=== PATIENT | female | born 1970 | race Caucasian/White ===

== ENCOUNTER 2023-05-22 17:48 | Emergency (ER) | payer MEDICAID, SELFPAY ==
[2023-05-22] VITALS (9 sets, daily range): BP systolic 108–173; BP diastolic 71–99; PULSE 90–110; RESP 12–34; TEMP 37.1; O2SAT 94–98; BMI 44.6
--- NOTE | 2023-05-22 18:09 | CT_ITS ---
The [address] [address] Patient Name: EZEQUIEL ZIMMERMAN MRN: [facility]:[id number] date: 1970 Sex: F Assigned Patient Location: ER Current Patient Location: Accession/Order Number: [id number] Exam Date: 05/22/2023 18:49 Report Date: 05/22/2023 19:42 At the request of: MOHAN FERRELL Procedure: CT lumbar spine wo con EXAM: CT thoracic spine wo con, CT lumbar spine wo con HISTORY: Paresthesia. Back pain. Weakness. COMPARISON: None. TECHNIQUE: Unenhanced helical acquisition obtained through the thoracic and the lumbar spine with axial, coronal and sagittal MPR reconstructions. FINDINGS: No evidence of fracture or spondylolisthesis. Moderate multilevel degenerative disc disease present throughout the mid and inferior thoracic spine. Minimal deformity upon the ventral aspect of the thecal sac secondary to posterior disc-osteophyte complexes at T6-T7, T7-T8 and T8-T9 without evidence of significant spinal canal stenosis. Mild degenerative disc disease at L5-S1. Moderate-severe bilateral facet arthropathy at L4-L5 and L5-S1. No evidence of significant spinal canal stenosis involving the lumbar spine. Moderate-severe left L5-S1 foraminal stenosis secondary to facet arthropathy and endplate spurring. CT/CT lumbar spine wo con IMPRESSION: 1. Moderate-severe left L5-S1 foraminal stenosis. 2. No evidence of significant spinal canal stenosis. 3. Mild-moderate multilevel degenerative disc disease involving the thoracic and the lumbar spine. Moderate-severe bilateral facet arthropathy at L4-L5 and L5-S1. Electronically authenticated by: CHIP PERES Date: 05/22/2023 19:42
--- NOTE | 2023-05-22 18:09 | CT_ITS ---
The [address] [address] Patient Name: EZEQUIEL ZIMMERMAN MRN: [facility]:[id number] date: 1970 Sex: F Assigned Patient Location: ER Current Patient Location: Accession/Order Number: [id number] Exam Date: 05/22/2023 18:49 Report Date: 05/22/2023 19:42 At the request of: MOHAN FERRELL Procedure: CT thoracic spine wo con EXAM: CT thoracic spine wo con, CT lumbar spine wo con HISTORY: Paresthesia. Back pain. Weakness. COMPARISON: None. TECHNIQUE: Unenhanced helical acquisition obtained through the thoracic and the lumbar spine with axial, coronal and sagittal MPR reconstructions. FINDINGS: No evidence of fracture or spondylolisthesis. Moderate multilevel degenerative disc disease present throughout the mid and inferior thoracic spine. Minimal deformity upon the ventral aspect of the thecal sac secondary to posterior disc-osteophyte complexes at T6-T7, T7-T8 and T8-T9 without evidence of significant spinal canal stenosis. Mild degenerative disc disease at L5-S1. Moderate-severe bilateral facet arthropathy at L4-L5 and L5-S1. No evidence of significant spinal canal stenosis involving the lumbar spine. Moderate-severe left L5-S1 foraminal stenosis secondary to facet arthropathy and endplate spurring. CT/CT thoracic spine wo con IMPRESSION: 1. Moderate-severe left L5-S1 foraminal stenosis. 2. No evidence of significant spinal canal stenosis. 3. Mild-moderate multilevel degenerative disc disease involving the thoracic and the lumbar spine. Moderate-severe bilateral facet arthropathy at L4-L5 and L5-S1. Electronically authenticated by: CHIP PERES Date: 05/22/2023 19:42
--- NOTE | 2023-05-22 18:09 | CT_ITS ---
The [address] [address] Patient Name: EZEQUIEL ZIMMERMAN MRN: [id number] date: 1970 Sex: F Assigned Patient Location: ER Current Patient Location: ER Accession/Order Number: [id number] Exam Date: 05/22/2023 18:49 Report Date: 05/22/2023 19:12 At the request of: MOHAN FERRELL Procedure: CT head/brain wo con EXAMINATION: CT head/brain wo con, 05/22/2023 6:49 PM EDT HISTORY: Facial numbness COMPARISON: None. TECHNIQUE: CT scan of the head was performed without IV contrast. CT dose reduction technique was used, including Automated Exposure Control. FINDINGS: BRAIN PARENCHYMA/CSF SPACES: Ventricles are normal in size for age. There is no hemorrhage, mass effect or midline shift. Mild low attenuation in the white matter consistent with chronic microvascular ischemia. PARANASAL SINUSES: Clear. SKULL BASE AND CALVARIUM: Normal. EXTRACRANIAL SOFT TISSUES: Normal. CT/CT head/brain wo con IMPRESSION: 1. No acute intracranial abnormality. 2. MRI would be more sensitive for acute infarct if clinically indicated. Electronically authenticated by: ANGÉLICA MINOR Date: 05/22/2023 19:12
--- NOTE | 2023-05-22 18:09 | ECG_ITS ---
The [facility] Test Date: 2023-05-22 Pat Name: EZEQUIEL ZIMMERMAN Department: Room: - Gender: Female [employer]: : 1970 Requested By: [id number] Order Number: [id number] Reading MD: AUBREY ALLEN Measurements Intervals [place] Rate: 95 P: 54 FL: 186 QRS: 26 QRSD: 74 T: 51 QT: 330 QTc: 383 Interpretive Statements 1100 Sinus rhythm 4068 Nonspecific [place] abnormality 8102 Low QRS voltage in chest leads 9130 borderline ECG No previous ECG available for comparison Electronically Signed On 05-23-2023 7:09:38 EDT by AUBREY ALLEN
--- NOTE | 2023-05-22 18:11 | ED_ITS ---
Documented by User: MITCHEL Camarena 05/22/23 19:48 HPI - General Adult General Chief complaint: Neuro Symptoms/Deficit Stated complaint: GENERAL WEAKNESS Time Seen by Provider: 05/22/23 17:53 Source: patient Mode of arrival: Wheelchair Limitations: no limitations History of Present Illness HPI narrative: Patient is a 53-year-old female who presents to the emergency department for a variety of complaints. Patient states for the last day she has felt weak and has noted a sensation of like Novocain all over her face although she is noted to be speaking clearly. She denies any fevers, cough, congestion, chest pain, shortness breath, nausea, vomiting, urinary symptoms. She states she recently started seeking regular health care approximately ten months ago and has been seen by both her primary care provider in a neurologist. She has a history of neuropathy to the feet and is currently on Lyrica for this. She states in the last 7-10 days she has noticed an increase in pins and needle sensation to her legs, low back. She saw her PCP who attributed the symptoms to her Lyrica but told her to stay on the medication. She denies any recent falls or injuries. She states she is further concerned because she can feel crunching in her upper back and states that she did have an MRI earlier this year of the thoracic spine which showed bulging disks. No medications taken prior to arrival. Related Data Home Medications Medication Instructions Recorded Confirmed allopurinol 300 mg tablet 300 mg PO DAILY 05/22/23 05/22/23 atorvastatin 10 mg tablet 10 mg PO DAILY 05/22/23 05/22/23 cholecalciferol (vitamin D3) 50 50 mcg PO DAILY 05/22/23 05/22/23 mcg (2,000 unit) capsule dulaglutide 3 mg/0.5 mL 3 mg subcut QWEEK 05/22/23 05/22/23 [facility] levothyroxine 50 mcg tablet 50 mcg PO DAILY 05/22/23 05/22/23 lisinopril 2.5 mg tablet 2.5 mg PO DAILY 05/22/23 05/22/23 metformin 500 mg tablet 500 mg PO .Q12hrs 05/22/23 05/22/23 nabumetone 500 mg tablet 500 mg PO BID 05/22/23 05/22/23 pregabalin 200 mg capsule 200 mg PO Q8H 05/22/23 05/22/23 tizanidine 4 mg capsule 4 mg PO Q8H PRN back pain 05/22/23 05/22/23 trazodone 50 mg tablet 50 mg PO DAILY PRN sleep 05/22/23 05/22/23 Previous Rx's Medication Instructions Recorded prednisone 20 mg tablet 40 mg PO DAILY 3 days #6 tabs 05/22/23 Allergies Allergy/AdvReac Type Severity Reaction Status Date / Time propylthiouracil Allergy Severe Hives Verified 05/22/23 17:59 Review of Systems ROS Constitutional Denies: fever or chills Ears, nose, mouth, and throat Denies: neck pain Cardiovascular Denies: chest pain Respiratory Denies: shortness of breath or cough Gastrointestinal Denies: nausea or vomiting Musculoskeletal Reports: back pain and extremity pain; Denies: neck pain Integumentary/Breast Denies: rash Neurological Denies: headache Hematologic/Lymphatic Denies: easy bruising Allergic/Immunologic Denies: hives PFSH [facility] Social History Smoking status: Former smoker Exam Narrative Exam Narrative: Gen.: Awake, alert, in no distress Head: Normocephalic, atraumatic ENT: Moist mucous membranes Respiratory: No respiratory distress, lungs clear bilaterally Cardio: Regular rate and rhythm Back: No bony midline tenderness of the T-spine or L-spine. No obvious deformity or step-off Extremities: Moves extremities equally, no injuries noted; normal dorsiflexion and plantarflexion of the lower extremities with no decrease in sensation to the medial thighs, normal hip flexion bilaterally. Psych: Normal mood and affect Neuro: No focal neuro deficit Skin: Warm, dry, intact Constitutional Vital Signs, click to edit/add: Last Vital Signs Temp 98.8 F 05/22/23 17:52 Pulse 91 H 05/22/23 19:59 Resp 16 05/22/23 19:05 BP 108/71 05/22/23 19:59 Pulse Ox 96 05/22/23 19:59 O2 Del Method Room Air 05/22/23 17:52 Course Vital Signs Vital signs: Vital Signs Temperature 98.8 F 05/22/23 17:52 Pulse Rate 110 H 05/22/23 17:52 Respiratory Rate 18 05/22/23 17:52 Blood Pressure 173/99 H 05/22/23 17:52 Pulse Oximetry 97 05/22/23 17:52 Oxygen Delivery Method Room Air 05/22/23 17:52 Temperature 98.8 F 05/22/23 17:52 Pulse Rate 91 H 05/22/23 19:59 Respiratory Rate 16 05/22/23 19:05 Blood Pressure 108/71 05/22/23 19:59 Pulse Oximetry 96 05/22/23 19:59 Oxygen Delivery Method Room Air 05/22/23 17:52 Medical Decision Making MDM Narrative Medical decision making narrative: Patient with no focal neuro deficits in the emergency department. She is treated with IV fluids, Solu-Medrol. CTs of the brain, T-spine and L-spine show significant degenerative changes in the spine but no evidence of acute focal process. Patient will be started on Medrol Dosepak for home. She has a history of diabetes and was strongly encouraged to watch her blood sugar and diet over the next several days. Follow-up with PCP and return to the emergency department if symptoms change or worsen. Medical Records Medical records reviewed: Yes I reviewed the patient's medical records Lab Data Lab results reviewed: Yes I reviewed the patient's lab results Labs: Lab Results 05/22/23 05/22/23 Range/Units 18:17 19:13 WBC 11.5 H (4.0-11.0) 10^3/uL RBC 4.88 (4.20-5.40) 10^6/uL Hgb 15.1 (12.0-16.0) g/dL Hct 44.4 (36.0-48.0) % MCV 91.0 (81.0-99.0) fL MCH 30.9 (26.7-34.0) pg MCHC 34.0 (29.9-35.2) g/dL RDW 12.2 (11.0-15.0) % Plt Count 256 (150-450) 10^3/uL MPV 9.4 L (9.5-13.5) fL Neut % (Auto) 68.5 (43.0-75.0) % Lymph % (Auto) 21.7 (20.5-60.0) % [place] % (Auto) 6.4 (1.7-12.0) % Eos % (Auto) 2.4 (0.9-7.0) % Baso % (Auto) 0.8 (0.2-2.0) % Neut # (Auto) 7.9 H (1.4-6.5) 10^3/uL Lymph # (Auto) 2.5 (1.2-3.8) 10^3/uL [place] # (Auto) 0.7 (0.3-0.8) 10^3/uL Eos # (Auto) 0.3 (0.0-0.7) 10^3/uL Baso # (Auto) 0.1 (0.0-0.1) 10^3/uL Abs Immat Gran (auto) 0.02 (0.00-0.03) 10^3/uL Imm/Tot Granulo (auto) 0.2 (0.0-0.5) % ESR 37 H (<=30) mm/hr Sodium 140 (136-145) mmol/L Potassium 3.6 (3.5-5.1) mmol/L Chloride 103 (98-107) mmol/L Carbon Dioxide 26.1 (21.0-32.0) mmol/L Anion Gap 14.5 BUN 10.0 (7.0-18.0) mg/dL Creatinine 0.77 (0.55-1.02) mg/dL Est GFR ( Amer) >60 (>=60) Est GFR (Non-Af Amer) >60 (>=60) BUN/Creatinine Ratio 13.0 Glucose 157 H (74-106) mg/dL Calcium 8.8 (8.5-10.1) mg/dL Magnesium 2.0 (1.8-2.4) mg/dL Total Bilirubin 0.8 (0.2-1.0) mg/dL AST 12 L (15-37) U/L ALT 31 (14-59) U/L Alkaline Phosphatase 80 (46-116) U/L C-Reactive Protein <0.2 (<=1.0) mg/dL Total Protein 7.8 (6.4-8.2) g/dL Albumin 3.6 (3.4-5.0) g/dL Globulin 4.2 g/dL Albumin/Globulin Ratio 0.9 Urine Color Yellow (YELLOW) Urine Clarity Clear (CLEAR) Urine pH 6.0 (5.0-9.0) Ur Specific [place] 1.025 (1.005-1.025) Urine Protein Negative (NEG/TRACE) mg/dL Urine Glucose (UA) Negative (NEGATIVE) mg/dL Urine Ketones Negative (NEGATIVE) mg/dL Urine Occult Blood Negative (NEGATIVE) Urine Nitrite Negative (NEGATIVE) Urine Bilirubin Negative (NEGATIVE) Urine Urobilinogen 0.2 (0.2-1.0) EU/dL Ur Leukocyte Esterase Negative (NEGATIVE) Imaging Data CT scan - head: Attestation: I have reviewed the pertinent imaging results. Radiologist's impression: Procedure: CT head/brain wo con EXAMINATION: CT head/brain wo con, 05/22/2023 6:49 PM EDT HISTORY: Facial numbness COMPARISON: None. TECHNIQUE: CT scan of the head was performed without IV contrast. CT dose reduction technique was used, including Automated Exposure Control. FINDINGS: BRAIN PARENCHYMA/CSF SPACES: Ventricles are normal in size for age. There is no hemorrhage, mass effect or midline shift. Mild low attenuation in the white matter consistent with chronic microvascular ischemia. PARANASAL SINUSES: Clear. SKULL BASE AND CALVARIUM: Normal. EXTRACRANIAL SOFT TISSUES: Normal. IMPRESSION: 1. No acute intracranial abnormality. 2. MRI would be more sensitive for acute infarct if clinically indicated. Electronically authenticated by: ANGÉLICA MINOR Date: 05/22/2023 19:12 CT thoracic spine: Attestation: I have reviewed the pertinent imaging results. CT lumbar spine: Attestation: I have reviewed the pertinent imaging results. ECG Data Attestation: I personally reviewed and interpreted this ECG as follows: (Normal sinus rhythm at a rate of ninety-five, no acute ST elevation or ectopy. EKG reviewed by attending physician) Discharge Plan Discharge Chief Complaint: Neuro Symptoms/Deficit Clinical Impression: Paresthesia Patient Disposition: Home, Self-Care Time of Disposition Decision: 19:47 Condition: Good Prescriptions / Home Meds: New prednisone 20 mg tablet 40 mg PO DAILY 3 Days Qty: 6 0RF No Action allopurinol 300 mg tablet 300 mg PO DAILY atorvastatin 10 mg tablet 10 mg PO DAILY cholecalciferol (vitamin D3) 50 mcg (2,000 unit) capsule 50 mcg PO DAILY levothyroxine 50 mcg tablet 50 mcg PO DAILY lisinopril 2.5 mg tablet 2.5 mg PO DAILY metformin 500 mg tablet 500 mg PO .Q12hrs nabumetone 500 mg tablet 500 mg PO BID pregabalin 200 mg capsule 200 mg PO Q8H tizanidine 4 mg capsule 4 mg PO Q8H PRN (Reason: back pain) trazodone 50 mg tablet 50 mg PO DAILY PRN (Reason: sleep) Trulicity 3 mg/0.5 mL pen injector 3 mg subcut QWEEK Instructions: Paresthesia (ED) Additional Instructions: Follow up with your regular doctor and your neurologist Stand Alone Forms: Portal Instructions Referrals: LARS DAVIS [Primary Care Provider] - 1 week Discharge Date/Time: 05/22/23 20:00 Documented by User: Carly Chiu MD 05/24/23 23:01 HPI - General Adult General Chief complaint: Neuro Symptoms/Deficit Stated complaint: GENERAL WEAKNESS Time Seen by Provider: 05/22/23 17:53 Related Data Home Medications Medication Instructions Recorded Confirmed allopurinol 300 mg tablet 300 mg PO DAILY 05/22/23 05/22/23 atorvastatin 10 mg tablet 10 mg PO DAILY 05/22/23 05/22/23 cholecalciferol (vitamin D3) 50 50 mcg PO DAILY 05/22/23 05/22/23 mcg (2,000 unit) capsule dulaglutide 3 mg/0.5 mL 3 mg subcut QWEEK 05/22/23 05/22/23 subcutaneous pen injector (Trulicity) levothyroxine 50 mcg tablet 50 mcg PO DAILY 05/22/23 05/22/23 lisinopril 2.5 mg tablet 2.5 mg PO DAILY 05/22/23 05/22/23 metformin 500 mg tablet 500 mg PO .Q12hrs 05/22/23 05/22/23 nabumetone 500 mg tablet 500 mg PO BID 05/22/23 05/22/23 pregabalin 200 mg capsule 200 mg PO Q8H 05/22/23 05/22/23 tizanidine 4 mg capsule 4 mg PO Q8H PRN back pain 05/22/23 05/22/23 trazodone 50 mg tablet 50 mg PO DAILY PRN sleep 05/22/23 05/22/23 Previous Rx's Medication Instructions Recorded prednisone 20 mg tablet 40 mg PO DAILY 3 days #6 tabs 05/22/23 Allergies Allergy/AdvReac Type Severity Reaction Status Date / Time propylthiouracil Allergy Severe Hives Verified 05/22/23 17:59 PFSH PFSH Social History Smoking status: Former smoker Exam Constitutional Vital Signs, click to edit/add: Last Vital Signs Temp 98.8 F 05/22/23 17:52 Pulse 91 H 05/22/23 19:59 Resp 16 05/22/23 19:05 BP 108/71 05/22/23 19:59 Pulse Ox 96 05/22/23 19:59 O2 Del Method Room Air 05/22/23 17:52 Course Vital Signs Vital signs: Vital Signs Temperature 98.8 F 05/22/23 17:52 Pulse Rate 110 H 05/22/23 17:52 Respiratory Rate 18 05/22/23 17:52 Blood Pressure 173/99 H 05/22/23 17:52 Pulse Oximetry 97 05/22/23 17:52 Oxygen Delivery Method Room Air 05/22/23 17:52 Temperature 98.8 F 05/22/23 17:52 Pulse Rate 91 H 05/22/23 19:59 Respiratory Rate 16 05/22/23 19:05 Blood Pressure 108/71 05/22/23 19:59 Pulse Oximetry 96 05/22/23 19:59 Oxygen Delivery Method Room Air 05/22/23 17:52 Medical Decision Making MDM Narrative Medical decision making narrative: Patient with no focal neuro deficits in the emergency department. She is treated with IV fluids, Solu-Medrol. CTs of the brain, T-spine and L-spine show significant degenerative changes in the spine but no evidence of acute focal process. Patient will be started on Medrol Dosepak for home. She has a history of diabetes and was strongly encouraged to watch her blood sugar and diet over the next several days. Follow-up with PCP and return to the emergency department if symptoms change or worsen. Attending physician attestation I have reviewed the mid-level documentation, agree with the documentation, medical decision making and treatment plan as outlined by the mid-level provider. Lab Data Labs: Lab Results 05/22/23 05/22/23 Range/Units 18:17 19:13 WBC 11.5 H (4.0-11.0) 10^3/uL RBC 4.88 (4.20-5.40) 10^6/uL Hgb 15.1 (12.0-16.0) g/dL Hct 44.4 (36.0-48.0) % MCV 91.0 (81.0-99.0) fL MCH 30.9 (26.7-34.0) pg MCHC 34.0 (29.9-35.2) g/dL RDW 12.2 (11.0-15.0) % Plt Count 256 (150-450) 10^3/uL MPV 9.4 L (9.5-13.5) fL Neut % (Auto) 68.5 (43.0-75.0) % Lymph % (Auto) 21.7 (20.5-60.0) % [place] % (Auto) 6.4 (1.7-12.0) % Eos % (Auto) 2.4 (0.9-7.0) % Baso % (Auto) 0.8 (0.2-2.0) % Neut # (Auto) 7.9 H (1.4-6.5) 10^3/uL Lymph # (Auto) 2.5 (1.2-3.8) 10^3/uL [place] # (Auto) 0.7 (0.3-0.8) 10^3/uL Eos # (Auto) 0.3 (0.0-0.7) 10^3/uL Baso # (Auto) 0.1 (0.0-0.1) 10^3/uL Abs Immat Gran (auto) 0.02 (0.00-0.03) 10^3/uL Imm/Tot Granulo (auto) 0.2 (0.0-0.5) % ESR 37 H (<=30) mm/hr Sodium 140 (136-145) mmol/L Potassium 3.6 (3.5-5.1) mmol/L Chloride 103 (98-107) mmol/L Carbon Dioxide 26.1 (21.0-32.0) mmol/L Anion Gap 14.5 BUN 10.0 (7.0-18.0) mg/dL Creatinine 0.77 (0.55-1.02) mg/dL Est GFR ( Amer) >60 (>=60) Est GFR (Non-Af Amer) >60 (>=60) BUN/Creatinine Ratio 13.0 Glucose 157 H (74-106) mg/dL Calcium 8.8 (8.5-10.1) mg/dL Magnesium 2.0 (1.8-2.4) mg/dL Total Bilirubin 0.8 (0.2-1.0) mg/dL AST 12 L (15-37) U/L ALT 31 (14-59) U/L Alkaline Phosphatase 80 (46-116) U/L C-Reactive Protein <0.2 (<=1.0) mg/dL Total Protein 7.8 (6.4-8.2) g/dL Albumin 3.6 (3.4-5.0) g/dL Globulin 4.2 g/dL Albumin/Globulin Ratio 0.9 Urine Color Yellow (YELLOW) Urine Clarity Clear (CLEAR) Urine pH 6.0 (5.0-9.0) Ur Specific [place] 1.025 (1.005-1.025) Urine Protein Negative (NEG/TRACE) mg/dL Urine Glucose (UA) Negative (NEGATIVE) mg/dL Urine Ketones Negative (NEGATIVE) mg/dL Urine Occult Blood Negative (NEGATIVE) Urine Nitrite Negative (NEGATIVE) Urine Bilirubin Negative (NEGATIVE) Urine Urobilinogen 0.2 (0.2-1.0) EU/dL Ur Leukocyte Esterase Negative (NEGATIVE) Discharge Plan Discharge Chief Complaint: Neuro Symptoms/Deficit Clinical Impression: Paresthesia Patient Disposition: Home, Self-Care Time of Disposition Decision: 19:47 Condition: Good Prescriptions / Home Meds: New prednisone 20 mg tablet 40 mg PO DAILY 3 Days Qty: 6 0RF No Action allopurinol 300 mg tablet 300 mg PO DAILY atorvastatin 10 mg tablet 10 mg PO DAILY cholecalciferol (vitamin D3) 50 mcg (2,000 unit) capsule 50 mcg PO DAILY levothyroxine 50 mcg tablet 50 mcg PO DAILY lisinopril 2.5 mg tablet 2.5 mg PO DAILY metformin 500 mg tablet 500 mg PO .Q12hrs nabumetone 500 mg tablet 500 mg PO BID pregabalin 200 mg capsule 200 mg PO Q8H tizanidine 4 mg capsule 4 mg PO Q8H PRN (Reason: back pain) trazodone 50 mg tablet 50 mg PO DAILY PRN (Reason: sleep) Trulicity 3 mg/0.5 mL pen injector 3 mg subcut QWEEK Instructions: Paresthesia (ED) Additional Instructions: Follow up with your regular doctor and your neurologist Stand Alone Forms: Portal Instructions Referrals: LARS DAVIS [Primary Care Provider] - 1 week Discharge Date/Time: 05/22/23 20:00
--- NOTE | 2023-05-22 18:14 | PC.NURSE ---
pt presents to ED c/o back pain for the last week and for the last day she has felt weak and has numbness and tingling in her face and everywhere else in her body. pt states that her feet occasionally turn purple depending on what she is doing. pt also c/o back pain and states she can hear crunching and squishy noises in her ears. pt states that she feels like she is being squeezed by a python . pt is neurologically intact on arrival. no neuro deficits. pt came back to room in wheelchair but ambulated to bed.
[2023-05-22] MEDS: 0.9 % SODIUM CHLORIDE 1,000 ML 1000 ML IV (18:24)
[2023-05-22] MEDS: METHYLPREDNISOLONE SOD SUCC PF 125 MG/2 ML VIAL IVP (18:25)
[2023-05-22] MEDS: KETOROLAC TROMETHAMINE 30 MG/ML VIAL IVP (18:25)
[2023-05-22 18:39] LABS: Alanine Aminotransferase 31 U/L (14-59); Albumin Globulin Ratio 0.9; Albumin Level 3.6 g/dL (3.4-5.0); Alkaline Phosphatase 80 U/L (46-116); Anion Gap 14.5; Aspartate Amino Transferase 12 U/L (15-37); Bilirubin Total 0.8 mg/dL (0.2-1.0); Calcium 8.8 mg/dL (8.5-10.1); Carbon Dioxide 26.1 mmol/L (21.0-32.0); Chloride 103 mmol/L (98-107); Estimated GFR (African America >60 (>=60); Estimated GFR (Non-African Ame >60 (>=60); Globulin 4.2 g/dL; Glucose 157 mg/dL (74-106); Potassium 3.6 mmol/L (3.5-5.1); Sodium 140 mmol/L (136-145); Total Protein 7.8 g/dL (6.4-8.2)
[2023-05-22 18:41] LABS: Basophils Absolute Auto 0.1 10^3/uL (0.0-0.1); Basophils Percent Auto 0.8 % (0.2-2.0); Eosinophils Absolute Auto 0.3 10^3/uL (0.0-0.7); Eosinophils Percent Auto 2.4 % (0.9-7.0); Hematocrit 44.4 % (36.0-48.0); Hemoglobin 15.1 g/dL (12.0-16.0); Immature Granulocytes Abs Auto 0.02 10^3/uL (0.00-0.03); Immature Granulocytes Pct Auto 0.2 % (0.0-0.5); Lymphocytes Absolute Auto 2.5 10^3/uL (1.2-3.8); Lymphocytes Percent Auto 21.7 % (20.5-60.0); Mean Corpuscular Hemoglobin 30.9 pg (26.7-34.0); Mean Platelet Volume 9.4 fL (9.5-13.5); Monocytes Absolute Auto 0.7 10^3/uL (0.3-0.8); Monocytes Percent Auto 6.4 % (1.7-12.0); Neutrophils Absolute Auto 7.9 10^3/uL (1.4-6.5); Neutrophils Percent Auto 68.5 % (43.0-75.0); Platelet Count 256 10^3/uL (150-450); Red Blood Count 4.88 10^6/uL (4.20-5.40); Red Cell Distribution Width 12.2 % (11.0-15.0); White Blood Count 11.5 10^3/uL (4.0-11.0)
[2023-05-22 18:54] LABS: C Reactive Protein <0.2 mg/dL (<=1.0)
[2023-05-22 19:01] LABS: Erythrocyte Sedimentation Rate 37 mm/hr (<=30)
[2023-05-22 19:24] LABS: Bilirubin Urine NEGATIVE (NEGATIVE); Blood Urine NEGATIVE (NEGATIVE); Clarity Urine CLEAR (CLEAR); Color Urine YELLOW (YELLOW); Glucose Urine UA NEGATIVE (NEGATIVE); Ketones Urine NEGATIVE (NEGATIVE); Leukocyte Esterase Urine NEGATIVE (NEGATIVE); Nitrite Urine NEGATIVE (NEGATIVE); Protein Urine NEGATIVE (NEG/TRACE); Specific Gravity Urine 1.025 (1.005-1.025); Urobilinogen Urine 0.2 EU/dL (0.2-1.0)
[2023-05-22 19:28] LABS: Urine Microscopic Indicated NO
== END 2023-05-22 20:00 | disposition home or self-care (01) ==
PROVIDERS: Physician Assistant; Emergency Provider Emergency Medicine; PCP Family Medicine
DX: R20.2 Paresthesia of skin (principal); Z79.899 Other long term (current) drug therapy; Z79.84 Long term (current) use of oral hypoglycemic drugs; Z79.890 Hormone replacement therapy; Z87.891 Personal history of nicotine dependence
CPT/HCPCS: 36415; 70450; 72128; 72131; 80053; 81003; 83735; 85025; 85652; 86140; 93005; 96374; 96375; 99285; J2930

== ENCOUNTER 2023-09-26 10:44 | Outpatient (OUT) | payer MEDICAID, SELFPAY ==
--- NOTE | 2023-09-26 | CONS_ITS ---
CONSULTATION DATE: 09/26/2023 TO: Zehra Marques M.D. CHIEF COMPLAINT: Includes severe bilateral lower back pain, wore on the left than the right side, with left hip pain and right buttock pain. HISTORY OF PRESENT ILLNESS: Review of systems, past medical/surgical history were obtained and documented on the health questionnaire and is available upon request. She is a 53-year-old female who reports having a six month history of spontaneous onset pain in the above mentioned areas, primarily in her lower back, worse on the left than the right side, left hip area and right gluteal area, right lateral thigh pain. Overall, she rates her pain being 9/10, sharp in character, increased with activities such as standing, walking and performing transitioning maneuvers. She feels most comfortable in the semi-recumbent position. Denies any change in bowel and bladder habits or new sensorimotor changes in the lower extremities. CURRENT MEDICATION: Includes gabapentin 600 mg t.i.d., nabumetone 500 mg b.i.d., duloxetine 30 mg daily. She reports the medications do improve her quality of life, level of functioning and sleep pattern. She complains of some dry mouth and possibly relates it to the duloxetine. EXAMINATION: Notable for patient having no clinical radiculopathy or myelopathy involving the lower extremities. Patient had severe pain with lumbar facet joint loading maneuvers occurring bilaterally, worse on the left than the right side, at L4-5, L5-S1. Patient had a positive PILAR sign, more significant on the left than the right side, and she also had point tenderness overlying the right trochanteric bursa at a point just proximal to the insertion of the right gluteus medius, and she also had myofascial spasm of the lumbar paravertebral muscles, occurring bilaterally. IMPRESSION: Our impression is patient with chronic pain secondary to lumbosacral spondylosis L4-5, L5-S1, worse on the left than the right side, leading to myofascial spasm; bilateral hip joint pain, left worse than right and right trochanteric bursitis. RECOMMENDATIONS: I recommend that patient have aquatic therapy, transition from a home based land exercise program, which has been supervised. I have asked her to obtain bilateral hip films, and to proceed with a diagnostic bilateral L4-5, L5-S1 facet joint injection under fluoroscopic guidance. She is unable to tolerate nonsteroidal agents secondary to GI distress, and she has been undergoing conservative therapy which includes a home supervised exercise program for her current symptomatology, and also has undergone activity modification. I have gone over the details of the procedure with the patient. All her questions answered. She agrees to proceed with the outlined plan. As part of providing excellent, safe, comprehensive care, the following was completed at our patient's visit: 1. A medication reconciliation and review to ensure accurate knowledge of current/active medications, including asking our patients to inform us about any [id number] medications or herbal remedies/nutritional supplements/alternative remedies. 2. A review to specifically ensure our patients have had annual screening for: elevated body mass index (BMI, see intake chart for exact total), tobacco use, screening for depression, and screening for unhealthy alcohol use. When screening is concerning, patients are provided with education and the specific recommendation to discuss the concerning health issue and treatment options with their primary care provider. ALFONSO
== END 2023-09-26 10:45 | disposition home or self-care (01) ==
LOC: PM 10:45
PROVIDERS: PCP Family Medicine; Visit Provider Anesthesiology Pain Medicine
DX: M47.816 Spondylosis without myelopathy or radiculopathy, lumbar region (principal); M62.838 Other muscle spasm; M25.551 Pain in right hip; M25.552 Pain in left hip; M70.61 Trochanteric bursitis, right hip
CPT/HCPCS: G0463

== ENCOUNTER 2023-10-15 07:00 | Outpatient (RCR) | payer MEDICAID, SELFPAY | END 2023-10-16 16:08 | disposition home or self-care (01) | LOC: PT 07:00 | PROVIDERS: PCP Family Medicine; Visit Provider Anesthesiology Pain Medicine | DX: M47.816 Spondylosis without myelopathy or radiculopathy, lumbar region (principal); M54.59 Other low back pain; R29.3 Abnormal posture; R26.89 Other abnormalities of gait and mobility; R26.9 Unspecified abnormalities of gait and mobility | CPT/HCPCS: 97110; 97161 ==

== ENCOUNTER 2023-10-21 15:49 | Outpatient (OUT) | payer MEDICAID, SELFPAY ==
--- OUTSIDE RECORDS SUMMARY | 2023-10-21 15:53 | XMS_ITS | CCD ---
Author Name Unknown Address [address] [place] [address] [facility] Care Team Providers Care Business Analyst Name Role Phone MICKEY OWEN Unavailable Unavailable MICHELLE CHOW Unavailable Unavailable Joshua Fraser Unavailable Unavailable Joshua Fraser Unavailable Unavailable None, No PCP Unavailable Unavailable Ezekiel Devi Unavailable Unavailable Joshua Fraser Unavailable UnavailDIMAS Corona Attending Provider [phone] MD Zehra Marques Primary Care Provider Brendan Coyle Admitting Unavailable Brendan Coyle Attending Unavailable Zehra Marques Primary Care Unavailable SUSAN, DR SOUSA Admitting Unavailable SUSAN, DR SOUSA Attending Unavailable SUSAN, DR SOUSA Primary Care Unavailable SUSAN, DR SOUSA Consulting Unavailable DAPHNEY RODRIGUEZ Admitting Unavailable DAPHNEY RODRIGUEZ Attending Unavailable SUSAN, DR SOUSA Primary Care Unavailable DAPHNEY RODRIGUEZ Admitting Unavailable DAPHNEY RODRIGUEZ Attending Unavailable SUSAN, DR SOUSA Primary Care Unavailable BRENDAN COYLE Admitting Unavailable BRENDAN COYLE Attending Unavailable SUSAN, DR SOUSA Primary Care Unavailable SUSAN, DR ZEHRA Prado Unavailable YEIMI ., MR HINTON Admitting Unavailable YEIMI ., MR HINTON Attending Unavailable SUSAN, DR SOUSA Primary Care Unavailable YEIMI ., MR HINTON Consulting Unavailable Medications Completed/Discontinued Medications Medication Drug Class(es) Dates Sig (Normalized) Sig (Original) diclofenac sodium 75 mg delayed release oral tablet (1 source) Nonsteroidal Anti-inflammatory Drug Start: 03-26-2020 take 1 tablet by mouth twice daily Diclofenac Sodium 75 MG Oral Tablet Delayed Release Take 1 tablet twice daily Quantity: 60 Refills: 1 Ezekiel Devi MD Start : 26-Mar-2020 Active meloxicam 15 mg oral tablet (3 sources) Nonsteroidal Anti-inflammatory Drug Start: 11-29-2018 take 1 tablet by mouth once daily Meloxicam 15 MG Oral Tablet TAKE 1 TABLET BY MOUTH EVERY DAY Quantity: 60 Refills: 2 Joshua Fraser DO Start : 29-Nov-2018 Active methIMAzole 10 mg oral tablet (1 source) Thyroid Hormone Synthesis Inhibitor Start: 03-10-2019 take 3 tablets by mouth twice daily methIMAzole 10 MG Oral Tablet take 3 tablet by mouth twice a day Quantity: 180 Refills: 0 Joshua Fraser DO Start : 10-Mar-2019 Active 24 hr propranolol hydrochloride 60 mg extended release oral capsule (1 source) beta-Adrenergic Pipo Start: 09-02-2018 take 1 capsule by mouth once daily Propranolol HCl ER 60 MG Oral Capsule Extended Release 24 Hour TAKE 1 CAPSULE BY MOUTH EVERY DAY Quantity: 30 Refills: 5 Joshua Fraser DO Start : 02-Sep-2018 Active triamcinolone acetonide 1 mg/ml topical cream (3 sources) Corticosteroid Start: 02-13-2020 Triamcinolone Acetonide 0.1 % External Cream APPLY TO AFFECTED AREA BID Quantity: 60 Refills: 2 Joshua Fraser DO Start : 13-Feb-2020 Active Start: 02-13-2020 Triamcinolone Acetonide 0.1 % External Cream APPLY TO AFFECTED AREA BID Quantity: 60 Refills: 2 Joshua Fraser DO Start : 13-Feb-2020 Active Problems Active Problems Problem Classification Problem Date Documented Da te Episodic/Chronic Allergic reactions (3 sources) Eczema; Translations: [Eczema] Episodic Cardiac dysrhythmias (1 source) Tachycardia; Translations: [Increased heart rate] Episodic Disorders of lipid metabolism (1 source) Dyslipidemia; Translations: [Dyslipidemia] Chronic Genitourinary symptoms and ill-defined conditions (1 source) Increased frequency of urination; Translations: [Urinary frequency] Episodic Noninfectious gastroenteritis (1 source) Acute gastroenteritis; Translations: [AGE (acute gastroenteritis)] Episodic Other connective tissue disease (3 sources) Lateral epicondylitis; Translations: [Tennis elbow] Episodic Other connective tissue disease (1 source) Pain in right arm; Translations: [Pain in right arm] Onset: 11-26-2022 Episodic Other gastrointestinal disorders (1 source) Diarrhea; Translations: [Diarrhea] Episodic Other nervous system disorders (5 sources) Paresthesia of skin; Translations: [PARESTHESIA OF SKIN] Onset: 01-12-2023 Episodic Other non-traumatic joint disorders (1 source) Shoulder pain; Translations: [Acute pain of right shoulder] Episodic Other non-traumatic joint disorders (4 sources) Pain in unspecified joint; Translations: [PAIN IN UNSPECIFIED JOINT] Onset: 01-21-2023 Episodic Other nutritional; endocrine; and metabolic disorders (1 source) Simple obesity ; 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] Chronic Peripheral and visceral atherosclerosis (4 sources) Peripheral vascular disease, unspecified; Translations: [PERIPHERAL VASCULAR DISEASE UNS] Onset: 01-31-2023 Chronic Thyroid disorders (2 sources) Thyrotoxicosis, unspecified without thyrotoxic crisis or storm; Translations: [Hyperthyroidism] Onset: 02-14-2018 Chronic Past or Other Problems Problem Classification Problem Date Documented Da te Episodic/Chronic Other connective tissue disease (4 sources) Pain in right arm; Translations: [PAIN IN RIGHT ARM] Onset: 11-19-2022 Episodic Other connective tissue disease (1 source) Pain in left arm; Translations: [PAIN IN LEFT ARM] Onset: 11-19-2022 Episodic Spondylosis; intervertebral disc disorders; other back problems (1 source) Radiculopathy, lumbosacral region; Translations: [RADICULOPATHY LUMBOSACRAL REGION] Onset: 11-19-2022 Episodic NEGATED: Highlighted row has not occurred!Residual codes; unclassified (3 sources) Disease Episodic Results Test Name Value Interpretation Reference Range Facility HLA B [facility] 01-28-2023 HLA-B27 Negative Normal [facility] Comment on above: Result Comment: HLA- B*27 Negative B27 allele interpretation for all loci based on IMGT/HLA database version 3.44 This test was developed and its performance characteristics determined by [facility]. It has not been cleared or approved by the Food and Drug Administration. [facility] Lab CLIA ID Number [id number] . This test was performed using PCR (Polymerase Chain Reaction)/SSOP (Sequence Specific Oligonucleotide Probes) technique. SBT (Sequence Based Typing) and/or SSP (Sequence Specific Primers) may be used as supplemental methods when necessary. Please contact HLA Customer Service at if you have any questions. . Director of HLA Laboratory Dr Jett Carpio, PhD Performed By: #### H LA27 #### [facility] [address] [place] [address] Dr. Daniela Ledesma CALEB by IFAon 01-24-2023 Antinuclear Antibodies, IFA Negative Normal [place] Comment on above: Result Comment: Nega tive <1:80 Borderline 1:80 Positive >1:80 ICAP nomenclature: AC-0 For more information about Hep-2 cell patterns use ANApatterns.org, the official website for the International Consensus on Antinuclear Antibody (CALEB) Patterns (ICAP). Performed By: #### A NAIFA #### [facility] [address] [place] [address] Dr. Daniela Ledesma RHEUMATOID FACTORon 01-24-20 RA Latex Turbid. <10.0 Normal <14.0 [facility] Comment on above: Performed By: #### R F #### [facility] [address] [place] [address] Dr. Daniela Ledesma CBC AUTO DIFFon 01-21-2023 BASO # 0.1 103/ul Normal 0.0-0.1 [place] Comment on above: Performed By: #### C BC #### [facility] [address] [place] [address] Dr. Daniela Ledesma Basophils/100 WBC (Bld) 0.9 % Normal 0.2-2.0 [place] Comment on above: Performed By: #### C BC #### [facility] [address] [place] [address] Dr. Daniela Ledesma EO # 0.7 103/ul Normal 0.0-0.7 [facility] Comment on above: Performed By: #### C BC #### [facility] [address] [place] [address] Dr. Daniela Ledesma Eosinophils/100 WBC (Bld) 4.3 % Normal 0.9-7.0 [place] Comment on above: Performed By: #### C BC #### [facility] [address] [place] [address] Dr. Daniela Ledesma Erythrocyte distribution width (RBC) [Ratio] 13.2 % Normal 11.0-15.0 [place] Comment on above: Performed By: #### C BC #### [facility] [address] [place] [address] Dr. Daniela Ledesma Hematocrit (Bld) [Volume fraction] 45.4 % Normal 36.0-48.0 [place] Comment on above: Performed By: #### C BC #### [facility] [address] [place] [address] Dr. Daniela Ledesma Hemoglobin (Bld) [Mass/Vol] 15.7 g/dL Normal 12.0-16.0 [place] Comment on above: Performed By: #### C BC #### [facility] [address] [place] [address] Dr. Daniela Ledesma IG # 0.07 10e3/ul Critically high 0.00-0.03 [facility] Comment on above: Performed By: #### C BC #### [facility] [address] [place] [address] Dr. Daniela Ledesma IG % 0.5 % Normal 0.0-0.5 [place] Comment on above: Performed By: #### C BC #### [facility] [address] [place] [address] Dr. Daniela Ledesma LYMPH # 3.7 103/ul Normal 1.2-3.8 [place] Comment on above: Performed By: #### C BC #### [facility] [address] [place] [address] Dr. Daniela Ledesma Lymphocytes/100 WBC (Bld) 24.7 % Normal 20.5-60.0 [place] Comment on above: Performed By: #### C BC #### [facility] [address] [place] [address] Dr. Daniela Ledesma MANUAL DIFF REQ NO Normal [facility] Comment on above: Performed By: #### C BC #### [facility] [address] [place] [address] Dr. Daniela Ledesma MCH (RBC) [Entitic mass] 30.9 pg Normal 26.7-34.0 [facility] Comment on above: Performed By: #### C BC #### [facility] [address] [address] [address] Daniela Ledesma MCHC (RBC) [Mass/Vol] 34.6 g/dL Normal 29.9-35.2 [place] Comment on above: Performed By: #### C BC #### [facility] [address] [address] [address] Daniela Ledesma MCV (RBC) [Entitic vol] 89.4 fL Normal 81.0-99.0 [place] Comment on above: Performed By: #### C BC #### [facility] [address] [address] [address] Daniela Ledesma MONO # 0.7 103/ul Normal 0.3-0.8 [place] Comment on above: Performed By: #### C BC #### [facility] [address] [address] [address] Daniela Ledesma Monocytes/100 WBC (Bld) 4.4 % Normal 1.7-12.0 [place] Comment on above: Performed By: #### C BC #### [facility] [address] [address] [address] Daniela Ledesma NEUT # 9.8 103/ul Critically high 1.4-6.5 [facility] Comment on above: Performed By: #### C BC #### [facility] [address] [address] [address] Daniela Ledesma Neutrophils/100 WBC (Bld) 65.2 % Normal 43.0-75.0 [place] Comment on above: Performed By: #### C BC #### [facility] [address] [address] [address] Daniela Ledesma Platelet mean volume (Bld) [Entitic vol] 9.3 fL Critically low 9.5-13.5 [place] Comment on above: Performed By: #### C BC #### [facility] [address] [address] [address] Daniela Ledesma PLT 286 103/ul Normal 150-450 [facility] Comment on above: Performed By: #### C BC #### [facility] [address] [address] [address] Daniela Ledesma RBC 5.08 106/ul Normal 4.20-5.40 [place] Comment on above: Performed By: #### C BC #### [facility] [address] [place] [address] Dr. Daniela Ledesma WBC 15.1 103/ul Critically high 4.0-11.0 [facility] Comment on above: Performed By: #### C BC #### [facility] [address] [place] [address] Dr. Daniela Ledesma SED [facility] ISLANDRENon 2022 SED RATE 34 mm/hr Critically high <=30 [facility] Comment on above: Performed By: #### S EDR #### [facility] [address] [place] [address] Dr. Daniela Ledesma URIC ACID SERUMon 01-21-2023 Urate [Mass/Vol] 7.5 mg/dL Critically high 2.6-6.0 [place] Comment on above: Performed By: #### U TUTU #### [facility] [address] [place] [address] Dr. Daniela Ledesma CPKon 01-12-2023 CK [Catalytic activity/Vol] 98 U/L Normal 26-192 [place] Comment on above: Performed By: #### Jose David MIGUEL CK #### [facility] [address] [place] [address] Dr. Daniela Ledesma MYOGLOBINon 01-12-2023 SAW 34 ng/mL Normal 9-82 [facility] Comment on above: Performed By: #### Jose David MIGUEL CK #### [facility] [address] [place] [address] Dr. Daniela Ledesma MR cervical spine wo conon 0 11-27-2022 MR cervical spine wo con [facility] [place] [address] XRay Report Signed Patient: Ezequiel Coates MR#: [id number] : 1970 Acct:[id number] Age/Sex: 52 / F ADM Date: 11/26/22 Loc: MR [facility]: Brendan COCHRAN Copies to: DIMAS Rand Ordering Provider: DIMAS Rand Date of Service: 11/26/22 MR/MR cervical spine wo con: R20.2, M79.601 ([id number]) XR/XR pre/post mri xray: PRE MRI OF THE CERVICAL CLINICAL DATA: Entire body numbness and tingling. PRE-MRI CERVICAL SPINE - 3 views COMPARISON: None Lateral and both oblique views were obtained. No fractures or displacement are seen. The disc spaces are uniform. There is minor endplate spurring, greatest posteriorly at C5-6. The neural foramen on the left are patent. On the right, there is slight bony foraminal encroachment at C5-6. No prevertebral soft tissue swelling is seen. XR/XR pre/post mri xray IMPRESSION: NO ACUTE BONY FINDINGS. MRI CERVICAL SPINE WITHOUT CONTRAST Multiecho imaging in the axial and sagittal plane was performed without contrast. There are no acute compression fractures or marrow edema. No malalignment is noted. There is a normal cervicomedullary junction. The cord is within normal limits for caliber and signal intensity throughout its imaged course. There are small shotty cervical lymph nodes. At C5-6, there is mild disco-osteophytic bulging which is asymmetric toward the right neural foramen where there is at least mild foraminal impingement. There is no significant disc bulge or herniation involving the remaining levels. No additional central or foraminal stenosis is present. IMPRESSION: MILD DISCOVERTEBRAL DEGENERATIVE CHANGE AT C5-6, ASYMMETRIC TOWARD THE RIGHT. OTHERWISE UNREMARKABLE CERVICAL MRI. Impression dictated by: Jillian Angelo M.D.11/27/2022 10:13 AM Dictation Location: [place] [address] Transcribed By: [facility] 11/27/22 1013 Dictated By: Jillian Angelo MD 11/27/22 0948 Signed By: 11/27/22 1013 [facility] Thyroidon 10-17-2022 Thyroid HISTORY: Hyperthyroidism. FINDINGS: The right thyroid lobe is 4.1 x 1.3 x 2.0 cm for a volume of 5.5 mL. The left thyroid lobe is 5.1 and 1.6 x 1.6 cm for a volume of 7.1 mL. The thyroid isthmus is 0.6 x 0.4 x 0.2 cm. The thyroid parenchyma has relatively heterogeneous echotexture. A very small hypoechoic area in the right lobe was measured but is more likely just heterogeneous parenchyma rather than an actual nodule or cyst. No other definite cyst or nodule is visualized. There are no abnormal calcifications. Color Doppler blood flow is subjectively normal. IMPRESSION: Heterogeneous thyroid gland without nodule. 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 JORDANA - Automatic [employer] JORDANA - Automatic [facility], [place] ANDREYNETTIEARIADNE EZEQUIEL 1970 Date of Female Sex [id number] [place] [address] AddressEnglish (preferred) Language White Race Not or Ethnicity Summary of Care Clinical Content Allergies and Adverse Reactions <#[id number]> Encounters <#GV6RIGFJ> Functional Status <#[id number]> Immunization <#[id number]> Instructions <#SJ2HKXIU> Interventions Provided <#WX8F9GNL> Medications <#QN3KIYLN> Plan of Care <#XX0OR1IC> Problems <#ZH3NFMDQ> Procedures <#SR3LUTGE> Results <#[id number]> Social History <#DS6EYALA> Vital Signs <#CN8VIKYD> Other Document Details Health Care Providers Functional Statustop <#top> Functional Status Health Issues NameDatesDetails Functional status health issues are not documented Cognitive Status Health Issues NameDatesDetails Cognitive status health issues are not documented Problemstop <#top> NameDatesDetails Eczema (692.9, L30.9) Tennis elbow (726.32, M77.10) Medicationstop <#top> NameDatesDetails Meloxicam 15 MG Oral Tablet TAKE 1 TABLET BY MOUTH EVERY DAY Quantity: 60 Refills: 2 Joshua Fraser DO Start : 29-Nov-2018 Triamcinolone Acetonide 0.1 % External Cream APPLY TO AFFECTED AREA BID Quantity: 60 Refills: 2 Bria CamJoshua Start : 13-Feb-2020 Allergies and Adverse Reactionstop <#top> NameDatesDetails Allergy history not documented Procedurestop <#top> ProcedureDatesDetails Procedures not documented Immunizationtop <#top> NameDatesDetails Immunizations not documented Social Historytop <#top> Smoking Status NameDatesDetails Tobacco smoking consumption unknown (finding) Vital Signstop <#top> DateTestResultDetails No Known Vitals to report Resultstop <#top> DateDescriptionValueDet ails Results not documented Plan of Caretop <#top> NameDatesDetails Planned Observations Planned Goals not documented Planned Encounters Appointment; Joshua Fraser DOOn: 13-May-2020 8:45 Interventions Providedtop <#top> Medication Changes Meloxicam 15 MG Oral Tablet - Renew Triamcinolone Acetonide 0.1 % External Cream - Start Instructionstop <#top> NameDAnton Instructions not documented Encounterstop <#top> Appointment; Joshua Fraser DO Encounter Diagnosis: Problem not documentedOn: 13-Feb-2020 10:00 Health Care Providerstop <#top> Ambulatory Health Care Facilities Zo Rivera [email or web address] Work Email [facility] [id number] [id number] Address Ambulatory Health Care Facilities None, No [facility] Address Document Detailstop <#top> [facility] Fraser DO February 13, 2020 11:46 -0400 [id number] [id number] [phone] Work Phone Powered by Andel?Style Sheet V3.2 Normal 1Ring JORDANA - Automatic [facility], [place] EZEQUIEL COATES 1970 Date of Female Sex [id number] [place] [address] [id number] AddressEnglish (preferred) Language White Race Not or Ethnicity Summary of Care Clinical Content Allergies and Adverse Reactions <#[id number]> Encounters <#JA9JVEDY> Functional Status <#HY8CPLPJ> Immunization <#HG8IBAVK> Instructions <#VB8YWIVN> Interventions Provided <#VL7TR8UP> Medications <#CA9OKCRW> Plan of Care <#TM3VQ1CZ> Problems <#WT2MUWVA> Procedures <#EF7ZGUES> Results <#PR6Q77UR> Social History <#SK4JYHMH> Vital Signs <#GW6CUFZI> Other Document Details Health Care Providers Functional Statustop <#top> Functional Status Health Issues NameDatesDetails Functional status health issues are not documented Cognitive Status Health Issues NameDatesDetails Cognitive status health issues are not documented Problemstop <#top> NameDatesDetails Eczema (692.9, L30.9) Tennis elbow (726.32, M77.10) Medicationstop <#top> NameDatesDetails Meloxicam 15 MG Oral Tablet TAKE 1 TABLET BY MOUTH EVERY DAY Quantity: 60 Refills: 2 Joshua Fraser DO Start : 29-Nov-2018 Triamcinolone Acetonide 0.1 % External Cream APPLY TO AFFECTED AREA BID Quantity: 60 Refills: 2 Joshua Fraser DO Start : 13-Feb-2020 Allergies and Adverse Reactionstop <#top> NameDatesDetails Allergy history not documented Procedurestop <#top> ProcedureDatesDetails Procedures not documented Immunizationtop <#top> NameDatesDetails Immunizations not documented Social Historytop <#top> Smoking Status NameDatesDetails Tobacco smoking consumption unknown (finding) Vital Signstop <#top> DateTestResultDetails No Known Vitals to report Resultstop <#top> DateDescriptionValueDet ails Results not documented Plan of Caretop <#top> NameDatesDetails Planned Observations Planned Goals not documented Interventions Providedtop <#top> Medication Changes Meloxicam 15 MG Oral Tablet - Renew Triamcinolone Acetonide 0.1 % External Cream - Start Discussion/Summary By signing my name below, I, Abi Gonsalez CMA, attest that this documentation has been prepared under the direction and in the presence of Joshua Fraser D.O. All medical record entries made by the Abi were at my direction and personally dictated by me. I have reviewed the chart and agree that the record accurately reflects my personal performance of the history, physical exam, discussion and plan. Patient was advised importance of proper diet/nutrition in addition adequate hydration. Patient was encouraged moderate exercise program to include 30 minutes daily for 5 days of the week or 150 minutes weekly. Patient will follow-up with us as scheduled. Continue all current medications and therapy for chronic conditions Renew Meloxicam 15 mg 1 qd Triamcinolone 0.1% cream Follow up in 3 months Instructionstop <#top> NameDatesDetails Instructions not documented Encounterstop <#top> Appointment; Joshua Fraser DO Encounter Diagnosis: Problem not documentedOn: 13-Feb-2020 10:00 Health Care Providerstop <#top> Ambulatory Health Care Facilities Zo Rivera [email or web address] Work Email [facility] [address] [place] [address] Address [facility], No [facility] Address Document Detailstop <#top> [facility] Joshua Fraser DO February 13, 2020 11:15 -0400 [id number] [place] [address] [phone] Work Phone Powered by Andel?Style Sheet V3.2 Normal 1Ring JORDANA - [employer] [place], [place] EZEQUIEL COATES 1970 Date of Female Sex [id number] [place] [id number] AddressEnglish (preferred) Language White Race Not or Ethnicity Summary of Care Clinical Content Allergies and Adverse Reactions <#AH4UBDGG> Encounters <#US3KVGLS> Functional Status <#QR6CBKQD> Immunization <#YC3HHXSZ> Instructions <#LR9ZDDSU> Interventions Provided <#LN8M7HYV> Medications <#BF1ITWNL> Plan of Care <#HL5DMKHX> Problems <#TN1AKDQK> Procedures <#MO3M6MCB> Results <#QH6CCCCF> Social History <#UI4MAQLW> Vital Signs <#KC5V9PGH> Other Document Details Health Care Providers Functional Statustop <#top> Functional Status Health Issues NameDatesDetails Functional status health issues are not documented Cognitive Status Health Issues NameDatesDetails Cognitive status health issues are not documented Problemstop <#top> NameDatesDetails Active medical history not documented Medicationstop <#top> NameDAnton Meloxicam 15 MG Oral Tablet TAKE 1 TABLET BY MOUTH EVERY DAY Quantity: 30 Refills: 0 Start : 29-Nov-2018 Allergies and Adverse Reactionstop <#top> NameDatesDetails Allergy history not documented Procedurestop <#top> ProcedureDatesDetails Procedures not documented Immunizationtop <#top> NameDatesDetails Immunizations not documented Social Historytop <#top> Smoking Status NameDatesDetails Tobacco smoking consumption unknown (finding) Vital Signstop <#top> DateTestResultDetails No Known Vitals to report Resultstop <#top> DateDescriptionValueDet ails Results not documented Plan of Caretop <#top> NameDatesDetails Planned Observations Planned Goals not documented Interventions Providedtop <#top> Discussion/Summary By signing my name below, I, Aleida Lino CMA,Scribe, attest that this documentation has been prepared under the direction and in the presence of Joshua Fraser D.O. All medical record entries made by the Scribe were at my direction and personally dictated by me. I have reviewed the chart and agree that the record accurately reflects my personal performance of the history, physical exam, discussion and plan. Patient was advised importance of proper diet/nutrition in addition adequate hydration. Patient was encouraged moderate exercise program to include 30 minutes daily for 5 days of the week or 150 minutes weekly. Patient will follow-up with us as scheduled. Continue all current medications and therapy for chronic conditions Instructionstop <#top> NameDatesDeelzbietas Instructions not documented Encounterstop <#top> Appointment; Joshua Fraser DO Encounter Diagnosis: Problem not documentedOn: 13-Feb-2020 10:00 Health Care Providerstop <#top> Ambulatory Health Care Facilities Zo Rivera [email or web address] Work Email Allopathic AND Osteopathic Physicians Joshua [address] [place] [address] Address Ambulatory Health Care Facilities None, No PCPCassandranowgabino Address Document Detailstop <#top> [facility] Fraser DO February 13, 2020 11:01 [id number] [place] [address] [place] [address] [phone] Work Phone Powered by Andel?Style Sheet V3.2 Normal [employer] School/Work Letteron 020 School/Work Letter February 13, 2020 To Whom It May Concern, Ezequiel Coates is a patient known to me. Ezequiel was diagnosed with claustrophobia and is unable to wear a mask. Please feel free to contact my office with any questions or concerns at . Sincerely, Joshua Fraser DO Electronically signed by : Lakeshia Pike, ; Feb 13 2020 11:34AM EST (Author) Normal [facility] Provider Note - ED v2on 09-07 Provider Note - ED v2 Provider Note - ED v2: Chart Review: HISTORY OF PRESENTING ILLNESS EZEQUIEL is a 49 year old Female and was seen by me at 27-Sep-2019 19:41 for a chief complaint of mouth sores/ulcers . The historian is the patient. Additional Details: Patient presented with a complaint of right-sided mouth pain for the past 2 days. She's also had upper respiratory symptoms for the past week. This includes cough and congestion but no fever or shortness of breath. She has been eating and drinking well. She is less concerned about the respiratory symptoms but more concerned about the sore on her mouth. She says she has most of her teeth removed but a small portion is left and she believes rubs the area on the side of her mouth. The area started getting swollen and then there was some white discharge. She thinks that she expressed the majority of it but small amounts still intermittently drain. Triage Information: Most recent Vital Sign Value Date Temp (F): 98.2 09-27-2019 19:18 Temp (C): 36.8 09-27-2019 19:18 Heart Rate (beats/min): 80 09-27-2019 19:18 Respirations (breaths/min): 18 09-27-2019 19:18 SpO2 (%): 99 09-27-2019 19:18 BP Systolic (mm Hg): 139 09-27-2019 19:18 BP Diastolic (mm Hg): 73 09-27-2019 19:18 Associated Symptoms: pain, swelling, discharge. Significant negatives: no fever. Location: right inner cheek. Radiation: none. Quality is aching. Context is (a fractured tooth rubbing on her inner cheek). Duration: 2 day(s). Timing is sudden onset and constant. Modifying factors: Worse with eating. Pertinent history is none related to reason for visit. PAST MEDICAL HISTORY ATTESTATION: I have reviewed and confirmed nurse's/medic's notes for patient's medications, allergies, medical history, and surgical history ALLERGIES/INTOLERANCES: Allergy Allergen: propylthiouracil Type: Drug Reaction: Hives/Urticaria HEALTH HISTORY: No documented data. 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 Physical Exam: Constitutional: Well-developed, well-nourished, no acute distress, interactive, well-hydrated, nontoxic HENMT: Normocephalic, atraumatic. Bilateral external ear canals and TMs are normal, nasal mucosa, turbinates, and septum are normal. Small ulcerative lesion to the inner buccal surface on the right side near the upper jawline. Mild surrounding swelling without discharge. Tongue and pharynx are normal, there is no tonsillar edema or erythema or exudate. Mucous membranes are moist. Eyes: Pupils are equal round and reactive to light, extraocular movements intact, conjunctivae and lids are normal Cardiac: Regular rate and rhythm, no murmurs rubs or gallops, no peripheral edema, normal capillary refill, symmetric distal pulses Respiratory: Normal respiratory effort, no Rales, rhonchi, or wheezes. Equal bilateral air entry Gastrointestinal: No abdominal tenderness, rebound, or guarding. No masses or organomegaly. Normal bowel sounds. Rectal exam deferred Musculoskeletal: Normal digits. No gross tendon or ligament injury. Normal strength and tone. No gross deformity. Extremities are nontender to palpation. No limits to range of motion. Neurological: At baseline, normal speech, normal motor and sensory function, no facial droop Skin: Skin color is normal for race, no rash, no bruising, no laceration RESULTS/VITAL SIGNS VITAL SIGNS: T PRBP SpO2O2(LPM) %FiO2 Method 27-Sep-2019 19:18:[id number] 99 room air, no respiratory support MEDICAL DECISION MAKING/ED COURSE MDM/ED COURSE: Patient appears to have a small abscess formation to the buccal surface just lateral to one of the few teeth that she has left. Does not seem to be a significant enough amount to require drainage at this time. She will be started on Augmentin. She will follow-up with her dentist. I do feel she is safe for discharge. She does not appear to have any respiratory difficulty. She does appear well-hydrated. She will follow-up with her primary care physician for her upper respiratory infection.She will return here immediately for new or worsening or concerning symptoms. I have answered all of her questions and she has verbally expressed a clear understanding of the instructions and states that she is comfortable with the plan. Discussed Findings with: patient CLINICAL IMPRESSION Diagnosis/Annotation: ED Dx Name:Dental abscess Code:K04.7 Dispostion: discharged Type: home ATTESTATION CRITICAL CARE TIME Is this a critically ill patient: no Electronic Signatures: Liv Soto) (Signed 27-Sep-2019 20:03) Authored: Provider Note - ED v2 Last Updated: 27-Sep-2019 20:03 by Liv Soto) References: 1. Data Referenced From Triage - ED 27-Sep-2019 19:18 Normal [facility] Risk Screen - Adult Emergenc yon 09-27-2019 Risk Screen - Adult Emergency Preferred Language: Preferred Language: Preferred Language for Discussing Health Care (patient/designee)Mingo mckeon Advanced Directives: Advance Directive/DNRno Family Violence Adult: Abuse Screen: Are you or have you been threatened or abused physically, emotionally, or sexually by anyoneno Learning Assessment (Patient): Learning Assessment (Patient): Patient is Able to be Assessed for Learningyes Factors Influencing Readiness to Learnacuteness of illness Factors that Impact Ability to Learnnone Devices/Methods Used to Communicatenone Learning Preferencesaudio Cultural Considerationsnone Developmental Considerationsnone Holiness Considerationsnone Learning Assessment (Other Learner): Learning Assessment (Other Learner): Other learner availableno Pressure Injury/TB/Substance: Pressure Injury: Pressure Injury Present on Admissionno Do you have a coughno Admission Risk Screen: Significant IndicatorsComplete CAGE: CAGE: Is this an injured patient at a Trauma Center ([facility]/[place]/[facility] a/[place]): no Electronic Signatures: Gali Myeer (RN) (Signed 27-Sep-2019 19:36) Authored: Preferred Language, Advanced Directives, Family Violence Adult, Learning Assessment (Patient), Learning Assessment (Other Learner), Pressure Injury/TB/Substance, CAGE Last Updated: 27-Sep-2019 19:36 by Gali Meyer (HENRY) [facility] Triage - EDon 09-27-2019 Triage - ED Quick Triage: Are You no Are You Currently Breastfeedingno Chart Review: CHIEF COMPLAINT EZEQUIEL COATES is a Female patient with a chief complaint of mouth sores/ulcers (SORE ON RIGHT INSIDE CHEEK - ALSO COLD SYMPTOMS FOR ABOUT A WEEK). Onset of the Complaint: 20-Sep-2019 Triage Date/Time: 27-Sep-2019 19:18 Pain Rating (0-10): 9 = Severe Pain location: RIGHT MOUTH Vital Signs: Temperature: 98.2F ( 36.8C) Blood Pressure: 139/73 Mean: Heart Rate: 80 Respiratory Rate: 18 Pulse Oximetry: 99% on room air, no respiratory support. Height: 5 feet 3.00 inches. 160.0 CM Weight: 225.0 pounds. Calculated 102.0 kg. 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 Symptoms Are Negative For: bleeding, earache, fever, headache, jaw pain, pain (describe), toothache and tooth loss. Risk Screens Suicide Risk Screen In the Past Month: Have you wished you were or wished you could go to sleep and not wake up no In the Past Month: Have you had any actual thoughts of killing yourself no In Your Lifetime: Have you ever done anything, started to do anything, or prepared to do anything to end your life no Tai Fall Scale Screening Has the patient fallen before (or is the patient in the ED as a result of a fall) has not had a fall Does the patient have an impaired gait does not have impaired gait Is the patient cognitively impaired not cognitively impaired Interventions: Tai Fall Interventions: *patient oriented to surroundings and call system, * patient/family falls education completed and documented, *patients fall status communicated during bedside handoff, *whiteboard updated, *mode of toileting discussed with patient, *bed in low position with brakes locked, *call light in reach, * non-skid footwear PAIN Pain Scale Used: DORYS Pain Rating (0-10): 9 = Severe PRIMARY ASSESSMENT EZEQUIEL COATES's primary assessment is Within Normal Limits. The airway is open and patent. Breathing spontaneous and unlabored with clear breath sounds bilaterally. Circulation is normal with good peripheral pulses. Skin is warm and dry and color is normal for race. Past Medical History: Past Medical History Reviewedyes Cholecystectomy: Past Surgical History, Active Hysterectomy: Past Surgical History, Active Hypothyroid: Past Medical History, Active Hypertension (HTN): Past Medical History, Active Electronic Signatures: Sherry Bronson (STAFF N) (Signed 27-Sep-2019 19:22) Authored: Triage, Past Medical History Last Updated: 27-Sep-2019 19:22 by Sherry Bronson (STAFF N) Normal [facility] CBC With Platelet No Differe bri 03-07-2018 Erythrocyte distribution width Auto Ratio (RBC) 13.0 % Normal 11.5-14.5 [facility] Erythrocytes (RBC) 5.17 10*6/uL Normal 4.20-5.40 [facility] Hematocrit (HCT) 44.4 % Normal 37.0-47.0 [facility] Hemoglobin mass conc (Bld) 15.3 g/dL Normal 12.0-16.0 [facility] MCH 29.6 pg Normal 27.0-31.3 [facility] MCHC mass conc (RBC) 34.4 % Normal 33.0-37.0 [facility] MCV 85.9 fL Normal 82.0-100.0 [facility] Platelets 287 10*3/uL Normal 130-400 [facility] WBC (Leukocytes) 6.8 10*3/uL Normal 4.8-10.8 [facility] TSH w/out Reflexon 8 Thyroid stimulating hormone (TSH) m[IU]/L Low 0.270-4.20 [facility] Thyroxine Freeon 03-07-2018 Thyroxine Free 2.23 ng/dL Critically high 0.93-1.70 [facility] US HEAD NECK SOFT TISSUE THY ROIDon 02-14-2018 US HEAD NECK SOFT TISSUE THYROID EXAMINATION: US HEAD NECK SOFT TISSUE THYROIDDATE AND TIME:02/14/2018 2:48 PMCLINICAL HISTORY: Thyromegaly E05.90 Hyperthyroidism ICD10 COMPARISONS: None TECHNIQUE: Biplanar images were obtained. Please note that description of thyroid nodules in this report is based on the 2017 Thyroid Imaging, Reporting and Data System (TI- RADS) established by the [employer] to help provide guidance regarding management of thyroid nodules based on their appearance. These are offered in an attempt to assist the referring physician in their decision process and help address the current over diagnosis of thyroid cancer. These guidelines are considered recommendations and guidance and do not represent rules or absolute standards of careFINDINGS: Right lobe: 5.1 cm. Left lobe: 5.1 cm. Isthmus: 0.3 cm. Overall size: Thyroid gland remains diffusely enlarged. Thyroid parenchyma shows heterogeneous pattern with microcystic changes. No significant change from the previous ultrasound of the neck. No focal thyroid noduleIMPRESSION: IMPRESSION: NO CHANGE. Interpreted by:INDER Morrisigned by:Julio Marie MD02/14/inal result Normal [facility] CBC With Platelet No Differe ntialon 02-07-2018 Erythrocyte distribution width Auto Ratio (RBC) 12.7 % Normal 11.5-14.5 [facility] Erythrocytes (RBC) 4.65 10*6/uL Normal 4.20-5.40 [facility] Hematocrit (HCT) 40.2 % Normal 37.0-47.0 [facility] Hemoglobin mass conc (Bld) 14.0 g/dL Normal 12.0-16.0 [facility] MCH 30.1 pg Normal 27.0-31.3 [facility] MCHC mass conc (RBC) 34.8 % Normal 33.0-37.0 [facility] MCV 86.4 fL Normal 82.0-100.0 [facility] Platelets 241 10*3/uL Normal 130-400 [facility] WBC (Leukocytes) 6.8 10*3/uL Normal 4.8-10.8 [facility] TSH w/out Reflexon 8 Thyroid stimulating hormone (TSH) m[IU]/L Low 0.270-4.20 [facility] Thyroxine Freeon 02-07-2018 Thyroxine Free 3.43 ng/dL Critically high 0.93-1.70 [facility] Encounters Encounter Date Encounter Type Care Provider Facility Start: 01-31-2023 End: 02-01-[address] ZEHRA MARQUES Facility:[facility] Start: 01-21-2023 End: 01-22-2023 ambulatory MR JAMAAL JALLOH . Facility:[facility] Start: 01-12-2023 End: 01-13-2023 ambulatory BRENDAN COYLE Facility:[facility] Start: 11-26-2022 End: 11-26-2022 ambulatory Brendan Coyle Facility:[facility] Start: 11-26-2022 End: 11-26-2022 ambulatory MD Zehra Marques Work Phone: [facility] Work Phone: Start: 11-26-2022 End: 11-26-2022 Patient encounter procedure MD Zehra Marques Work Phone: [facility] Work Phone: Start: 11-19-2022 End: 11-20-2022 ambulatory DAPHNEY RODRIGUEZ Facility:[facility] Start: 09-17-2022 ambulatory DAPHNEY RODRIGUEZ Fac ility:[facility] Start: 05-13-2020 Patient encounter procedure Ezekiel Devi [facility] Work Phone: Start: 03-26-2020 [facility] Start: 02-13-2020 Patient encounter procedure Ezekiel Devi [facility] Work Phone: Start: 02-14-2018 End: 02-17-2018 Ambulatory MICKEY OWEN [facility] Procedures Date Procedure Procedure Detail Performing Clinician Start: 05-13-2020 Assay of thyroid sti mulating hormone tsh Ezekiel Devi Start: 05-13-2020 Blood count complete auto&auto difrntl wbc Ezekiel Devi Start: 05-13-2020 Comprehensive metabo lic 2000 panel Ezekiel Dvei Start: 05-13-2020 Free T4 Index Ezekiel chiu Start: 05-13-2020 Lipid panel Ezekiel rodriguez Start: 05-13-2020 Follow-up visit Start: 03-26-2020 Follow-up visit Start: 02-13-2020 Follow-up visit Start: 02-14-2018 Us soft tissue head & neck real time imge ghulam OWEN Plan of Treatment Date Care Activity Detail Author Start: 11-26-2022 MR Cervical spine WO contrast [facility] Start: 11-26-2022 MRI of cervical spin e without contrast MR cervical spine wo con [facility] Start: 11-26-2022 XR pre/post mri xray XR pre/post mri xray [facility] Start: 11-26-2022 [facility] Payers Date Payer Category Payer Self-pay 2017 Unknown [id number] 1970 Unknown [id number] 2.16.84 [id number] 1970 Unknown [id number] 2.16.84 [id number] 1970 Unknown [id number] 2.16.84 [id number] 1970 Unknown [id number] 2.16.84 [id number] 1970 Unknown [id number] 2.16.84 [id number] 1959 Medicaid [id number] Unknown [id number] 2.16.8 [id number] Social History Date Type Detail Facility Assertion Tobacco smoking consumption unknown (finding) [facility] Work Phone: Start: 1970 Sex Assigned At Female F [facility] Functional Status Date Assessment Result Facility NEGATED: Highlighted row Functional performance Functional status health issues are not documented Disease [facility] Work Phone: Mental Status Date Assessment Result Facility NEGATED: Highlighted row Cognitive function [Interpretation] Cognitive status health issues are not documented Disease [facility] Work Phone: Clinical Note 08-20-2022 Note Date & Type Note Facility 08-20-2022 Note FINDINGS: ARTERIAL EVALUATION RIGHT LEFT VELOCITIES PHASICITY VELOCITIES PHASICITY 85 BiCommon tzzzaxr46Fx 83BiProximal OQV63Ab 108BiMid IMG30Qy 40 BiDistal ELG24Oi 51 OpGzdemnzpb23Ul 46 AsMAR75Ua 75 BiPTA 93Bi 44 BiPeroneal 58Bi RIGHT LOWER EXTREMITY: Minimal plaque formation is present throughout the right lower extremity with tri-phasic and bi-phasic waveforms identified throughout. Significant stenosis is unlikely based on these velocities and waveform analysis. IMPRESSION: Minimal stenosis. LEFT LOWER EXTREMITY: Minimal plaque formation is present throughout the left lower extremity with tri-phasic and bi-phasic waveforms identified throughout. Significant stenosis is unlikely based on these velocities and waveform analysis. IMPRESSION: Minimal stenosis. Report reported and signed by Mikey Harry on 08/21/2022 115[address] [facility] Adjunct Faculty Instructor Evaluation note Note Date & Type Note Facility Evaluation note No assessment information availa [facility] Work Phone: Summary Purpose Family History No Family History Records FoundNo Family History Records FoundNo Family History Records FoundNo Family History Records FoundNo Family History Records FoundNo Family History Records FoundNo Family History Records Found Advance Directives No Advanced Directives Records Found Advance Directive Response Recorded Date/ Time Advance Directives No November 1:11pm Chief Complaint and Reason for Visit Chief Complaint r20.2 m79.601 m79.60 2 Additional Source Comments INFORMATION SOURCE (unrecogn ized section and content) DATE CREATED AUTHOR 03/26/2018 [facility] DATE CREATED AUTHOR AUTHOR'S ORGANIZ ATION 10/02/2019 [facility] DATE CREATED AUTHOR AUTHOR'S ORGANIZ ATION 05/19/2020 [employer] DATE CREATED AUTHOR AUTHOR'S ORGANIZ ATION 10/17/2022 [facility] dical Specialist DATE CREATED AUTHOR AUTHOR'S ORGANIZ ATION 12/02/2022 [facility] DATE CREATED AUTHOR AUTHOR'S ORGANIZ ATION 02/19/2023 [facility] Care Teams (unrecognized sec tion and content) Team Status: Inactive Member Role Status Dates DIMAS Rand Attending Provider Active Zehra Marques MD Primary Care Provider Active Team Status: Active Member Role Status Dates Zehra Marques MD Primary Care Provider Active Goals (unrecognized section and content) Goals may be documented in a n alternate section FOR RECORDS PERTAINING TO PATIENTS WHO ARE OR HAVE BEEN ENROLLED IN A CHEMICAL DEPENDENCY/SUBSTANCEABUSE PROGRAM, SOME INFORMATION MAY BE OMITTED. This clinical summary was aggregated from multiple sources. Caution should be exercised in using it in the provision of clinical care. This summary normalizes information from multiple sources, and as a consequence, information in this document may materially change the coding, format and clinical context of patient data. In addition, data may be omitted in some cases. CLINICAL DECISIONS SHOULD BE BASED ON THE PRIMARY CLINICAL RECORDS. [facility]. provides no warranty or guarantee of the accuracy or completeness of information in this document.
--- NOTE | 2023-10-21 15:58 | XR_ITS ---
The [address] [address] Patient Name: EZEQUIEL ZIMMERMAN MRN: [id number] date: 1970 Sex: F Assigned Patient Location: [facility] Current Patient Location: [facility] Accession/Order Number: [id number] Exam Date: 10/21/2023 16:00 Report Date: 10/21/2023 16:52 At the request of: OPAL HOFFMANN Procedure: XR hip ROGELIO 2 views of each hip INDICATION: Pain COMPARISON: None XR/XR hip ROGELIO IMPRESSION: Mild degenerative changes of both hips without evidence for acute fracture or dislocation. Soft tissues are grossly unremarkable. Electronically authenticated by: DARIANA PATRICIO Date: 10/21/2023 16:52
== END 2023-10-21 15:50 | disposition home or self-care (01) ==
PROVIDERS: PCP Family Medicine; Visit Provider Anesthesiology Pain Medicine
DX: M54.50 Low back pain, unspecified (principal); M25.551 Pain in right hip; M25.552 Pain in left hip
CPT/HCPCS: 73522

== ENCOUNTER 2023-10-29 07:51 | Day surgery (SDC) | payer MEDICAID, SELFPAY ==
--- OUTSIDE RECORDS SUMMARY | 2023-10-29 07:53 | XMS_ITS | CCD ---
Author Name Unknown Address [address] [place] [address] Organization [facility] Care Team Providers Care Food Sales Clerk Name Role Phone MICKEY OWEN Unavailable Unavailable MICHELLE CHOW Unavailable Unavailable Joshua Fraser Unavailable Unavailable Joshua Fraser Unavailable Unavailable None, No PCP Unavailable Unavailable Ezekiel Devi Unavailable Unavailable Joshua Fraser Unavailable UnavailDIMAS Corona Attending Provider MD Zehra Marques Primary Care Provider Brendan [...] Value Interpretation Reference Range Facility HLA B [facility] 01-28-2023 HLA-B27 Negative Normal [facility] Comment on above: Result Comment: HLA- B*27 Negative B27 allele interpretation for all loci based on IMGT/HLA database version 3.44 This test was developed and its performance characteristics determined by [facility]. It has not been cleared or approved by the Food and Drug Administration. [facility] Lab CLIA ID Number [id number] . This test was performed using PCR (Polymerase Chain Reaction)/SSOP (Sequence Specific Oligonucleotide Probes) technique. SBT (Sequence Based Typing) and/or SSP (Sequence Specific Primers) may be used as supplemental methods when necessary. Please contact HLA Customer Service at if you have any questions. . Director of HLA Laboratory Dr Jett Carpio, PhD Performed By: #### H LA27 #### [facility] [address] [place] [address] Dr. Daniela Ledesma CALEB by IFAon 01-24-2023 Antinuclear Antibodies, IFA Negative Normal [facility] Comment on above: Result Comment: Nega tive <1:80 Borderline 1:80 Positive >1:80 ICAP nomenclature: AC-0 For more information about Hep-2 cell patterns use ANApatterns.org, the official website for the International Consensus on Antinuclear Antibody (CALEB) Patterns (ICAP). Performed By: #### A NAIFA #### [facility] [address] [place] [address] Dr. Daniela Ledesma RHEUMATOID FACTORon 01-24-20 RA Latex Turbid. <10.0 Normal <14.0 [facility] Comment on above: Performed By: #### R F #### [facility] [address] [place] [address] Dr. Daniela Ledesma CBC AUTO DIFFon 01-21-2023 BASO # 0.1 103/ul Normal 0.0-0.1 [facility] Comment on above: Performed By: #### C BC #### [facility] [address] [place] [address] Dr. Daniela Ledesma Basophils/100 WBC (Bld) 0.9 % Normal 0.2-2.0 [facility] Comment on above: Performed By: #### C BC #### [facility] [address] [place] [address] Dr. Daniela Ledesma EO # 0.7 103/ul Normal 0.0-0.7 [facility] Comment on above: Performed By: #### C BC #### [facility] [address] [place] [address] Dr. Daniela Ledesma Eosinophils/100 WBC (Bld) 4.3 % Normal 0.9-7.0 [facility] Comment on above: Performed By: #### C BC #### [facility] [address] [place] [address] Dr. Daniela Ledesma Erythrocyte distribution width (RBC) [Ratio] 13.2 % Normal 11.0-15.0 [facility] Comment on above: Performed By: #### C BC #### [facility] [address] [place] [address] Dr. Daniela Ledesma Hematocrit (Bld) [Volume fraction] 45.4 % Normal 36.0-48.0 [facility] Comment on above: Performed By: #### C BC #### [facility] [address] [place] [address] Dr. Daniela Ledesma Hemoglobin (Bld) [Mass/Vol] 15.7 g/dL Normal 12.0-16.0 [facility] Comment on above: Performed By: #### C BC #### [facility] [address] [place] [address] Dr. Daniela Ledesma IG # 0.07 10e3/ul Critically high 0.00-0.03 [facility] Comment on above: Performed By: #### C BC #### [facility] [address] [place] [address] Dr. Daniela Ledesma IG % 0.5 % Normal 0.0-0.5 [facility] Comment on above: Performed By: #### C BC #### [facility] [address] [place] [address] Dr. Daniela Ledesma LYMPH # 3.7 103/ul Normal 1.2-3.8 [facility] Comment on above: Performed By: #### C BC #### [facility] [address] [place] [address] Dr. Daniela Ledesma Lymphocytes/100 WBC (Bld) 24.7 % Normal 20.5-60.0 [facility] Comment on above: Performed By: #### C BC #### [facility] [address] [place] [address] Dr. Daniela Ledesma MANUAL DIFF REQ NO Normal [facility] Comment on above: Performed By: #### C BC #### [facility] [address] [place] [address] Dr. Daniela Ledesma MCH (RBC) [Entitic mass] 30.9 pg Normal 26.7-34.0 [facility] Comment on above: Performed By: #### C BC #### [facility] [address] [address] [address] Daniela Ledesma MCHC (RBC) [Mass/Vol] 34.6 g/dL Normal 29.9-35.2 [facility] Comment on above: Performed By: #### C BC #### [facility] [address] [address] [address] Daniela Ledesma MCV (RBC) [Entitic vol] 89.4 fL Normal 81.0-99.0 [facility] Comment on above: Performed By: #### C BC #### [facility] [address] [address] [address] Daniela Ledesma MONO # 0.7 103/ul Normal 0.3-0.8 [facility] Comment on above: Performed By: #### C BC #### [facility] [address] [address] [address] Daniela Ledesma Monocytes/100 WBC (Bld) 4.4 % Normal 1.7-12.0 [facility] Comment on above: Performed By: #### C BC #### [facility] [address] [address] [address] Daniela Ledesma NEUT # 9.8 103/ul Critically high 1.4-6.5 [facility] Comment on above: Performed By: #### C BC #### [facility] [address] [address] [address] Daniela Ledesma Neutrophils/100 WBC (Bld) 65.2 % Normal 43.0-75.0 [facility] Comment on above: Performed By: #### C BC #### [facility] [address] [address] [address] Daniela Ledesma Platelet mean volume (Bld) [Entitic vol] 9.3 fL Critically low 9.5-13.5 [facility] Comment on above: Performed By: #### C BC #### [facility] [address] [address] [address] Daniela Ledesma PLT 286 103/ul Normal 150-450 [facility] Comment on above: Performed By: #### C BC #### [facility] [address] [address] [address] Daniela Ledesma RBC 5.08 106/ul Normal 4.20-5.40 [facility] Comment on above: Performed By: #### C BC #### [facility] [address] [place] [address] Dr. Daniela Ledesma WBC 15.1 103/ul Critically high 4.0-11.0 [facility] Comment on above: Performed By: #### C BC #### [facility] [address] [place] [address] Dr. Daniela Ledesma SED [facility] ISLANDRENon 2022 SED RATE 34 mm/hr Critically high <=30 [facility] Comment on above: Performed By: #### S EDR #### [facility] [address] [place] [address] Dr. Daniela Ledesma URIC ACID SERUMon 01-21-2023 Urate [Mass/Vol] 7.5 mg/dL Critically high 2.6-6.0 [facility] Comment on above: Performed By: #### U TUTU #### [facility] [address] [place] [address] Dr. Daniela Ledesma CPKon 01-12-2023 CK [Catalytic activity/Vol] 98 U/L Normal 26-192 [facility] Comment on above: Performed By: #### Jose David MIGUEL CK #### [facility] [address] [place] [address] Dr. Daniela Ledesma MYOGLOBINon 01-12-2023 SAW 34 ng/mL Normal 9-82 [facility] Comment on above: Performed By: #### Jose David MIGUEL CK #### [facility] [address] [place] [address] Dr. Daniela Ledesma MR cervical spine wo conon 0 11-27-2022 MR cervical spine wo con [facility] [place] [address] XRay Report Signed Patient: Ezequiel Coates MR#: [id number] : 1970 Acct:[id number] Age/Sex: 52 / F ADM Date: 11/26/22 Loc: MR [facility]: Brendan COCHRAN Copies to: DIMAS Rand Ordering Provider: DIMAS Rand Date of Service: 11/26/22 MR/MR cervical spine wo con: R20.2, M79.601 ([id number]) XR/XR pre/post mri xray: PRE MRI OF [...] Jillian Angelo M.D.11/27/2022 10:13 AM Dictation Location: [place] [address] Transcribed By: [facility] 11/27/22 1013 Dictated By: Jillian Angelo MD 11/27/22 0948 Signed By: 11/27/22 1013 [facility] Thyroidon 10-17-2022 Thyroid HISTORY: Hyperthyroidism. 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 JORDANA - Automatic Exporton JORDANA - Automatic [place] [facility], [place] ANDREYNETTIEARIADNE EZEQUIEL 1970 Date of Female Sex [id number] [place] [address] AddressEnglish (preferred) Language White Race Not or Ethnicity Summary of Care Clinical Content Allergies and Adverse Reactions <#SK7VCENV> Encounters <#WY3EPCQN> Functional Status <#YK0MSZYW> Immunization <#LA4YEIQL> Instructions <#MM2SRAJD> Interventions Provided <#TN6Z6SAV> Medications <#HZ5DJFKV> Plan of Care <#SG0HM9ID> Problems <#IT5RPIZQ> Procedures <#XW1YRWDY> Results <#VF3T91CO> Social History <#WQ8CTDVX> Vital Signs <#YK4GVQJV> Other Document Details Health Care Providers Functional [...] Ambulatory Health Care Facilities Zo Rivera [email or web address] Work Email Allopathic AND Osteopathic Physicians [address] [id number] Address Ambulatory Health Care Facilities None, No [facility] Address Document Detailstop <#top> [facility] Fraser DO February 13, 2020 11:46 -0400 [id number] [place] [id number] [phone] Work Phone Powered by [employer]?Style Sheet V3.2 Normal [employer] JORDANA - Automatic [place] [facility], [place] EZEQUIEL COATES 1970 Date of Female Sex [id number] [place] [id number] AddressEnglish (preferred) Language White Race Not or Ethnicity Summary of Care Clinical Content Allergies and Adverse Reactions <#VK6OHQVG> Encounters <#PS7DVWGS> Functional Status <#CA9HOGZS> Immunization <#QE9QRIHP> Instructions <#XJ2WIBML> Interventions Provided <#VW7TO0ZS> Medications <#LD4PYDQT> Plan of Care <#PT1KJ4YN> Problems <#RE7TDLTK> Procedures <#MC5BZNZD> Results <#QW2W77AH> Social History <#CF5DKXWR> Vital Signs <#WF5CXBJV> Other Document Details Health Care Providers Functional [...] Ambulatory Health Care Facilities Zo Rivera [email or web address] Work Email Allopathic AND Osteopathic Physicians [address] [place] [address] Address [facility] Health Care Facilities None, No [facility] Address Document Detailstop <#top> [facility] Joshua Fraser DO February 13, 2020 11:15 -0400 [id number] [place] [address] [phone] Work Phone Powered by [employer]?Style Sheet V3.2 Normal [employer] JORDANA - Automatic [place], [place] EZEQUIEL COATES 1970 Date of Female Sex [id number] [place] [id number] AddressEnglish (preferred) Language White Race Not or Ethnicity Summary of Care Clinical Content Allergies and Adverse Reactions <#BW2ZHJAM> Encounters <#CP3ZACCS> Functional Status <#KS7HACJW> Immunization <#BD0OZLHB> Instructions <#WL2AVILH> Interventions Provided <#HU9F5UHJ> Medications <#AI4GCUXN> Plan of Care <#SY6TKQMX> Problems <#XC4ZTUVT> Procedures <#OF1M2FIX> Results <#VP0FGECP> Social History <#TX1EUQPI> Vital Signs <#WW6W2VNN> Other Document Details Health Care Providers Functional [...] Ambulatory Health Care Facilities Zo Rivera [email or web address] Work Email Allopathic AND Osteopathic Physicians Joshua [address] [place] [address] Address Ambulatory Health Care Facilities None, No PCPCassandranowgabino Address Document Detailstop <#top> [facility] Fraser DO February 13, 2020 11:01 [id number] [place] [address] [place] [address] [phone] Work Phone Powered by [employer]?Style Sheet V3.2 Normal [employer] School/Work Letteron 020 School/Work Letter February 13, [...] Feb 13 2020 11:34AM EST (Author) Normal [employer] Provider Note - ED v2on 09-07 Provider [...] Past Surgical History Description:Hysterectom y Description:Cholecystec kenny 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(1) Is : no(1) [...] SIGNS: T PRBP SpO2O2(LPM) %FiO2 Method 27-Sep-2019 19:18:00-36.76001358/73 99 room air, no respiratory support MEDICAL [...] From Triage - ED 27-Sep-2019 19:18 Normal [facility] Risk Screen - Adult Emergenc yon 09-27-2019 [...] Communicatenone Learning Preferencesaudio Cultural Considerationsnone Developmental Considerationsnone Congregational Considerationsnone Learning Assessment (Other Learner): Learning Assessment (Other Learner): Other learner availableno Pressure Injury/TB/Substance: Pressure Injury: Pressure Injury Present on Admissionno Do you have a coughno Admission Risk Screen: Significant IndicatorsComplete CAGE: CAGE: Is this an injured patient at a Trauma Center ([facility]/[facility] a/[place]): no Electronic Signatures: Gali Meyer (RN) (Signed 27-Sep-2019 19:36) Authored: Preferred Language, Advanced Directives, Family Violence Adult, Learning Assessment (Patient), Learning Assessment (Other Learner), Pressure Injury/TB/Substance, CAGE Last Updated: 27-Sep-2019 19:36 by Gali Meyer (HENRY) [facility] Triage - EDon 09-27-2019 Triage - [...] Travel outside of [place]: no Allergies: yes 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 Hemoglobin mass conc (Bld) 15.3 g/dL Normal 12.0-16.0 [facility] MCH 29.6 pg Normal 27.0-31.3 [facility] MCHC mass conc (RBC) 34.4 % Normal 33.0-37.0 [facility] MCV 85.9 fL Normal 82.0-100.0 [facility] Platelets 287 10*3/uL Normal 130-400 [facility] WBC (Leukocytes) 6.8 10*3/uL Normal 4.8-10.8 [facility] TSH w/out Reflexon 8 Thyroid stimulating hormone (TSH) m[IU]/L Low 0.270-4.20 [facility] Thyroxine Freeon 03-07-2018 Thyroxine Free 2.23 ng/dL Critically high 0.93-1.70 [facility] US HEAD NECK SOFT TISSUE THY ROIDon 02-14-2018 US HEAD NECK SOFT TISSUE THYROID EXAMINATION: US HEAD NECK SOFT TISSUE THYROIDDATE AND TIME:02/14/2018 2:48 PMCLINICAL HISTORY: Thyromegaly E05.90 Hyperthyroidism ICD10 COMPARISONS: None TECHNIQUE: Biplanar images were obtained. Please note that description of thyroid nodules in this report is based on the 2017 Thyroid Imaging, Reporting and Data System (TI- RADS) established by the [place] [employer] to help provide guidance [...] by:INDER Morrisigned by:Julio Marie MD02/14/inal result Normal [facility] CBC With Platelet No Differe ntialon 02-07-2018 Erythrocyte distribution width Auto Ratio (RBC) 12.7 % Normal 11.5-14.5 [facility] Erythrocytes (RBC) 4.65 10*6/uL Normal 4.20-5.40 [facility] Hematocrit (HCT) 40.2 % Normal 37.0-47.0 [facility] Hemoglobin mass conc (Bld) 14.0 g/dL Normal 12.0-16.0 [facility] MCH 30.1 pg Normal 27.0-31.3 [facility] MCHC mass conc (RBC) 34.8 % Normal 33.0-37.0 [facility] MCV 86.4 fL Normal 82.0-100.0 [facility] Platelets 241 10*3/uL Normal 130-400 [facility] WBC (Leukocytes) 6.8 10*3/uL Normal 4.8-10.8 [facility] TSH w/out Reflexon 8 Thyroid stimulating hormone (TSH) m[IU]/L Low 0.270-4.20 [facility] Thyroxine Freeon 02-07-2018 Thyroxine Free 3.43 ng/dL Critically high 0.93-1.70 [facility] Encounters Encounter Date Encounter Type Care Provider Facility Start: 01-31-2023 End: 02-01-[address] ZEHRA MARQUES Facility:[facility] Start: 01-21-2023 End: 01-22-2023 ambulatory MR JAMAAL JALLOH . Facility:[facility] Start: 01-12-2023 End: 01-13-2023 ambulatory BRENDAN COYLE Facility:[facility] Start: 11-26-2022 End: 11-26-2022 ambulatory Brendan Coyle Facility:[facility] Start: 11-26-2022 End: 11-26-2022 ambulatory MD Zehra Marques Work Phone: [facility] Work Phone: Start: 11-26-2022 End: 11-26-2022 Patient encounter procedure MD Zehra Marques Work Phone: [facility] Work Phone: Start: 11-19-2022 End: 11-20-2022 ambulatory DAPHNEY RODRIGUEZ Facility:[facility] Start: 09-17-2022 ambulatory DAPHNEY RODRIGUEZ Fac ility:[facility] Start: 05-13-2020 Patient encounter procedure Ezekiel Devi [facility] Work Phone: Start: 03-26-2020 Patient encounter [facility] Work Phone: Start: 02-13-2020 Patient encounter procedure Ezekiel Devi [facility] Work Phone: Start: 02-14-2018 End: 02-17-2018 Ambulatory MICKEY OWEN [facility] Procedures Date Procedure Procedure Detail Performing Clinician Start: 05-13-2020 Assay of thyroid sti mulating hormone tsh Ezekiel Devi Start: 05-13-2020 Blood count complete auto&auto difrntl wbc Ezekiel Devi Start: 05-13-2020 Comprehensive metabo lic 2000 panel Ezekiel Devi Start: 05-13-2020 Free T4 Index Ezekiel chiu Start: 05-13-2020 Lipid panel Ezekiel rodriguez Start: 05-13-2020 Follow-up visit Start: 03-26-2020 Follow-up visit Start: 02-13-2020 Follow-up visit Start: 02-14-2018 Us soft tissue head & neck real time imge ghulam OWEN Plan of Treatment Date Care Activity Detail Author Start: 11-26-2022 MR Cervical spine WO contrast [facility] Start: 11-26-2022 MRI of cervical spin e without contrast MR cervical spine wo con [facility] Start: 11-26-2022 XR pre/post mri xray XR pre/post mri xray [facility] Start: 11-26-2022 [facility] Payers Date Payer Category Payer Self-pay 2017 Unknown [id number] 1970 Unknown [id number] 2.16.84 [id number] 1970 Unknown [id number] 2.16.84 [id number] 1970 Unknown [id number] 2.16.84 [id number] 1970 Unknown [id number] 2.16.84 [id number] 1970 Unknown [id number] 2.16.84 [id number] 1959 Medicaid [id number] Unknown [id number] 2.16.8 [id number] Social History Date Type Detail Facility Assertion Tobacco smoking consumption unknown (finding) [facility] Work Phone: Start: 1970 Sex Assigned At Female F [facility] Functional Status Date Assessment Result Facility NEGATED: Highlighted row Functional performance Functional status health issues are not documented Disease [facility] Work Phone: Mental Status Date Assessment Result Facility NEGATED: Highlighted row Cognitive function [Interpretation] Cognitive status health issues are not documented Disease [facility] Work Phone: Clinical Note 08-20-2022 Note Date & Type Note Facility 08-20-2022 Note FINDINGS: ARTERIAL EVALUATION RIGHT LEFT VELOCITIES PHASICITY VELOCITIES PHASICITY 85 BiCommon [id number] 83BiProximal VGB65Gu 108BiMid CWQ59Rv 40 BiDistal YQB16Yu 51 ZmVaxnicers46Xx 46 XvOFA26Zo 75 BiPTA 93Bi 44 BiPeroneal 58Bi RIGHT [...] signed by Mikey Harry on 08/21/2022 1153 [facility] Shipping Clerk Evaluation note Note Date & Type Note Facility Evaluation note No assessment information availa [facility] Work Phone: Summary Purpose Family [...] section and content) DATE CREATED AUTHOR 03/26/2018 [facility] DATE CREATED AUTHOR AUTHOR'S ORGANIZ ATION 10/02/2019 [facility] DATE CREATED AUTHOR AUTHOR'S ORGANIZ ATION 05/19/2020 [employer] DATE CREATED AUTHOR AUTHOR'S ORGANIZ ATION 10/17/2022 [facility] dical Specialist DATE CREATED AUTHOR AUTHOR'S ORGANIZ ATION 12/02/2022 [facility] DATE CREATED AUTHOR AUTHOR'S ORGANIZ ATION 02/19/2023 [facility] (unrecognized sec tion and content) [...] BE BASED ON THE PRIMARY CLINICAL RECORDS. [facility] Girls [facility] To [facility]. provides no warranty or guarantee of the accuracy or completeness of information in this document.
[2023-10-29 07:57] VITALS: BP 138/79; PULSE 104; RESP 16; TEMP 35.7; O2SAT 97
[2023-10-29 08:04] LABS: Glucometer 218 mg/dL (74-106)
[2023-10-29 08:55] VITALS: BP 139/78; PULSE 86; RESP 18; O2SAT 93
[2023-10-29] MEDS: BUPIVACAINE HCL 0.25% PF 25 MG/10 ML VIAL 6 ML INJ (08:56)
[2023-10-29 08:57] VITALS: BP 138/63; PULSE 97; RESP 18; O2SAT 94
--- NOTE | 2023-10-29 09:11 | W.PM.PROCNOT ---
Date of procedure: 10/29/23 Pre-op diagnosis: Lumbar Spondylosis Post-op diagnosis: same as pre-op Procedure: Bilateral Lumbar 4/5, 5/sacral 1 medial branch block Under fluoroscopic guidance Solution injected: 2millilitersMarcaine 0.25% Anesthesia :none Immediate complications none Time out process compliant After informed consent obtained from the patient placed in the Prone proposition . area was prepped and draped in a sterile fashion using Cloraprep .25 gauge spinal needle inserted over each of the above mentioned target areas . Olmitz were directed towards the target under fluoroscopic guidance . after encountering each of the targets , no indication of intravascular intraneuronal or intrathecal needle tip placement. Then 0 .5 to 1 Milliliter was injected at each level. Olmitz removed postoperatively. patient transferred to recovery in stable condition to be discharged home after meeting criteria Anesthesia: Local Surgeon: Teagan Damico Condition: stable
== END 2023-10-29 09:07 | disposition home or self-care (01) ==
LOC: SURGOUT 07:51
PROVIDERS: PCP Family Medicine; Visit Provider Anesthesiology Pain Medicine
DX: M47.816 Spondylosis without myelopathy or radiculopathy, lumbar region (principal)
CPT/HCPCS: 36415; 64493; 64494; 82948; J0665

== ENCOUNTER 2023-11-07 12:37 | Outpatient (OUT) | payer MEDICAID, SELFPAY ==
--- NOTE | 2023-11-07 13:00 | P.CN_ITS ---
Consult Note: HPI Data of Consult Patient: known to practice within the last 3 years Requesting Physician: Estefany Tapia NP Primary Care Provider: LARS DAVIS Consult Narrative Reason for consult: f/u Narrative: Mayra Coates a pleasant 53 year old female presents for evaluation and management of chronic low back pain. Today pain 7/10 aching. Pain worse with all activity, improved with rest. Patient recently underwent bilateral L4/5 L5/S1 MBB #1 with 95% immediate improvement in pain and functional ability lasting a few hours. Patient continues to find mild benefit from medication regimen, would like to discuss proceeding with bilateral L4/5 L5/S1 MBB #2 working towards thermal RFA cc:: CC: Estefany Tapia NP Review of Systems ROS Status of ROS 10 or more systems reviewed and unremark able except as noted in history and below Musculoskeletal Reports: back pain, neck pain, extremity pain and joint pain PFSH PFSH Social History Smoking status: Former smoker Meds Home Medications and Allergies Home Medications Medication Instructions Recorded Confirmed Type allopurinol 300 mg tablet 300 mg PO DAILY 05/22/23 10/29/23 History atorvastatin 10 mg tablet 10 mg PO DAILY 05/22/23 10/29/23 History cholecalciferol (vitamin D3) 50 50 mcg PO DAILY 05/22/23 10/29/23 History mcg (2,000 unit) capsule dulaglutide 3 mg/0.5 mL 3 mg subcut QWEEK 05/22/23 10/29/23 History subcutaneous pen injector (Trulicity) levothyroxine 50 mcg tablet 50 mcg PO DAILY 05/22/23 10/29/23 History lisinopril 2.5 mg tablet 2.5 mg PO DAILY 05/22/23 10/29/23 History nabumetone 500 mg tablet 500 mg PO BID 05/22/23 10/29/23 History tizanidine 4 mg capsule 4 mg PO Q8H PRN back pain 05/22/23 10/29/23 History trazodone 50 mg tablet 50 mg PO DAILY PRN sleep 05/22/23 10/29/23 History gabapentin 600 mg tablet 600 mg PO TID 10/29/23 10/29/23 History Allergies Allergy/AdvReac Type Severity Reaction Status Date / Time propylthiouracil Allergy Severe Hives Verified 10/29/23 08:07 Exam Constitutional Documenting provider has reviewed patient's vital signs: yes Common normals: no apparent distress, oriented x3, healthy appearing, alert and well nourished General appearance: cooperative Nutritional appearance: obese HENMT Common normals: normocephalic, hearing grossly normal bilaterally and moist oral mucous membranes Head and scalp: normocephalic Eye Common normals: PERRL Pupil: PERRL Neck & C-Spine Common normals: full ROM General: normal visual inspection Chest Common normals: inspection of chest normal Respiratory Common normals: normal respiratory effort, no retractions and no use of accessory muscles Back & Pelvis Thoracic spine/upper back: ROM limited and pain with ROM Lumbar spine/lower back: ROM limited, pain with ROM and straight leg raise negative bilaterally Extremity Common normals: normal to inspection and full ROM Neuro Common normals: oriented x3, CN's II-XII intact bilaterally, moves all extremities, no focal motor deficits, no sensory deficits noted and deep tendon reflexes 2+ bilaterally Sensorium/orientation: alert Gait (neuro): antalgic Motor exam: no movement abnormalities noted and strength abnormal (4/5 BUE BLE) Psych Common normals: mental status grossly normal, thought process normal, cooperative, affect normal, speech normal and activity/motor behavior normal Speech: normal speech Thought process: normal thought process Results Additional Findings Additional findings: I have checked an [facility] report on this patient today and there are no aberrancies noted in the prescribing history.?? A drug screen was completed and reviewed within the last year, and if there has not been a drug screen completed we ordered one today to monitor higher risk, state monitored pain medication use. As part of providing excellent, safe, comprehensive care, the following was completed at our patient's visit: 1. A medication reconciliation and review to ensure accurate knowledge of current/active medications, including asking our patients to inform us about any [id number] medications or herbal remedies/nutritional supplements/alternative remedies. 2. A review to specifically ensure our patients have had annual screening for: elevated body mass index (BMI), tobacco use, screening for depression, and screening for unhealthy alcohol use. When screening is concerning, patients are provided with education and the specific recommendation to discuss the concerning health issue and treatment options with their primary care provider. Assessment and Plan Assessment and Plan (1) Lumbar spondylosis: (2) Osteoarthritis of hips, bilateral: Plan bilateral L4-5 L5-S1 MBB #2 under fluoroscopy xray of bilateral hips reviewed with pt, mild OA. consider bilateral hip injections reschedule f/u with rheumatology, based on diffuse myofascial pain and fatigue likely fibromyalgia however we should rule out underlying causes, she was previously referred and missed the appointment f/u 1 week after injection
== END 2023-11-07 12:38 | disposition home or self-care (01) ==
LOC: PM 12:37
PROVIDERS: PCP Family Medicine; Visit Provider Nurse Practitioner
DX: M47.816 Spondylosis without myelopathy or radiculopathy, lumbar region (principal); M16.0 Bilateral primary osteoarthritis of hip
CPT/HCPCS: G0463

== ENCOUNTER 2023-11-26 06:54 | Day surgery (SDC) | payer MEDICAID, SELFPAY ==
--- OUTSIDE RECORDS SUMMARY | 2023-11-26 06:56 | XMS_ITS | CCD ---
Author Name Unknown Address [address] [place] [address] Organization [facility] Care Team Providers Care [facility] Account Executive Name Role Phone MICKEY OWEN Unavailable Unavailable [...] Value Interpretation Reference Range Facility HLA B [facility] 01-28-2023 HLA-B27 Negative Normal [facility] Comment on above: Result Comment: HLA- B*27 Negative B27 allele interpretation for all loci based on IMGT/HLA database version 3.44 This test was developed and its performance characteristics determined by [facility]. It has not been cleared or approved by the Food and Drug Administration. [facility] CLIA ID Number [id number] . This test was performed using PCR (Polymerase Chain Reaction)/SSOP (Sequence Specific Oligonucleotide Probes) technique. SBT (Sequence Based Typing) and/or SSP (Sequence Specific Primers) may be used as supplemental methods when necessary. Please contact HLA Customer Service at if you have any questions. . Director of HLA Laboratory Dr Jett Carpio, PhD Performed By: #### H LA27 #### [facility] [address] [place] [address] Dr. Daniela Ledesma CALEB by IFAon 01-24-2023 Antinuclear Antibodies, IFA Negative Normal [facility] Comment on above: Result Comment: Nega tive <1:80 Borderline 1:80 Positive >1:80 ICAP nomenclature: AC-0 For more information about Hep-2 cell patterns use ANApatterns.org, the official website for the International Consensus on Antinuclear Antibody (CALEB) Patterns (ICAP). Performed By: #### A NAIFA #### [facility] [address] [place] [address] Dr. Daniela Ledesma RHEUMATOID FACTORon 01-24-20 RA Latex Turbid. <10.0 Normal <14.0 [facility] Comment on above: Performed By: #### R F #### [facility] [address] [place] [address] Dr. Daniela Ledesma CBC AUTO DIFFon 01-21-2023 BASO # 0.1 103/ul Normal 0.0-0.1 [facility] Comment on above: Performed By: #### C BC #### [facility] [address] [place] [address] Dr. Daniela Ledemsa Basophils/100 WBC (Bld) 0.9 % Normal 0.2-2.0 [facility] Comment on above: Performed By: #### C BC #### [facility] [address] [place] [address] Dr. Daniela Ledesma EO # 0.7 103/ul Normal 0.0-0.7 [facility] Comment on above: Performed By: #### C BC #### [facility] [address] [place] [address] Dr. Daniela Ledesma Eosinophils/100 WBC (Bld) 4.3 % Normal 0.9-7.0 [facility] Comment on above: Performed By: #### C BC #### [facility] [address] [place] [address] Dr. Daniela Ledesma Erythrocyte distribution width (RBC) [Ratio] 13.2 % Normal 11.0-15.0 [facility] Comment on above: Performed By: #### C BC #### [facility] [address] [place] [address] Dr. Daniela Ledesma Hematocrit (Bld) [Volume fraction] 45.4 % Normal 36.0-48.0 [facility] Comment on above: Performed By: #### C BC #### [facility] [address] [place] [address] Dr. Daniela Ledesma Hemoglobin (Bld) [Mass/Vol] 15.7 g/dL Normal 12.0-16.0 [facility] Comment on above: Performed By: #### C BC #### [facility] [address] [place] [address] Dr. Daniela Ledesma IG # 0.07 10e3/ul Critically high 0.00-0.03 [facility] Comment on above: Performed By: #### C BC #### [facility] [address] [place] [address] Dr. Daniela Ledesma IG % 0.5 % Normal 0.0-0.5 [facility] Comment on above: Performed By: #### C BC #### [facility] [address] [place] [address] Dr. Daniela Ledesma LYMPH # 3.7 103/ul Normal 1.2-3.8 [facility] Comment on above: Performed By: #### C BC #### [facility] [address] [place] [address] Dr. Daniela Ledesma Lymphocytes/100 WBC (Bld) 24.7 % Normal 20.5-60.0 [facility] Comment on above: Performed By: #### C BC #### [facility] [address] [place] [address] Dr. Daniela Ledesma MANUAL DIFF REQ NO Normal [facility] Comment on above: Performed By: #### C BC #### [facility] [address] [place] [address] Dr. Daniela Ledesma MCH (RBC) [Entitic mass] 30.9 pg Normal 26.7-34.0 [facility] Comment on above: Performed By: #### C BC #### [facility] [address] [address] [address] Daniela Ledesma MCHC (RBC) [Mass/Vol] 34.6 g/dL Normal 29.9-35.2 [facility] Comment on above: Performed By: #### C BC #### [facility] [address] [address] [address] Daniela Ledesma MCV (RBC) [Entitic vol] 89.4 fL Normal 81.0-99.0 [facility] Comment on above: Performed By: #### C BC #### [facility] [address] [address] [address] Daniela Ledesma MONO # 0.7 103/ul Normal 0.3-0.8 [facility] Comment on above: Performed By: #### C BC #### [facility] [address] [address] [address] Daniela Ledesma Monocytes/100 WBC (Bld) 4.4 % Normal 1.7-12.0 [facility] Comment on above: Performed By: #### C BC #### [facility] [address] [address] [address] Daniela Ledesma NEUT # 9.8 103/ul Critically high 1.4-6.5 [facility] Comment on above: Performed By: #### C BC #### [facility] [address] [address] [address] Daniela Ledesma Neutrophils/100 WBC (Bld) 65.2 % Normal 43.0-75.0 [facility] Comment on above: Performed By: #### C BC #### [facility] [address] [address] [address] Daniela Ledesma Platelet mean volume (Bld) [Entitic vol] 9.3 fL Critically low 9.5-13.5 [facility] Comment on above: Performed By: #### C BC #### [facility] [address] [address] [address] Daniela Ledesma PLT 286 103/ul Normal 150-450 [facility] Comment on above: Performed By: #### C BC #### [facility] [address] [address] [address] Daniela Ledesma RBC 5.08 106/ul Normal 4.20-5.40 [facility] Comment on above: Performed By: #### C BC #### [facility] [address] [place] [address] Dr. Daniela Ledesma WBC 15.1 103/ul Critically high 4.0-11.0 [facility] Comment on above: Performed By: #### C BC #### [facility] [address] [place] [address] Dr. Daniela Ledesma [facility] SED RATE 34 mm/hr Critically high <=30 [facility] Comment on above: Performed By: #### S EDR #### [facility] [address] [place] [address] Dr. Daniela Ledesma URIC ACID SERUMon 01-21-2023 Urate [Mass/Vol] 7.5 mg/dL Critically high 2.6-6.0 [facility] Comment on above: Performed By: #### U TUTU #### [facility] [address] [place] [address] Dr. Daniela Ledesma CPKon 01-12-2023 CK [Catalytic activity/Vol] 98 U/L Normal 26-192 [facility] Comment on above: Performed By: #### Jose David MIGUEL CK #### [facility] [address] [place] [address] Dr. Daniela Ledesma MYOGLOBINon 01-12-2023 SAW 34 ng/mL Normal 9-82 [facility] Comment on above: Performed By: #### Jose David MIGUEL CK #### [facility] [address] [place] [address] Dr. Daniela Ledesma MR cervical spine wo conon 0 11-27-2022 MR cervical spine wo con [place] [address] XRay Report Signed Patient: Ezequiel Coates MR#: [id number] : 1970 Acct:[id number] Age/Sex: 52 / F ADM Date: 11/26/22 Loc: MR [facility] Dr: Brendan COCHRAN Copies to: DIMAS Rand Ordering Provider: DIMAS Rand Date of Service: 11/26/22 MR/MR cervical spine wo con: R20.2, M79.601 ([id number]) XR/XR pre/post mri xray: PRE MRI OF [...] Jillian Angelo M.D.11/27/2022 10:13 AM Dictation Location: [place] [address] Transcribed By: [facility] 11/27/22 1013 Dictated By: Jillian Angelo MD 11/27/22 0948 Signed By: 11/27/22 1013 [facility] Thyroidon 10-17-2022 Thyroid HISTORY: Hyperthyroidism. FINDINGS: The [...] by Ezekiel Hernandez on 10/17/2022 1005 Normal [facility] Pe Manager JORDANA - Automatic Exporton JORDANA - Automatic [place] [facility]-[place], [place] ANDREYNETTIEARIADNE EZEQUIEL 1970 Date of Female Sex [id number] [place] [address] AddressEnglish (preferred) Language White Race Not or Ethnicity Summary of Care Clinical Content Allergies and Adverse Reactions <#KV3YFGAX> Encounters <#GM3QOSYG> Functional Status <#WP1JKZMC> Immunization <#QV2BSDAM> Instructions <#LB6MMYAL> Interventions Provided <#TA3S4NXV> Medications <#NF3HZPFI> Plan of Care <#SL5KY5BS> Problems <#BE5MMMAB> Procedures <#YX5YWTFW> Results <#AY1B20AX> Social History <#VN9AVVGD> Vital Signs <#WV1GNRTJ> Other Document Details Health Care Providers Functional [...] Ambulatory Health Care Facilities Zo Rivera [email or web address] Work Email [facility] [address] [id number] Address Ambulatory Health Care Facilities None, No [facility] Address Document Detailstop <#top> [facility] Fraser DO February 13, 2020 11:46 -0400 [id number] [id number] [phone] Work Phone Powered by [employer]?Style Sheet V3.2 Normal [employer] JORDANA - Automatic [place] [facility], [place] EZEQUIEL COATES 1970 Date of Female Sex [id number] [address] [id number] AddressEnglish (preferred) Language White Race Not or Ethnicity Summary of Care Clinical Content Allergies and Adverse Reactions <#OE9DPAQK> Encounters <#QM9XRJSX> Functional Status <#SO4WWAFR> Immunization <#TP3UHWFX> Instructions <#BW5HRLLR> Interventions Provided <#GD8FH0BR> Medications <#GN9VOJBB> Plan of Care <#ZO5GN3DH> Problems <#EF4BYCCR> Procedures <#NX4MSQQN> Results <#VA6M36NU> Social History <#GV4NCFOC> Vital Signs <#SX8OIJHO> Other Document Details Health Care Providers Functional [...] Ambulatory Health Care Facilities Zo Rivera [email or web address] Work Email [facility] [address] [place] [address] Address Ambulatory Health Care Facilities None, No [facility] Address Document Detailstop <#top> [facility] Joshua Fraser DO February 13, 2020 11:15 -0400 [id number] [place] [address] [phone] Work Phone Powered by [employer]?Style Sheet V3.2 Normal [employer] JORDANA - Automatic [place], [place] EZEQUIEL CAOTES 1970 Date of Female Sex [id number] [id number] AddressEnglish (preferred) Language White Race Not or Ethnicity Summary of Care Clinical Content Allergies and Adverse Reactions <#DW0BLIAB> Encounters <#RE4UVZWO> Functional Status <#MC9DHDDF> Immunization <#DU7UCGWZ> Instructions <#ZQ8OFPLQ> Interventions Provided <#IO7T6RYP> Medications <#DR7YKNJM> Plan of Care <#JE9UKISW> Problems <#NW4JCUFP> Procedures <#VE1K6QVX> Results <#YZ8PCAHA> Social History <#QG0AGEXS> Vital Signs <#TF3A4UHC> Other Document Details Health Care Providers Functional [...] Providerstop <#top> Ambulatory Health Care Facilities Zo iRvera [email or web address] Work Email [facility] [address] [place] [address] Address Ambulatory Health Care Facilities None, No PCPCassandranowgabino Address Document Detailstop <#top> [facility] Fraser DO February 13, 2020 11:01 [id number] [place] [address] [phone] Work Phone Powered by Uberpong?Style Sheet V3.2 Normal [employer] School/Work Letteron 020 School/Work Letter February 13, [...] Feb 13 2020 11:34AM EST (Author) Normal [employer] Provider Note - ED v2on 09-07 Provider [...] Past Surgical History Description:Hysterectom y Description:Cholecystec kenny MANAGER SEARCH ENGINE: Is : no(1) Is : no(1) REVIEW [...] SIGNS: T PRBP SpO2O2(LPM) %FiO2 Method 27-Sep-2019 19:18:[id number]/73 99 room air, no respiratory support MEDICAL [...] From Triage - ED 27-Sep-2019 19:18 Normal [facility] Risk Screen - Adult Emergenc yon [...] Communicatenone Learning Preferencesaudio Cultural Considerationsnone Developmental Considerationsnone Confucianism Considerationsnone Learning Assessment (Other Learner): Learning Assessment (Other Learner): Other learner availableno Pressure Injury/TB/Substance: Pressure Injury: Pressure Injury Present on Admissionno Do you have a coughno Admission Risk Screen: Significant IndicatorsComplete CAGE: CAGE: Is this an injured patient at a Trauma Center ([facility]/[place]/[facility] a/[place]): no Electronic Signatures: Gali Meyer (RN) (Signed 27-Sep-2019 19:36) Authored: Preferred Language, Advanced Directives, Family Violence Adult, Learning Assessment (Patient), Learning Assessment (Other Learner), Pressure Injury/TB/Substance, CAGE Last Updated: 27-Sep-2019 19:36 by Gali Meyer (HENRY) [facility] Triage - EDon 09-27-2019 Triage - ED [...] Travel outside of [place]: no Allergies: yes MANAGER SEARCH ENGINE History: 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 Patient has homicidal thoughts: no [...] 19:22 by Sherry Bronson (STAFF N) Normal [facility] CBC With Platelet No Differe bri 03-07-2018 Erythrocyte distribution width Auto Ratio (RBC) 13.0 % Normal 11.5-14.5 [facility] Erythrocytes (RBC) 5.17 10*6/uL Normal 4.20-5.40 [facility] Hematocrit (HCT) 44.4 % Normal 37.0-47.0 [facility] Hemoglobin mass conc (Bld) 15.3 g/dL Normal 12.0-16.0 [facility] MCH 29.6 pg Normal 27.0-31.3 [facility] MCHC mass conc (RBC) 34.4 % Normal 33.0-37.0 [facility] MCV 85.9 fL Normal 82.0-100.0 [facility] Platelets 287 10*3/uL Normal 130-400 [facility] WBC (Leukocytes) 6.8 10*3/uL Normal 4.8-10.8 [facility] TSH w/out Reflexon 8 Thyroid stimulating hormone (TSH) m[IU]/L Low 0.270-4.20 [facility] Thyroxine Freeon 03-07-2018 Thyroxine Free 2.23 ng/dL Critically high 0.93-1.70 [facility] US HEAD NECK SOFT TISSUE [...] Data System (TI- RADS) established by the [employer] to help provide guidance [...] by:INDER Morrisigned by:Julio Marie MD02/14/inal result Normal [facility] CBC With Platelet No Differe ntialon 02-07-2018 Erythrocyte distribution width Auto Ratio (RBC) 12.7 % Normal 11.5-14.5 [facility] Erythrocytes (RBC) 4.65 10*6/uL Normal 4.20-5.40 [facility] Hematocrit (HCT) 40.2 % Normal 37.0-47.0 [facility] Hemoglobin mass conc (Bld) 14.0 g/dL Normal 12.0-16.0 [facility] MCH 30.1 pg Normal 27.0-31.3 [facility] MCHC mass conc (RBC) 34.8 % Normal 33.0-37.0 [facility] MCV 86.4 fL Normal 82.0-100.0 [facility] Platelets 241 10*3/uL Normal 130-400 [facility] WBC (Leukocytes) 6.8 10*3/uL Normal 4.8-10.8 [facility] TSH w/out Reflexon 8 Thyroid stimulating hormone (TSH) m[IU]/L Low 0.270-4.20 [facility] Thyroxine Freeon 02-07-2018 Thyroxine Free 3.43 ng/dL Critically high 0.93-1.70 [facility] Encounters Encounter Date Encounter Type Care Provider Facility Start: 01-31-2023 End: 02-01-[address] ZEHRA MARQUES Facility:[facility] Start: 01-21-2023 End: 01-22-2023 ambulatory MR JAMAAL JALLOH . Facility:[facility] Start: 01-12-2023 End: 01-13-2023 ambulatory BRENDAN COYLE Facility:[facility] Start: 11-26-2022 End: 11-26-2022 ambulatory Brendan Coyle Facility:[facility] Start: 11-26-2022 End: 11-26-2022 ambulatory MD Zehra Marques Work Phone: [facility] Work Phone: Start: 11-26-2022 End: 11-26-2022 Patient encounter procedure MD Zehra Marques Work Phone: [facility] [place] Work Phone: Start: 11-19-2022 End: 11-20-2022 ambulatory DAPHNEY RODRIGUEZ Facility:[facility] Start: 09-17-2022 ambulatory DAPHNEY RODRIGUEZ Fac ility:[facility] Start: 05-13-2020 Patient encounter procedure Ezekiel Devi [facility] Work Phone: Start: 03-26-2020 [facility] Start: 02-13-2020 Patient encounter procedure Ezekiel Devi [facility] Work Phone: Start: 02-14-2018 End: 02-17-2018 Ambulatory MICKEY OWEN [facility] Procedures Date Procedure Procedure Detail [...] Start: 11-26-2022 MR Cervical spine WO contrast [facility] Start: 11-26-2022 MRI of cervical spin e without contrast MR cervical spine wo con [facility] Start: 11-26-2022 XR pre/post mri xray XR pre/post mri xray [facility] Start: 11-26-2022 [facility] Payers Date Payer Category Payer Self-pay 2017 Unknown [id number] 1970 Unknown [id number] 2.16.84 [id number] 1970 Unknown [id number] 2.16.84 [id number] 1970 Unknown [id number] 2.16.84 [id number] 1970 Unknown [id number] 2.16.84 [id number] 1970 Unknown [id number] 2.16.84 [id number] 1959 Medicaid [id number] Unknown [id number] 2.16.8 [id number] Social History Date Type Detail Facility Assertion Tobacco smoking consumption unknown (finding) [facility] Work Phone: Start: 1970 Sex Assigned At Female F [facility] Functional Status Date Assessment Result Facility NEGATED: Highlighted row Functional performance Functional status health issues are not documented Disease [facility] Work Phone: Mental Status Date Assessment Result Facility NEGATED: Highlighted row Cognitive function [Interpretation] Cognitive status health issues are not documented Disease [facility] Work Phone: Clinical Note 08-20-2022 Note Date & Type Note Facility 08-20-2022 Note FINDINGS: ARTERIAL EVALUATION RIGHT LEFT VELOCITIES PHASICITY VELOCITIES PHASICITY 85 BiCommon [id number] 83BiProximal IHD93Fd 108BiMid CCA18Pe 40 BiDistal JLK77Qs 51 NsTiqzgfoeh50Ae 46 [id number] 75 BiPTA 93Bi 44 BiPeroneal 58Bi RIGHT [...] signed by Mikey Harry on 08/21/2022 1153 [facility] Pe Manager Evaluation note Note Date & Type Note Facility Evaluation note No assessment information availa [facility] Work Phone: Summary Purpose Family History No [...] section and content) DATE CREATED AUTHOR 03/26/2018 [facility] edical Center DATE CREATED AUTHOR AUTHOR'S ORGANIZ ATION 10/02/2019 [facility] DATE CREATED AUTHOR AUTHOR'S ORGANIZ ATION 05/19/2020 [employer] DATE CREATED AUTHOR AUTHOR'S ORGANIZ ATION 10/17/2022 [facility] dical Specialist DATE CREATED AUTHOR AUTHOR'S ORGANIZ ATION 12/02/2022 [facility] DATE CREATED AUTHOR AUTHOR'S ORGANIZ ATION 02/19/2023 [facility] (unrecognized sec tion and content) [...] BE BASED ON THE PRIMARY CLINICAL RECORDS. [facility]. provides no warranty or guarantee of the accuracy or completeness of information in this document.
[2023-11-26 07:21] LABS: Glucometer 207 mg/dL (74-106)
[2023-11-26 07:23] VITALS: BP 141/74; PULSE 100; RESP 16; TEMP 36.2; O2SAT 96
[2023-11-26 07:28] VITALS: BP 127/65; PULSE 92; RESP 18; O2SAT 94
[2023-11-26 07:31] VITALS: BP 135/72; PULSE 90; RESP 18; O2SAT 96
[2023-11-26] MEDS: BUPIVACAINE HCL 0.25% PF 25 MG/10 ML VIAL 5 ML INJ (07:33)
--- NOTE | 2023-11-26 08:24 | P.ON_ITS ---
Date of procedure: 11/26/23 Pre-op diagnosis: Lumbar spondylosis Post-op diagnosis: same as pre-op Procedure: Bilateral Lumbar 4/5, 5/sacral 1 medial branch block Under fluoroscopic guidance Solution injected: 2millilitersMarcaine 0.25% Anesthesia :none Immediate complications none Time out process compliant After informed consent obtained from the patient placed in the Prone proposition . area was prepped and draped in a sterile fashion using Cloraprep .25 gauge spinal needle inserted over each of the above mentioned target areas . [place] were directed towards the target under fluoroscopic guidance . after encountering each of the targets , no indication of intravascular intraneuronal or intrathecal needle tip placement. Then 0 .5 to 1 Milliliter was injected at each level. [place] removed postoperatively. patient transferred to recovery in stable condition to be discharged home after meeting criteria Anesthesia: Local Surgeon: Teagan Damico Condition: stable
== END 2023-11-26 07:37 | disposition home or self-care (01) ==
LOC: SURGOUT 06:54
PROVIDERS: PCP Family Medicine; Visit Provider Anesthesiology Pain Medicine
DX: M47.816 Spondylosis without myelopathy or radiculopathy, lumbar region (principal); Z79.85 Long-term (current) use of injectable non-insulin antidiabetic drugs
CPT/HCPCS: 36415; 64493; 64494; 82948; J0665

== ENCOUNTER 2023-12-11 07:47 | Outpatient (OUT) | payer MEDICAID, SELFPAY ==
--- OUTSIDE RECORDS SUMMARY | 2023-12-11 07:49 | XMS_ITS | CCD ---
Author Name Unknown Address [address] [place] [address] [facility] Care Team Providers Care Manager Acquisition Name Role Phone MICKEY OWEN Unavailable Unavailable MICHELLE CHOW Unavailable Unavailable Joshua Fraser Unavailable Unavailable Joshua Fraser Unavailable Unavailable None, No PCP Unavailable Unavailable Ezekiel Devi Unavailable Unavailable Joshua Fraser Unavailable UnavailDIMAS Corona Attending Provider [phone] MD Zehra Marques Primary Care Provider [phone] Brendan Coyle Admitting Unavailable Brendan Coyle Attending [...] Value Interpretation Reference Range Facility HLA B [facility] 01-28-2023 HLA-B27 Negative Normal [facility] Comment on above: Result Comment: HLA- B*27 Negative B27 allele interpretation for all loci based on IMGT/HLA database version 3.44 This test was developed and its performance characteristics determined by [facility]. It has not been cleared or approved by the Food and Drug Administration. [facility] CLIA ID Number [id number] . This test was performed using PCR (Polymerase Chain Reaction)/SSOP (Sequence Specific Oligonucleotide Probes) technique. SBT (Sequence Based Typing) and/or SSP (Sequence Specific Primers) may be used as supplemental methods when necessary. Please contact HLA Customer Service at if you have any questions. . Director of HLA Laboratory Dr Jett Carpio, PhD Performed By: #### H LA27 #### [facility] [address] [place] [address] Dr. Daniela Ledesma CALEB by IFAon 01-24-2023 Antinuclear Antibodies, IFA Negative Normal [facility] Comment on above: Result Comment: Nega tive <1:80 Borderline 1:80 Positive >1:80 ICAP nomenclature: AC-0 For more information about Hep-2 cell patterns use ANApatterns.org, the official website for the International Consensus on Antinuclear Antibody (CALEB) Patterns (ICAP). Performed By: #### A NAIFA #### [facility] [address] [place] [address] Dr. Daniela Ledesma RHEUMATOID FACTORon 01-24-20 RA Latex Turbid. <10.0 Normal <14.0 [facility] Comment on above: Performed By: #### R F #### [facility] [address] [place] [address] Dr. Daniela Ledesma CBC AUTO DIFFon 01-21-2023 BASO # 0.1 103/ul Normal 0.0-0.1 [facility] Comment on above: Performed By: #### C BC #### [facility] [address] [place] [address] Dr. Daniela Ledesma Basophils/100 WBC (Bld) 0.9 % Normal 0.2-2.0 [facility] Comment on above: Performed By: #### C BC #### [facility] [address] [place] [address] Dr. Daniela Ledesma EO # 0.7 103/ul Normal 0.0-0.7 [facility] Comment on above: Performed By: #### C BC #### [facility] [address] [place] [address] Dr. Daniela Ledesma Eosinophils/100 WBC (Bld) 4.3 % Normal 0.9-7.0 [facility] Comment on above: Performed By: #### C BC #### [facility] [address] [place] [address] Dr. Daniela Ledesma Erythrocyte distribution width (RBC) [Ratio] 13.2 % Normal 11.0-15.0 [facility] Comment on above: Performed By: #### C BC #### [facility] [address] [place] [address] Dr. Daniela Ledesma Hematocrit (Bld) [Volume fraction] 45.4 % Normal 36.0-48.0 [facility] Comment on above: Performed By: #### C BC #### [facility] [address] [place] [address] Dr. Daniela Ledesma Hemoglobin (Bld) [Mass/Vol] 15.7 g/dL Normal 12.0-16.0 [facility] Comment on above: Performed By: #### C BC #### [facility] [address] [place] [address] Dr. Daniela Ledesma IG # 0.07 10e3/ul Critically high 0.00-0.03 [facility] Comment on above: Performed By: #### C BC #### [facility] [address] [place] [address] Dr. Daniela Ledesma IG % 0.5 % Normal 0.0-0.5 [facility] Comment on above: Performed By: #### C BC #### [facility] [address] [place] [address] Dr. Daniela Ledesma LYMPH # 3.7 103/ul Normal 1.2-3.8 [facility] Comment on above: Performed By: #### C BC #### [facility] [address] [place] [address] Dr. Daniela Ledesma Lymphocytes/100 WBC (Bld) 24.7 % Normal 20.5-60.0 [facility] Comment on above: Performed By: #### C BC #### [facility] [address] [place] [address] Dr. Daniela Ledesma MANUAL DIFF REQ NO Normal [facility] Comment on above: Performed By: #### C BC #### [facility] [address] [place] [address] Dr. Daniela Ledesma MCH (RBC) [Entitic mass] 30.9 pg Normal 26.7-34.0 [facility] Comment on above: Performed By: #### C BC #### [facility] [address] [address] [address] Daniela Ledesma MCHC (RBC) [Mass/Vol] 34.6 g/dL Normal 29.9-35.2 [facility] Comment on above: Performed By: #### C BC #### [facility] [address] [address] [address] Daniela Ledesma MCV (RBC) [Entitic vol] 89.4 fL Normal 81.0-99.0 [facility] Comment on above: Performed By: #### C BC #### [facility] [address] [address] [address] Daniela Ledesma MONO # 0.7 103/ul Normal 0.3-0.8 [facility] Comment on above: Performed By: #### C BC #### [facility] [address] [address] [address] Daniela Ledesma Monocytes/100 WBC (Bld) 4.4 % Normal 1.7-12.0 [facility] Comment on above: Performed By: #### C BC #### [facility] [address] [address] [address] Daniela Ledesma NEUT # 9.8 103/ul Critically high 1.4-6.5 [facility] Comment on above: Performed By: #### C BC #### [facility] [address] [address] [address] Daniela Ledesma Neutrophils/100 WBC (Bld) 65.2 % Normal 43.0-75.0 [facility] Comment on above: Performed By: #### C BC #### [facility] [address] [address] [address] Daniela Ledesma Platelet mean volume (Bld) [Entitic vol] 9.3 fL Critically low 9.5-13.5 [facility] Comment on above: Performed By: #### C BC #### [facility] [address] [address] [address] Daniela Ledesma PLT 286 103/ul Normal 150-450 [facility] Comment on above: Performed By: #### C BC #### [facility] [address] [address] [address] Daniela Ledesma RBC 5.08 106/ul Normal 4.20-5.40 [facility] Comment on above: Performed By: #### C BC #### [facility] [address] [place] [address] Dr. Daniela Ledesma WBC 15.1 103/ul Critically high 4.0-11.0 [facility] Comment on above: Performed By: #### C BC #### [facility] [address] [place] [address] Dr. Daniela Ledesma [facility] 34 mm/hr Critically high <=30 [facility] Comment on above: Performed By: #### S EDR #### [facility] [address] [place] [address] Dr. Daniela Ledesma URIC ACID SERUMon 01-21-2023 Urate [Mass/Vol] 7.5 mg/dL Critically high 2.6-6.0 [facility] Comment on above: Performed By: #### U TUTU #### [facility] [address] [place] [address] Dr. Daniela Ledesma CPKon 01-12-2023 CK [Catalytic activity/Vol] 98 U/L Normal 26-192 [facility] Comment on above: Performed By: #### Jose David MIGUEL CK #### [facility] [address] [place] [address] Dr. Daniela Ledesma MYOGLOBINon 01-12-2023 SAW 34 ng/mL Normal 9-82 [facility] Comment on above: Performed By: #### Jose David MIGUEL CK #### [facility] [address] [place] [address] Dr. Daniela Ledesma MR cervical spine wo conon 0 11-27-2022 MR cervical spine wo con [facility] [place] [address] XRay Report Signed Patient: Ezequiel Coates MR#: [id number] : 1970 Acct:[id number] Age/Sex: 52 / F ADM Date: 11/26/22 Loc: MR [facility] Dr: Brendan COCHRAN Copies to: DIMAS Rand Ordering Provider: DIMAS Rand Date of Service: 11/26/22 MR/MR cervical spine wo con: R20.2, M79.601 ([id number]) XR/XR pre/post mri xray: PRE MRI OF [...] Jillian Angelo M.D.11/27/2022 10:13 AM Dictation Location: [place] [address] Transcribed By: [facility] 11/27/22 1013 Dictated By: Jillian Angelo MD 11/27/22 0948 Signed By: 11/27/22 1013 [facility] Thyroidon 10-17-2022 Thyroid HISTORY: Hyperthyroidism. FINDINGS: [...] by Ezekiel Hernandez on 10/17/2022 1005 Normal [facility] Acoustical Engineer JORDANA - Automatic Exporton JORDANA - Automatic [facility], [place] ANDREYNETTIEARIADNE EZEQUIEL 1970 Date of Female Sex [id number] [place] [address] AddressEnglish (preferred) Language White Race Not or Ethnicity Summary of Care Clinical Content Allergies and Adverse Reactions <#EK2UDZAP> Encounters <#WQ8RJRGG> Functional Status <#OA8TYPSN> Immunization <#TS2YSQVL> Instructions <#MZ7JKRWL> Interventions Provided <#LF3R1XWO> Medications <#DV8WSZNN> Plan of Care <#TU3DK1KD> Problems <#LF5YFCXM> Procedures <#AL6QPULH> Results <#ZN0D78PV> Social History <#EY6DTNMF> Vital Signs <#FP7VEZGA> Other Document Details Health Care Providers Functional [...] Ambulatory Health Care Facilities Zo Rivera [email or web address] Work Email Allopathic AND Osteopathic Physicians [id number] [id number] Address Ambulatory Health Care Facilities None, No [facility] Address Document Detailstop <#top> [facility] Fraser DO February 13, 2020 11:46 -0400 [id number] [id number] [phone] Work Phone Powered by [employer]?Style Sheet V3.2 Normal [facility] JORDANA - Automatic [facility], [place] EZEQUIEL COATES 1970 Date of Female Sex [id number] [place] [id number] AddressEnglish (preferred) Language White Race Not or Ethnicity Summary of Care Clinical Content Allergies and Adverse Reactions <#VR0KBJJL> Encounters <#OP8LZHUA> Functional Status <#LH3PTYYD> Immunization <#KJ8RSXIN> Instructions <#HK8SYCIA> Interventions Provided <#CB0ZR3HH> Medications <#DG5XRPIA> Plan of Care <#IJ5NB5EQ> Problems <#YG4PVJIB> Procedures <#RC0YWLNY> Results <#XN1I29AK> Social History <#BR4HPUNE> Vital Signs <#UI1RXPUV> Other Document Details Health Care Providers Functional [...] Ambulatory Health Care Facilities Zo Rivera [email or web address] Work Email Allopathic AND Osteopathic Physicians [address] [place] [address] Address [facility] Health Care Facilities None, No [facility] Address Document Detailstop <#top> [facility] Joshua Fraser DO February 13, 2020 11:15 -0400 [id number] [place] [address] [phone] Work Phone Powered by [employer]?Style Sheet V3.2 Normal [facility] JORDANA - Automatic [place], [place] EZEQUIEL COATES 1970 Date of Female Sex [id number] [place] [id number] AddressEnglish (preferred) Language White Race Not or Ethnicity Summary of Care Clinical Content Allergies and Adverse Reactions <#KQ7HSWHR> Encounters <#OV7ECWNU> Functional Status <#VH6RYOUH> Immunization <#GM1DBWSD> Instructions <#LT7RCNEP> Interventions Provided <#YI4K5WYX> Medications <#RZ8PSWYQ> Plan of Care <#KZ9GQHIN> Problems <#RT6KAFUQ> Procedures <#MS5B4WLL> Results <#BM0KNMAM> Social History <#XD0PLMHI> Vital Signs <#XL8M2LCK> Other Document Details Health Care Providers Functional [...] Ambulatory Health Care Facilities Zo Rivera [email or web address] Work Email Allopathic AND Osteopathic Physicians Joshua [address] [place] [address] Address Ambulatory Health Care Facilities None, No PCPCassandranowgabino Address Document Detailstop <#top> [facility] Fraser DO February 13, 2020 11:01 [id number] [place] [address] [place] [address] [phone] Work Phone Powered by [employer]?Style Sheet V3.2 Normal [facility] School/Work Letteron 020 School/Work Letter February 13, [...] Feb 13 2020 11:34AM EST (Author) Normal [facility] Provider Note - ED v2on 09-07 Provider [...] Past Surgical History Description:Hysterectom y Description:Cholecystec kenny 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: Is : no(1) Is : no(1) REVIEW [...] SIGNS: T PRBP SpO2O2(LPM) %FiO2 Method 27-Sep-2019 19:18:00-36.93221210/73 99 room air, no respiratory support MEDICAL [...] From Triage - ED 27-Sep-2019 19:18 Normal [facility] Risk Screen - Adult Emergenc yon 09-27-2019 [...] Communicatenone Learning Preferencesaudio Cultural Considerationsnone Developmental Considerationsnone Episcopalian Considerationsnone Learning Assessment (Other Learner): Learning Assessment (Other Learner): Other learner availableno Pressure Injury/TB/Substance: Pressure Injury: Pressure Injury Present on Admissionno Do you have a coughno Admission Risk Screen: Significant IndicatorsComplete CAGE: CAGE: Is this an injured patient at a Trauma Center ([facility]/[place]/[facility] a/[place]): no Electronic Signatures: Gali Meyer (RN) (Signed 27-Sep-2019 19:36) Authored: Preferred Language, Advanced Directives, Family Violence Adult, Learning Assessment (Patient), Learning Assessment (Other Learner), Pressure Injury/TB/Substance, CAGE Last Updated: 27-Sep-2019 19:36 by Gali Meyer (HENRY) [facility] Triage - EDon 09-27-2019 Triage - ED [...] Travel outside of [place]: no Allergies: yes BANQUET ATTENDANT History: 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 Patient has homicidal thoughts: no [...] 19:22 by Sherry Bronson (STAFF N) Normal [facility] CBC With Platelet No Differe bri 03-07-2018 Erythrocyte distribution width Auto Ratio (RBC) 13.0 % Normal 11.5-14.5 [facility] Erythrocytes (RBC) 5.17 10*6/uL Normal 4.20-5.40 [facility] Hematocrit (HCT) 44.4 % Normal 37.0-[facility].0 [facility] Hem[facility] mass conc (Bld) 15.3 g/dL Normal 12.0-16.0 [facility] MCH 29.6 pg Normal 27.0-31.3 [facility] MCHC mass conc (RBC) 34.4 % Normal 33.0-37.0 [facility] MCV 85.9 fL Normal 82.0-100.0 [facility] Platelets 287 10*3/uL Normal 130-400 [facility] WBC (Leukocytes) 6.8 10*3/uL Normal 4.8-10.8 [facility] TSH w/out Reflexon 8 Thyroid stimulating hormone (TSH) m[IU]/L Low 0.270-4.20 [facility] Thyroxine Freeon 03-07-2018 Thyroxine Free 2.23 ng/dL Critically high 0.93-1.70 [facility] US HEAD NECK SOFT TISSUE THY ROIDon 02-14-2018 US HEAD NECK SOFT TISSUE THYROID EXAMINATION: US HEAD NECK SOFT TISSUE THYROIDDATE AND TIME:02/14/2018 2:48 PMCLINICAL HISTORY: Thyromegaly E05.90 Hyperthyroidism ICD10 COMPARISONS: None TECHNIQUE: Biplanar images were obtained. Please note that description of thyroid nodules in this report is based on the 2017 Thyroid Imaging, Reporting and Data System (TI- RADS) established by the [place] [employer] to help provide guidance [...] by:INDER Morrisigned by:Julio Marie MD02/14/inal result Normal [facility] CBC With Platelet No Differe ntialon 02-07-2018 Erythrocyte distribution width Auto Ratio (RBC) 12.7 % Normal 11.5-14.5 [facility] Erythrocytes (RBC) 4.65 10*6/uL Normal 4.20-5.40 [facility] Hematocrit (HCT) 40.2 % Normal 37.0-47.0 [facility] Hemoglobin mass conc (Bld) 14.0 g/dL Normal 12.0-16.0 [facility] MCH 30.1 pg Normal 27.0-31.3 [facility] MCHC mass conc (RBC) 34.8 % Normal 33.0-37.0 [facility] MCV 86.4 fL Normal 82.0-100.0 [facility] Platelets 241 10*3/uL Normal 130-400 [facility] WBC (Leukocytes) 6.8 10*3/uL Normal 4.8-10.8 [facility] TSH w/out Reflexon 8 Thyroid stimulating hormone (TSH) m[IU]/L Low 0.270-4.20 [facility] Thyroxine Freeon 02-07-2018 Thyroxine Free 3.43 ng/dL Critically high 0.93-1.70 [facility] Encounters Encounter Date Encounter Type Care Provider Facility Start: 01-31-2023 End: 02-01-[address] ZEHRA MARQUES Facility:[facility] Start: 01-21-2023 End: 01-22-2023 ambulatory MR JAMAAL JALLOH . Facility:[facility] Start: 01-12-2023 End: 01-13-2023 ambulatory BRENDAN COYLE Facility:[facility] Start: 11-26-2022 End: 11-26-2022 ambulatory Brendan Coyle Facility:[facility] Start: 11-26-2022 End: 11-26-2022 ambulatory MD Zehra Marques Work Phone: [facility] Work Phone: Start: 11-26-2022 End: 11-26-2022 Patient encounter procedure MD Zehra Marques Work Phone: [facility] [address] [place] Work Phone: Start: 11-19-2022 End: 11-20-2022 ambulatory DAPHNEY RODRIGUEZ Facility:[facility] Start: 09-17-2022 ambulatory DAPHNEY RODRIGUEZ Fac ility:[facility] Start: 05-13-2020 Patient encounter procedure Ezekiel Devi [facility] Work Phone: Start: 03-26-2020 [facility] Start: 02-13-2020 Patient encounter procedure Ezekiel Devi [facility] Work Phone: Start: 02-14-2018 End: 02-17-2018 Ambulatory MICKEY OWEN [facility] Procedures Date Procedure Procedure Detail Performing Clinician [...] Start: 11-26-2022 MR Cervical spine WO contrast [facility] Start: 11-26-2022 MRI of cervical spin e without contrast MR cervical spine wo con [facility] Start: 11-26-2022 XR pre/post mri xray XR pre/post mri xray [facility] Start: 11-26-[address] [facility] Payers Date Payer Category Payer Self-pay 2017 Unknown [id number] 1970 Unknown [id number] 2.16.84 [id number] 1970 Unknown [id number] 2.16.84 [id number] 1970 Unknown [id number] 2.16.84 [id number] 1970 Unknown [id number] 2.16.84 [id number] 1970 Unknown [id number] 2.16.84 [id number] 1959 Medicaid [id number] Unknown [id number] 2.16.8 [id number] Social History Date Type Detail Facility Assertion Tobacco smoking consumption unknown (finding) [facility] Work Phone: Start: 1970 Sex Assigned At Female F [facility] Functional Status Date Assessment Result Facility NEGATED: Highlighted row Functional performance Functional status health issues are not documented Disease [facility] Work Phone: Mental Status Date Assessment Result Facility NEGATED: Highlighted row Cognitive function [Interpretation] Cognitive status health issues are not documented Disease [facility] Work Phone: Clinical Note 08-20-2022 Note Date & Type Note Facility 08-20-2022 Note FINDINGS: ARTERIAL EVALUATION RIGHT LEFT VELOCITIES PHASICITY VELOCITIES PHASICITY 85 BiCommon uezgqkx32Pk 83BiProximal VHQ61Uy 108BiMid BJK76Es 40 BiDistal PFV38Qk 51 DyXoybtbmey15Oj 46 VpEBN54Uy 75 BiPTA 93Bi 44 BiPeroneal 58Bi RIGHT [...] signed by Mikey Harry on 08/21/2022 1153 [facility] Acoustical Engineer Evaluation note Note Date & Type Note Facility Evaluation note No assessment information availa [facility] Work Phone: Summary Purpose Family History [...] DATE CREATED AUTHOR AUTHOR'S ORGANIZ ATION 10/02/2019 [facility] DATE CREATED AUTHOR AUTHOR'S ORGANIZ ATION 05/19/2020 [employer] DATE CREATED AUTHOR AUTHOR'S ORGANIZ ATION 10/17/2022 [facility] dical Specialist DATE CREATED AUTHOR AUTHOR'S ORGANIZ ATION 12/02/2022 [facility] DATE CREATED AUTHOR AUTHOR'S ORGANIZ ATION 02/19/2023 [facility] (unrecognized sec tion and content) [...] THE PRIMARY CLINICAL RECORDS. [facility] [employer] [facility]. provides no warranty or guarantee of the accuracy or completeness of information in this document.
--- NOTE | 2023-12-11 07:55 | P.CN_ITS ---
Consult Note: HPI Data of Consult Patient: known to practice within the last 3 years Requesting Physician: Estefany Tapia NP Primary Care Provider: LARS DAVIS Consult Narrative Reason for consult: f/u Narrative: Mayra Coates a pleasant 53 year old female presents for evaluation and management of chronic low back pain. Today pain 7/10 aching. Pain worse with all activity, improved with rest. Patient recently underwent bilateral L4/5 L5/S1 MBB #2 with 95% immediate improvement in pain and functional ability lasting a few hours. Patient continues to find mild benefit from medication regimen without side effects. cc:: CC: Estefany Tapia NP Review of Systems ROS Status of ROS 10 or more systems reviewed and unremark able except as noted in history and below Musculoskeletal Reports: back pain, neck pain, extremity pain and joint pain PFSH PFSH Social History Smoking status: Former smoker Meds Home Medications and Allergies Home Medications Medication Instructions Recorded Confirmed Type allopurinol 300 mg tablet 300 mg PO DAILY 05/22/23 11/26/23 History atorvastatin 10 mg tablet 10 mg PO DAILY 05/22/23 11/26/23 History cholecalciferol (vitamin D3) 50 50 mcg PO DAILY 05/22/23 11/26/23 History mcg (2,000 unit) capsule dulaglutide 3 mg/0.5 mL 3 mg subcut QWEEK 05/22/23 11/26/23 History subcutaneous pen injector (Trulicity) levothyroxine 50 mcg tablet 50 mcg PO DAILY 05/22/23 11/26/23 History lisinopril 2.5 mg tablet 2.5 mg PO DAILY 05/22/23 11/26/23 History nabumetone 500 mg tablet 500 mg PO BID 05/22/23 11/26/23 History tizanidine 4 mg capsule 4 mg PO Q8H PRN back pain 05/22/23 11/26/23 History trazodone 50 mg tablet 50 mg PO DAILY PRN sleep 05/22/23 11/26/23 History gabapentin 600 mg tablet 600 mg PO TID 10/29/23 11/26/23 History Allergies Allergy/AdvReac Type Severity Reaction Status Date / Time propylthiouracil Allergy Severe Hives Verified 11/26/23 07:24 Exam Constitutional Documenting provider has reviewed patient's vital signs: yes Common normals: no apparent distress, oriented x3, healthy appearing, alert and well nourished General appearance: cooperative Nutritional appearance: obese HENMT Common normals: normocephalic, hearing grossly normal bilaterally and moist oral mucous membranes Head and scalp: normocephalic Eye Common normals: PERRL Pupil: PERRL Neck & C-Spine Common normals: full ROM General: normal visual inspection Chest Common normals: inspection of chest normal Respiratory Common normals: normal respiratory effort, no retractions and no use of accessory muscles Back & Pelvis Thoracic spine/upper back: ROM limited and pain with ROM Lumbar spine/lower back: ROM limited, pain with ROM and straight leg raise negative bilaterally Extremity Common normals: normal to inspection and full ROM Neuro Common normals: oriented x3, CN's II-XII intact bilaterally, moves all extremities, no focal motor deficits, no sensory deficits noted and deep tendon reflexes 2+ bilaterally Sensorium/orientation: alert Gait (neuro): antalgic Motor exam: strength 5/5 throughout and no movement abnormalities noted Psych Common normals: mental status grossly normal, thought process normal, cooperative, affect normal, speech normal and activity/motor behavior normal Speech: normal speech Thought process: normal thought process Results Additional Findings Additional findings: I have checked an [facility] report on this patient today and there are no aberrancies noted in the prescribing history.?? A drug screen was completed and reviewed within the last year, and if there has not been a drug screen completed we ordered one today to monitor higher risk, state monitored pain medication use. As part of providing excellent, safe, comprehensive care, the following was completed at our patient's visit: 1. A medication reconciliation and review to ensure accurate knowledge of current/active medications, including asking our patients to inform us about any [id number] medications or herbal remedies/nutritional supplements/alternative remedies. 2. A review to specifically ensure our patients have had annual screening for: elevated body mass index (BMI), tobacco use, screening for depression, and screening for unhealthy alcohol use. When screening is concerning, patients are provided with education and the specific recommendation to discuss the concerning health issue and treatment options with their primary care provider. Assessment and Plan Assessment and Plan (1) Lumbar spondylosis: (2) Osteoarthritis of hips, bilateral: Plan bilateral L4-5 L5-S1 thermal RFA under fluoroscopy with Dr Crews xray of bilateral hips reviewed with pt, mild OA. consider bilateral hip in jections reschedule f/u with rheumatology, based on diffuse myofascial pain and fatigue likely fibromyalgia however we should rule out underlying causes, she was previously referred and missed the appointment and is looking for a new covered provider f/u 1 month after RFA
== END 2023-12-11 07:48 | disposition home or self-care (01) ==
LOC: PM 07:47
PROVIDERS: PCP Family Medicine; Visit Provider Nurse Practitioner
DX: M47.816 Spondylosis without myelopathy or radiculopathy, lumbar region (principal); M16.0 Bilateral primary osteoarthritis of hip
CPT/HCPCS: G0463

== ENCOUNTER 2024-01-06 07:26 | Day surgery (SDC) | payer MEDICAID, SELFPAY ==
--- OUTSIDE RECORDS SUMMARY | 2024-01-06 07:29 | XMS_ITS | CCD ---
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 Role Phone LEXIECALEBNT Unavailable Unavailable MICHELLE CHOW Unavailable Unavailable Joshua Fraser Unavailable Unavailable Joshua Fraser Unavailable Unavailable None, No PCP Unavailable Unavailable Ezekiel Devi Unavailable Unavailable Joshua Fraser Unavailable UnavailCON CoronaC Brendan Vivar Attending Provider MD Zehra Marques Primary Care Provider Brendan Coyle Admitting Unavailable Brendan Coyle Attending Unavailable Zehra Marques Primary Care Unavailable SUSAN, DR SOUSA Admitting Unavailable SUSAN, DR SOUSA Attending Unavailable SUSAN, DR SOUSA Primary Care Unavailable SUSAN, DR ZEHRA Prado Unavailable DAPHNEY RODRIGUEZ Admitting Unavailable DAPHNEY RODRIGUEZ [...] SOUSA Primary Care Unavailable YEIMI ., MR JAMAAL Prado Unavailable Medications Completed/Discontinued Medications Medication Drug Class(es) [...] Test Name Value Interpretation Reference Range Facility [facility] B 27on 01-28-2023 HLA-B27 Negative Normal [facility] Comment on above: Result Comment: HLA- B*27 Negative B27 allele interpretation for all loci based on IMGT/HLA database version 3.44 This test was developed and its performance characteristics determined by [facility]. It has not been cleared or approved by the Food and Drug Administration. [facility] CLIA ID Number [id number] . This test was performed using PCR (Polymerase Chain Reaction)/SSOP (Sequence Specific Oligonucleotide Probes) technique. SBT (Sequence Based Typing) and/or SSP (Sequence Specific Primers) may be used as supplemental methods when necessary. Please contact HLA Customer Service at if you have any questions. . Director of HLA Laboratory Dr Jett Carpio, PhD Performed By: #### H LA27 #### [facility] [address] [place] [address] Dr. Daniela Ledesma CALEB by IFAon 01-24-2023 Antinuclear Antibodies, IFA Negative Normal [facility] Comment on above: Result Comment: Nega tive <1:80 Borderline 1:80 Positive >1:80 ICAP nomenclature: AC-0 For more information about Hep-2 cell patterns use ANApatterns.org, the official website for the International Consensus on Antinuclear Antibody (CALEB) Patterns (ICAP). Performed By: #### A NAIFA #### [facility] [address] [place] [address] Dr. Daniela Ledesma RHEUMATOID FACTORon 01-24-20 RA Latex Turbid. <10.0 Normal <14.0 [facility] Comment on above: Performed By: #### R F #### [facility] [address] [place] [address] Dr. Daniela Leedsma CBC AUTO DIFFon 01-21-2023 BASO # 0.1 103/ul Normal 0.0-0.1 [facility] Comment on above: Performed By: #### C BC #### [facility] [address] [place] [address] Dr. Daniela Ledesma Basophils/100 WBC (Bld) 0.9 % Normal 0.2-2.0 [facility] Comment on above: Performed By: #### C BC #### [facility] [address] [place] [address] Dr. Daniela Ledesma EO # 0.7 103/ul Normal 0.0-0.7 [facility] Comment on above: Performed By: #### C BC #### [facility] [address] [place] [address] Dr. Daniela Ledesma Eosinophils/100 WBC (Bld) 4.3 % Normal 0.9-7.0 [facility] Comment on above: Performed By: #### C BC #### [facility] [address] [place] [address] Dr. Daniela Ledesma Erythrocyte distribution width (RBC) [Ratio] 13.2 % Normal 11.0-15.0 [facility] Comment on above: Performed By: #### C BC #### [facility] [address] [address] [address] Daniela Ledesma Hematocrit (Bld) [Volume fraction] 45.4 % Normal 36.0-48.0 [facility] Comment on above: Performed By: #### C BC #### [facility] [address] [address] [address] Daniela Ledesma Hemoglobin (Bld) [Mass/Vol] 15.7 g/dL Normal 12.0-16.0 [facility] Comment on above: Performed By: #### C BC #### [facility] [address] [address] [address] Daniela Ledesma IG # 0.07 10e3/ul Critically high 0.00-0.03 [facility] Comment on above: Performed By: #### C BC #### [facility] [address] [address] [address] Daniela Ledesma IG % 0.5 % Normal 0.0-0.5 [facility] Comment on above: Performed By: #### C BC #### [facility] [address] [address] [address] Daniela Ledesma LYMPH # 3.7 103/ul Normal 1.2-3.8 [facility] Comment on above: Performed By: #### C BC #### [facility] [address] [address] [address] Daniela Ledesma Lymphocytes/100 WBC (Bld) 24.7 % Normal 20.5-60.0 [facility] Comment on above: Performed By: #### C BC #### [facility] [address] [address] [address] Daniela Ledesma MANUAL DIFF REQ NO Normal [facility] Comment on above: Performed By: #### C BC #### [facility] [address] [address] [address] Daniela Ledesma MCH (RBC) [Entitic mass] 30.9 pg Normal 26.7-34.0 [facility] Comment on above: Performed By: #### C BC #### [facility] [address] [address] [address] Daniela Ledesma MCHC (RBC) [Mass/Vol] 34.6 g/dL Normal 29.9-35.2 [facility] Comment on above: Performed By: #### C BC #### [facility] [address] [address] [address] Daniela Ledesma MCV (RBC) [Entitic vol] 89.4 fL Normal 81.0-99.0 [facility] Comment on above: Performed By: #### C BC #### [facility] [address] [address] [address] Daniela Ledesma MONO # 0.7 103/ul Normal 0.3-0.8 [facility] Comment on above: Performed By: #### C BC #### [facility] [address] [address] [address] Daniela Ledesma Monocytes/100 WBC (Bld) 4.4 % Normal 1.7-12.0 [facility] Comment on above: Performed By: #### C BC #### [facility] [address] [address] [address] Daniela Ledesma NEUT # 9.8 103/ul Critically high 1.4-6.5 [facility] Comment on above: Performed By: #### C BC #### [facility] [address] [address] [address] Daniela Ledesma Neutrophils/100 WBC (Bld) 65.2 % Normal 43.0-75.0 [facility] Comment on above: Performed By: #### C BC #### [facility] [address] [address] [address] Daniela Ledesma Platelet mean volume (Bld) [Entitic vol] 9.3 fL Critically low 9.5-13.5 [facility] Comment on above: Performed By: #### C BC #### [facility] [address] [address] [address] Daniela Ledesma PLT 286 103/ul Normal 150-450 [facility] Comment on above: Performed By: #### C BC #### [facility] [address] [address] [address] Daniela Ledesma RBC 5.08 106/ul Normal 4.20-5.40 [facility] Comment on above: Performed By: #### C BC #### [facility] [address] [address] [address] Daniela Ledesma WBC 15.1 103/ul Critically high 4.0-11.0 [facility] Comment on above: Performed By: #### C BC #### [facility] [address] [address] [address] Daniela Ledesma SED RATE WESTERGRENon 2022 SED RATE 34 mm/hr Critically high <=30 [facility] Comment on above: Performed By: #### S EDR #### [facility] [address] [address] [address] Daniela Ledesma URIC ACID SERUMon 01-21-2023 Urate [Mass/Vol] 7.5 mg/dL Critically high 2.6-6.0 [facility] Comment on above: Performed By: #### U TUTU #### [facility] [address] [address] [address] Daniela Ledesma CPKon 01-12-2023 CK [Catalytic activity/Vol] 98 U/L Normal 26-192 [facility] Comment on above: Performed By: #### M YO, CK #### [facility] [address] [address] [address] Daniela Ledesma MYOGLOBINon 01-12-2023 SAW 34 ng/mL Normal 9-82 [facility] Comment on above: Performed By: #### M YO, CK #### [facility] [address] [address] [address] Daniela Ledesma MR cervical spine wo conon 0 11-27-2022 MR cervical spine wo con [facility] [place] [address] XRay Report Signed Patient: Ezequiel Coates MR#: [id number] : 1970 Acct:[id number] Age/Sex: 52 / F ADM Date: 11/26/22 Loc: MR Room: Type: [facility] Attending Dr: Brendan COCHRAN Copies to: DIMAS Rand Ordering Provider: DIMAS Rand Date of Service: 11/26/22 MR/MR cervical spine wo con: R20.2, M79.601 ([id number]) XR/XR pre/post mri xray: PRE MRI OF [...] Jillian Angelo M.D.11/27/2022 10:13 AM Dictation Location: [place] [address] Transcribed By: [facility] 11/27/22 1013 Dictated By: Jillian Angelo MD 11/27/22 0948 Signed By: 11/27/22 1013 [facility] US Thyroidon 10-17-2022 Thyroid HISTORY: Hyperthyroidism. 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 - Automatic Exporton JORDANA - Automatic [place] [facility] [place] BHANUARIADNEEZEQUIEL 1970 Date of Female Sex [id number] [place] [address] AddressEnglish (preferred) Language White Race Not or Ethnicity Summary of Care Clinical Content Allergies and Adverse Reactions <#[id number]> Encounters <#SS8QGALJ> Functional Status <#UI4ZTWSB> Immunization <#TF6ATHOY> Instructions <#SZ6VRIVF> Interventions Provided <#PR1A8QAD> Medications <#YY3NMXFF> Plan of Care <#HY7SL0HX> Problems <#QH8DDVIC> Procedures <#KF8KMCFI> Results <#UU8J33CH> Social History <#BK6VWKMZ> Vital Signs <#VW1WIEUB> Other Document Details Health Care Providers Functional [...] <#top> Ambulatory Health Care Facilities Zo Rivera [email or web address] Work Email Allopathic AND Osteopathic Physicians [address] [place] [address] Address Ambulatory Health Care Facilities None, No [facility] Address Document Detailstop <#top> [facility] LevyJoshau BriaDO February 13, 2020 11:46 -0400 [id number] [place] [id number] [phone] Work Phone Powered by [employer]Style Sheet V3.2 Normal [employer] JORDANA - Automatic [place], [place] EZEQUIEL COATES 1970 Date of Female Sex [id number] [place] [address] AddressEnglish (preferred) Language White Race Not or Ethnicity Summary of Care Clinical Content Allergies and Adverse Reactions <#ZY0OIGOY> Encounters <#NJ6WXROO> Functional Status <#WO4ORJAS> Immunization <#EM2XSKGM> Instructions <#OC3MOUXN> Interventions Provided <#RI7RH2QG> Medications <#PU1IXLPC> Plan of Care <#NC3XA8EL> Problems <#NW6DPBHW> Procedures <#IK7IBAMC> Results <#MQ9X04HI> Social History <#XY9XKHGZ> Vital Signs <#JS5AYNSE> Other Document Details Health Care Providers Functional [...] All medical record entries made by the Nishantibe were at my direction and personally dictated [...] <#top> Ambulatory Health Care Facilities Zo Rivera [email or web address] Work Email Allopathic AND Osteopathic Physicians [address] [place] [id number] Address Ambulatory Health Care Facilities None, No PCPUnknown Address Document Detailstop <#top> [facility] Joshua Fraser DO February 13, 2020 11:15 -0400 [id number] [place] [id number] [phone] Work Phone Powered by [employer]Style Sheet V3.2 Normal [employer] JORDANA - [employer] [place] BHANUARIADNEEZEQUIEL 1970 Date of Female Sex [id number] [place] [address] AddressEnglish (preferred) Language White Race Not or Ethnicity Summary of Care Clinical Content Allergies and Adverse Reactions <#ZF0BEFHB> Encounters <#OK2ZBBEJ> Functional Status <#PU7GJKSV> Immunization <#DB9YGWSM> Instructions <#BX2BHHZW> Interventions Provided <#QN7F3HYI> Medications <#UF2OULZN> Plan of Care <#VY2YIPQK> Problems <#LC0JKHSD> Procedures <#EO1R4RLJ> Results <#YK4AZIIH> Social History <#KQ2QXLIZ> Vital Signs <#XA5D7UON> Other Document Details Health Care Providers Functional Statustop <#top> Functional Status Health Issues NameDatesDetails Functional status health issues are not documented Cognitive Status Health Issues NameDatesDetails Cognitive status health issues are not documented Problemstop <#top> NameDgenDetails Active medical history not documented Medicationstop <#top> NameDОльгаs Meloxicam 15 MG Oral Tablet TAKE 1 [...] Discussion/Summary By signing my name below, I, Nishant Gonsalez CMAiblesa, attest that this documentation has been prepared [...] and therapy for chronic conditions Instructionstop <#top> Jarrod Instructions not documented Encounterstop <#top> Appointment; Joshua Fraser DO Encounter Diagnosis: Problem not documentedOn: 13-Feb-2020 10:00 Health Care Providerstop <#top> Ambulatory Health Care Facilities Zo Rivera [email or web address] Work Email Allopathic AND Osteopathic Physicians [address] [facility] [place] [address] Address Ambulatory Health Care Facilities None, No PCPUnknown Address Document Detailstop <#top> [facility] DO February 13, 2020 11:01 -0400 [id number] [place] [address] [phone] Work Phone Powered by [employer]Style Sheet V3.2 Normal [employer] School/Work Letteron 020 School/Work Letter February 13, 2020 To Whom It May Concern, Ezequiel Coates is a patient known to me. Ezequiel was diagnosed with claustrophobia and is unable to wear a mask. Please feel free to contact my office with any questions or concerns at . 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(1) Is : no(1) REVIEW [...] SIGNS: T PRBP SpO2O2(LPM) %FiO2 Method 27-Sep-2019 19:18:[id number] 99 room air, no respiratory support MEDICAL [...] From Triage - ED 27-Sep-2019 19:18 Normal [facility] Risk Screen - Adult Emergenc yon 09-27-2019 [...] Communicatenone Learning Preferencesaudio Cultural Considerationsnone Developmental Considerationsnone Christian Considerationsnone Learning Assessment (Other Learner): Learning Assessment (Other Learner): Other learner availableno Pressure Injury/TB/Substance: Pressure Injury: Pressure Injury Present on Admissionno Do you have a coughno Admission Risk Screen: Significant IndicatorsComplete CAGE: CAGE: Is this an injured patient at a Trauma Center ([facility]): no Electronic Signatures: Gali Meyer (RN) (Signed 27-Sep-2019 19:36) Authored: Preferred Language, Advanced Directives, Family Violence Adult, Learning Assessment (Patient), Learning Assessment (Other Learner), Pressure Injury/TB/Substance, CAGE Last Updated: 27-Sep-2019 19:36 by Gali Meyer (RN) Normal [facility] Triage - EDon 09-27-2019 Triage - ED [...] Travel outside of [place]: no Allergies: yes 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 Erythrocytes (RBC) 5.17 10*6/uL Normal 4.20-5.40 [facility] Hematocrit (HCT) 44.4 % Normal 37.0-47.0 [facility] Hemoglobin mass conc (Bld) 15.3 g/dL Normal 12.0-16.0 [facility] MCH 29.6 pg Normal 27.0-31.3 [facility] MCHC mass conc (RBC) 34.4 % Normal 33.0-37.0 [facility] MCV 85.9 fL Normal 82.0-100.0 [facility] Platelets 287 10*3/uL Normal 130-400 [facility] WBC (Leukocytes) 6.8 10*3/uL Normal 4.8-10.8 [place] TSH w/out Reflexon 8 Thyroid stimulating hormone (TSH) m[IU]/L Low 0.270-4.20 [facility] Thyroxine Freeon 03-07-2018 Thyroxine Free 2.23 ng/dL Critically high 0.93-1.70 [facility] US HEAD NECK SOFT TISSUE THY [...] Data System (TI- RADS) established by the [employer] to help provide guidance [...] NO CHANGE. Interpreted by:INDER Morrisigned by:Julio Marie MD02/14/18inal result Normal [facility] CBC With Platelet No Differe ntialon 02-07-2018 Erythrocyte distribution width Auto Ratio (RBC) 12.7 % Normal 11.5-14.5 [facility] Erythrocytes (RBC) 4.65 10*6/uL Normal 4.20-5.40 [facility] Hematocrit (HCT) 40.2 % Normal 37.0-47.0 [facility] Hemoglobin mass conc (Bld) 14.0 g/dL Normal 12.0-16.0 [facility] MCH 30.1 pg Normal 27.0-31.3 [facility] MCHC mass conc (RBC) 34.8 % Normal 33.0-37.0 [facility] MCV 86.4 fL Normal 82.0-100.0 [facility] Platelets 241 10*3/uL Normal 130-400 [facility] WBC (Leukocytes) 6.8 10*3/uL Normal 4.8-10.8 [place] TSH w/out Reflexon 8 Thyroid stimulating hormone (TSH) m[IU]/L Low 0.270-4.20 [facility] Thyroxine Freeon 02-07-2018 Thyroxine Free 3.43 ng/dL Critically high 0.93-1.70 [facility] Encounters Encounter Date Encounter Type Care Provider Facility Start: 01-31-2023 End: 02-01-[address] ZEHRA MARQUES Facility:[facility] Start: 01-21-2023 End: 01-22-2023 ambulatory MR JAMAAL JALLOH . Facility:[facility] Start: 01-12-2023 End: 01-13-2023 ambulatory BRENDAN COYLE Facility:[facility] Start: 11-26-2022 End: 11-26-2022 ambulatory Brnedan Coyle Facility:[facility] Start: 11-26-2022 End: 11-26-2022 ambulatory MD Zehra Marques Work Phone: [facility] Work Phone: Start: 11-26-2022 End: 11-26-2022 Patient encounter procedure MD Zehra Marques Work Phone: [facility] [address] [place] Work Phone: Start: 11-19-2022 End: 11-20-2022 ambulatory DAPHNEY RODRIGUEZ Facility:[facility] Start: 09-17-2022 ambulatory DAPHNEY RODRIGUEZ Fac ility:[facility] Start: 05-13-2020 Patient encounter procedure Ezekiel Devi [facility] Work Phone: Start: 03-26-2020 Patient encounter procedure Ezekiel Devi [facility] Work Phone: Start: 02-13-2020 Patient encounter procedure Ezekiel Devi [facility] Work Phone: Start: 02-14-2018 End: 02-17-[address] [facility] Procedures Date Procedure Procedure Detail Performing [...] Start: 11-26-2022 MR Cervical spine WO contrast [facility] Start: 11-26-2022 MRI of cervical spin e without contrast MR cervical spine wo con [facility] Start: 11-26-2022 XR pre/post mri xray XR pre/post mri xray [facility] Start: 11-26-2022 [facility] Payers Date Payer Category Payer Self-pay 2017 Unknown [id number] 1970 Unknown [id number] 2.16.84 [id number] 1970 Unknown [id number] 2.16.84 [id number] 1970 Unknown [id number] 2.16.84 [id number] 1970 Unknown [id number] 2.16.84 [id number] 1970 Unknown [id number] 2.16.84 [id number] 1959 Medicaid [id number] Unknown [id number] 2.16.8 [id number] Social History Date Type Detail Facility Assertion Tobacco smoking consumption unknown (finding) [facility] Work Phone: Start: 1970 Sex Assigned At Female [facility] Functional Status Date Assessment Result Facility NEGATED: Highlighted row Functional performance Functional status health issues are not documented Disease [facility] Work Phone: Mental Status Date Assessment Result Facility NEGATED: Highlighted row Cognitive function [Interpretation] Cognitive status health issues are not documented Disease [facility] Work Phone: Clinical Note 08-20-2022 Note Date & Type Note Facility 08-20-2022 Note FINDINGS: ARTERIAL EVALUATION RIGHT LEFT VELOCITIES PHASICITY VELOCITIES PHASICITY 85 BiCommon [id number] 83BiProximal SWN80Ry 108BiMid QLI17Vw 40 BiDistal YON29Pi 51 LdLgkuusukw84Fu 46 PdCAG57Si 75 BiPTA 93Bi 44 BiPeroneal 58Bi RIGHT [...] signed by Mikey Harry on 08/21/2022 1153 [facility] [employer] 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 Note Date & Type Note Facility Evaluation note No assessment information availa [facility] Work Phone: Summary Purpose Family History No [...] section and content) DATE CREATED AUTHOR 03/26/2018 [facility] DATE CREATED AUTHOR AUTHOR'S ORGANIZ ATION 10/02/2019 [facility] DATE CREATED AUTHOR AUTHOR'S ORGANIZ ATION 05/19/2020 [employer] DATE CREATED AUTHOR AUTHOR'S ORGANIZ ATION 10/17/2022 [facility] dical Specialist DATE CREATED AUTHOR AUTHOR'S ORGANIZ ATION 12/02/2022 [facility] DATE CREATED AUTHOR AUTHOR'S ORGANIZ ATION 02/19/2023 [facility] (unrecognized sec tion and content) Team Status: Inactive Member Role Status Dates CON RandC Attending Provider Active Zehra Marques MD Primary [...] BE BASED ON THE PRIMARY CLINICAL RECORDS. [employer] provides no warranty or guarantee of the accuracy or completeness of information in this document.
[2024-01-06 07:40] VITALS: BP 120/75; PULSE 77; TEMP 36.7; O2SAT 95
[2024-01-06 07:45] LABS: Glucometer 132 mg/dL (74-106)
[2024-01-06 08:17] VITALS: BP 147/84; PULSE 84; O2SAT 93
[2024-01-06 08:24] VITALS: BP 117/61; PULSE 72; O2SAT 96
[2024-01-06] MEDS: BUPIVACAINE HCL 0.25% PF 25 MG/10 ML VIAL 4 ML INJ (08:27)
[2024-01-06] MEDS: LIDOCAINE HCL 2% 400 MG/20 ML MDV 16 ML INJ (08:28)
[2024-01-06] MEDS: TRIAMCINOLONE ACETONIDE 40 MG/ML VIAL 80 MG INJ (08:28)
--- NOTE | 2024-01-06 08:32 | P.ON_ITS ---
Date of procedure: 01/06/24 Pre-op diagnosis: Lumbar spondylosis Post-op diagnosis: same as pre-op Procedure: Procedure: Bilateral L4-5, L5-S1 radiofrequency ablation Medications: Bupivacaine 0.25% 6cc, lidocaine 2% 5cc, kenalog 80mg The patient was seen and examined in the preoperative holding area.? The site was marked.? Written informed consent was obtained and placed on the chart.? The patient was brought to the medical procedure unit and placed in the prone position.? A timeout was completed verifying correct patient, procedure, positioning, and special requirements.? The skin overlying the target points, the designated medial branch, were prepped and draped in the usual sterile fashion.? The target point was achieved with a 20-gauge 15 cm with a 10 mm curved active tip radiofrequency cannula under direct fluoroscopic visualization.? The needle was inserted at level L4 on the right side. Needle tip position was confirmed with lateral fluoroscopic position.? Motor stimulation was carried out at 2 Hz up to 5 volts with the absence of extremity activity.? This was repeated at level L5, S1 on right side.?? Sensory stimulation was carried out.? Concordant pain was realized at the above- mentioned sites.? Then radiofrequency lesioning was carried out times 90 seconds at 80 degrees times 2 lesions at each level.? The radiofrequency probe was removed prior to cannula removal.? The above-mentioned injectate was placed in 1 mL increments.? The needle was removed. The same procedure, with the same steps, was then completed on the left side at the same levels. Insertion sites were covered.? The patient was taken to the postoperative recovery area and monitored for an appropriate length of time before being found suitable for discharge in the company of a responsible adult. Anesthesia: Local Surgeon: Vinay Crews Pathology: none sent Condition: stable Disposition: no change
== END 2024-01-06 08:39 | disposition home or self-care (01) ==
PROVIDERS: PCP Family Medicine; Visit Provider Anesthesiology
DX: M47.816 Spondylosis without myelopathy or radiculopathy, lumbar region (principal)
CPT/HCPCS: 36415; 64635; 64636; 82948

== ENCOUNTER 2024-01-25 20:12 | Emergency (ER) | payer MEDICAID, SELFPAY ==
[2024-01-25 20:17] VITALS: BP 130/73; PULSE 68; TEMP 36.7; O2SAT 98; BMI 47.6
--- OUTSIDE RECORDS SUMMARY | 2024-01-25 20:17 | XMS_ITS | CCD ---
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 Care Swimming Pool Installer And Servicer Name Role Phone MICKEY OWEN Unavailable Unavailable MICHELLE CHOW Unavailable Unavailable Joshua Fraser Unavailable Unavailable Joshua Fraser Unavailable Unavailable None, No PCP Unavailable Unavailable Ezekiel Devi Unavailable Unavailable Joshua Fraser Unavailable UnavailCON CoronaC Brendan Vivar Attending Provider [phone] MD Zehra Marques Primary Care Provider Brendan [...] Unavailable YEIMI ., MR HINTON Consulting Unavailable Mars KAPADIA, Vinay Hyman Attending Unavailable Medications Completed/Discontinued Medications Medication Drug Class(es) [...] Value Interpretation Reference Range Facility HLA B 27on 01-28-2023 HLA-B27 Negative Normal [facility] Comment on above: Result Comment: HLA- B*27 Negative B27 allele interpretation for all loci based on IMGT/HLA database version 3.44 This test was developed and its performance characteristics determined by [facility]. It has not been cleared or approved by the Food and Drug Administration. [facility] CLIA ID Number [id number] . This test was performed using PCR (Polymerase Chain Reaction)/SSOP (Sequence Specific Oligonucleotide Probes) technique. SBT (Sequence Based Typing) and/or SSP (Sequence Specific Primers) may be used as supplemental methods when necessary. Please contact HLA Customer Service at if you have any questions. . Director of HLA Laboratory Dr Jett Carpio, PhD Performed By: #### H LA27 #### [facility] [address] [place] [address] Dr. Daniela Ledesma CALEB by IFAon 01-24-2023 Antinuclear Antibodies, IFA Negative Normal [facility] Comment on above: Result Comment: Nega tive <1:80 Borderline 1:80 Positive >1:80 ICAP nomenclature: AC-0 For more information about Hep-2 cell patterns use ANApatterns.org, the official website for the International Consensus on Antinuclear Antibody (CALEB) Patterns (ICAP). Performed By: #### A NAIFA #### [facility] [address] [place] [address] Dr. Daniela Ledesma RHEUMATOID FACTORon 01-24-20 RA Latex Turbid. <10.0 Normal <14.0 [facility] Comment on above: Performed By: #### R F #### [facility] [address] [place] [address] Dr. Daniela Ledesma CBC AUTO DIFFon 01-21-2023 BASO # 0.1 103/ul Normal 0.0-0.1 [facility] Comment on above: Performed By: #### C BC #### [facility] [address] [place] [address] Dr. Daniela Ledesma Basophils/100 WBC (Bld) 0.9 % Normal 0.2-2.0 [facility] Comment on above: Performed By: #### C BC #### [facility] [address] [place] [address] Dr. Daniela Ledesma EO # 0.7 103/ul Normal 0.0-0.[address] [facility] Comment on above: Performed By: #### C BC #### [facility] [address] [place] [address] Dr. Daniela Ledesma Eosinophils/100 WBC (Bld) 4.3 % Normal 0.9-7.0 [facility] Comment on above: Performed By: #### C BC #### [facility] [address] [place] [address] Dr. Daniela Ledesma Erythrocyte distribution width (RBC) [Ratio] 13.2 % Normal 11.0-15.0 [facility] Comment on above: Performed By: #### C BC #### [facility] [address] [place] [address] Dr. Daniela Ledesma Hematocrit (Bld) [Volume fraction] 45.4 % Normal 36.0-48.0 [facility] Comment on above: Performed By: #### C BC #### [facility] [address] [place] [address] Dr. Daniela Ledesma Hemoglobin (Bld) [Mass/Vol] 15.7 g/dL Normal 12.0-16.0 [facility] Comment on above: Performed By: #### C BC #### [facility] [address] [place] [address] Dr. Dainela Ledesma IG # 0.07 10e3/ul Critically high 0.00-0.03 [facility] Comment on above: Performed By: #### C BC #### [facility] [address] [place] [address] Dr. Daniela Ledesma IG % 0.5 % Normal 0.0-0.5 [facility] Comment on above: Performed By: #### C BC #### [facility] [address] [place] [address] Dr. Daniela Ledesma LYMPH # 3.7 103/ul Normal 1.2-3.8 [facility] Comment on above: Performed By: #### C BC #### [facility] [address] [place] [address] Dr. Daniela Ledesma Lymphocytes/100 WBC (Bld) 24.7 % Normal 20.5-60.0 [facility] Comment on above: Performed By: #### C BC #### [facility] [address] [place] [address] Dr. Daniela Ledesma MANUAL DIFF REQ NO Normal [facility] Comment on above: Performed By: #### C BC #### [facility] [address] [place] [address] Dr. Daniela Ledesma MCH (RBC) [Entitic mass] 30.9 pg Normal 26.7-34.0 [facility] Comment on above: Performed By: #### C BC #### [facility] [address] [address] [address] Daniela Ledesma MCHC (RBC) [Mass/Vol] 34.6 g/dL Normal 29.9-35.2 [facility] Comment on above: Performed By: #### C BC #### [facility] [address] [address] [address] Daniela Ledesma MCV (RBC) [Entitic vol] 89.4 fL Normal 81.0-99.0 [facility] Comment on above: Performed By: #### C BC #### [facility] [address] [address] [address] Daniela Ledesma MONO # 0.7 103/ul Normal 0.3-0.8 [facility] Comment on above: Performed By: #### C BC #### [facility] [address] [address] [address] Daniela Ledesma Monocytes/100 WBC (Bld) 4.4 % Normal 1.7-12.0 [facility] Comment on above: Performed By: #### C BC #### [facility] [address] [address] [address] Daniela Ledesma NEUT # 9.8 103/ul Critically high 1.4-6.5 [facility] Comment on above: Performed By: #### C BC #### [facility] [address] [address] [address] Daniela Ledesma Neutrophils/100 WBC (Bld) 65.2 % Normal 43.0-75.0 [facility] Comment on above: Performed By: #### C BC #### [facility] [address] [address] [address] Daniela Ledesma Platelet mean volume (Bld) [Entitic vol] 9.3 fL Critically low 9.5-13.5 [facility] Comment on above: Performed By: #### C BC #### [facility] [address] [address] [address] Daniela Ledesma PLT 286 103/ul Normal 150-[address] [facility] Comment on above: Performed By: #### C BC #### [facility] [address] [address] [address] Daniela Ledesma RBC 5.08 106/ul Normal 4.20-5.40 [facility] Comment on above: Performed By: #### C BC #### [facility] [address] [place] [address] Dr. Daniela Ledesma WBC 15.1 103/ul Critically high 4.0-11.0 [facility] Comment on above: Performed By: #### C BC #### [facility] [address] [place] [address] Dr. Daniela Ledesma [facility] SED RATE 34 mm/hr Critically high <=30 [facility] Comment on above: Performed By: #### S EDR #### [facility] [address] [place] [address] Dr. Daniela Ledesma URIC ACID SERUMon 01-21-2023 Urate [Mass/Vol] 7.5 mg/dL Critically high 2.6-6.0 [facility] Comment on above: Performed By: #### U TUTU #### [facility] [address] [place] [address] Dr. Daniela Ledesma CPKon 01-12-2023 CK [Catalytic activity/Vol] 98 U/L Normal 26-192 [facility] Comment on above: Performed By: #### M YO, CK #### [facility] [address] [place] [address] Dr. Daniela Ledesma MYOGLOBINon 01-12-2023 SAW 34 ng/mL Normal 9-82 [facility] Comment on above: Performed By: #### M YO, CK #### [facility] [address] [place] [address] Dr. Daniela Ledesma MR cervical spine wo conon 0 11-27-2022 MR cervical spine wo con [facility] [place] [address] XRay Report Signed Patient: Ezequiel Coates MR#: [id number] : 1970 Acct:[id number] Age/Sex: 52 / F ADM Date: 11/26/22 Loc: MR Room: Type: [facility] CLI Attending Dr: Brendan COCHRAN Copies to: DIMAS Rand Ordering Provider: DIMAS Rand Date of Service: 11/26/22 MR/MR cervical spine wo con: R20.2, M79.601 ([id number]) XR/XR pre/post mri xray: PRE MRI OF [...] Jillian Angelo M.D.11/27/2022 10:13 AM Dictation Location: [place] [address] Transcribed By: [facility] 11/27/22 1013 Dictated By: Jillian Angelo MD 11/27/22 0948 Signed By: 11/27/22 1013 [facility] Thyroidon 10-17-2022 Thyroid HISTORY: Hyperthyroidism. FINDINGS: [...] by Ezekiel Hernandez on 10/17/2022 1005 Normal [facility] Stemmer Machine JORDANA - Automatic Exporton JORDANA - Automatic [place] [facility] [place] EZEQUIEL COATES 1970 Date of Female Sex [id number] [place] [address] AddressEnglish (preferred) Language White Race Not or Ethnicity Summary of Care Clinical Content Allergies and Adverse Reactions <#EB4KICRM> Encounters <#SF5DMNTW> Functional Status <#SO1JZKOT> Immunization <#HP4NRGFX> Instructions <#EK6FPBWA> Interventions Provided <#UJ9S1FEQ> Medications <#CG8NWSIR> Plan of Care <#QI7XH6EF> Problems <#AB1CGSRF> Procedures <#TD2GHUTN> Results <#RQ5A29LG> Social History <#YZ8WUCHX> Vital Signs <#ZY7RZOGO> Other Document Details Health Care Providers Functional [...] AREA BID Quantity: 60 Refills: 2 [facility] Start : 13-Feb-2020 Allergies and Adverse Reactionstop [...] % External Cream - Start Instructionstop <#top> NameDatesDetails Instructions not documented Encounterstop <#top> Appointment; Joshua Fraser DO Encounter Diagnosis: Problem not documentedOn: 13-Feb-2020 10:00 Health Care Providerstop <#top> Ambulatory Health Care Facilities Zo Rivera [email or web address] Work Email Allopathic AND Osteopathic Physicians [address] [place] [address] Address Ambulatory Health Care Facilities None, No [facility] Address Document Detailstop <#top> [facility] February 13, 2020 11:46 -0400 [id number] [id number] [phone] Work Phone Powered by [employer]?Style Sheet V3.2 Normal Dermira JORDANA - Automatic [place] [facility] EZEQUIEL COATES 1970 Date of Female Sex [id number] [place] [id number] AddressEnglish (preferred) Language White Race Not or Ethnicity Summary of Care Clinical Content Allergies and Adverse Reactions <#AR2AOCWP> Encounters <#DI1OCDEN> Functional Status <#NY5XWWIM> Immunization <#YH6EXSRV> Instructions <#KU7FSORA> Interventions Provided <#EL1IJ3XW> Medications <#SA0ZKFGY> Plan of Care <#VH5OL5UF> Problems <#YT3NMWJU> Procedures <#DX8YDGHQ> Results <#SU9O13MM> Social History <#OQ5AWWYM> Vital Signs <#HX0XHGBF> Other Document Details Health Care Providers Functional [...] By signing my name below, I, Abi Gonslaez CMA, attest that this documentation has been prepared under the direction and in the presence of Joshua Fraser D.O. All medical record entries made by the Nishantiblesa were at my direction and personally dictated [...] Ambulatory Health Care Facilities Zo Rivera [email or web address] Work Email Allopathic AND Osteopathic Physicians [address] [place] [address] Address [facility]ulatory Health Care Facilities None, No [facility] Address Document Detailstop <#top> [facility] Joshua Fraser DO February 13, 2020 11:15 -0400 [id number] [place] [address] [phone] Work Phone Powered by [employer]?Style Sheet V3.2 Normal Dermira JORDANA - Automatic [place] EZEQUIEL COATES 1970 Date of Female Sex [id number] [place] [id number] AddressEnglish (preferred) Language White Race Not or Ethnicity Summary of Care Clinical Content Allergies and Adverse Reactions <#OM4MLDMH> Encounters <#LO1LHOEN> Functional Status <#DH6IQNGO> Immunization <#BT7ZXKMU> Instructions <#JL3PPNBC> Interventions Provided <#VG5W8KAG> Medications <#TO0VURDT> Plan of Care <#AV9YHFHP> Problems <#CP3QQBFG> Procedures <#JT4X1KTM> Results <#KL1FHUSA> Social History <#IF2KSGXF> Vital Signs <#BE1K8KER> Other Document Details Health Care Providers Functional Statustop <#top> Functional Status Health Issues NameDatesDetails Functional status health issues are not documented Cognitive Status Health Issues NameDatesDetails Cognitive status health issues are not documented Problemstop <#top> NameDatesDetails Active medical history not documented Medicationstop <#top> Jarrod Meloxicam 15 MG Oral Tablet TAKE 1 [...] Health Care Facilities Zo Rivera [email or web address] Work Email Allopathic AND Osteopathic Physicians Joshua [address] [place] [address] Address Ambulatory Health Care Facilities None, No PCPUnknown Address Document Detailstop <#top> [facility] Joshua Fraser DO February 13, 2020 11:01 [id number] [facility] [address] [place] [address] [phone] Work Phone Powered by [employer]?Style Sheet V3.2 Normal Dermira School/Work Letteron 020 School/Work Letter February 13, [...] Feb 13 2020 11:34AM EST (Author) Normal Dermira Provider Note - ED v2on 09-07 Provider [...] Past Surgical History Description:Hysterectom y Description:Cholecystec kenny 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: Is : no(1) Is : no(1) REVIEW [...] SIGNS: T PRBP SpO2O2(LPM) %FiO2 Method 27-Sep-2019 19:18:[id number]/73 99 room air, no respiratory support MEDICAL [...] From Triage - ED 27-Sep-2019 19:18 Normal [facility] Risk Screen - Adult Emergenc [...] Communicatenone Learning Preferencesaudio Cultural Considerationsnone Developmental Considerationsnone Anabaptist Considerationsnone Learning Assessment (Other Learner): Learning Assessment (Other Learner): Other learner availableno Pressure Injury/TB/Substance: Pressure Injury: Pressure Injury Present on Admissionno Do you have a coughno Admission Risk Screen: Significant IndicatorsComplete CAGE: CAGE: Is this an injured patient at a Trauma Center ([facility] [place] [place]/[facility]/[place]/[facility]/[place]): no Electronic Signatures: Gali Meyer (RN) (Signed 27-Sep-2019 19:36) Authored: Preferred Language, Advanced Directives, Family Violence Adult, Learning Assessment (Patient), Learning Assessment (Other Learner), Pressure Injury/TB/Substance, CAGE Last Updated: 27-Sep-2019 19:36 by Gali Meyer (HENRY) [facility] Triage - EDon 09-27-2019 Triage - [...] Travel outside of [place]: no Allergies: yes MUCK OPERATOR History: 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 Patient has homicidal thoughts: no [...] 19:22 by Sherry Bronson (STAFF N) Normal [facility] CBC With Platelet No Differe ntialon 03-07-2018 Erythrocyte distribution width Auto Ratio (RBC) 13.0 % Normal 11.5-14.5 [facility] Erythrocytes (RBC) 5.17 10*6/uL Normal 4.20-5.40 [facility] Hematocrit (HCT) 44.4 % Normal 37.0-47.0 [facility] Hemoglobin mass conc (Bld) 15.3 g/dL Normal 12.0-16.0 [facility] MCH 29.6 pg Normal 27.0-31.3 [facility] MCHC mass conc (RBC) 34.4 % Normal 33.0-37.0 [facility] MCV 85.9 fL Normal 82.0-100.0 [facility] Platelets 287 10*3/uL Normal 130-400 [facility] WBC (Leukocytes) 6.8 10*3/uL Normal 4.8-10.8 [facility] TSH w/out Reflexon 8 Thyroid stimulating hormone (TSH) m[IU]/L Low 0.270-4.20 [facility] Thyroxine Freeon 03-07-2018 Thyroxine Free 2.23 ng/dL Critically high 0.93-1.70 [facility] US HEAD NECK SOFT TISSUE THY ROIDon 02-14-2018 US HEAD NECK SOFT TISSUE THYROID EXAMINATION: US HEAD NECK SOFT TISSUE THYROIDDATE AND TIME:02/14/2018 2:48 PMCLINICAL HISTORY: Thyromegaly E05.90 Hyperthyroidism ICD10 COMPARISONS: None TECHNIQUE: Biplanar images were obtained. Please note that description of thyroid nodules in this report is based on the 2017 Thyroid Imaging, Reporting and Data System (TI- RADS) established by the [place] [employer] to help provide guidance [...] by:INDER Morrisigned by:Julio Marie MD02/14/inal result Normal [facility] CBC With Platelet No Differe ntialon 02-07-2018 Erythrocyte distribution width Auto Ratio (RBC) 12.7 % Normal 11.5-14.5 [facility] Erythrocytes (RBC) 4.65 10*6/uL Normal 4.20-5.40 [facility] Hematocrit (HCT) 40.2 % Normal 37.0-47.0 [facility] Hemoglobin mass conc (Bld) 14.0 g/dL Normal 12.0-16.0 [facility] MCH 30.1 pg Normal 27.0-31.3 [facility] MCHC mass conc (RBC) 34.8 % Normal 33.0-37.0 [facility] MCV 86.4 fL Normal 82.0-100.0 [facility] Platelets 241 10*3/uL Normal 130-400 [facility] WBC (Leukocytes) 6.8 10*3/uL Normal 4.8-10.8 [facility] TSH w/out Reflexon 8 Thyroid stimulating hormone (TSH) m[IU]/L Low 0.270-4.20 [facility] Thyroxine Freeon 02-07-2018 Thyroxine Free 3.43 ng/dL Critically high 0.93-1.70 [facility] Encounters Encounter Date Encounter Type Care Provider Facility Start: 01-06-2024 End: 01-07-2024 ambulatory Vinay Crews MD Facility:[facility] Start: 01-31-2023 End: 02-01-[address] ZEHRA MARQUES Facility:[facility] Start: 01-21-2023 End: 01-22-2023 ambulatory MR JAMAAL JALLOH . Facility:[facility] Start: 01-12-2023 End: 01-13-2023 ambulatory BRENDAN COYLE Facility:[facility] Start: 11-26-2022 End: 11-26-2022 ambulatory Brendan Coyle Facility:[facility] Start: 11-26-2022 End: 11-26-2022 ambulatory MD Zehra Marques Work Phone: [facility] Work Phone: Start: 11-26-2022 End: 11-26-2022 Patient encounter procedure MD Zehra Marques Work Phone: [facility] [place] Work Phone: Start: 11-19-2022 End: 11-20-2022 ambulatory DAPHNEY RODRIGUEZ Facility:[facility] Start: 09-17-2022 ambulatory DAPHNEY RODRIGUEZ Fac ility:[facility] Start: 05-13-2020 Patient encounter procedure Ezekiel Devi [facility] Work Phone: Start: 03-26-2020 Patient encounter procedure [facility]: Start: 02-13-2020 [facility] Start: 02-14-2018 End: 02-17-2018 Ambulatory MICKEY OWEN [facility] Procedures Date Procedure Procedure Detail Performing Clinician [...] Start: 11-26-2022 MR Cervical spine WO contrast [facility] Start: 11-26-2022 MRI of cervical spin e without contrast MR cervical spine wo con [facility] Start: 11-26-2022 XR pre/post mri xray XR pre/post mri xray [facility] Start: 11-26-2022 [facility] Payers Date Payer Category Payer Unknown 2022 Self-pay 2017 Unknown [id number] 1970 Unknown [id number] 2.16.84 [id number] 1970 Unknown [id number] 2.16.84 [id number] 1970 Unknown [id number] 2.16.84 [id number] 1970 Unknown [id number] 2.16.84 [id number] 1970 Unknown [id number] 2.16.84 [id number] 1970 Unknown [id number] 2.16. [id number] 1959 Medicaid [id number] Unknown [id number] 2.16.8 [id number] Social History Date Type Detail Facility Assertion Tobacco smoking consumption unknown (finding) [facility] Work Phone: Start: 1970 Sex Assigned At Female F [facility] Functional Status Date Assessment Result Facility [...] LEFT VELOCITIES PHASICITY VELOCITIES PHASICITY 85 BiCommon [id number] 83BiProximal TRR06Ys 108BiMid [id number] 40 BiDistal SFB70Oy 51 UiUtnlzppxp69Aq 46 SkITP68Nf 75 BiPTA 93Bi 44 BiPeroneal 58Bi RIGHT [...] signed by Mikey Harry on 08/21/2022 1153 [facility] Stemmer Machine Evaluation note Note Date & Type Note Facility Evaluation note No assessment information availa [facility] Work Phone: Summary Purpose Family History No [...] section and content) DATE CREATED AUTHOR 03/26/2018 [facility] edical Center DATE CREATED AUTHOR AUTHOR'S ORGANIZ ATION 10/02/2019 [facility] DATE CREATED AUTHOR AUTHOR'S ORGANIZ ATION 05/19/2020 [facility] DATE CREATED AUTHOR AUTHOR'S ORGANIZ ATION 10/17/2022 [facility] dical Specialist DATE CREATED AUTHOR AUTHOR'S ORGANIZ ATION 12/02/2022 [facility] DATE CREATED AUTHOR AUTHOR'S ORGANIZ ATION 02/19/2023 [facility] DATE CREATED AUTHOR AUTHOR'S ORGANIZ ATION 01/14/[address] [facility] Care Teams (unrecognized sec tion and content) [...] BE BASED ON THE PRIMARY CLINICAL RECORDS. [facility] [employer] provides no warranty or guarantee of the accuracy or completeness of information in this document.
--- NOTE | 2024-01-25 20:30 | ED_ITS ---
HPI HPI - Back Pain/Injury General Chief Complaint: Back Pain/Injury Stated Complaint: Back Pain Time Seen by Provider: 01/25/24 20:21 Source: patient Mode of arrival: Wheelchair Limitations: no limitations History of Present Illness HPI Narrative: past history of chronic neck and back pain. Describes nerve ablation procedure lower back about a month ago. States it help with her lower back pain but did not due much for her lower leg tingling sensation. States she is scheduled for another injection. States she also has disc bulge in her neck and spondylosis of her lumbar spine. States she sneezed today while shopping and experienced acute pain from her neck down to her lower spine. No extremity weakness but has tingling of her legs chronically. No fever or headache complaint. Prescribed zanaflex, cymbalta and neurontin tid. Only took one Neurontin this AM. Denies falling or problem walking Related Data Home Medications ?Medication ?Instructions ?Recorded ?Confirmed atorvastatin 10 mg tablet 10 mg PO DAILY 05/22/23 01/25/24 cholecalciferol (vitamin D3) 50 50 mcg PO DAILY 05/22/23 01/25/24 mcg (2,000 unit) capsule dulaglutide 3 mg/0.5 mL 3 mg subcut QWEEK 05/22/23 01/25/24 subcutaneous pen injector (Trulicity) levothyroxine 50 mcg tablet 50 mcg PO DAILY 05/22/23 01/25/24 lisinopril 2.5 mg tablet 2.5 mg PO DAILY 05/22/23 01/25/24 nabumetone 500 mg tablet 500 mg PO BID 05/22/23 01/25/24 tizanidine 4 mg capsule 4 mg PO Q8H PRN back pain 05/22/23 01/25/24 trazodone 50 mg tablet 50 mg PO DAILY PRN sleep 05/22/23 01/25/24 gabapentin 600 mg tablet 600 mg PO TID 10/29/23 01/25/24 duloxetine 30 mg capsule,delayed 30 mg PO BID 01/25/24 01/25/24 release ropinirole 0.5 mg tablet 0.5 mg PO DAILY 01/25/24 01/25/24 Allergies Allergy/AdvReac Type Severity Reaction Status Date / Time propylthiouracil Allergy Severe Hives Verified 01/25/24 20:21 Opioid HPI Opioid Management Most Recent Opioid Data: Last Pain Scale 9 01/06/24 07:40 Review of Systems ROS Status of ROS 10 or more systems reviewed and unremark able except as noted in h istory and below PFSH PFSH Social History Smoking status: Former smoker Exam Constitutional Vital Signs, click to edit/add: Last Vital Signs Temp 98.1 F 01/25/24 20:17 Pulse 68 01/25/24 20:17 Resp 20 01/25/24 20:17 BP 128/71 01/25/24 22:12 Pulse Ox 98 01/25/24 20:17 O2 Del Method Room Air 01/25/24 20:17 Common normals: no apparent distress, oriented x3, no limitations, healthy appearing, alert and well nourished HENMT Common normals: normocephalic and head/scalp atraumatic Eye Common normals: EOMs intact bilaterally and conjunctivae normal Respiratory Common normals: normal respiratory effort, no retractions, no use of accessory muscles and clear to auscultation bilaterally Cardio Common normals: regular rate, regular rhythm, S1 normal heart sound and S2 normal heart sound GI Common normals: Normal to inspection, nondistended, normoactive bowel sounds present, soft to palpation and non-tender Back & Pelvis Other: mild tenderness of her C-L spine Extremity Common normals: normal to inspection and full ROM Neuro Common normals: oriented x3, CN's II-XII intact bilaterally, moves all extremities and no focal motor deficits Psych Appearance: grossly normal Course Vital Signs Vital signs: Vital Signs Temperature 98.1 F 01/25/24 20:17 Pulse Rate 68 01/25/24 20:17 Respiratory Rate 20 01/25/24 20:17 Blood Pressure 130/73 01/25/24 20:17 Pulse Oximetry 98 01/25/24 20:17 Oxygen Delivery Method Room Air 01/25/24 20:17 Temperature 98.1 F 01/25/24 20:17 Pulse Rate 68 01/25/24 20:17 Respiratory Rate 20 01/25/24 20:17 Blood Pressure 128/71 01/25/24 22:12 Pulse Oximetry 98 01/25/24 20:17 Oxygen Delivery Method Room Air 01/25/24 20:17 MDM - Back Pain/Injury MDM Narrative Medical decision making narrative: patient presents with chronic pain and paresthesia of her lower back and chronic pain of her neck. States she sneezed earlier today and experienced pain radiating down from her neck to her lower back. No weakness of her extremities. Exam without neuro deficits. Patient treated for pain in the department with improvement. Ambulatory to the bathroom and sitting on the side of the bed before discharge stating she was ready to go home. Advised to take her usual pain medications including neurontin when she gets home and to follow up with her doctor Lab Data Labs: Lab Results 01/25/24 Range/Units 20:51 WBC 12.1 H (4.0-11.0) 10^3/uL RBC 4.99 (4.20-5.40) 10^6/uL Hgb 14.9 (12.0-16.0) g/dL Hct 44.5 (36.0-48.0) % MCV 89.2 (81.0-99.0) fL MCH 29.9 (26.7-34.0) pg MCHC 33.5 (29.9-35.2) g/dL RDW 13.0 (11.0-15.0) % Plt Count 263 (150-450) 10^3/uL MPV 9.2 L (9.5-13.5) fL Neut % (Auto) 64.7 (43.0-75.0) % Lymph % (Auto) 25.6 (20.5-60.0) % Charles % (Auto) 7.1 (1.7-12.0) % Eos % (Auto) 1.7 (0.9-7.0) % Baso % (Auto) 0.7 (0.2-2.0) % Neut # (Auto) 7.8 H (1.4-6.5) 10^3/uL Lymph # (Auto) 3.1 (1.2-3.8) 10^3/uL Charles # (Auto) 0.9 H (0.3-0.8) 10^3/uL Eos # (Auto) 0.2 (0.0-0.7) 10^3/uL Baso # (Auto) 0.1 (0.0-0.1) 10^3/uL Abs Immat Gran (auto) 0.03 (0.00-0.03) 10^3/uL Imm/Tot Granulo (auto) 0.2 (0.0-0.5) % ESR 43 H (<=30) mm/hr Sodium 139 (136-145) mmol/L Potassium 3.7 (3.5-5.1) mmol/L Chloride 104 (98-107) mmol/L Carbon Dioxide 26.5 (21.0-32.0) mmol/L Anion Gap 12.2 BUN 19.0 H (7.0-18.0) mg/dL Creatinine 0.99 (0.55-1.02) mg/dL Est GFR ( Amer) >60 (>=60) Est GFR (Non-Af Amer) 59 L (>=60) BUN/Creatinine Ratio 19.2 Glucose 103 (74-106) mg/dL Calcium 9.2 (8.5-10.1) mg/dL C-Reactive Protein 0.49 (<=0.50) mg/dL Discharge Plan Discharge Stand Alone Forms: Portal Instructions Chief Complaint: Back Pain/Injury Clinical Impression: Back pain Patient Disposition: Home, Self-Care Prescriptions / Home Meds: No Action gabapentin 600 mg tablet 600 mg PO TID atorvastatin 10 mg tablet 10 mg PO DAILY cholecalciferol (vitamin D3) 50 mcg (2,000 unit) capsule 50 mcg PO DAILY levothyroxine 50 mcg tablet 50 mcg PO DAILY lisinopril 2.5 mg tablet 2.5 mg PO DAILY nabumetone 500 mg tablet 500 mg PO BID tizanidine 4 mg capsule 4 mg PO Q8H PRN (Reason: back pain) trazodone 50 mg tablet 50 mg PO DAILY PRN (Reason: sleep) Trulicity 3 mg/0.5 mL pen injector 3 mg subcut QWEEK ropinirole 0.5 mg tablet 0.5 mg PO DAILY duloxetine 30 mg capsule,delayed release(DR/EC) 30 mg PO BID Print Language: Egyptian Instructions: Back Pain (ED) Additional Instructions: follow up with your family doctor next week Referrals: LARS DAVIS [Primary Care Provider] - 1 week
[2024-01-25] MEDS: METHYLPREDNISOLONE SOD SUCC PF 125 MG/2 ML VIAL IVP (20:52)
[2024-01-25] MEDS: MAGNESIUM SULFATE IN WATER 2 GM/50 ML PREMIX IV (20:52)
[2024-01-25 21:04] LABS: Basophils Absolute Auto 0.1 10^3/uL (0.0-0.1); Basophils Percent Auto 0.7 % (0.2-2.0); Eosinophils Absolute Auto 0.2 10^3/uL (0.0-0.7); Eosinophils Percent Auto 1.7 % (0.9-7.0); Hematocrit 44.5 % (36.0-48.0); Hemoglobin 14.9 g/dL (12.0-16.0); Immature Granulocytes Abs Auto 0.03 10^3/uL (0.00-0.03); Immature Granulocytes Pct Auto 0.2 % (0.0-0.5); Lymphocytes Absolute Auto 3.1 10^3/uL (1.2-3.8); Lymphocytes Percent Auto 25.6 % (20.5-60.0); Mean Corpuscular HGB Conc 33.5 g/dL (29.9-35.2); Mean Corpuscular Hemoglobin 29.9 pg (26.7-34.0); Mean Corpuscular Volume 89.2 fL (81.0-99.0); Mean Platelet Volume 9.2 fL (9.5-13.5); Monocytes Absolute Auto 0.9 10^3/uL (0.3-0.8); Monocytes Percent Auto 7.1 % (1.7-12.0); Neutrophils Absolute Auto 7.8 10^3/uL (1.4-6.5); Neutrophils Percent Auto 64.7 % (43.0-75.0); Platelet Count 263 10^3/uL (150-450); Red Blood Count 4.99 10^6/uL (4.20-5.40); White Blood Count 12.1 10^3/uL (4.0-11.0)
[2024-01-25 21:11] LABS: Anion Gap 12.2; BUN Creatinine Ratio 19.2; C Reactive Protein 0.49 mg/dL (<=0.50); Calcium 9.2 mg/dL (8.5-10.1); Carbon Dioxide 26.5 mmol/L (21.0-32.0); Chloride 104 mmol/L (98-107); Erythrocyte Sedimentation Rate 43 mm/hr (<=30); Estimated GFR (African America >60 (>=60); Estimated GFR (Non-African Ame 59 (>=60); Glucose 103 mg/dL (74-106); Potassium 3.7 mmol/L (3.5-5.1); Sodium 139 mmol/L (136-145)
[2024-01-25 22:12] VITALS: BP 128/71
== END 2024-01-25 22:56 | disposition home or self-care (01) ==
PROVIDERS: Emergency Provider Internal Medicine; PCP Family Medicine
DX: M54.9 Dorsalgia, unspecified (principal); Z79.899 Other long term (current) drug therapy; Z79.890 Hormone replacement therapy; Z87.891 Personal history of nicotine dependence; G89.29 Other chronic pain
CPT/HCPCS: 36415; 80048; 85025; 85652; 86140; 96365; 96375; 99284; J2919

== ENCOUNTER 2024-02-05 10:54 | Outpatient (OUT) | payer MEDICAID, SELFPAY ==
--- NOTE | 2024-02-05 11:15 | P.CN_ITS ---
Consult Note: HPI Data of Consult Patient: known to practice within the last 3 years Requesting Physician: Estefany Tapia NP Primary Care Provider: LARS DAVIS Consult Narrative Reason for consult: f/u Narrative: Mayra Coates a pleasant 53 year old female presents for evaluation and management of chronic low back and bilateral hip pain. Today pain 7/10 aching. Pain worse with all activity, improved with rest. Patient recently underwent bilateral L4/5 L5/S1 RFA with 90% improvement in axial low back pain. Patient continues to find mild benefit from medication regimen without side effects. Now reporting significant hip pain and pain radiating down both legs causing numbness tingling and weakness. Patient still has not followed with r heumatology. cc:: CC: Estefany Tapia NP Review of Systems ROS Status of ROS 10 or more systems reviewed and unremark able except as noted in history and below Musculoskeletal Reports: back pain and joint pain PFSH PFSH Social History Smoking status: Former smoker Meds Home Medications and Allergies Home Medications ?Medication ?Instructions ?Recorded ?Confirmed ?Type atorvastatin 10 mg tablet 10 mg PO DAILY 05/22/23 01/25/24 History cholecalciferol (vitamin D3) 50 50 mcg PO DAILY 05/22/23 01/25/24 History mcg (2,000 unit) capsule dulaglutide 3 mg/0.5 mL 3 mg subcut QWEEK 05/22/23 01/25/24 History subcutaneous pen injector (Trulicity) levothyroxine 50 mcg tablet 50 mcg PO DAILY 05/22/23 01/25/24 History lisinopril 2.5 mg tablet 2.5 mg PO DAILY 05/22/23 01/25/24 History nabumetone 500 mg tablet 500 mg PO BID 05/22/23 01/25/24 History tizanidine 4 mg capsule 4 mg PO Q8H PRN back pain 05/22/23 01/25/24 History trazodone 50 mg tablet 50 mg PO DAILY PRN sleep 05/22/23 01/25/24 History gabapentin 600 mg tablet 600 mg PO TID 10/29/23 01/25/24 History duloxetine 30 mg capsule,delayed 30 mg PO BID 01/25/24 01/25/24 History release ropinirole 0.5 mg tablet 0.5 mg PO DAILY 01/25/24 01/25/24 History Allergies Allergy/AdvReac Type Severity Reaction Status Date / Time propylthiouracil Allergy Severe Hives Verified 01/25/24 20:21 Exam Narrative Exam Narrative: patient reports increase in low back and bilateral leg pain with ambulation, increase in heaviness and cramping. improved with forward flexion and rest. no radicular pain on exam Constitutional Documenting provider has reviewed patient's vital signs: yes Common normals: no apparent distress, oriented x3, healthy appearing, alert and well nourished General appearance: cooperative Nutritional appearance: obese HENMT Common normals: normocephalic, hearing grossly normal bilaterally and moist oral mucous membranes Head and scalp: normocephalic Eye Common normals: PERRL Pupil: PERRL Neck & C-Spine Common normals: full ROM General: normal visual inspection Chest Common normals: inspection of chest normal Respiratory Common normals: normal respiratory effort, no retractions and no use of accessory muscles Cardio Common normals: regular rate, regular rhythm, S1 normal heart sound and S2 normal heart sound GI Common normals: Normal to inspection, nondistended, normoactive bowel sounds present, soft to palpation and non-tender Back & Pelvis Thoracic spine/upper back: ROM limited and pain with ROM Lumbar spine/lower back: ROM limited, pain with ROM and straight leg raise negative bilaterally Sacroiliac joints: SI joint(s) abnormal (bilateral positive laurie, fadir, thigh thrust) Other: diffuse myofascial pain all over Extremity Common normals: normal to inspection and full ROM Neuro Common normals: oriented x3, CN's II-XII intact bilaterally, moves all extremities, no focal motor deficits, no sensory deficits noted and deep tendon reflexes 2+ bilaterally Sensorium/orientation: alert Gait (neuro): antalgic Motor exam: strength 5/5 throughout and no movement abnormalities noted Psych Common normals: mental status grossly normal, thought process normal, cooperative, affect normal, speech normal and activity/motor behavior normal Appearance: grossly normal Speech: normal speech Thought process: normal thought process Results Additional Findings Additional findings: If on a controlled substance or opioids, I have checked an [place] report on this patient and there are no aberrancies noted in the prescribing history.??If on a controlled substance or opioid a drug screen was completed and reviewed within the last year, and if there has not been a drug screen completed we ordered one today to monitor higher risk, state monitored pain medication use. As part of providing excellent, safe, comprehensive care, the following was completed at our patient's visit: 1. A medication reconciliation and review to ensure accurate knowledge of current/active medications, including asking our patients to inform us about any [id number] medications or herbal remedies/nutritional supplements/alternative remedies. 2. A review to specifically ensure our patients have had annual screening for screening for depression, screening for tobacco use, and screening for unhealthy alcohol use. For concerning screenings had a discussion with the patient, provided patient education, and recommended follow-up with primary care provider when appropriate. If patient noted with a risk of falling, they received education on strength, gait, and balance training to prevent future risk of falling. Assessment and Plan Assessment and Plan (1) Lumbar stenosis with neurogenic claudication: Assessment and Plan: The patient has had over 3 months of moderate to severe low back and SIJ pain with functional impairment and inadequate response to conservative care including NSAIDS (unless there are contraindication such as concurrent blood thinners), multiple oral or topical pain medications, and home exercise program/physical therapy.? Patient has completed >6 weeks of guided home exercise program and/or formal physical therapy program without relief of their symptoms.? We discussed the risks and benefits of the procedure with the patient, and we are NOT planning on using sedation as outlined in the guidelines from Medicare unless there is a documented reason that sedation would be strongly recommended.?? ?The procedure will be completed with fluoroscopic guidance.? (2) Sacroiliitis: (3) Lumbar spondylosis: (4) Osteoarthritis of hips, bilateral: Plan bilateral L5-S1 TFESI bilateral SIJ injection reschedule f/u with rheumatology, based on diffuse myofascial pain and fatigue likely fibromyalgia however we should rule out underlying causes, she was previously referred and missed the appointment and is looking for a new covered provider f/u 1 2 weeks after injections complete
== END 2024-02-05 10:55 | disposition home or self-care (01) ==
LOC: PM 10:54
PROVIDERS: PCP Family Medicine; Visit Provider Nurse Practitioner
DX: M48.062 Spinal stenosis, lumbar region with neurogenic claudication (principal); M46.1 Sacroiliitis, not elsewhere classified; M47.816 Spondylosis without myelopathy or radiculopathy, lumbar region; M16.0 Bilateral primary osteoarthritis of hip
CPT/HCPCS: G0463

== ENCOUNTER 2024-04-06 08:01 | Day surgery (SDC) | payer MEDICAID, SELFPAY ==
[2024-04-06 08:08] VITALS: BP 134/81; PULSE 107; TEMP 36.2; O2SAT 97
--- OUTSIDE RECORDS SUMMARY | 2024-04-06 08:14 | XMS_ITS | CCD ---
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 Automatic Name Role Phone LEXIEMICKEY EARL Unavailable Unavailable MICHELLE CHOW Unavailable Unavailable Joshua Fraser Unavailable Unavailable Joshua Fraser Unavailable Unavailable None, No PCP Unavailable Unavailable Ezekiel Devi Unavailable Unavailable Joshua Fraser Unavailable UnavailCON CoronaC Brendan Vivar Attending Provider [phone] MD Zehra Marques Primary Care Provider Brendan Coyle Admitting Unavailable Brendan Coyle Attending Unavailable Zehra Marques Primary Care Unavailable SUSAN, DR SOUSA Admitting Unavailable USSAN, DR SOUSA Attending Unavailable SUSAN, DR SOUSA Primary Care Unavailable SUSAN, DR SOUSA Consulting Unavailable DAPHNEY RODRIGUEZ Admitting Unavailable DAPHNEY RODRIGUEZ Attending Unavailable SUSAN, DR SOUSA Primary Care Unavailable DAPHNEY RODRIGUEZ Admitting Unavailable DAPHNEY RODRIGUEZ Attending Unavailable SUSAN, DR SOUSA Primary Care Unavailable BRENDAN COYLE Admitting Unavailable BRENDAN COYLE Attending Unavailable SUSAN, DR SOUSA Primary Care Unavailable SUSAN, DR SOUSA Consulting Unavailable YEIMI ., MR HINTON Admitting Unavailable YEIMI ., MR HINTON Attending Unavailable SUSAN, DR SOUSA Primary Care Unavailable YIEMI ., MR HINTON Consulting Unavailable Mars KAPADIA, [...] B 27on 01-28-2023 HLA-B27 Negative Normal [facility] Comment on above: Result Comment: HLA- B*27 Negative B27 allele interpretation for all loci based on IMGT/HLA database version 3.44 This test was developed and its performance characteristics determined by [facility]. It has not been cleared or approved by the Food and Drug Administration. [facility] CLIA ID Number [id number] . This test was performed using PCR (Polymerase Chain Reaction)/SSOP (Sequence Specific Oligonucleotide Probes) technique. SBT (Sequence Based Typing) and/or SSP (Sequence Specific Primers) may be used as supplemental methods when necessary. Please contact HLA Customer Service at if you have any questions. . Director of HLA Laboratory Dr Jett Carpio, PhD Performed By: #### H LA27 #### [facility] [address] [place] [address] Dr. Daniela Ledesma CALEB by IFAon 01-24-2023 Antinuclear Antibodies, IFA Negative Normal [facility] Comment on above: Result Comment: Nega tive <1:80 Borderline 1:80 Positive >1:80 ICAP nomenclature: AC-0 For more information about Hep-2 cell patterns use ANApatterns.org, the official website for the International Consensus on Antinuclear Antibody (CALEB) Patterns (ICAP). Performed By: #### A NAIFA #### [facility] [address] [place] [address] Dr. Daniela Ledesma RHEUMATOID FACTORon 01-24-20 RA Latex Turbid. <10.0 Normal <14.0 [facility] Comment on above: Performed By: #### R F #### [facility] [address] [place] [address] Dr. Daniela Ledesma CBC AUTO DIFFon 01-21-2023 BASO # 0.1 103/ul Normal 0.0-0.[address] [facility] Comment on above: Performed By: #### C BC #### [facility] [address] [place] [address] Dr. Daniela Ledesma Basophils/100 WBC (Bld) 0.9 % Normal 0.2-2.[address] [facility] Comment on above: Performed By: #### C BC #### [facility] [address] [place] [address] Dr. Daniela Ledesma EO # 0.7 103/ul Normal 0.0-0.7 [facility] Comment on above: Performed By: #### C BC #### [facility] [address] [place] [address] Dr. Daniela Ledesma Eosinophils/100 WBC (Bld) 4.3 % Normal 0.9-7.[address] [facility] Comment on above: Performed By: #### C BC #### [facility] [address] [place] [address] Dr. Daniela Ledesma Erythrocyte distribution width (RBC) [Ratio] 13.2 % Normal 11.0-15.[address] [facility] Comment on above: Performed By: #### C BC #### [facility] [address] [place] [address] Dr. Daniela Ledesma Hematocrit (Bld) [Volume fraction] 45.4 % Normal 36.0-48.[address] [facility] Comment on above: Performed By: #### C BC #### [facility] [address] [place] [address] Dr. Daniela Ledesma Hemoglobin (Bld) [Mass/Vol] 15.7 g/dL Normal 12.0-16.[address] [facility] Comment on above: Performed By: #### C BC #### [facility] [address] [place] [address] Dr. Daniela Ledesma IG # 0.07 10e3/ul Critically high 0.00-0.03 [facility] Comment on above: Performed By: #### C BC #### [facility] [address] [place] [address] Dr. Daniela Ledesma IG % 0.5 % Normal 0.0-0.[address] [facility] Comment on above: Performed By: #### C BC #### [facility] [address] [place] [address] Dr. Daniela Ledesma LYMPH # 3.7 103/ul Normal 1.2-3.[address] [facility] Comment on above: Performed By: #### C BC #### [facility] [address] [place] [address] Dr. Daniela Ledesma Lymphocytes/100 WBC (Bld) 24.7 % Normal 20.5-60.[address] [facility] Comment on above: Performed By: #### C BC #### [facility] [address] [place] [address] Dr. Daniela Ledesma MANUAL DIFF REQ NO Normal [facility] Comment on above: Performed By: #### C BC #### [facility] [address] [place] [address] Dr. Daniela Ledesma MCH (RBC) [Entitic mass] 30.9 pg Normal 26.7-34.[address] [facility] Comment on above: Performed By: #### C BC #### [facility] [address] [address] [address] Daniela Ledesma MCHC (RBC) [Mass/Vol] 34.6 g/dL Normal 29.9-35.[address] [facility] Comment on above: Performed By: #### C BC #### [facility] [address] [address] [address] Daniela Ledesma MCV (RBC) [Entitic vol] 89.4 fL Normal 81.0-99.[address] [facility] Comment on above: Performed By: #### C BC #### [facility] [address] [place] [address] Dr. Daniela Ledesma MONO # 0.7 103/ul Normal 0.3-0.[address] [facility] Comment on above: Performed By: #### C BC #### [facility] [address] [place] [address] Dr. Daniela Ledesma Monocytes/100 WBC (Bld) 4.4 % Normal 1.7-12.[address] [facility] Comment on above: Performed By: #### C BC #### [facility] [address] [place] [address] Dr. Daniela Ledesma NEUT # 9.8 103/ul Critically high 1.4-6.5 [facility] Comment on above: Performed By: #### C BC #### [facility] [address] [place] [address] Dr. Daniela Ledesma Neutrophils/100 WBC (Bld) 65.2 % Normal 43.0-75.[address] [facility] Comment on above: Performed By: #### C BC #### [facility] [address] [address] [address] Daniela Ledesma Platelet mean volume (Bld) [Entitic vol] 9.3 fL Critically low 9.5-13.[address] [facility] Comment on above: Performed By: #### C BC #### [facility] [address] [place] [address] Dr. Daniela Ledesma PLT 286 103/ul Normal 150-450 [facility] Comment on above: Performed By: #### C BC #### [facility] [address] [address] [address] Daniela Ledesma RBC 5.08 106/ul Normal 4.20-5.[address] [facility] Comment on above: Performed By: #### C BC #### [facility] [address] [address] [address] Daniela Ledesma WBC 15.1 103/ul Critically high 4.0-11.0 [facility] Comment on above: Performed By: #### C BC #### [facility] [address] [address] [address] Daniela Ledesma SED RATE [facility] 2022 SED RATE 34 mm/hr Critically high <=30 [facility] Comment on above: Performed By: #### S EDR #### [facility] [address] [place] [address] Dr. Daniela Ledesma URIC ACID SERUMon 01-21-2023 Urate [Mass/Vol] 7.5 mg/dL Critically high 2.6-6.[address] [facility] Comment on above: Performed By: #### U TUTU #### [facility] [address] [address] [address] Daniela Ledesma CPKon 01-12-2023 CK [Catalytic activity/Vol] 98 U/L Normal 26-[address] [facility] Comment on above: Performed By: #### Jose David MIGUEL CK #### [facility] [address] [place] [address] Dr. Daniela Ledesma MYOGLOBINon 01-12-2023 SAW 34 ng/mL Normal 9-82 [facility] Comment on above: Performed By: #### Jose David MIGUEL CK #### [facility] [address] [place] [address] Dr. Daniela Ledesma MR cervical spine wo conon 0 11-27-2022 MR cervical spine wo con [facility] [place] [address] XRay Report Signed Patient: Ezequiel Coates MR#: [id number] : 1970 Acct:[id number] Age/Sex: 52 / F ADM Date: 11/26/22 Loc: MR Room: [facility] Dr: Brendan COCHRAN Copies to: DIMAS Rand Ordering Provider: DIMAS Rand Date of Service: 11/26/22 MR/MR cervical spine wo con: R20.2, M79.601 ([id number]) XR/XR pre/post mri xray: PRE MRI OF [...] Jillian Angelo M.D.11/27/2022 10:13 AM Dictation Location: [place] [address] Transcribed By: [facility] 11/27/22 1013 Dictated By: Jillian Angelo MD 11/27/22 0948 Signed By: 11/27/22 1013 [facility] Thyroidon 10-17-2022 Thyroid HISTORY: Hyperthyroidism. FINDINGS: [...] by Ezekiel Hernandez on 10/17/2022 1005 Normal [facility] Manager Telemetry JORDANA - Automatic Exporton JORDANA - Automatic [place] [facility], [place] ANDREYNETTIEARIADNEEZEQUIEL 1970 Date of Female Sex [id number] [place] [address] AddressEnglish (preferred) Language White Race Not or Ethnicity Summary of Care Clinical Content Allergies and Adverse Reactions <#JQ2PHODS> Encounters <#UY1AWATB> Functional Status <#PL0RYMSL> Immunization <#NX8JOJFC> Instructions <#TX7HAYPT> Interventions Provided <#UW8I4XCP> Medications <#ZH5LYKAK> Plan of Care <#BM9PW8KZ> Problems <#AF2PZNRH> Procedures <#BJ5XDVJT> Results <#XE9K98ZF> Social History <#BH6PWNPD> Vital Signs <#BF1UPWOA> Other Document Details Health Care Providers Functional [...] AREA BID Quantity: 60 Refills: 2 Bria DO Joshua Start : 13-Feb-2020 Allergies and Adverse Reactionstop <#top> NameDatesDetails Allergy history not documented Procedurestop <#top> ProcedureDatesDetails Procedures not documented Immunizationtop <#top> NameDatesDetails Immunizations not documented Social Historytop <#top> Smoking Status NameDatesDetails Tobacco smoking consumption unknown (finding) Vital Signstop <#top> DateTestResultDetails No Known Vitals to report Resultstop <#top> DateDescriptionValueDet ails Results not documented Plan of Caretop <#top> NameDatesDeelzbietas Planned Observations Planned Goals not documented Planned [...] Ambulatory Health Care Facilities Zo Rivera [email or web address] Work Email [facility] [address] [place] [address] Address Ambulatory Health Care Facilities None, No [facility] Address Document Detailstop <#top> [facility] Fraser DO February 13, 2020 11:46 -0400 [id number] [id number] [phone] Work Phone Powered by [employer]?Style Sheet V3.2 Normal [employer] JORDANA - Automatic [place] [facility], [place] EZEQUIEL COATES 1970 Date of Female Sex [id number] [place] [address] AddressEnglish (preferred) Language White Race Not or Ethnicity Summary of Care Clinical Content Allergies and Adverse Reactions <#KM7IDBUY> Encounters <#CZ4QIPPP> Functional Status <#AJ4SLBYI> Immunization <#CT4NXZPI> Instructions <#FK8URTNB> Interventions Provided <#HG6TW0KD> Medications <#PH9LWLDZ> Plan of Care <#IL1AT3MA> Problems <#MG4KZPRL> Procedures <#WH3OEQAY> Results <#GY3G46BI> Social History <#ZM4PKWBW> Vital Signs <#LI8MAYEV> Other Document Details Health Care Providers Functional [...] Ambulatory Health Care Facilities Zo Rivera [email or web address] Work Email [facility] [address] [place] [address] Address [facility] Facilities None, No [facility] Address Document Detailstop <#top> [facility] Joshua Fraser DO February 13, 2020 11:15 -0400 [id number] [place] [address] [phone] Work Phone Powered by Plug[employer]?Style Sheet V3.2 Normal [employer] JORDANA - Automatic [place] SURINDER COATESLY 1970 Date of Female Sex [id number] [place] [id number] AddressEnglish (preferred) Language White Race Not or Ethnicity Summary of Care Clinical Content Allergies and Adverse Reactions <#RN5ZYEBJ> Encounters <#SQ5EMYJD> Functional Status <#QV6JOCPO> Immunization <#MG9WOHUR> Instructions <#LT6RKKAS> Interventions Provided <#MP6R1PMB> Medications <#QW1QIXXH> Plan of Care <#EM6TXABP> Problems <#YZ0ZCCCR> Procedures <#ED3I2AZS> Results <#DL4IVNJS> Social History <#TC4RXCYT> Vital Signs <#FA0T0KWI> Other Document Details Health Care Providers Functional Statustop <#top> Functional Status Health Issues NameDatesDetails Functional status health issues are not documented Cognitive Status Health Issues NameDatesDetails Cognitive status health issues are not documented Problemstop <#top> NameDatesDetails Active medical history not documented Medicationstop <#top> NameDAmanelzbietasergio Meloxicam 15 MG Oral Tablet TAKE 1 [...] and therapy for chronic conditions Instructionstop <#top> NameDAnton Instructions not documented Encounterstop <#top> Appointment; Joshua Fraser DO Encounter Diagnosis: Problem not documentedOn: 13-Feb-2020 10:00 Health Care Providerstop <#top> Ambulatory Health Care Facilities Zo Rivera [email or web address] Work Email [facility] [address] [place] [address] Address Ambulatory Health Care Facilities None, No PCPUnknown Address Document Detailstop <#top> [facility] DO February 13, 2020 11:01 -[id number] [place] [address] [phone] Work Phone Powered by [employer]?Style Sheet V3.2 Normal [employer] School/Work Letteron 020 School/Work Letter February 13, [...] Feb 13 2020 11:34AM EST (Author) Normal [employer] Provider Note - ED v2on 09-07 Provider [...] Past Surgical History Description:Hysterectom y Description:Cholecystec kenny LOSS PREVENTION GUARD: Is : no(1) Is : no(1) REVIEW [...] SIGNS: T PRBP SpO2O2(LPM) %FiO2 Method 27-Sep-2019 19:18:00-36.05016129/73 99 room air, no respiratory support MEDICAL [...] From Triage - ED 27-Sep-2019 19:18 Normal [facility] Risk Screen - Adult Emergenc yon [...] Communicatenone Learning Preferencesaudio Cultural Considerationsnone Developmental Considerationsnone Restorationist Considerationsnone Learning Assessment (Other Learner): Learning Assessment (Other Learner): Other learner availableno Pressure Injury/TB/Substance: Pressure Injury: Pressure Injury Present on Admissionno Do you have a coughno Admission Risk Screen: Significant IndicatorsComplete CAGE: CAGE: Is this an injured patient at a Trauma Center ([facility]/[place]): no Electronic Signatures: Gali Meyer (RN) (Signed 27-Sep-2019 19:36) Authored: Preferred Language, Advanced Directives, Family Violence Adult, Learning Assessment (Patient), Learning Assessment (Other Learner), Pressure Injury/TB/Substance, CAGE Last Updated: 27-Sep-2019 19:36 by Gali Meyer (RN) [facility] Triage - EDon 09-27-2019 Triage - ED [...] Travel outside of [place]: no Allergies: yes LOSS PREVENTION GUARD History: 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 Patient has homicidal thoughts: no [...] 19:22 by Sherry Bronson (STAFF N) Normal [facility] CBC With Platelet No Differe ntmoseson 03-07-2018 Erythrocyte distribution width Auto Ratio (RBC) 13.0 % Normal 11.5-14.5 [facility] Erythrocytes (RBC) 5.17 10*6/uL Normal 4.20-5.40 [facility] Hematocrit (HCT) 44.4 % Normal 37.0-47.0 [facility] Hemoglobin mass conc (Bld) 15.3 g/dL Normal 12.0-16.0 [facility] MCH 29.6 pg Normal 27.0-31.3 [facility] MCHC mass conc (RBC) 34.4 % Normal 33.0-37.0 [facility] MCV 85.9 fL Normal 82.0-100.0 [facility] Platelets 287 10*3/uL Normal 130-400 [facility] WBC (Leukocytes) 6.8 10*3/uL Normal 4.8-10.8 [facility] TSH w/out Reflexon 8 Thyroid stimulating hormone (TSH) m[IU]/L Low 0.270-4.20 [facility] Thyroxine Freeon 03-07-2018 Thyroxine Free 2.23 ng/dL Critically high 0.93-1.70 [facility] US HEAD NECK SOFT TISSUE THY ROIDon 02-14-2018 US HEAD NECK SOFT TISSUE THYROID EXAMINATION: US HEAD NECK SOFT TISSUE THYROIDDATE AND TIME:02/14/2018 2:48 PMCLINICAL HISTORY: Thyromegaly E05.90 Hyperthyroidism ICD10 COMPARISONS: None TECHNIQUE: Biplanar images were obtained. Please note that description of thyroid nodules in this report is based on the 2017 Thyroid Imaging, Reporting and Data System (TI- RADS) established by the [employer] to help provide guidance [...] by:INDER Morrisigned by:Julio Marie MD02/14/18inal result Normal [facility] CBC With Platelet No Differe ntialon 02-07-2018 Erythrocyte distribution width Auto Ratio (RBC) 12.7 % Normal 11.5-14.5 [facility] Erythrocytes (RBC) 4.65 10*6/uL Normal 4.20-5.40 [facility] Hematocrit (HCT) 40.2 % Normal 37.0-47.0 [facility] Hemoglobin mass conc (Bld) 14.0 g/dL Normal 12.0-16.0 [facility] MCH 30.1 pg Normal 27.0-31.3 [facility] MCHC mass conc (RBC) 34.8 % Normal 33.0-37.0 [facility] MCV 86.4 fL Normal 82.0-100.0 [facility] Platelets 241 10*3/uL Normal 130-400 [facility] WBC (Leukocytes) 6.8 10*3/uL Normal 4.8-10.8 [facility] TSH w/out Reflexon 8 Thyroid stimulating hormone (TSH) m[IU]/L Low 0.270-4.20 [facility] Thyroxine Freeon 02-07-2018 Thyroxine Free 3.43 ng/dL Critically high 0.93-1.70 [facility] Encounters Encounter Date Encounter Type Care Provider Facility Start: 01-06-2024 End: 01-07-2024 ambulatory Vinay Crews MD Facility:[facility] Start: 01-31-2023 End: 02-01-[address] ZEHRA MARQUES Facility:[facility] Start: 01-21-2023 End: 01-22-2023 ambulatory MR JAMAAL JALLOH . Facility:[facility] Start: 01-12-2023 End: 01-13-2023 ambulatory BRENDAN COYLE Facility:[facility] Start: 11-26-2022 End: 11-26-2022 ambulatory Brendan Coyle Facility:[facility] Start: 11-26-2022 End: 11-26-2022 ambulatory MD Zehra Marques Work Phone: [facility] Work Phone: Start: 11-26-2022 End: 11-26-2022 Patient encounter procedure MD Zehra Marques Work Phone: [facility] [place] Work Phone: Start: 11-19-2022 End: 11-20-2022 ambulatory DAPHNEY RODRIGUEZ Facility:[facility] Start: 09-17-2022 ambulatory DAPHNEY RODRIGUEZ Fac ility:[facility] Start: 05-13-2020 Patient encounter procedure Ezekiel Devi [facility] Work Phone: Start: 03-26-2020 [facility] encounter procedure [facility] Work Phone: Start: 02-13-2020 Patient encounter procedure [facility] Devi [facility] Work Phone: Start: 02-14-2018 End: 02-17-2018 Ambulatory MICKEY OWEN [facility] Procedures Date Procedure Procedure Detail Performing Clinician [...] Start: 11-26-2022 MR Cervical spine WO contrast [facility] Start: 11-26-2022 MRI of cervical spin e without contrast MR cervical spine wo con [facility] Start: 11-26-2022 XR pre/post mri xray XR pre/post mri xray [facility] Start: 11-26-2022 [facility] Payers Date Payer Category Payer Unknown 2022 Self-pay 2017 Unknown [id number] 1970 Unknown [id number] 2.16.84 [id number] 1970 Unknown [id number] 2.16.84 [id number] 1970 Unknown [id number] 2.16.84 [id number] 1970 Unknown [id number] 2.16.84 [id number] 1970 Unknown [id number] 2.16.84 [id number] 1970 Unknown [id number] 2.16. [id number] 1959 Medicaid [id number] Unknown [id number] 2.16.8 [id number] Social History Date Type Detail Facility Assertion Tobacco smoking consumption unknown (finding) [facility] Work Phone: Start: 1970 Sex Assigned At Female F [facility] Functional Status Date Assessment Result Facility NEGATED: Highlighted row Functional performance Functional status health issues are not documented Disease [facility] Work Phone: Mental Status Date Assessment Result Facility NEGATED: Highlighted row Cognitive function [Interpretation] Cognitive status health issues are not documented Disease [facility] Work Phone: Clinical Note 08-20-2022 Note Date & Type Note Facility 08-20-2022 Note FINDINGS: ARTERIAL EVALUATION RIGHT LEFT VELOCITIES PHASICITY VELOCITIES PHASICITY 85 BiCommon ihlrbut38Lo 83BiProximal CPK29Kp 108BiMid GCH76Kw 40 BiDistal YZR78Kh 51 KrPgtxhkqgb72Ev 46 LhPAR98Yg 75 BiPTA 93Bi 44 BiPeroneal 58Bi RIGHT [...] signed by Mikey Harry on 08/21/2022 1153 [facility] Manager Telemetry Evaluation note Note Date & Type Note Facility Evaluation note No assessment information availa [facility] Work Phone: Summary Purpose Family [...] section and content) DATE CREATED AUTHOR 03/26/2018 [facility] DATE CREATED AUTHOR AUTHOR'S ORGANIZ ATION 10/02/2019 [facility] DATE CREATED AUTHOR AUTHOR'S ORGANIZ ATION 05/19/2020 [facility] DATE CREATED AUTHOR AUTHOR'S ORGANIZ ATION 10/17/2022 [facility] Specialist DATE CREATED AUTHOR AUTHOR'S ORGANIZ ATION 12/02/2022 [facility] DATE CREATED AUTHOR AUTHOR'S ORGANIZ ATION 02/19/2023 [facility] DATE CREATED AUTHOR AUTHOR'S ORGANIZ ATION 01/14/2024 [facility] Care Teams (unrecognized sec tion and content) [...] BE BASED ON THE PRIMARY CLINICAL RECORDS. [facility] [employer] provides no warranty or guarantee of the accuracy or completeness of information in this document.
[2024-04-06 08:15] LABS: Glucometer 187 mg/dL (74-106)
[2024-04-06 08:52] VITALS: BP 117/64; PULSE 95; O2SAT 92
[2024-04-06 08:55] VITALS: BP 117/64; PULSE 84; O2SAT 96
--- NOTE | 2024-04-06 08:55 | W.PM.PROCNOT ---
Date of procedure: 04/06/24 Pre-op diagnosis: Lumbar stenosis with neurogenic claudication Post-op diagnosis: same as pre-op Procedure: Procedure: Bilateral L5-S1 transforaminal epidural steroid injection Medications: Bupivacaine 0.25% 2cc, lidocaine 2% 1cc, kenalog 80mg The patient was seen and examined in the preoperative holding area.? Informed consent was obtained and placed on the chart.? Patient was brought to the medical procedure unit and placed in the prone position where a timeout was completed verifying the correct patient, procedure site, position, and planned special equipment using sterile aseptic technique.? Under direct fluoroscopic visualization a 25-gauge Quincke tipped spinal needle was advanced at level left L5-S1 to the designated neural foramen where contrast dye was injected to show adequate spread.? There was no evidence of vascular or adverse uptake.? Epidural spread was appreciated.? The above-mentioned injectate was then placed in a 1.5 mL aliquot preceded by negative aspiration.? The needle was removed. The same procedure, at the same level, was completed on the opposite side. ? Patient was taken to the postprocedural recovery area and monitored for an appropriate length of time before found suitable for discharge in the accompaniment of a responsible adult. Anesthesia: Local Surgeon: Vinay Crews Pathology: none sent Condition: stable Disposition: no change
[2024-04-06] MEDS: IOHEXOL 240 MG/ML - 10 ML VIAL 24 MG INJ (08:57)
[2024-04-06] MEDS: 0.9 % SODIUM CHLORIDE 10 ML SYRINGE - SALINE FLUSH INJ (08:57)
[2024-04-06] MEDS: BUPIVACAINE HCL 0.25% PF 25 MG/10 ML VIAL INJ (08:57)
[2024-04-06] MEDS: LIDOCAINE HCL 2% 400 MG/20 ML MDV INJ (08:57)
[2024-04-06] MEDS: TRIAMCINOLONE ACETONIDE 40 MG/ML VIAL 80 MG INJ (08:58)
== END 2024-04-06 09:02 | disposition home or self-care (01) ==
LOC: SURGOUT 08:01
PROVIDERS: PCP Family Medicine; Visit Provider Anesthesiology
DX: M48.062 Spinal stenosis, lumbar region with neurogenic claudication (principal)
CPT/HCPCS: 36415; 64483; 82948; J0665; J3301; Q9966

== ENCOUNTER 2024-04-13 09:32 | Day surgery (SDC) | payer MEDICAID, SELFPAY ==
--- OUTSIDE RECORDS SUMMARY | 2024-04-13 09:39 | XMS_ITS | CCD ---
Author Organization [facility] Care Team Providers Care Sign Painter Name Role Phone LEXIECALEB EARLNT Unavailable Unavailable MICHELLE CHOW Unavailable Unavailable Joshua Fraser Unavailable Unavailable Joshua Fraser Unavailable Unavailable None, No PCP Unavailable Unavailable Ezekiel Devi Unavailable Unavailable Joshua Fraser Unavailable UnavailCON CoronaC Brendan Vivar Attending Provider MD Zehra Marques Primary Care Provider [phone] Brendan Coyle Admitting Unavailable Brendan Coyle Attending [...] Unavailable Mars KAPADIA, Vinay Hyman Attending Unavailable Mars KAPADIA, Vinay Hyman Attending Unavailable [...] B 27on 01-28-2023 HLA-B27 Negative Normal [facility] Comment on above: Result Comment: HLA- B*27 Negative B27 allele interpretation for all loci based on IMGT/HLA database version 3.44 This test was developed and its performance characteristics determined by [employer]. It has not been cleared or approved by the Food and Drug Administration. [facility] CLIA ID Number [id number] . This test was performed using PCR (Polymerase Chain Reaction)/SSOP (Sequence Specific Oligonucleotide Probes) technique. SBT (Sequence Based Typing) and/or SSP (Sequence Specific Primers) may be used as supplemental methods when necessary. Please contact HLA Customer Service at if you have any questions. . Director of HLA Laboratory Dr Jett Carpio, PhD Performed By: #### H LA27 #### [facility] [address] [place] [address] Dr. Daniela Ledesma CALEB by IFAon 01-24-2023 Antinuclear Antibodies, IFA Negative Normal [facility] Comment on above: Result Comment: Nega tive <1:80 Borderline 1:80 Positive >1:80 ICAP nomenclature: AC-0 For more information about Hep-2 cell patterns use ANApatterns.org, the official website for the International Consensus on Antinuclear Antibody (CALEB) Patterns (ICAP). Performed By: #### A NAIFA #### [facility] [address] [place] [address] Dr. Daniela Ledesma RHEUMATOID FACTORon 01-24-20 RA Latex Turbid. <10.0 Normal <14.0 [facility] Comment on above: Performed By: #### R F #### [facility] [address] [place] [address] Dr. Daniela Ledesma CBC AUTO DIFFon 01-21-2023 BASO # 0.1 103/ul Normal 0.0-0.1 [facility] Comment on above: Performed By: #### C BC #### [facility] [address] [place] [address] Dr. Daniela Ledesma Basophils/100 WBC (Bld) 0.9 % Normal 0.2-2.0 [facility] Comment on above: Performed By: #### C BC #### [facility] [address] [place] [address] Dr. Daniela Ledesma EO # 0.7 103/ul Normal 0.0-0.7 [facility] Comment on above: Performed By: #### C BC #### [facility] [address] [place] [address] Dr. Daniela Ledesma Eosinophils/100 WBC (Bld) 4.3 % Normal 0.9-7.0 [facility] Comment on above: Performed By: #### C BC #### [facility] [address] [place] [address] Dr. Daniela Ledesma Erythrocyte distribution width (RBC) [Ratio] 13.2 % Normal 11.0-15.0 [facility] Comment on above: Performed By: #### C BC #### [facility] [address] [place] [address] Dr. Daniela Ledesma Hematocrit (Bld) [Volume fraction] 45.4 % Normal 36.0-48.0 [facility] Comment on above: Performed By: #### C BC #### [facility] [address] [place] [address] Dr. Daniela Ledesma Hemoglobin (Bld) [Mass/Vol] 15.7 g/dL Normal 12.0-16.0 [facility] Comment on above: Performed By: #### C BC #### [facility] [address] [place] [address] Dr. Daniela Ledesma IG # 0.07 10e3/ul Critically high 0.00-0.03 [facility] Comment on above: Performed By: #### C BC #### [facility] [address] [place] [address] Dr. Daniela Ledesma IG % 0.5 % Normal 0.0-0.5 [facility] Comment on above: Performed By: #### C BC #### [facility] [address] [place] [address] Dr. Daniela Ledesma LYMPH # 3.7 103/ul Normal 1.2-3.8 [facility] Comment on above: Performed By: #### C BC #### [facility] [address] [place] [address] Dr. Daniela Ledesma Lymphocytes/100 WBC (Bld) 24.7 % Normal 20.5-60.0 [facility] Comment on above: Performed By: #### C BC #### [facility] [address] [place] [address] Dr. Daniela Ledesma MANUAL DIFF REQ NO Normal [facility] Comment on above: Performed By: #### C BC #### [facility] [address] [place] [address] Dr. Daniela Ledesma MCH (RBC) [Entitic mass] 30.9 pg Normal 26.7-34.0 [facility] Comment on above: Performed By: #### C BC #### [facility] [address] [place] [address] Dr. Daniela Ledesma MCHC (RBC) [Mass/Vol] 34.6 g/dL Normal 29.9-35.2 [facility] Comment on above: Performed By: #### C BC #### [facility] [address] [address] [address] Daniela Ledesma MCV (RBC) [Entitic vol] 89.4 fL Normal 81.0-99.0 [facility] Comment on above: Performed By: #### C BC #### [facility] [address] [place] [address] Dr. Daniela Ledesma MONO # 0.7 103/ul Normal 0.3-0.8 [facility] Comment on above: Performed By: #### C BC #### [facility] [address] [place] [address] Dr. Daniela Ledesma Monocytes/100 WBC (Bld) 4.4 % Normal 1.7-12.0 [facility] Comment on above: Performed By: #### C BC #### [facility] [address] [place] [address] Dr. Daniela Ledesma NEUT # 9.8 103/ul Critically high 1.4-6.5 [facility] Comment on above: Performed By: #### C BC #### [facility] [address] [place] [address] Dr. Daniela Ledesma Neutrophils/100 WBC (Bld) 65.2 % Normal 43.0-75.0 [facility] Comment on above: Performed By: #### C BC #### [facility] [address] [place] [address] Dr. Daniela Ledesma Platelet mean volume (Bld) [Entitic vol] 9.3 fL Critically low 9.5-13.5 [facility] Comment on above: Performed By: #### C BC #### [facility] [address] [place] [address] Dr. Daniela Ledesma PLT 286 103/ul Normal 150-450 [facility] Comment on above: Performed By: #### C BC #### [facility] [address] [place] [address] Dr. Daniela Ledesma RBC 5.08 106/ul Normal 4.20-5.40 [facility] Comment on above: Performed By: #### C BC #### [facility] [address] [place] [address] Dr. Daniela Ledesma WBC 15.1 103/ul Critically high 4.0-11.0 [facility] Comment on above: Performed By: #### C BC #### [facility] [address] [place] [address] Dr. Daniela Ledesma SED RATE GLENDALEERGRENon 2022 SED RATE 34 mm/hr Critically high <=30 [facility] Comment on above: Performed By: #### S EDR #### [facility] [address] [place] [address] Dr. Daniela Ledesma URIC ACID SERUMon 01-21-2023 Urate [Mass/Vol] 7.5 mg/dL Critically high 2.6-6.0 [facility] Comment on above: Performed By: #### U TUTU #### [facility] [address] [place] [address] Dr. Daniela Ledesma CPKon 01-12-2023 CK [Catalytic activity/Vol] 98 U/L Normal 26-192 [facility] Comment on above: Performed By: #### Jose David MIGUEL CK #### [facility] [address] [place] [address] Dr. Daniela Ledesma MYOGLOBINon 01-12-2023 SAW 34 ng/mL Normal 9-82 [facility] Comment on above: Performed By: #### Jose David MIGUEL CK #### [facility] [address] [place] [address] Dr. Daniela Ledesma MR cervical spine wo conon 0 2- MR cervical spine wo con [facility] [address] XRay Report Signed Patient: Ezequiel Coates MR#: [id number] : 1970 Acct:[id number] Age/Sex: 52 / F ADM Date: 11/26/22 Loc: MR Room: Type: [facility] CLI Attending Dr: Brendan COCHRAN Copies to: DIMAS Rand Ordering Provider: DIMAS Rand Date of Service: 11/26/22 MR/MR cervical spine wo con: R20.2, M79.601 ([id number]) XR/XR pre/post mri xray: PRE MRI OF [...] Jillian Angelo M.D.11/27/2022 10:13 AM Dictation Location: [place] [address] Transcribed By: [facility] 11/27/22 1013 Dictated By: Jillian Angelo MD 11/27/22 0948 Signed By: 11/27/22 1013 [facility] Thyroidon 10-17-2022 [place] Thyroid HISTORY: Hyperthyroidism. 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 Exporton JORDANA - Automatic [employer] [facility], [place] ANDREYNETTIEARIADNEEZEQUIEL 1970 Date of Female Sex [id number] [place] [address] AddressEnglish (preferred) Language White Race Not or Ethnicity Summary of Care Clinical Content Allergies and Adverse Reactions <#PO5UVMNW> Encounters <#YE7VXZDY> Functional Status <#ZY4EMVPN> Immunization <#MU4NXIPN> Instructions <#PI7QCCZV> Interventions Provided <#TT3C8DVM> Medications <#BO5BOWRX> Plan of Care <#ZM7UM8IT> Problems <#UH2JDQWI> Procedures <#WF0HVSHD> Results <#EV2P35YS> Social History <#SY9QEJHY> Vital Signs <#JE0HGJHN> Other Document Details Health Care Providers Functional Statustop <#top> Functional Status Health Issues NameDatesDetails Functional status health issues are not documented Cognitive Status Health Issues NameDatesDetails Cognitive status health issues are not documented Problemstop <#top> NameDatesDetails Eczema (692.9, L30.9) Tennis elbow (726.32, M77.10) Medicationstop <#top> NameDatesDetails Meloxicam 15 MG Oral Tablet TAKE 1 TABLET BY MOUTH EVERY DAY Quantity: 60 Refills: 2 Bria CORDERO Joshua Start : 29-Nov-2018 Triamcinolone Acetonide 0.1 % External Cream APPLY TO AFFECTED AREA BID Quantity: 60 Refills: 2 BriaJoshua mcfadden DO Start : 13-Feb-2020 Allergies and Adverse Reactionstop <#top> NameDatesDetails Allergy history not documented Procedurestop <#top> ProcedureDatesDetails Procedures not documented Immunizationtop <#top> NameDatesDetails Immunizations not documented Social Historytop <#top> Smoking Status NameDatesDetails Tobacco smoking consumption unknown (finding) Vital Signstop <#top> DateTestResultDetails No Known Vitals to report Resultstop <#top> DateDescriptionValueDet ails Results not documented Plan of Caretop <#top> NameDatesDekenia Planned Observations Planned Goals not documented Planned Encounters Appointment; Joshua Fraser DOOn: 13-May-2020 8:45 Interventions Providedtop <#top> Medication Changes Meloxicam 15 MG Oral Tablet - Renew Triamcinolone Acetonide 0.1 % External Cream - Start Instructionstop <#top> NameDОльгаs Instructions not documented Encounterstop <#top> Appointment; Joshua Fraser DO Encounter Diagnosis: Problem not documentedOn: 13-Feb-2020 10:00 Health Care Providerstop <#top> Ambulatory Health Care Facilities Zo Rivera [email or web address] Work Email [facility] [address] [place] [address] Address [facility] Facilities None, No [facility] Document Detailstop <#top> [facility] Fraser DO February 13, 2020 11:46 -0400 [id number] [place] [address] [phone] Work Phone Powered by [employer]?Style Sheet V3.2 Normal FreeATM JORDANA - Automatic [facility], [place] EZEQUIEL COATES 1970 Date of Female Sex [id number] [place] [id number] AddressEnglish (preferred) Language White Race Not or Ethnicity Summary of Care Clinical Content Allergies and Adverse Reactions <#VP6WQSCG> Encounters <#BS0ZYOOH> Functional Status <#QU5WWKNV> Immunization <#JP9IYINU> Instructions <#HY3YCCBM> Interventions Provided <#FB5JJ0VH> Medications <#JR4JUBQT> Plan of Care <#ZW5YG8AB> Problems <#LS5XNBIC> Procedures <#DL0VUSCC> Results <#EU0S65KL> Social History <#WQ8UTYOC> Vital Signs <#MS0PRQRT> Other Document Details Health Care Providers Functional [...] Ambulatory Health Care Facilities Zo Rivera [email or web address] Work Email [facility] [address] [place] [address] Address Ambulatory Health Care Facilities None, No PCPUnknown Address Document Detailstop <#top> [facility] Joshua Fraser DO February 13, 2020 11:15 -0400 [id number] [place] [address] [phone] Work Phone Powered by [employer]?Style Sheet V3.2 Normal FreeATM JORDANA - [employer] [place] EZEQUIEL COATES 1970 Date of Female Sex [id number] [place] [id number] AddressEnglish (preferred) Language White Race Not or Ethnicity Summary of Care Clinical Content Allergies and Adverse Reactions <#SI6RFAXR> Encounters <#BU1XGHQM> Functional Status <#VF4GWMAE> Immunization <#XT4CTXLB> Instructions <#AN6PZSYA> Interventions Provided <#FB8Y6GXB> Medications <#WD9AXNOC> Plan of Care <#VM7MLMHB> Problems <#IP4RGGQG> Procedures <#OO9C8KYV> Results <#BB2VQAUP> Social History <#UY9NTSLM> Vital Signs <#BW9X0CDQ> Other Document Details Health Care Providers Functional Statustop <#top> Functional Status Health Issues NameDatesDetails Functional status health issues are not documented Cognitive Status Health Issues NameDatesDetails Cognitive status health issues are not documented Problemstop <#top> NameDatesDetails Active medical history not documented Medicationstop <#top> NameDAmanelzbietas Meloxicam 15 MG Oral Tablet TAKE 1 [...] signing my name below, I, Aleida Lino CMA,Nishantiblesa, attest that this documentation has been prepared [...] and therapy for chronic conditions Instructionstop <#top> NameDgenNeelam Instructions not documented Encounterstop <#top> Appointment; Joshua Fraser DO Encounter Diagnosis: Problem not documentedOn: 13-Feb-2020 10:00 Health Care Providerstop <#top> Ambulatory Health Care Facilities Zo Rivear [email or web address] Work Email [facility] [place] [address] Address Ambulatory Health Care Facilities None, No PCPUnknown Address Document Detailstop <#top> -[facility] Joshua Fraser DO February 13, 2020 11:01 -04[id number] [place] [address] [phone] Work Phone Powered by [employer]?Style Sheet V3.2 Normal [employer] School/Work Letteron 020 School/Work Letter February 13, [...] Feb 13 2020 11:34AM EST (Author) Normal FreeATM Provider Note - ED v2on 09-07 Provider [...] Past Surgical History Description:Hysterectom y Description:Cholecystec 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 SOLUTIONS: Is : no(1) Is : no(1) REVIEW [...] SIGNS: T PRBP SpO2O2(LPM) %FiO2 Method 27-Sep-2019 19:18:[id number]/73 99 room air, no respiratory support MEDICAL [...] From Triage - ED 27-Sep-2019 19:18 Normal [facility] Risk Screen - Adult Emergenc yon [...] Communicatenone Learning Preferencesaudio Cultural Considerationsnone Developmental Considerationsnone Cheondoism Considerationsnone Learning Assessment (Other Learner): Learning Assessment (Other Learner): Other learner availableno Pressure Injury/TB/Substance: Pressure Injury: Pressure Injury Present on Admissionno Do you have a coughno Admission Risk Screen: Significant IndicatorsComplete CAGE: CAGE: Is this an injured patient at a Tra[place] Center [place]/[place]/[facility]/[place]): no Electronic Signatures: Gali Meyer (RN) (Signed 27-Sep-2019 19:36) Authored: Preferred Language, Advanced Directives, Family Violence Adult, Learning Assessment (Patient), Learning Assessment (Other Learner), Pressure Injury/TB/Substance, CAGE Last Updated: 27-Sep-2019 19:36 by Gali Meyer (RN) Normal [facility] Triage - EDon 09-27-2019 Triage - [...] Travel outside of [place]: no Allergies: yes 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 SOLUTIONS History: 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 Patient has homicidal thoughts: no [...] 19:22 by Sherry Bronson (STAFF N) Normal [facility] CBC With Platelet No Differe ntialon 03-07-2018 Erythrocyte distribution width Auto Ratio (RBC) 13.0 % Normal 11.5-14.5 [facility] Erythrocytes (RBC) 5.17 10*6/uL Normal 4.20-5.40 [facility] Hematocrit (HCT) 44.4 % Normal 37.0-47.0 [facility] Hemoglobin mass conc (Bld) 15.3 g/dL Normal 12.0-16.0 [facility] MCH 29.6 pg Normal 27.0-31.3 [facility] MCHC mass conc (RBC) 34.4 % Normal 33.0-37.0 [facility] MCV 85.9 fL Normal 82.0-100.0 [facility] Platelets 287 10*3/uL Normal 130-400 [facility] WBC (Leukocytes) 6.8 10*3/uL Normal 4.8-10.8 [facility] TSH w/out Reflexon 8 Thyroid stimulating hormone (TSH) m[IU]/L Low 0.270-4.20 [facility] Thyroxine Freeon 03-07-2018 Thyroxine Free 2.23 ng/dL Critically high 0.93-1.70 [facility] US HEAD NECK SOFT TISSUE [...] Data System (TI- RADS) established by the [place] to help provide guidance [...] by:INDER Morrisigned by:Julio Marie MD02/14/18inal result Normal [facility] CBC With Platelet No Differe ntialon 02-07-2018 Erythrocyte distribution width Auto Ratio (RBC) 12.7 % Normal 11.5-14.5 [facility] Erythrocytes (RBC) 4.65 10*6/uL Normal 4.20-5.40 [facility] Hematocrit (HCT) 40.2 % Normal 37.0-47.0 [facility] Hemoglobin mass conc (Bld) 14.0 g/dL Normal 12.0-16.0 [facility] MCH 30.1 pg Normal 27.0-31.3 [facility] MCHC mass conc (RBC) 34.8 % Normal 33.0-37.0 [facility] MCV 86.4 fL Normal 82.0-100.0 [facility] Platelets 241 10*3/uL Normal 130-400 [facility] WBC (Leukocytes) 6.8 10*3/uL Normal 4.8-10.8 [facility] TSH w/out Reflexon 8 Thyroid stimulating hormone (TSH) m[IU]/L Low 0.270-4.20 [facility] Thyroxine Freeon 02-07-2018 Thyroxine Free 3.43 ng/dL Critically high 0.93-1.70 [facility] Encounters Encounter Date Encounter Type Care Provider Facility Start: 04-06-2024 End: 04-06-2024 ambulatory Vinay Crews MD Facility: [facility] Start: 01-06-2024 End: 01-06-2024 ambulatory Vinay Crews MD Facility:[facility] Start: 01-31-2023 End: 02-01-[address] ZEHRA MARQUES Facility: Start: 01-21-2023 End: 01-22-2023 ambulatory MR JAMAAL JALLOH . Facility:[facility] Start: 01-12-2023 End: 01-13-2023 ambulatory RBENDAN COYLE Facility:[facility] Start: 11-26-2022 End: 11-26-2022 ambulatory Brendan Coyle Facility:[facility] Start: 11-26-2022 End: 11-26-2022 ambulatory MD Zehra Marques Work Phone: [facility] Work Phone: Start: 11-26-2022 End: 11-26-2022 Patient encounter procedure MD Zehra Marques Work Phone: [facility] [place] Work Phone: Start: 11-19-2022 End: 11-20-2022 ambulatory DAPHNEY RODRIGUEZ Facility:[facility] Start: 09-17-2022 ambulatory DAPHNEY RODRIGUEZ Fac ility:[facility] Start: 05-13-2020 Patient encounter procedure Ezekiel Devi [facility] Work Phone: Start: 03-26-2020 Patient [facility] Work [facility]: Start: 02-13-2020 Patient encounter procedure [facility] Dev[facility] Work [facility]: Start: 02-14-2018 End: 02-17-2018 [facility]ulatory [facility] Procedures Date Procedure Procedure Detail Performing [...] Start: 11-26-2022 MR Cervical spine WO contrast [facility] Start: 11-26-2022 MRI of cervical spin e without contrast MR cervical spine wo con [facility] Start: 11-26-2022 XR pre/post mri xray XR pre/post mri xray [facility] Start: 11-26-2022 [facility] Payers Date Payer Category Payer Unknown 2022 Self-pay 2017 Unknown [id number] 1970 Unknown [id number] 2.16.84 [id number] 1970 Unknown [id number] 2.16.84 [id number] 1970 Unknown [id number] 2.16.84 [id number] 1970 Unknown [id number] 2.16.84 [id number] 1970 Unknown [id number] 2.16.84 [id number] 1970 Unknown [id number] 2.16. [id number] 1970 Unknown [id number] 2.16. [id number] 1959 Medicaid [id number] Unknown [id number] 2.16.8 [id number] Social History Date Type Detail Facility Assertion Tobacco [facility] consumption unknown (finding) [facility]: Start: 1970 Sex Assigned At Female F [facility] Functional Status Date Assessment Result Facility NEGATED: Highlighted row Functional performance Functional status health issues are not documented Disease [facility] Phone: Mental Status Date Assessment Result Facility NEGATED: Highlighted row Cognitive function [Interpretation] Cognitive status health issues are not documented [facility] Phone: Clinical Note 08-20-2022 Note Date & Type Note Facility 08-20-2022 Note FINDINGS: ARTERIAL EVALUATION RIGHT LEFT VELOCITIES PHASICITY VELOCITIES PHASICITY 85 BiCommon tqhyfkf46Ef 83BiProximal JFJ37Sx 108BiMid HJB56Ew 40 BiDistal PPO47Le 51 GcWyukhfqbj78Qj 46 CePQW49Fh 75 BiPTA 93Bi 44 BiPeroneal 58Bi RIGHT [...] signed by Mikey Harry on 08/21/2022 1153 [facility] 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 Note Date & Type Note Facility Evaluation note No assessment information availa ble [facility] Work Phone: Summary Purpose Family History No [...] section and content) DATE CREATED AUTHOR 03/26/2018 [facility] edical Center DATE CREATED AUTHOR AUTHOR'S ORGANIZ ATION 10/02/2019 [facility] DATE CREATED AUTHOR AUTHOR'S ORGANIZ ATION 05/19/2020 [employer] DATE CREATED AUTHOR AUTHOR'S ORGANIZ ATION 10/17/2022 [facility] Me dical Specialist DATE CREATED AUTHOR AUTHOR'S ORGANIZ ATION 12/02/2022 [facility] DATE CREATED AUTHOR AUTHOR'S ORGANIZ ATION 02/19/2023 [facility] DATE CREATED AUTHOR AUTHOR'S ORGANIZ ATION 04/09/2024 [facility] Care Teams (unrecognized sec tion and content) [...] BE BASED ON THE PRIMARY CLINICAL RECORDS. [facility] [facility]. provides no warranty or guarantee of the accuracy or completeness of information in this document.
[2024-04-13 09:47] VITALS: BP 141/95; PULSE 100; TEMP 36.4; O2SAT 97
[2024-04-13 09:50] LABS: Glucometer 271 mg/dL (74-106)
[2024-04-13] MEDS: BUPIVACAINE HCL 0.25% PF 25 MG/10 ML VIAL 5 ML INJ (10:22)
[2024-04-13] MEDS: IOHEXOL 240 MG/ML - 10 ML VIAL INJ (10:23)
[2024-04-13] MEDS: TRIAMCINOLONE ACETONIDE 40 MG/ML VIAL 80 MG INJ (10:23)
[2024-04-13] MEDS: LIDOCAINE HCL 2% 400 MG/20 ML MDV 15 ML INJ (10:24)
[2024-04-13 10:25] VITALS: BP 164/89; BP 170/79; PULSE 89; PULSE 93; O2SAT 96
--- NOTE | 2024-04-13 10:25 | W.PM.PROCNOT ---
Date of procedure: 04/13/24 Pre-op diagnosis: Pain due to bilateral sacroiliitis Post-op diagnosis: same as pre-op Procedure: Procedure: Bilateral sacroiliac joint injection Medications: Bupivacaine 0.25% 3cc, kenalog 40mg x2 After informed consent was obtained, the patient was brought to the medical procedure unit and placed in the prone position, when a timeout was completed verifying correct patient, procedure, site, positioning, implant, and/or special equipment.? The skin overlying the area was prepped and draped in standard sterile fashion using alcohol.? A 25-gauge needle was inserted towards the left sacroiliac joint under direct fluoroscopic imaging.? Needle tip was advanced until the joint was encountered.? We instilled a total of 2 mL of solution.? The same procedure was then completed on the right side.? Postoperatively needles were removed.? The patient tolerated the procedure well without complication.? The patient reported reduction in pain symptoms postoperatively. Anesthesia: Local Surgeon: Vinay Crews Pathology: none sent Condition: stable Disposition: no change
== END 2024-04-13 10:28 | disposition home or self-care (01) ==
PROVIDERS: PCP Family Medicine; Visit Provider Anesthesiology
DX: M46.1 Sacroiliitis, not elsewhere classified (principal)
CPT/HCPCS: 27096; 36415; 82948; J0665; J3301; Q9966

== ENCOUNTER 2024-04-29 11:14 | Outpatient (OUT) | payer MEDICAID, SELFPAY ==
--- OUTSIDE RECORDS SUMMARY | 2024-04-29 11:37 | XMS_ITS | CCD ---
Author Organization [facility] Care Team Providers Care Baseball Player Name Role Phone LEXIECALEB EARLNT Unavailable Unavailable MICHELLE CHOW Unavailable Unavailable Joshua Fraser Unavailable Unavailable Joshua Fraser Unavailable Unavailable None, No PCP Unavailable Unavailable Ezekiel Dvei Unavailable Unavailable Joshua Fraser Unavailable UnavailCON CoronaC Brendan Vivar Attending Provider MD Zehra Marques Primary Care Provider [phone] Brendan Coyle Admitting Unavailable Brendan Coyle Attending [...] MOUTH EVERY DAY Quantity: 60 Refills: 2 Cam Fraser DOneth Start : 29-Nov-2018 Active methIMAzole 10 mg oral tablet (1 source) Thyroid Hormone Synthesis Inhibitor Start: 03-10-2019 take 3 tablets by mouth twice daily methIMAzole 10 MG Oral Tablet take 3 tablet by mouth twice a day Quantity: 180 Refills: 0 Brai CORDERO Joshua Start : 10-Mar-2019 Active 24 hr propranolol hydrochloride 60 mg extended release oral capsule (1 source) beta-Adrenergic Pipo Start: 09-02-2018 take 1 capsule by mouth once daily Propranolol HCl ER 60 MG Oral Capsule Extended Release 24 Hour TAKE 1 CAPSULE BY MOUTH EVERY DAY Quantity: 30 Refills: 5 Bria CORDERO Joshua Start : 02-Sep-2018 Active triamcinolone acetonide 1 mg/ml topical cream (3 sources) Corticosteroid Start: 02-13-2020 Triamcinolone Acetonide 0.1 % External Cream APPLY TO AFFECTED AREA BID Quantity: 60 Refills: 2 Bria Joshua Start : 13-Feb-2020 Active Start: 02-13-2020 Triamcinolone [...] B 27on 01-28-2023 HLA-B27 Negative Normal [facility] Comment on above: Result Comment: HLA- B*27 Negative B27 allele interpretation for all loci based on IMGT/HLA database version 3.44 This test was developed and its performance characteristics determined by [facility]. It has not been cleared or approved by the Food and Drug Administration. [facility] CLIA ID Number [id number] . This test was performed using PCR (Polymerase Chain Reaction)/SSOP (Sequence Specific Oligonucleotide Probes) technique. SBT (Sequence Based Typing) and/or SSP (Sequence Specific Primers) may be used as supplemental methods when necessary. Please contact HLA Customer Service at if you have any questions. . Director of HLA Laboratory Dr Jett Carpio, PhD Performed By: #### H LA27 #### [facility] [address] [place] [address] Dr. Daniela Ledesma CALEB by IFAon 01-24-2023 Antinuclear Antibodies, IFA Negative Normal [facility] Comment on above: Result Comment: Nega tive <1:80 Borderline 1:80 Positive >1:80 ICAP nomenclature: AC-0 For more information about Hep-2 cell patterns use ANApatterns.org, the official website for the International Consensus on Antinuclear Antibody (CALEB) Patterns (ICAP). Performed By: #### A NAIFA #### [facility] [address] [place] [address] Dr. Daniela Ledesma RHEUMATOID FACTORon 01-24-20 RA Latex Turbid. <10.0 Normal <14.0 [facility] Comment on above: Performed By: #### R F #### [facility] [address] [place] [address] Dr. Daniela Ledesma CBC AUTO DIFFon 01-21-2023 BASO # 0.1 103/ul Normal 0.0-0.1 [facility] Comment on above: Performed By: #### C BC #### [facility] [address] [place] [address] Dr. Daniela Ledesma Basophils/100 WBC (Bld) 0.9 % Normal 0.2-2.0 [facility] Comment on above: Performed By: #### C BC #### [facility] [address] [place] [address] Dr. Daniela Ledesma EO # 0.7 103/ul Normal 0.0-0.7 [facility] Comment on above: Performed By: #### C BC #### [facility] [address] [place] [address] Dr. Daniela Ledesma Eosinophils/100 WBC (Bld) 4.3 % Normal 0.9-7.0 [facility] Comment on above: Performed By: #### C BC #### [facility] [address] [place] [address] Dr. Daniela Ledesma Erythrocyte distribution width (RBC) [Ratio] 13.2 % Normal 11.0-15.0 [facility] Comment on above: Performed By: #### C BC #### [facility] [address] [place] [address] Dr. Daniela Ledesma Hematocrit (Bld) [Volume fraction] 45.4 % Normal 36.0-48.0 [facility] Comment on above: Performed By: #### C BC #### [facility] [address] [place] [address] Dr. Daniela Ledesma Hemoglobin (Bld) [Mass/Vol] 15.7 g/dL Normal 12.0-16.0 [facility] Comment on above: Performed By: #### C BC #### [facility] [address] [place] [address] Dr. Daniela Ledesma IG # 0.07 10e3/ul Critically high 0.00-0.03 [facility] Comment on above: Performed By: #### C BC #### [facility] [address] [place] [address] Dr. Daniela Ledesma IG % 0.5 % Normal 0.0-0.5 [facility] Comment on above: Performed By: #### C BC #### [facility] [address] [place] [address] Dr. Daniela Ledesma LYMPH # 3.7 103/ul Normal 1.2-3.8 [facility] Comment on above: Performed By: #### C BC #### [facility] [address] [place] [address] Dr. Daniela Ledesma Lymphocytes/100 WBC (Bld) 24.7 % Normal 20.5-60.0 [facility] Comment on above: Performed By: #### C BC #### [facility] [address] [place] [address] Dr. Daniela Ledesma MANUAL DIFF REQ NO Normal [facility] Comment on above: Performed By: #### C BC #### [facility] [address] [address] [address] Daniela Ledesma MCH (RBC) [Entitic mass] 30.9 pg Normal 26.7-34.0 [facility] Comment on above: Performed By: #### C BC #### [facility] [address] [place] [address] Dr. Daniela Ledesma MCHC (RBC) [Mass/Vol] 34.6 g/dL Normal 29.9-35.2 [facility] Comment on above: Performed By: #### C BC #### [facility] [address] [place] [address] Dr. Daniela Ledesma MCV (RBC) [Entitic vol] 89.4 fL Normal 81.0-99.0 [facility] Comment on above: Performed By: #### C BC #### [facility] [address] [place] [address] Dr. Daniela Ledesma MONO # 0.7 103/ul Normal 0.3-0.8 [facility] Comment on above: Performed By: #### C BC #### [facility] [address] [place] [address] Dr. Daniela Ledesma Monocytes/100 WBC (Bld) 4.4 % Normal 1.7-12.0 [facility] Comment on above: Performed By: #### C BC #### [facility] [address] [place] [address] Dr. Daniela Ledesma NEUT # 9.8 103/ul Critically high 1.4-6.5 [facility] Comment on above: Performed By: #### C BC #### [facility] [address] [place] [address] Dr. Daniela Ledesma Neutrophils/100 WBC (Bld) 65.2 % Normal 43.0-75.0 [facility] Comment on above: Performed By: #### C BC #### [facility] [address] [place] [address] Dr. Daniela Ledesma Platelet mean volume (Bld) [Entitic vol] 9.3 fL Critically low 9.5-13.5 [facility] Comment on above: Performed By: #### C BC #### [facility] [address] [address] [address] Daniela Ledesma PLT 286 103/ul Normal 150-450 [facility] Comment on above: Performed By: #### C BC #### [facility] [address] [address] [address] Daniela Ledesma RBC 5.08 106/ul Normal 4.20-5.40 [facility] Comment on above: Performed By: #### C BC #### [facility] [address] [address] [address] Daniela Ledesma WBC 15.1 103/ul Critically high 4.0-11.0 [facility] Comment on above: Performed By: #### C BC #### [facility] [address] [place] [address] Dr. Daniela Ledesma SED RATE [facility] 2022 SED RATE 34 mm/hr Critically high <=30 [facility] Comment on above: Performed By: #### S EDR #### [facility] [address] [place] [address] Dr. Daniela Ledesma URIC ACID SERUMon 01-21-2023 Urate [Mass/Vol] 7.5 mg/dL Critically high 2.6-6.0 [facility] Comment on above: Performed By: #### U TUTU #### [facility] [address] [place] [address] Dr. Daniela Ledesma CPKon 01-12-2023 CK [Catalytic activity/Vol] 98 U/L Normal 26-192 [facility] Comment on above: Performed By: #### M YO, CK #### [facility] [address] [place] [address] Dr. Dainela Ledesma MYOGLOBINon 01-12-2023 SAW 34 ng/mL Normal 9-82 [facility] Comment on above: Performed By: #### M YO, CK #### [facility] [address] [place] [address] Dr. Daniela Ledesma MR cervical spine wo conon 0 - MR cervical spine wo con [facility] [place] [address] XRay Report Signed Patient: Ezequiel Coates MR#: [id number] : 1970 Acct:[id number] Age/Sex: 52 / F ADM Date: 11/26/22 Loc: MR Room: Type: [facility] Attending Dr: Brendan COCHRAN Copies to: DIMAS Rand Ordering Provider: DIMAS Rand Date of Service: 11/26/22 MR/MR cervical spine wo con: R20.2, M79.601 ([id number]) XR/XR pre/post mri xray: PRE MRI OF [...] Jillian Angelo M.D.11/27/2022 10:13 AM Dictation Location: [place] [address] Transcribed By: [facility] 11/27/22 1013 Dictated By: Jillian Angelo MD 11/27/22 0948 Signed By: 11/27/22 1013 Normal [facility] US Thyroidon 10-17-2022 US Thyroid HISTORY: Hyperthyroidism. 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 - Automatic [employer] JORDANA - Automatic [place], [place] EZEQUIEL COATES 1970 Date of Female Sex [id number] [place] [address] AddressEnglish (preferred) Language White Race Not or Ethnicity Summary of Care Clinical Content Allergies and Adverse Reactions <#[id number]> Encounters <#YB9UPECT> Functional Status <#DG3WVIPM> Immunization <#XS0ZSECR> Instructions <#TP8WPEEJ> Interventions Provided <#IG2W0IMX> Medications <#GO9ROBUM> Plan of Care <#KI8FC5NX> Problems <#HD8XDEML> Procedures <#IK7VSBCN> Results <#QT7T45NP> Social History <#MO7SPMME> Vital Signs <#MQ7SZZWX> Other Document Details Health Care Providers Functional Statustop <#top> Functional Status Health Issues NameDatesDetails Functional status health issues are not documented Cognitive Status Health Issues NameDatesDetails Cognitive status health issues are not documented Problemstop <#top> NameDatesDetails Eczema (692.9, L30.9) Tennis elbow (726.32, M77.10) Medicationstop <#top> NameDatesDetails Meloxicam 15 MG Oral Tablet TAKE 1 TABLET BY MOUTH EVERY DAY Quantity: 60 Refills: 2 BriaCam mcfadden DOneth Start : 29-Nov-2018 Triamcinolone Acetonide 0.1 % [...] % External Cream - Start Instructionstop <#top> NameDgenDeelzbietas Instructions not documented Encounterstop <#top> Appointment; Joshua Fraser DO Encounter Diagnosis: Problem not documentedOn: 13-Feb-2020 10:00 Health Care Providerstop <#top> Ambulatory Health Care Facilities Zo Rivera [email or web address] Work Email Allopathic AND Osteopathic Physicians Joshua [address] [facility] [place] [address] Address Ambulatory Health Care Facilities None, No PCPUnknown Address Document Detailstop <#top> [facility] DO February 13, 2020 11:46 -0400 [id number] [facility] [place] [address] [phone] Work Phone Powered by [employer]?Style Sheet V3.2 Normal [employer] JORDANA - Automatic [place] [facility], [place] EZEQUIEL COATES 1970 Date of Female Sex [id number] [place] [address] AddressEnglish (preferred) Language White Race Not or Ethnicity Summary of Care Clinical Content Allergies and Adverse Reactions <#LW5ULYNJ> Encounters <#XT2CKOZE> Functional Status <#TH3AJBTC> Immunization <#LU0QJYOE> Instructions <#UJ3GYLPO> Interventions Provided <#XT5KY2XI> Medications <#AY3EZWIO> Plan of Care <#QS4XU8FX> Problems <#JM9DZPJY> Procedures <#TR6XGPNS> Results <#JW6W30GT> Social History <#TV5ALAMV> Vital Signs <#UG2HMSLT> Other Document Details Health Care Providers Functional Statustop <#top> Functional Status Health Issues NameDatesDetails Functional status health issues are not documented Cognitive Status Health Issues NameDatesDetails Cognitive status health issues are not documented Problemstop <#top> NameDatesDeelzbietas Eczema (692.9, L30.9) Tennis elbow (726.32, M77.10) [...] Health Care Facilities Zo Rivera [email or web address] Work Email Allopathic [facility] Osteopathic Physicians [address] [place] [address] Address Ambulatory Health Care Facilities None, No PCPUnknown Address Document Detailstop <#top> [facility] Joshua Fraser DO February 13, 2020 11:15 -0400 [id number] [place] [address] [phone] Work Phone Powered by [employer]?Style Sheet V3.2 Normal [employer] JORDANA - Automatic [place] EZEQUIEL COATES 1970 Date of Female Sex [id number] [place] [address] AddressEnglish (preferred) Language White Race Not or Ethnicity Summary of Care Clinical Content Allergies and Adverse Reactions <#SG3OZFBP> Encounters <#FW2WIZSE> Functional Status <#SQ1XQWIU> Immunization <#IP4IGVAC> Instructions <#RK1HKNCZ> Interventions Provided <#IG5I9CMP> Medications <#OU1YBHMW> Plan of Care <#XI0UQCWI> Problems <#VT3FKOCU> Procedures <#GB1Z2LEV> Results <#RQ8VDVKT> Social History <#PM0CMWQL> Vital Signs <#NJ7R9IHT> Other Document Details Health Care Providers Functional Statustop <#top> Functional Status Health Issues NameDatesDetails Functional status health issues are not documented Cognitive Status Health Issues NameDatesDetails Cognitive status health issues are not documented Problemstop <#top> NameDatesDetails Active medical history not documented Medicationstop <#top> NameDatesDetails Meloxicam 15 MG Oral [...] Ambulatory Health Care Facilities Zo Rivera [email or web address] Work Email Allopathic [facility] Physicians [address] [place] [address] Address Ambulatory Health Care Facilities None, No PCPUnknown Address Document Detailstop <#top> -[facility] Levyjones Fraser DO February 13, 2020 11:01 -0400 [id number] [place] [address] [phone] Work Phone Powered by [employer]?Style Sheet V3.2 Normal [employer] School/Work Letteron 020 School/Work Letter February 13, [...] Feb 13 2020 11:34AM EST (Author) Normal [employer] Provider Note - ED v2on 09-07 Provider [...] Past Surgical History Description:Hysterectom y Description:Cholecystec kenny SHIP WASHER: Is : no(1) Is : no(1) REVIEW [...] SIGNS: T PRBP SpO2O2(LPM) %FiO2 Method 27-Sep-2019 19:18:[id number]/73 99 room air, no respiratory support MEDICAL [...] From Triage - ED 27-Sep-2019 19:18 Normal [facility] Risk Screen - Adult Emergenc yon 09-27-2019 [...] Communicatenone Learning Preferencesaudio Cultural Considerationsnone Developmental Considerationsnone Congregation Considerationsnone Learning Assessment (Other Learner): Learning Assessment (Other Learner): Other learner availableno Pressure Injury/TB/Substance: Pressure Injury: Pressure Injury Present on Admissionno Do you have a coughno Admission Risk Screen: Significant IndicatorsComplete CAGE: CAGE: Is this an injured patient at a Trauma Center ([facility]/[place]): no Electronic Signatures: Gali Meyer (RN) (Signed 27-Sep-2019 19:36) Authored: Preferred Language, Advanced Directives, Family Violence Adult, Learning Assessment (Patient), Learning Assessment (Other Learner), Pressure Injury/TB/Substance, CAGE Last Updated: 27-Sep-2019 19:36 by Gali Meyer (RN) [facility] Triage - EDon 09-27-2019 Triage - [...] Travel outside of [place]: no Allergies: yes SHIP WASHER History: 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 Patient has homicidal thoughts: no [...] 19:22 by Sherry Bronson (STAFF N) Normal [facility] CBC With Platelet No Differe ntialon 03-07-2018 Erythrocyte distribution width Auto Ratio (RBC) 13.0 % Normal 11.5-14.5 [facility] Erythrocytes (RBC) 5.17 10*6/uL Normal 4.20-5.40 [place] Hematocrit (HCT) 44.4 % Normal 37.0-47.0 [facility] Hemoglobin mass conc (Bld) 15.3 g/dL Normal 12.0-16.0 [facility] MCH 29.6 pg Normal 27.0-31.3 [facility] mass conc (RBC) 34.4 % Normal 33.0-37.0 [facility] MCV 85.9 fL Normal 82.0-100.0 [facility] Platelets 287 10*3/uL Normal 130-400 [facility] WBC (Leukocytes) 6.8 10*3/uL Normal 4.8-10.8 [facility] TSH w/out Reflexon 8 Thyroid stimulating hormone (TSH) m[IU]/L Low 0.270-4.20 [facility] Thyroxine Freeon 03-07-2018 Thyroxine Free 2.23 ng/dL Critically high 0.93-1.70 [facility] US HEAD NECK SOFT TISSUE THY [...] Data System (TI- RADS) established by the [employer] [employer] to help provide guidance [...] by:INDER Morrisigned by:Julio Marie MD02/14/18inal result Normal [facility] CBC With Platelet No Differe ntialon 02-07-2018 Erythrocyte distribution width Auto Ratio (RBC) 12.7 % Normal 11.5-14.5 [facility] Erythrocytes (RBC) 4.65 10*6/uL Normal 4.20-5.40 [place] Hematocrit (HCT) 40.2 % Normal 37.0-47.0 [facility] Hemoglobin mass conc (Bld) 14.0 g/dL Normal 12.0-16.0 [facility] MCH 30.1 pg Normal 27.0-31.3 [facility] MCHC mass conc (RBC) 34.8 % Normal 33.0-37.0 [facility] MCV 86.4 fL Normal 82.0-100.0 [facility] Platelets 241 10*3/uL Normal 130-400 [facility] WBC (Leukocytes) 6.8 10*3/uL Normal 4.8-10.8 [facility] TSH w/out Reflexon 8 Thyroid stimulating hormone (TSH) m[IU]/L Low 0.270-4.20 [facility] Thyroxine Freeon 02-07-2018 Thyroxine Free 3.43 ng/dL Critically high 0.93-1.70 [facility] Encounters Encounter Date Encounter Type Care Provider Facility Start: 04-13-2024 End: 04-13-2024 ambulatory Vinay Crews MD [facility]: [facility] Start: 04-06-2024 End: 04-06-2024 ambulatory Vinay Crews MD Facility: [facility] Start: 01-06-2024 End: 01-06-2024 ambulatory Vinay Crews MD Facility: [facility] Start: 01-31-2023 End: 02-01-[address] ZEHRA MARQUES Facility: Start: 01-21-2023 End: 01-22-2023 ambulatory MR JAMAAL JALLOH . Facility:[facility] Start: 01-12-2023 End: 01-13-2023 ambulatory BRENDAN COYLE Facility:[facility] Start: 11-26-2022 End: 11-26-2022 ambulatory Brendan Coyle Facility:[facility] Start: 11-26-2022 End: 11-26-2022 ambulatory MD Zehra Marques Work Phone: [facility] Work Phone: Start: 11-26-2022 End: 11-26-2022 Patient encounter procedure MD Zehra Marques Work Phone: [facility] [place] Work Phone: Start: 11-19-2022 End: 11-20-2022 ambulatory DAPHNEY RODRIGUEZ Facility:[facility] Start: 09-17-2022 ambulatory DAPHNEY RODRIGUEZ Fac ility:[facility] Start: 05-13-2020 Patient encounter procedure Ezekiel Devi [facility] Work Phone: Start: 03-26-2020 Patient encounter procedure Ezekiel Devi [facility] Work Phone: Start: 02-13-2020 Patient encounter procedure Ezekiel Devi [facility] Work Phone: Start: 02-14-2018 End: 02-17-2018 Ambulatory MICKEY OWEN [facility] Procedures Date Procedure Procedure Detail Performing Clinician Start: 05-13-2020 Assay of thyroid sti mulating hormone tsh Ezekiel Devi Start: 05-13-2020 Blood count complete auto&auto difrntl wbc Ezekiel Devi Start: 05-13-2020 Comprehensive metabo lic 2000 panel Ezekiel Devi Start: 05-13-2020 Free T4 Index Ezekiel Vega luanneefraín Start: 05-13-2020 Lipid panel Ezekiel rodriguez Start: 05-13-2020 Follow-up visit Start: 03-26-2020 Follow-up visit Start: 02-13-2020 Follow-up visit Start: 02-14-2018 Us soft tissue head & neck real time imge ghulam OWEN Plan of Treatment Date Care Activity Detail Author Start: 11-26-2022 MR Cervical spine WO contrast [facility] Start: 11-26-2022 MRI of cervical spin e without contrast MR cervical spine wo con [facility] Start: 11-26-2022 XR pre/post mri xray XR pre/post mri xray [facility] Start: 11-26-2022 [facility] Payers Date Payer Category Payer Unknown 2022 Self-pay 2017 Unknown [id number] 1970 Unknown [id number] 2.16.84 [id number] 1970 Unknown [id number] 2.16.84 [id number] 1970 Unknown [id number] 2.16.84 [id number] 1970 Unknown [id number] 2.16.84 [id number] 1970 Unknown [id number] 2.16.84 [id number] 1970 Unknown [id number] 2.16. [id number] 1970 Unknown [id number] 2.16. [id number] 1970 Unknown [id number] 2.16. [id number] 1959 Medicaid [id number] Unknown [id number] 2.16.8 [id number] Social History Date Type Detail Facility Assertion Tobacco smoking consumption unknown (finding) [facility] Work Phone: Start: 1970 Sex Assigned At Female F [facility] Functional Status Date Assessment Result Facility NEGATED: Highlighted row Functional performance Functional status health issues are not documented Disease [facility] Work Phone: Mental Status Date Assessment Result Facility NEGATED: Highlighted row Cognitive function [Interpretation] Cognitive status health issues are not documented Disease [facility] Work Phone: Clinical Note 08-20-2022 Note Date & Type Note Facility 08-20-2022 Note FINDINGS: ARTERIAL EVALUATION RIGHT LEFT VELOCITIES PHASICITY VELOCITIES PHASICITY 85 BiCommon lyveukf71Cg 83BiProximal GBD37Rv 108BiMid WLY05Gt 40 BiDistal HCU09Cs 51 FbNrhodhkpx05Kb 46 JrMKD91Jm 75 BiPTA 93Bi 44 BiPeroneal 58Bi RIGHT [...] signed by Mikey Harry on 08/21/2022 1153 [facility] Ladle Cleaner Evaluation note Note Date & Type Note Facility Evaluation note No assessment information availa [facility] Work Phone: Summary Purpose Family History No [...] section and content) DATE CREATED AUTHOR 03/26/2018 [facility] Center DATE CREATED AUTHOR AUTHOR'S ORGANIZ ATION 10/02/2019 [facility] DATE CREATED AUTHOR AUTHOR'S ORGANIZ ATION 05/19/2020 [facility] DATE CREATED AUTHOR AUTHOR'S ORGANIZ ATION 10/17/2022 [facility] dical Specialist DATE CREATED AUTHOR AUTHOR'S ORGANIZ ATION 12/02/2022 [facility] DATE CREATED AUTHOR AUTHOR'S ORGANIZ ATION 02/19/2023 [facility] DATE CREATED AUTHOR AUTHOR'S ORGANIZ ATION 04/25/2024 [facility] Care Teams (unrecognized sec tion and [...] BE BASED ON THE PRIMARY CLINICAL RECORDS. [facility] [employer] [facility]. provides no warranty or guarantee of the accuracy or completeness of information in this document.
--- NOTE | 2024-04-29 12:15 | PM.CN ---
Consult Note: HPI Data of Consult Patient: known to practice within the last 3 years Requesting Physician: Estefany Tapia NP Primary Care Provider: LARS DAVIS Consult Narrative Reason for consult: f/u Narrative: Mayra Coates a pleasant 53 year old female presents for evaluation and management of chronic neck, low back and bilateral hip pain. Today pain 6/10 stiffness in neck, 0/10 in low back and hips. Neck pain worse with all activity, improved with rest. Patient continues to find mild benefit from medication regimen without side effects. Patient still has not followed with rheumatology, with diffuse scattered pain and myofascial pain likely FM but would like to rule out alternative diagnosis. bilateral L5-S1 TFESI and bilateral SIJ injection providing >90% improvement. continues to find benefit to current medication regimen without side effects. cc:: CC: Estefany Tapia NP Review of Systems ROS Status of ROS 10 or more systems reviewed and unremarkable except as noted in history and below Musculoskeletal Reports: neck pain PFSH PFSH Medical History (Updated 04/29/24 @ 12:18 by Estefany Tapia NP) Osteoarthritis ?M19.90 - Unspecified osteoarthritis, unspecified site (ICD-10) Low back pain ?M54.50 - Low back pain, unspecified (ICD-10) Neck pain ?M54.2 - Cervicalgia (ICD-10) Acid reflux ?K21.9 - Gastro-esophageal reflux disease without esophagitis (ICD-10) Obesity ?E66.9 - Obesity, unspecified (ICD-10) Hypothyroid ?E03.9 - Hypothyroidism, unspecified (ICD-10) Diabetes ?E11.9 - Type 2 diabetes mellitus without complications (ICD-10) Smoker ?F17.200 - Nicotine dependence, unspecified, uncomplicated (ICD-10) Hypertension ?I10 - Essential (primary) hypertension (ICD-10) Surgical History History of cholecystectomy ?Z90.49 - Acquired absence of other specified parts of digestive tract (ICD-10) H/O: 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 ?Z90.710 - Acquired absence of both cervix and uterus (ICD-10) Social History Smoking status: Former smoker Meds Home Medications and Allergies Home Medications ?Medication ?Instructions ?Recorded ?Confirmed ?Type atorvastatin 10 mg tablet 10 mg PO DAILY 05/22/23 04/13/24 History cholecalciferol (vitamin D3) 50 50 mcg PO DAILY 05/22/23 04/13/24 History mcg (2,000 unit) capsule dulaglutide 3 mg/0.5 mL 3 mg subcut QWEEK 05/22/23 04/13/24 History subcutaneous pen injector (Trulicity) levothyroxine 50 mcg tablet 50 mcg PO DAILY 05/22/23 04/13/24 History lisinopril 2.5 mg tablet 2.5 mg PO DAILY 05/22/23 04/13/24 History nabumetone 500 mg tablet 500 mg PO BID 05/22/23 04/13/24 History tizanidine 4 mg capsule 4 mg PO Q8H PRN back pain 05/22/23 04/13/24 History trazodone 50 mg tablet 50 mg PO DAILY PRN sleep 05/22/23 04/13/24 History gabapentin 600 mg tablet 600 mg PO TID 10/29/23 04/13/24 History duloxetine 30 mg capsule,delayed 30 mg PO BID 01/25/24 04/13/24 History release ropinirole 0.5 mg tablet 0.5 mg PO DAILY 01/25/24 04/13/24 History Allergies Allergy/AdvReac Type Severity Reaction Status Date / Time propylthiouracil Allergy Severe Hives Verified 04/13/24 09:51 Exam Constitutional Documenting provider has reviewed patient's vital signs: yes Common normals: no apparent distress, oriented x3, healthy appearing, alert and well nourished General appearance: cooperative Nutritional appearance: obese [facility] Common normals: normocephalic, hearing grossly normal bilaterally and moist oral mucous membranes Head and scalp: normocephalic Eye Common normals: PERRL Pupil: PERRL Neck & C-Spine Common normals: full ROM General: normal visual inspection Cervical spine: pain with cervical ROM and cervical spine tenderness Other: intermittent numbness tingling weakness of BUE decreased sensation to LUE strength 4/5 in BUE negative spurlings Chest Common normals: inspection of chest normal Respiratory Common normals: normal respiratory effort, no retractions and no use of accessory muscles Cardio Common normals: regular rate, regular rhythm, S1 normal heart sound and S2 normal heart sound GI Common normals: Normal to inspection, nondistended, normoactive bowel sounds present, soft to palpation and non-tender Back & Pelvis Thoracic spine/upper back: normal to inspection Lumbar spine/lower back: normal to inspection and straight leg raise negative bilaterally Sacroiliac joints: SI joints normal Other: diffuse myofascial pain all over Extremity Common normals: normal to inspection and full ROM Neuro Common normals: oriented x3, CN's II-XII intact bilaterally, moves all extremities, no focal motor deficits, no sensory deficits noted and deep tendon reflexes 2+ bilaterally Sensorium/orientation: alert Motor exam: no movement abnormalities noted and strength abnormal Psych Common normals: mental status grossly normal, thought process normal, cooperative, affect normal, speech normal and activity/motor behavior normal Appearance: grossly normal Speech: normal speech Thought process: normal thought process Results Additional Findings Additional findings: If on a controlled substance or opioids, I have checked an [place] report on this patient and there are no aberrancies noted in the prescribing history.??If on a controlled substance or opioid a drug screen was completed and reviewed within the last year, and if there has not been a drug screen completed we ordered one today to monitor higher risk, state monitored pain medication use. As part of providing excellent, safe, comprehensive care, the following was completed at our patient's visit: 1. A medication reconciliation and review to ensure accurate knowledge of current/active medications, including asking our patients to inform us about any [id number] medications or herbal remedies/nutritional supplements/alternative remedies. 2. A review to specifically ensure our patients have had annual screening for screening for depression, screening for tobacco use, and screening for unhealthy alcohol use. For concerning screenings had a discussion with the patient, provided patient education, and recommended follow-up with primary care provider when appropriate. If patient noted with a risk of falling, they received education on strength, gait, and balance training to prevent future risk of falling. Assessment and Plan Assessment and Plan (1) Cervical radiculopathy: (2) Cervical spondylosis: (3) Sacroiliitis: (4) Lumbar stenosis with neurogenic claudication: (5) Lumbar spondylosis: Plan update cervical xray PT for chronic neck pain and cervical radiculopathy request prior cervical MRI from [facility] establish with rheumatology continue current medications f/u 6 weeks, sooner if needed
== END 2024-04-29 11:15 | disposition home or self-care (01) ==
LOC: PM 11:15
PROVIDERS: PCP Family Medicine; Visit Provider Nurse Practitioner
DX: M54.12 Radiculopathy, cervical region (principal); M47.812 Spondylosis without myelopathy or radiculopathy, cervical region; M46.1 Sacroiliitis, not elsewhere classified; M48.062 Spinal stenosis, lumbar region with neurogenic claudication; M47.816 Spondylosis without myelopathy or radiculopathy, lumbar region
CPT/HCPCS: G0463

== ENCOUNTER 2024-05-20 10:42 | Outpatient (RCR) | payer MEDICAID, SELFPAY | END 2024-07-09 10:05 | disposition home or self-care (01) | LOC: PT 10:42 | PROVIDERS: PCP Family Medicine; Visit Provider Nurse Practitioner | DX: M54.2 Cervicalgia (principal); M47.22 Other spondylosis with radiculopathy, cervical region | CPT/HCPCS: 72050; 97012; 97110; 97162 ==

== ENCOUNTER 2024-06-03 12:01 | Outpatient (OUT) | payer MEDICAID, SELFPAY ==
--- OUTSIDE RECORDS SUMMARY | 2024-06-03 12:08 | XMS_ITS | CCD ---
Author Organization [facility] Care Team Providers Care Blade Sharpener Name Role Phone LEXIECALEB EARLNT Unavailable Unavailable MICHELLE CHOW Unavailable Unavailable Joshua Fraser Unavailable Unavailable Joshua Fraser Unavailable Unavailable None, No PCP Unavailable Unavailable Ezekiel Devi Unavailable Unavailable Joshua Fraser Unavailable UnavailCON CoornaC Brendan Vivar Attending Provider [phone] MD Zehra Marques Primary Care Provider Brendan [...] twice a day Quantity: 180 Refills: 0 Bria CORDERO Joshua Start : 10-Mar-2019 Active 24 [...] B 27on 01-28-2023 HLA-B27 Negative Normal [facility] Comment on above: Result Comment: HLA- B*27 Negative B27 allele interpretation for all loci based on IMGT/HLA database version 3.44 This test was developed and its performance characteristics determined by [facility]. It has not been cleared or approved by the Food and Drug Administration. [facility] CLIA ID Number [id number] . This test was performed using PCR (Polymerase Chain Reaction)/SSOP (Sequence Specific Oligonucleotide Probes) technique. SBT (Sequence Based Typing) and/or SSP (Sequence Specific Primers) may be used as supplemental methods when necessary. Please contact HLA Customer Service at if you have any questions. . Director of HLA Laboratory Dr Jett Carpio, PhD Performed By: #### H LA27 #### [facility] [address] [place] [address] Dr. Daniela Ledesma CALEB by IFAon 01-24-2023 Antinuclear Antibodies, IFA Negative Normal [facility] Comment on above: Result Comment: Nega tive <1:80 Borderline 1:80 Positive >1:80 ICAP nomenclature: AC-0 For more information about Hep-2 cell patterns use ANApatterns.org, the official website for the International Consensus on Antinuclear Antibody (CALEB) Patterns (ICAP). Performed By: #### A NAIFA #### [facility] [address] [place] [address] Dr. Daniela Ledesma RHEUMATOID FACTORon 01-24-20 RA Latex Turbid. <10.0 Normal <14.0 [facility] Comment on above: Performed By: #### R F #### [facility] [address] [place] [address] Dr. Daniela Ledesma CBC AUTO DIFFon 01-21-2023 BASO # 0.1 103/ul Normal 0.0-0.1 [facility] Comment on above: Performed By: #### C BC #### [facility] [address] [place] [address] Dr. Daniela Ledesma Basophils/100 WBC (Bld) 0.9 % Normal 0.2-2.0 [facility] Comment on above: Performed By: #### C BC #### [facility] [address] [place] [address] Dr. Daniela Ledesma EO # 0.7 103/ul Normal 0.0-0.7 [facility] Comment on above: Performed By: #### C BC #### [facility] [address] [place] [address] Dr. Daniela Ledesma Eosinophils/100 WBC (Bld) 4.3 % Normal 0.9-7.0 [facility] Comment on above: Performed By: #### C BC #### [facility] [address] [place] [address] Dr. Daniela Ledesma Erythrocyte distribution width (RBC) [Ratio] 13.2 % Normal 11.0-15.0 [facility] Comment on above: Performed By: #### C BC #### [facility] [address] [place] [address] Dr. Daniela Ledesma Hematocrit (Bld) [Volume fraction] 45.4 % Normal 36.0-48.0 [facility] Comment on above: Performed By: #### C BC #### [facility] [address] [place] [address] Dr. Daniela Ledesma Hemoglobin (Bld) [Mass/Vol] 15.7 g/dL Normal 12.0-16.0 [facility] Comment on above: Performed By: #### C BC #### [facility] [address] [place] [address] Dr. Daniela Ledesma IG # 0.07 10e3/ul Critically high 0.00-0.03 [facility] Comment on above: Performed By: #### C BC #### [facility] [address] [place] [address] Dr. Daniela Ledesma IG % 0.5 % Normal 0.0-0.5 [facility] Comment on above: Performed By: #### C BC #### [facility] [address] [place] [address] Dr. Daniela Ledesma LYMPH # 3.7 103/ul Normal 1.2-3.8 [facility] Comment on above: Performed By: #### C BC #### [facility] [address] [place] [address] Dr. Daniela Ledesma Lymphocytes/100 WBC (Bld) 24.7 % Normal 20.5-60.0 [facility] Comment on above: Performed By: #### C BC #### [facility] [address] [place] [address] Dr. Daniela Ledesma MANUAL DIFF REQ NO Normal [facility] Comment on above: Performed By: #### C BC #### [facility] [address] [address] [address] Daniela Ledesma MCH (RBC) [Entitic mass] 30.9 pg Normal 26.7-34.0 [facility] Comment on above: Performed By: #### C BC #### [facility] [address] [place] [address] Dr. Daniela Ledesma MCHC (RBC) [Mass/Vol] 34.6 g/dL Normal 29.9-35.2 [facility] Comment on above: Performed By: #### C BC #### [facility] [address] [place] [address] Dr. Daniela Ledesma MCV (RBC) [Entitic vol] 89.4 fL Normal 81.0-99.0 [facility] Comment on above: Performed By: #### C BC #### [facility] [address] [place] [address] Dr. Daniela Ledesma MONO # 0.7 103/ul Normal 0.3-0.8 [facility] Comment on above: Performed By: #### C BC #### [facility] [address] [place] [address] Dr. Daniela Ledesma Monocytes/100 WBC (Bld) 4.4 % Normal 1.7-12.0 [facility] Comment on above: Performed By: #### C BC #### [facility] [address] [place] [address] Dr. Daniela Ledesma NEUT # 9.8 103/ul Critically high 1.4-6.5 [facility] Comment on above: Performed By: #### C BC #### [facility] [address] [place] [address] Dr. Daniela Ledesma Neutrophils/100 WBC (Bld) 65.2 % Normal 43.0-75.0 [facility] Comment on above: Performed By: #### C BC #### [facility] [address] [place] [address] Dr. Daniela Ledesma Platelet mean volume (Bld) [Entitic vol] 9.3 fL Critically low 9.5-13.5 [facility] Comment on above: Performed By: #### C BC #### [facility] [address] [address] [address] Daniela Ledesma PLT 286 103/ul Normal 150-450 [facility] Comment on above: Performed By: #### C BC #### [facility] [address] [address] [address] Daniela Ledesma RBC 5.08 106/ul Normal 4.20-5.40 [facility] Comment on above: Performed By: #### C BC #### [facility] [address] [address] [address] Daniela Ledesma WBC 15.1 103/ul Critically high 4.0-11.0 [facility] Comment on above: Performed By: #### C BC #### [facility] [address] [place] [address] Dr. Daniela Ledesma [facility] SED [facility] 34 mm/hr Critically high <=30 [facility] Comment on above: Performed By: #### S EDR #### [facility] [address] [place] [address] Dr. Daniela Ledesma URIC ACID SERUMon 01-21-2023 Urate [Mass/Vol] 7.5 mg/dL Critically high 2.6-6.0 [facility] Comment on above: Performed By: #### U TUTU #### [facility] [address] [place] [address] Dr. Daniela Ledesma CPKon 01-12-2023 CK [Catalytic activity/Vol] 98 U/L Normal 26-192 [facility] Comment on above: Performed By: #### M YO, CK #### [facility] [address] [place] [address] Dr. Daniela Ledesma MYOGLOBINon 01-12-2023 SAW 34 ng/mL Normal 9-82 [facility] Comment on above: Performed By: #### M YO, CK #### [facility] [address] [place] [address] Dr. Daniela Ledesma MR cervical spine wo conon 0 - MR cervical spine wo con [facility] [place] [address] XRay Report Signed Patient: Ezequiel Coates MR#: [id number] : 1970 Acct:[id number] Age/Sex: 52 / F ADM Date: 11/26/22 Loc: MR Room: Type: [facility] CL Attending Dr: Brendan COCHRAN Copies to: DIMAS Rand Ordering Provider: DIMAS Rand Date of Service: 11/26/22 MR/MR cervical spine wo con: R20.2, M79.601 ([id number]) XR/XR pre/post mri xray: PRE MRI OF [...] Jillian Angelo M.D.11/27/2022 10:13 AM Dictation Location: [place] [address] Transcribed By: [facility] 11/27/22 1013 Dictated By: Jillian Angelo MD 11/27/22 0948 Signed By: 11/27/22 1013 Normal [facility] US Thyroidon 10-17-2022 US Thyroid HISTORY: [...] by Ezekiel Hernandez on 10/17/2022 1005 Normal [facility] Weed [employer] JORDANA - Automatic Exporton JORDANA - Automatic [place], [place] EZEQUIEL COATES 1970 Date of Female Sex [id number] [place] [address] AddressEnglish (preferred) Language White Race Not or Ethnicity Summary of Care Clinical Content Allergies and Adverse Reactions <#EC6FUUHB> Encounters <#XK6FTXYN> Functional Status <#FA8YGHDW> Immunization <#JH8LWJRR> Instructions <#OP0QPOEH> Interventions Provided <#IY0F4CMO> Medications <#RA3IAVMM> Plan of Care <#SA5OI6DQ> Problems <#LA5VNHWE> Procedures <#OQ0EHIPC> Results <#QR9N51BV> Social History <#AM3ANNYX> Vital Signs <#AN3ALOTT> Other Document Details Health Care Providers Functional [...] Ambulatory Health Care Facilities Zo Rivera [email or web address] Work Email Allopathic AND Osteopathic Physicians Joshua [email or web address] [facility] [place] [address] Address Ambulatory Health Care Facilities None, No PCPUnknown Address Document Detailstop <#top> [facility] DO February 13, 2020 11:46 -0400 [id number] [facility] [place] [address] [phone] Work Phone Powered by Sh[employer]?Style Sheet V3.2 Normal [facility] JORDANA - Automatic [place] [facility], [place] EZEQUIEL COATES 1970 Date of Female Sex [id number] [place] [address] AddressEnglish (preferred) Language White Race Not or Ethnicity Summary of Care Clinical Content Allergies and Adverse Reactions <#PL2BNZXE> Encounters <#RJ5GBEYV> Functional Status <#ON5XEJLC> Immunization <#YM3SEZVD> Instructions <#CL0GPSXB> Interventions Provided <#YM6GG6SC> Medications <#ZU8YSVPP> Plan of Care <#ZR2UN5OS> Problems <#ZO4PRBVK> Procedures <#HF5SHCBO> Results <#UH0G20OA> Social History <#OO2PVIBO> Vital Signs <#OA0OWCOM> Other Document Details Health Care Providers Functional [...] Instructions not documented Encounterstop <#top> Appointment; Joshua Frsaer DO Encounter Diagnosis: Problem not documentedOn: 13-Feb-2020 10:00 Health Care Providerstop <#top> Ambulatory Health Care Facilities Zo Rivera [email or web address] Work Email Allopathic AND Osteopathic Physicians [address] [place] [address] Address Ambulatory Health Care Facilities None, No PCPUnknown Address Document Detailstop <#top> [facility] Joshua Fraser DO February 13, 2020 11:15 -0400 [id number] [place] [address] [phone] Work Phone Powered by [employer]?Style Sheet V3.2 Normal [facility] JORDANA - [employer] [place] EZEQUIEL COATES 1970 Date of Female Sex [id number] [place] [address] AddressEnglish (preferred) Language White Race Not or Ethnicity Summary of Care Clinical Content Allergies and Adverse Reactions <#PL5FCQUU> Encounters <#EY4JIZTY> Functional Status <#RS2GBYSS> Immunization <#TO7WPWZC> Instructions <#BP5HOAMP> Interventions Provided <#HJ1A5PXW> Medications <#US5OQTSG> Plan of Care <#IQ7EQQKB> Problems <#EC5CDBVX> Procedures <#FD8C2UOP> Results <#PF3JHIOO> Social History <#GO5PCAUV> Vital Signs <#BW2I2UIC> Other Document Details Health Care Providers Functional [...] Ambulatory Health Care Facilities Zo Rivera [email or web address] Work Email Allopathic AND Osteopathic Physicians Joshua [address] [place] [address] Address Ambulatory Health Care Facilities None, No PCPUnknown Address Document Detailstop <#top> -[facility]-Valerie Levyjones Fraser DO February 13, 2020 11:01 -0400 [id number] [place] [address] [phone] Work Phone Powered by Shoplocal?Style Sheet V3.2 Normal [facility] School/Work Letteron 020 School/Work Letter February 13, [...] Feb 13 2020 11:34AM EST (Author) Normal [facility] Provider Note - ED v2on 09-07 Provider [...] Past Surgical History Description:Hysterectom y Description:Cholecystec 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: Is : no(1) Is : no(1) [...] SIGNS: T PRBP SpO2O2(LPM) %FiO2 Method 27-Sep-2019 19:18:[id number]/73 99 room air, no respiratory support MEDICAL [...] From Triage - ED 27-Sep-2019 19:18 Normal [facility] Risk Screen - Adult Emergenc yon [...] Communicatenone Learning Preferencesaudio Cultural Considerationsnone Developmental Considerationsnone Mu-Ism Considerationsnone Learning Assessment (Other Learner): Learning Assessment (Other Learner): Other learner availableno Pressure Injury/TB/Substance: Pressure Injury: Pressure Injury Present on Admissionno Do you have a coughno Admission Risk Screen: Significant IndicatorsComplete CAGE: CAGE: Is this an injured patient at a Trauma Center ([facility] [place]): no Electronic Signatures: Gali Meyer (RN) (Signed 27-Sep-2019 19:36) Authored: Preferred Language, Advanced Directives, Family Violence Adult, Learning Assessment (Patient), Learning Assessment (Other Learner), Pressure Injury/TB/Substance, CAGE Last Updated: 27-Sep-2019 19:36 by Gali Meyer (RN) [facility] Triage - EDon 09-27-2019 Triage - ED [...] Travel outside of [place]: no Allergies: 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 History: 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 Patient has homicidal thoughts: [...] 19:22 by Sherry Bronson (STAFF N) Normal [facility] CBC With Platelet No Differe ntialon 03-07-2018 Erythrocyte distribution width Auto Ratio (RBC) 13.0 % Normal 11.5-14.5 [facility] Erythrocytes (RBC) 5.17 10*6/uL Normal 4.20-5.40 [facility] Hematocrit (HCT) 44.4 % Normal 37.0-47.0 [facility] Hemoglobin mass conc (Bld) 15.3 g/dL Normal 12.0-16.0 [facility] MCH 29.6 pg Normal 27.0-31.3 [facility] mass conc (RBC) 34.4 % Normal 33.0-37.0 [facility] MCV 85.9 fL Normal 82.0-100.0 [facility] Platelets 287 10*3/uL Normal 130-400 [facility] WBC (Leukocytes) 6.8 10*3/uL Normal 4.8-10.8 [facility] TSH w/out Reflexon 8 Thyroid stimulating hormone (TSH) m[IU]/L Low 0.270-4.20 [facility] Thyroxine Freeon 03-07-2018 Thyroxine Free 2.23 ng/dL Critically high 0.93-1.70 [facility] US HEAD NECK SOFT TISSUE THY [...] Data System (TI- RADS) established by the [employer] [place] [employer] of radiology to help provide guidance [...] by:INDER Morrisigned by:Julio Marie MD02/14/18inal result Normal [facility] CBC With Platelet No Differe ntialon 02-07-2018 Erythrocyte distribution width Auto Ratio (RBC) 12.7 % Normal 11.5-14.5 [facility] Erythrocytes (RBC) 4.65 10*6/uL Normal 4.20-5.40 [facility] Hematocrit (HCT) 40.2 % Normal 37.0-47.0 [facility] Hemoglobin mass conc (Bld) 14.0 g/dL Normal 12.0-16.0 [facility] MCH 30.1 pg Normal 27.0-31.3 [facility] MCHC mass conc (RBC) 34.8 % Normal 33.0-37.0 [facility] MCV 86.4 fL Normal 82.0-100.0 [facility] Platelets 241 10*3/uL Normal 130-400 [facility] WBC (Leukocytes) 6.8 10*3/uL Normal 4.8-10.8 [facility] TSH w/out Reflexon 8 Thyroid stimulating hormone (TSH) m[IU]/L Low 0.270-4.20 [facility] Thyroxine Freeon 02-07-2018 Thyroxine Free 3.43 ng/dL Critically high 0.93-1.70 [facility] Encounters Encounter Date Encounter Type Care [...] Start: 11-26-2022 End: 11-26-2022 ambulatory Brendan Coyle Facility:[facility] Start: 11-26-2022 End: 11-26-2022 ambulatory MD Zehra Marques Work Phone: [facility] Work Phone: Start: 11-26-2022 End: 11-26-2022 Patient encounter procedure MD Zehra Marques Work Phone: [facility] [place] Work Phone: Start: 11-19-2022 End: 11-20-2022 ambulatory DAPHNEY RODRIGUEZ Facility:[facility] Start: 09-17-2022 ambulatory DAPHNEY RODRIGUEZ Fac ility:[facility] Start: 05-13-2020 Patient encounter procedure Ezekiel Devi [facility] Work Phone: Start: 03-26-2020 Patient encounter procedure Ezekiel Devi [facility] Work Phone: Start: 02-13-2020 Patient encounter procedure Ezekiel Devi [facility] Work Phone: Start: 02-14-2018 End: 02-17-2018 Ambulatory MICKEY OWEN [facility] Procedures Date Procedure Procedure Detail Performing [...] Start: 11-26-2022 MR Cervical spine WO contrast [facility] Start: 11-26-2022 MRI of cervical spin e without contrast MR cervical spine wo con [facility] Start: 11-26-2022 XR pre/post mri xray XR pre/post mri xray [facility] Start: 11-26-2022 [facility] Payers Date Payer Category Payer Unknown 2022 Self-pay 2017 Unknown [id number] 1970 Unknown [id number] 2.16.84 [id number] 1970 Unknown [id number] 2.16.84 [id number] 1970 Unknown [id number] 2.16.84 [id number] 1970 Unknown [id number] 2.16.84 [id number] 1970 Unknown [id number] 2.16.84 [id number] 1970 Unknown [id number] 2.16. [id number] 1970 Unknown [id number] 2.16. [id number] 1970 Unknown [id number] 2.16. [id number] 1959 Medicaid [id number] Unknown [id number] 2.16.8 [id number] Social History Date Type Detail Facility Assertion Tobacco smoking consumption unknown (finding) [facility] Work Phone: Start: 1970 Sex Assigned At Female [facility] Functional Status Date Assessment Result Facility NEGATED: Highlighted row Functional performance Functional status health issues are not documented Disease [facility] Work Phone: Mental Status Date Assessment Result Facility NEGATED: Highlighted row Cognitive function [Interpretation] Cognitive status health issues are not documented Disease [facility] Work Phone: Clinical Note 08-20-2022 Note Date & Type Note Facility 08-20-2022 Note FINDINGS: ARTERIAL EVALUATION RIGHT LEFT VELOCITIES PHASICITY VELOCITIES PHASICITY 85 BiCommon [id number] 83BiProximal GKC69Lz 108BiMid GSF46Mj 40 BiDistal WET17Om 51 MuGespwsnyf65Sv 46 FwVVF77Kf 75 BiPTA 93Bi 44 BiPeroneal 58Bi RIGHT [...] signed by Mikey Harry on 08/21/2022 1153 [facility] Weed Cutter Evaluation note Note Date & Type Note Facility Evaluation note No assessment information availa [facility] Work Phone: Summary Purpose Family [...] section and content) DATE CREATED AUTHOR 03/26/2018 [facility] edical Center DATE CREATED AUTHOR AUTHOR'S ORGANIZ ATION 10/02/2019 [facility] DATE CREATED AUTHOR AUTHOR'S ORGANIZ ATION 05/19/2020 [facility] DATE CREATED AUTHOR AUTHOR'S ORGANIZ ATION 10/17/2022 [facility] dical Specialist DATE CREATED AUTHOR AUTHOR'S ORGANIZ ATION 12/02/2022 [facility] DATE CREATED AUTHOR AUTHOR'S ORGANIZ ATION 02/19/2023 [facility] DATE CREATED AUTHOR AUTHOR'S ORGANIZ ATION 04/25/2024 [facility] Care Teams (unrecognized sec tion and [...] BE BASED ON THE PRIMARY CLINICAL RECORDS. [facility] [employer]. provides no warranty or guarantee of the accuracy or completeness of information in this document.
--- NOTE | 2024-06-03 12:09 | XR_ITS ---
The [address] [address] Patient Name: EZEQUIEL ZIMMERMAN MRN: [id number] date: 1970 Sex: F Assigned Patient Location: [facility] Current Patient Location: Accession/Order Number: [id number] Exam Date: 06/03/2024 12:19 Report Date: 06/04/2024 09:55 At the request of: TAMMIE NORMAN Procedure: XR cervical spine 5V EXAMINATION: XR cervical spine 5V HISTORY: cervical radiculopathy COMPARISON: No relevant comparison available. FINDINGS: BONES: Normal. No significant spondylosis, scoliosis, fracture, or visible bony lesion. DISC SPACES: Normal. No significant disc height narrowing, subluxation, or endplate abnormality. PARASPINOUS: Negative. No paraspinous abnormality is seen. OTHER: Negative. XR/XR cervical spine 5V IMPRESSION: No acute abnormality Electronically authenticated by: SHAYY DRUMMOND Date: 06/04/2024 09:55
== END 2024-06-03 12:02 | disposition home or self-care (01) ==
LOC: RAD 12:04
PROVIDERS: PCP Family Medicine; Visit Provider Nurse Practitioner
DX: M47.22 Other spondylosis with radiculopathy, cervical region (principal)
CPT/HCPCS: 72050

== ENCOUNTER 2024-06-10 11:28 | Outpatient (OUT) | payer MEDICAID, SELFPAY ==
--- OUTSIDE RECORDS SUMMARY | 2024-06-10 11:34 | XMS_ITS | CCD ---
Author Organization [facility] Care Team Providers Care Nurse Transition Name Role Phone LEXIECALEB EARLNT Unavailable Unavailable [...] DR SOUSA Consulting Unavailable YEIMI ., MR HINOTN Admitting Unavailable YEIMI ., MR HINTON Attending [...] B 27on 01-28-2023 HLA-B27 Negative Normal [facility] Comment on above: Result Comment: HLA- B*27 Negative B27 allele interpretation for all loci based on IMGT/HLA database version 3.44 This test was developed and its performance characteristics determined by [facility]. It has not been cleared or approved by the Food and Drug Administration. [facility] CLIA ID Number [id number] . This test was performed using PCR (Polymerase Chain Reaction)/SSOP (Sequence Specific Oligonucleotide Probes) technique. SBT (Sequence Based Typing) and/or SSP (Sequence Specific Primers) may be used as supplemental methods when necessary. Please contact HLA Customer Service at if you have any questions. . Director of HLA Laboratory Dr Jett Carpio, PhD Performed By: #### H LA27 #### [facility] [address] [place] [address] Dr. Daniela Ledesma CALEB by IFAon 01-24-2023 Antinuclear Antibodies, IFA Negative Normal [facility] Comment on above: Result Comment: Nega tive <1:80 Borderline 1:80 Positive >1:80 ICAP nomenclature: AC-0 For more information about Hep-2 cell patterns use ANApatterns.org, the official website for the International Consensus on Antinuclear Antibody (CALEB) Patterns (ICAP). Performed By: #### A NAIFA #### [facility] [address] [place] [address] Dr. Daniela Ledesma RHEUMATOID FACTORon 01-24-20 RA Latex Turbid. <10.0 Normal <14.0 [facility] Comment on above: Performed By: #### R F #### [facility] [address] [place] [address] Dr. Daniela Ledesma CBC AUTO DIFFon 01-21-2023 BASO # 0.1 103/ul Normal 0.0-0.1 [facility] Comment on above: Performed By: #### C BC #### [facility] [address] [place] [address] Dr. Daniela Ledesma Basophils/100 WBC (Bld) 0.9 % Normal 0.2-2.0 [facility] Comment on above: Performed By: #### C BC #### [facility] [address] [place] [address] Dr. Daniela Ledesma EO # 0.7 103/ul Normal 0.0-0.7 [facility] Comment on above: Performed By: #### C BC #### [facility] [address] [place] [address] Dr. Daniela Ledesma Eosinophils/100 WBC (Bld) 4.3 % Normal 0.9-7.0 [facility] Comment on above: Performed By: #### C BC #### [facility] [address] [place] [address] Dr. Daniela Ledesma Erythrocyte distribution width (RBC) [Ratio] 13.2 % Normal 11.0-15.0 [facility] Comment on above: Performed By: #### C BC #### [facility] [address] [place] [address] Dr. Daniela Ledesma Hematocrit (Bld) [Volume fraction] 45.4 % Normal 36.0-48.0 [facility] Comment on above: Performed By: #### C BC #### [facility] [address] [place] [address] Dr. Daniela Ledesma Hemoglobin (Bld) [Mass/Vol] 15.7 g/dL Normal 12.0-16.0 [facility] Comment on above: Performed By: #### C BC #### [facility] [address] [place] [address] Dr. Daniela Ledesma IG # 0.07 10e3/ul Critically high 0.00-0.03 [facility] Comment on above: Performed By: #### C BC #### [facility] [address] [place] [address] Dr. Daniela Ledesma IG % 0.5 % Normal 0.0-0.5 [facility] Comment on above: Performed By: #### C BC #### [facility] [address] [place] [address] Dr. Daniela Ledesma LYMPH # 3.7 103/ul Normal 1.2-3.8 [facility] Comment on above: Performed By: #### C BC #### [facility] [address] [place] [address] Dr. Daniela Ledesma Lymphocytes/100 WBC (Bld) 24.7 % Normal 20.5-60.0 [facility] Comment on above: Performed By: #### C BC #### [facility] [address] [place] [address] Dr. Daniela Ledesma MANUAL DIFF REQ NO Normal [facility] Comment on above: Performed By: #### C BC #### [facility] [address] [address] [address] Daniela Ledesma MCH (RBC) [Entitic mass] 30.9 pg Normal 26.7-34.0 [facility] Comment on above: Performed By: #### C BC #### [facility] [address] [place] [address] Dr. Daniela Ledesma MCHC (RBC) [Mass/Vol] 34.6 g/dL Normal 29.9-35.2 [facility] Comment on above: Performed By: #### C BC #### [facility] [address] [place] [address] Dr. Daniela Ledesma MCV (RBC) [Entitic vol] 89.4 fL Normal 81.0-99.0 [facility] Comment on above: Performed By: #### C BC #### [facility] [address] [place] [address] Dr. Daniela Ledesma MONO # 0.7 103/ul Normal 0.3-0.8 [facility] Comment on above: Performed By: #### C BC #### [facility] [address] [place] [address] Dr. Daniela Ledesma Monocytes/100 WBC (Bld) 4.4 % Normal 1.7-12.0 [facility] Comment on above: Performed By: #### C BC #### [facility] [address] [place] [address] Dr. Daniela Ledesma NEUT # 9.8 103/ul Critically high 1.4-6.5 The [facility] Comment on above: Performed By: #### C BC #### [facility] [address] [place] [address] Dr. Daniela Ledesma Neutrophils/100 WBC (Bld) 65.2 % Normal 43.0-75.0 [facility] Comment on above: Performed By: #### C BC #### [facility] [address] [place] [address] Dr. Daniela Ledesma Platelet mean volume (Bld) [Entitic vol] 9.3 fL Critically low 9.5-13.5 [facility] Comment on above: Performed By: #### C BC #### [facility] [address] [address] [address] Daniela Ledesma PLT 286 103/ul Normal 150-450 [facility] Comment on above: Performed By: #### C BC #### [facility] [address] [address] [address] Daniela Ledesma RBC 5.08 106/ul Normal 4.20-5.40 [facility] Comment on above: Performed By: #### C BC #### [facility] [address] [address] [address] Daniela Ledesma WBC 15.1 103/ul Critically high 4.0-11.0 [facility] Comment on above: Performed By: #### C BC #### [facility] [address] [place] [address] Dr. Daniela Ledesma SED [facility] SED RATE 34 mm/hr Critically high <=30 The [facility] Comment on above: Performed By: #### S EDR #### [facility] [address] [place] [address] Dr. Daniela Ledesma URIC ACID SERUMon 01-21-2023 Urate [Mass/Vol] 7.5 mg/dL Critically high 2.6-6.0 [facility] Comment on above: Performed By: #### U TUTU #### [facility] [address] [place] [address] Dr. Daniela Ledesma CPKon 01-12-2023 CK [Catalytic activity/Vol] 98 U/L Normal 26-192 [facility] Comment on above: Performed By: #### M YO, CK #### [facility] [address] [place] [address] Dr. Daniela Ledesma MYOGLOBINon 01-12-2023 SAW 34 ng/mL Normal 9-82 [facility] Comment on above: Performed By: #### M YO, CK #### [facility] [address] [place] [address] Dr. Daniela Ledesma MR cervical spine wo conon 0 - MR cervical spine wo con [facility] [place] [address] XRay Report Signed Patient: Ezequiel Coates MR#: [id number] : 1970 Acct:[id number] Age/Sex: 52 / F ADM Date: 11/26/22 Loc: MR Room: Type: [facility] CL Attending Dr: Brendan COCHRAN Copies to: DIMAS Rand Ordering Provider: DIMAS Rand Date of Service: 11/26/22 MR/MR cervical spine wo con: R20.2, M79.601 ([id number]) XR/XR pre/post mri xray: PRE MRI OF [...] Jillian Angelo M.D.11/27/2022 10:13 AM Dictation Location: [place] [address] Transcribed By: [facility] 11/27/22 1013 Dictated By: Jillian Angelo MD 11/27/22 0948 Signed By: 11/27/22 1013 Normal [facility] US Thyroidon 10-17-2022 US Thyroid HISTORY: [...] by Ezekiel Hernandez on 10/17/2022 1005 Normal 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 - Automatic Exporton JORDANA - Automatic [place], [place] EZEQUIEL COATES 1970 Date of Female Sex [id number] [place] [address] AddressEnglish (preferred) Language White Race Not or Ethnicity Summary of Care Clinical Content Allergies and Adverse Reactions <#MW4CRQDB> Encounters <#TU5DUVJZ> Functional Status <#DI9CKWUS> Immunization <#IF5KJRLA> Instructions <#NZ3LJOAA> Interventions Provided <#RJ1Y2XLQ> Medications <#VU6WKKQH> Plan of Care <#ZL7PQ6BP> Problems <#FB7TTSRE> Procedures <#TC3KNBNX> Results <#MB2I06JE> Social History <#XC2TFPMJ> Vital Signs <#MY7HWNTH> Other Document Details Health Care Providers Functional [...] Ambulatory Health Care Facilities Zo Rivera [email or web address] Work Email Allopathic AND Osteopathic Physicians [address] [place] [address] Address Ambulatory Health Care Facilities None, No PCPUnknown Address Document Detailstop <#top> [facility] February 13, 2020 11:46 -0400 [id number] [place] [address] [phone] Work Phone Powered by [email or web address]?Style Sheet V3.2 Normal [employer] JORDANA - Automatic [place] [facility], [place] EZEQUIEL COATES 1970 Date of Female Sex [id number] [place] [address] AddressEnglish (preferred) Language White Race Not or Ethnicity Summary of Care Clinical Content Allergies and Adverse Reactions <#LS0MRSVQ> Encounters <#FV9VLOLF> Functional Status <#FM4EUDJE> Immunization <#ZC3AVGPU> Instructions <#VO3LZBND> Interventions Provided <#MZ5AN3UD> Medications <#RO1MATKS> Plan of Care <#UI2LN1ZK> Problems <#GA7VDTWG> Procedures <#WZ9DEKQB> Results <#BJ9T07PE> Social History <#EM3JSWYE> Vital Signs <#ND8XCQVI> Other Document Details Health Care Providers Functional [...] Care Facilities Zo Rivera [email or web address] Work Email Allopathic AND Osteopathic Physicians [address] [place] [address] Address Ambulatory Health Care Facilities None, No PCPUnknown Address Document Detailstop <#top> [facility] Joshua Fraser DO February 13, 2020 11:15 -0400 [id number] [place] [address] [phone] Work Phone Powered by [email or web address]?Style Sheet V3.2 Normal [employer] JORDANA - [employer] [place] EZEQUIEL COATES 1970 Date of Female Sex [id number] [place] [address] AddressEnglish (preferred) Language White Race Not or Ethnicity Summary of Care Clinical Content Allergies and Adverse Reactions <#JK1YSQIU> Encounters <#YR8JWPZL> Functional Status <#HF4XKHJQ> Immunization <#LJ8OHWZW> Instructions <#LV8XLYYN> Interventions Provided <#JM5F7DHP> Medications <#BZ3VLKCQ> Plan of Care <#XV5GPKTD> Problems <#YX0VBLPA> Procedures <#FE0C2JUE> Results <#BD9NXZQU> Social History <#UT7RBPAH> Vital Signs <#EX8A1RXF> Other Document Details Health Care Providers Functional [...] Ambulatory Health Care Facilities Zo Rivera [email or web address] Work Email Allopathic AND Osteopathic Physicians [address] [place] [address] Address Ambulatory Health Care Facilities None, No PCPUnknown Address Document Detailstop <#top> -[facility]erie Levyjones Fraser DO February 13, 2020 11:01 -0400 [id number] [place] [address] [phone] Work Phone Powered by [email or web address]?Style Sheet V3.2 Normal [employer] School/Work Letteron 020 School/Work Letter February 13, [...] Feb 13 2020 11:34AM EST (Author) Normal [employer] Provider Note - ED v2on 09-07 Provider [...] Past Surgical History Description:Hysterectom y Description:Cholecystec 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(1) Is : no(1) REVIEW [...] SIGNS: T PRBP SpO2O2(LPM) %FiO2 Method 27-Sep-2019 19:18:[id number]/73 99 room air, no respiratory support MEDICAL [...] From Triage - ED 27-Sep-2019 19:18 Normal [facility] Risk Screen - Adult Emergenc yon [...] Communicatenone Learning Preferencesaudio Cultural Considerationsnone Developmental Considerationsnone Pentecostalism Considerationsnone Learning Assessment (Other Learner): Learning Assessment (Other Learner): Other learner availableno Pressure Injury/TB/Substance: Pressure Injury: Pressure Injury Present on Admissionno Do you have a coughno Admission Risk Screen: Significant IndicatorsComplete CAGE: CAGE: Is this an injured patient at a Trauma Center (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 Patient has homicidal thoughts: no [...] 19:22 by Sherry Bronson (STAFF N) Normal [facility] CBC With Platelet No Differe ntialon 03-07-2018 Erythrocyte distribution width Auto Ratio (RBC) 13.0 % [facility] 11[facility]5-[facility].5 [facility] E[facility]throcytes (RBC) 5.17 10*6/uL Normal 4.20-5.40 [facility] Hematocrit (HCT) 44.4 % Normal 37.0-47.0 [facility] Hemoglobin mass conc (Bld) 15.3 g/dL Normal 12.0-16.0 [facility] MCH 29.6 pg Normal 27.0-31.3 [facility] mass conc (RBC) 34.4 % Normal 33.0-37.0 [facility] MCV 85.9 fL Normal 82.0-100.0 [facility] Platelets 287 10*3/uL Normal 130-400 [facility] WBC (Leukocytes) 6.8 10*3/uL Normal 4.8-10.8 [facility] TSH w/out Reflexon 8 Thyroid stimulating hormone (TSH) m[IU]/L Low 0.270-4.20 [facility] Thyroxine Freeon 03-07-2018 Thyroxine Free 2.23 ng/dL Critically high 0.93-1.70 [facility] US HEAD NECK SOFT TISSUE [...] Data System (TI- RADS) established by the [place] [employer] to help provide guidance [...] noduleIMPRESSION: IMPRESSION: NO CHANGE. Interpreted by:INDER Morrisigned by:uJlio Marie MD02/14/18inal result Normal [facility] CBC With Platelet No Differe ntialon 02-07-2018 Erythrocyte distribution width Auto Ratio (RBC) 12.7 % Normal 11.5-14.5 [facility] Erythrocytes (RBC) 4.65 10*6/uL Normal 4.20-5.40 [facility] Hematocrit (HCT) 40.2 % Normal 37.0-47.0 [facility] Hemoglobin mass conc (Bld) 14.0 g/dL Normal 12.0-16.0 [facility] MCH 30.1 pg Normal 27.0-31.3 [facility] MCHC mass conc (RBC) 34.8 % Normal 33.0-37.0 [facility] MCV 86.4 fL Normal 82.0-100.0 [facility] Platelets 241 10*3/uL Normal 130-400 [facility] WBC (Leukocytes) 6.8 10*3/uL Normal 4.8-10.8 [facility] TSH w/out Reflexon 8 Thyroid stimulating hormone (TSH) m[IU]/L Low 0.270-4.20 [facility] Thyroxine Freeon 02-07-2018 Thyroxine Free 3.43 ng/dL Critically high 0.93-1.70 [facility] Encounters Encounter Date Encounter Type [...] Start: 11-26-2022 End: 11-26-2022 ambulatory Brendan Coyle Facility:[facility] Start: 11-26-2022 End: 11-26-2022 ambulatory MD Zehra Marques Work Phone: [facility] Work Phone: Start: 11-26-2022 End: 11-26-2022 Patient encounter procedure MD Zehra Marques Work Phone: [facility] [place] Work Phone: Start: 11-19-2022 End: 11-20-2022 ambulatory DAPHNEY RODRIGUEZ Facility:[facility] Start: 09-17-2022 ambulatory DAPHNEY RODRIGUEZ Fac ility:[facility] Start: 05-13-2020 Patient encounter procedure Ezekiel Devi [facility] Work Phone: Start: 03-26-2020 Patient encounter procedure Ezekiel Devi [facility] Work Phone: Start: 02-13-2020 Patient encounter procedure Ezekiel Devi [facility] Work Phone: Start: 02-14-2018 End: 02-17-2018 Ambulatory [facility] Procedures Date Procedure Procedure Detail [...] Start: 11-26-2022 MR Cervical spine WO contrast [facility] Start: 11-26-2022 MRI of cervical spin e without contrast MR cervical spine wo con [facility] Start: 11-26-2022 XR pre/post mri xray XR pre/post mri xray [facility] Start: 11-26-2022 [facility] Payers Date Payer Category Payer Unknown 2022 Self-pay 2017 Unknown [id number] 1970 Unknown [id number] 2.16.84 [id number] 1970 Unknown [id number] 2.16.84 [id number] 1970 Unknown [id number] 2.16.84 [id number] 1970 Unknown [id number] 2.16.84 [id number] 1970 Unknown [id number] 2.16.84 [id number] 1970 Unknown [id number] 2.16. [id number] 1970 Unknown [id number] 2.16. [id number] 1970 Unknown [id number] 2.16. [id number] 1959 Medicaid [id number] Unknown [id number] 2.16.8 [id number] Social History Date Type Detail Facility Assertion Tobacco smoking consumption unknown (finding) [facility] Work Phone: Start: 1970 Sex Assigned At Female [facility] Functional Status Date Assessment Result Facility NEGATED: Highlighted row Functional performance Functional status health issues are not documented Disease [facility] Work Phone: Mental Status Date Assessment Result Facility NEGATED: Highlighted row Cognitive function [Interpretation] Cognitive status health issues are not documented Disease [facility] Work Phone: Clinical Note 08-20-2022 Note Date & Type Note Facility 08-20-2022 Note FINDINGS: ARTERIAL EVALUATION RIGHT LEFT VELOCITIES PHASICITY VELOCITIES PHASICITY 85 BiCommon [id number] 83BiProximal [id number] 108BiMid AXC50Rd 40 BiDistal WAP29Nk 51 WpUmrbooauk17We 46 [id number] 75 BiPTA 93Bi 44 BiPeroneal 58Bi RIGHT [...] signed by Mikey Harry on 08/21/2022 1153 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 DATE CREATED AUTHOR AUTHOR'S ORGANIZ ATION 10/02/2019 [facility] DATE CREATED AUTHOR AUTHOR'S ORGANIZ ATION 05/19/2020 [employer] DATE CREATED AUTHOR AUTHOR'S ORGANIZ ATION 10/17/2022 [facility] dical Specialist DATE CREATED AUTHOR AUTHOR'S ORGANIZ ATION 12/02/2022 [facility] DATE CREATED AUTHOR AUTHOR'S ORGANIZ ATION 02/19/2023 [facility] DATE CREATED AUTHOR AUTHOR'S ORGANIZ ATION 04/25/2024 [facility] Care Teams (unrecognized sec tion and content) [...] BE BASED ON THE PRIMARY CLINICAL RECORDS. [facility] [employer] [facility]. provides no warranty or guarantee of the accuracy or completeness of information in this document.
--- NOTE | 2024-06-10 12:09 | PM.CN ---
Consult Note: HPI Data of Consult Patient: known to practice within the last 3 years Requesting Physician: Estefany Tapia NP Primary Care Provider: LARS DAVIS Consult Narrative Reason for consult: f/u Narrative: Mayra Coates a pleasant 53 year old female presents for evaluation and management of chronic neck, low back and bilateral hip pain. Today pain 7/10 painful numb in low back and left leg, with numbness and tingling of LLE. Neck pain worse with all activity, improved with rest. Patient continues to find mild benefit from medication regimen without side effects. Patient still has not followed with rheumatology, with diffuse scattered pain and myofascial pain likely FM but would like to rule out alternative diagnosis. bilateral L5-S1 TFESI and bilateral SIJ injection providing >80% improvement for 3 months, pain has returned to baseline at this time. cc:: CC: Estefany Tapia NP Review of Systems ROS Status of ROS 10 or more systems reviewed and unremarkable except as noted in history and below Musculoskeletal Reports: back pain, neck pain, extremity pain and muscle weakness PFSH PFSH Medical History (Updated 06/10/24 @ 12:11 by Estefany Tapia NP) Osteoarthritis ?M19.90 - Unspecified osteoarthritis, unspecified site (ICD-10) Low back pain ?M54.50 - Low back pain, unspecified (ICD-10) Neck pain ?M54.2 - Cervicalgia (ICD-10) Acid reflux ?K21.9 - Gastro-esophageal reflux disease without esophagitis (ICD-10) Obesity ?E66.9 - Obesity, unspecified (ICD-10) Hypothyroid ?E03.9 - Hypothyroidism, unspecified (ICD-10) Diabetes ?E11.9 - Type 2 diabetes mellitus without complications (ICD-10) Smoker ?F17.200 - Nicotine dependence, unspecified, uncomplicated (ICD-10) Hypertension ?I10 - Essential (primary) hypertension (ICD-10) Surgical History History of cholecystectomy ?Z90.49 - Acquired absence of other specified parts of digestive tract (ICD-10) H/O: 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 ?Z90.710 - Acquired absence of both cervix and uterus (ICD-10) Social History Smoking status: Former smoker Meds Home Medications and Allergies Home Medications ?Medication ?Instructions ?Recorded ?Confirmed ?Type atorvastatin 10 mg tablet 10 mg PO DAILY 05/22/23 04/13/24 History cholecalciferol (vitamin D3) 50 50 mcg PO DAILY 05/22/23 04/13/24 History mcg (2,000 unit) capsule dulaglutide 3 mg/0.5 mL 3 mg subcut QWEEK 05/22/23 04/13/24 History subcutaneous pen injector (Trulicity) levothyroxine 50 mcg tablet 50 mcg PO DAILY 05/22/23 04/13/24 History lisinopril 2.5 mg tablet 2.5 mg PO DAILY 05/22/23 04/13/24 History nabumetone 500 mg tablet 500 mg PO BID 05/22/23 04/13/24 History tizanidine 4 mg capsule 4 mg PO Q8H PRN back pain 05/22/23 04/13/24 History trazodone 50 mg tablet 50 mg PO DAILY PRN sleep 05/22/23 04/13/24 History gabapentin 600 mg tablet 600 mg PO TID 10/29/23 04/13/24 History duloxetine 30 mg capsule,delayed 30 mg PO BID 01/25/24 04/13/24 History release ropinirole 0.5 mg tablet 0.5 mg PO DAILY 01/25/24 04/13/24 History Allergies Allergy/AdvReac Type Severity Reaction Status Date / Time propylthiouracil Allergy Severe Hives Verified 04/13/24 09:51 Exam Constitutional Documenting provider has reviewed patient's vital signs: yes Common normals: no apparent distress, oriented x3, healthy appearing, alert and well nourished General appearance: cooperative Nutritional appearance: obese [facility] Common normals: normocephalic, hearing grossly normal bilaterally and moist oral mucous membranes Head and scalp: normocephalic Eye Common normals: PERRL Pupil: PERRL Neck & C-Spine Common normals: full ROM General: normal visual inspection Cervical spine: pain with cervical ROM and cervical spine tenderness Other: intermittent numbness tingling weakness of BUE sensation intact BUE strength 5/5 in BUE negative spurlings Chest Common normals: inspection of chest normal Respiratory Common normals: normal respiratory effort, no retractions and no use of accessory muscles Cardio Common normals: regular rate, regular rhythm, S1 normal heart sound and S2 normal heart sound GI Common normals: Normal to inspection, nondistended, normoactive bowel sounds present, soft to palpation and non-tender Back & Pelvis Thoracic spine/upper back: normal to inspection, ROM limited and pain with ROM Lumbar spine/lower back: normal to inspection, ROM limited, pain with ROM and straight leg raise positive left Sacroiliac joints: SI joint(s) abnormal Other: diffuse myofascial pain all over decreased sensation bilateral L5/S1 strength 4/5 in BLE positive facet loading Extremity Common normals: normal to inspection and full ROM Neuro Common normals: oriented x3, CN's II-XII intact bilaterally, moves all extremities, no focal motor deficits, no sensory deficits noted and deep tendon reflexes 2+ bilaterally Sensorium/orientation: alert Motor exam: no movement abnormalities noted Psych Common normals: mental status grossly normal, thought process normal, cooperative, affect normal, speech normal and activity/motor behavior normal Appearance: grossly normal Speech: normal speech Thought process: normal thought process Results Additional Findings Additional findings: If on a controlled substance or opioids, I have checked an [place] report on this patient and there are no aberrancies noted in the prescribing history.??If on a controlled substance or opioid a drug screen was completed and reviewed within the last year, and if there has not been a drug screen completed we ordered one today to monitor higher risk, state monitored pain medication use. As part of providing excellent, safe, comprehensive care, the following was completed at our patient's visit: 1. A medication reconciliation and review to ensure accurate knowledge of current/active medications, including asking our patients to inform us about any [id number] medications or herbal remedies/nutritional supplements/alternative remedies. 2. A review to specifically ensure our patients have had annual screening for screening for depression, screening for tobacco use, and screening for unhealthy alcohol use. For concerning screenings had a discussion with the patient, provided patient education, and recommended follow-up with primary care provider when appropriate. If patient noted with a risk of falling, they received education on strength, gait, and balance training to prevent future risk of falling. Assessment and Plan Assessment and Plan (1) Lumbar stenosis with neurogenic claudication: (2) Fibromyalgia: (3) Cervical spondylosis: (4) Cervical radiculopathy: (5) Sacroiliitis: (6) Osteoarthritis of hips, bilateral: (7) Lumbar spondylosis: Plan repeat bilateral L5-S1 TFESI under fluoroscopy, previous injection provided >50% improvement greater than 3 months. risks vs benefits reviewed increase duloxetine 60mg AM 30mg HS decrease gabapentin 600mg BID, working towards weaning off of and trialing zonegran continue nabumetone 500mg BID PRN pain/spasms, can consider celebrex diclofenac in the future continue trazadone 50mg HS upcoming PT for chronic neck pain and cervical radiculopathy, defer MRI at this time. cervical xray unremarkable, prior cervical MRI from 2022 showed mild disc bulge at C5-6 f/u 2 weeks after [facility]
== END 2024-06-10 11:29 | disposition home or self-care (01) ==
LOC: PM 11:29
PROVIDERS: PCP Family Medicine; Visit Provider Nurse Practitioner
DX: M48.062 Spinal stenosis, lumbar region with neurogenic claudication (principal); M79.7 Fibromyalgia; M47.812 Spondylosis without myelopathy or radiculopathy, cervical region; M54.12 Radiculopathy, cervical region; M46.1 Sacroiliitis, not elsewhere classified; M47.816 Spondylosis without myelopathy or radiculopathy, lumbar region; M16.0 Bilateral primary osteoarthritis of hip
CPT/HCPCS: G0463

== ENCOUNTER 2024-07-06 07:03 | Day surgery (SDC) | payer MEDICAID, SELFPAY ==
--- OUTSIDE RECORDS SUMMARY | 2024-07-06 07:06 | XMS_ITS | CCD ---
Author Organization [facility] Care Team Providers Care Occupational Rehabilitation Aide Name Role Phone LEXIECALEB EARLNT Unavailable Unavailable MICHELLE CHOW Unavailable Unavailable Joshua Fraser Unavailable Unavailable Joshua Fraser Unavailable Unavailable None, No PCP Unavailable Unavailable Ezekiel Devi Unavailable Unavailable Joshua Fraser Unavailable UnavailCON CoronaC Brendan Vivar Attending Provider [phone] MD Zehra Marques Primary Care Provider [phone] Brendan Coyle Admitting Unavailable Brendan Coyle Attending [...] B 27on 01-28-2023 HLA-B27 Negative Normal [facility] Comment on above: Result Comment: HLA- B*27 Negative B27 allele interpretation for all loci based on IMGT/HLA database version 3.44 This test was developed and its performance characteristics determined by [facility]. It has not been cleared or approved by the Food and Drug Administration. [facility] CLIA ID Number [id number] . This test was performed using PCR (Polymerase Chain Reaction)/SSOP (Sequence Specific Oligonucleotide Probes) technique. SBT (Sequence Based Typing) and/or SSP (Sequence Specific Primers) may be used as supplemental methods when necessary. Please contact HLA Customer Service at if you have any questions. . Director of HLA Laboratory Dr Jett Carpio, PhD Performed By: #### H LA27 #### [facility] Laboratory [address] [place] [address] Dr. Daniela Ledesma CALEB by IFAon 01-24-2023 Antinuclear Antibodies, IFA Negative Normal [facility] Comment on above: Result Comment: Nega tive <1:80 Borderline 1:80 Positive >1:80 ICAP nomenclature: AC-0 For more information about Hep-2 cell patterns use ANApatterns.org, the official website for the International Consensus on Antinuclear Antibody (CALEB) Patterns (ICAP). Performed By: #### A NAIFA #### [facility] Laboratory [address] [place] [address] Dr. Daniela Ledesma RHEUMATOID FACTORon 01-24-20 RA Latex Turbid. <10.0 Normal <14.0 [facility] Comment on above: Performed By: #### R F #### [facility] Laboratory [address] [place] [address] Dr. Daniela Ledesma CBC AUTO DIFFon 01-21-2023 BASO # 0.1 103/ul Normal 0.0-0.1 [facility] Comment on above: Performed By: #### C BC #### [facility] Laboratory [address] [place] [address] Dr. Daniela Ledesma Basophils/100 WBC (Bld) 0.9 % Normal 0.2-2.0 [facility] Comment on above: Performed By: #### C BC #### [facility] Laboratory [address] [place] [address] Dr. Daniela Ledesma EO # 0.7 103/ul Normal 0.0-0.7 [facility] Comment on above: Performed By: #### C BC #### [facility] Laboratory [address] [place] [address] Dr. Daniela Ledesma Eosinophils/100 WBC (Bld) 4.3 % Normal 0.9-7.0 [facility] Comment on above: Performed By: #### C BC #### [facility] Laboratory [address] [place] [address] Dr. Daniela Ledesma Erythrocyte distribution width (RBC) [Ratio] 13.2 % Normal 11.0-15.0 [facility] Comment on above: Performed By: #### C BC #### [facility] Laboratory [address] [place] [address] Dr. Daniela Ledesma Hematocrit (Bld) [Volume fraction] 45.4 % Normal 36.0-48.0 [facility] Comment on above: Performed By: #### C BC #### [facility] Laboratory [address] [place] [address] Dr. Daniela Ledesma Hemoglobin (Bld) [Mass/Vol] 15.7 g/dL Normal 12.0-16.0 [facility] Comment on above: Performed By: #### C BC #### [facility] Laboratory [address] [place] [address] Dr. Daniela Ledesma IG # 0.07 10e3/ul Critically high 0.00-0.03 [facility] Comment on above: Performed By: #### C BC #### [facility] Laboratory [address] [place] [address] Dr. Daniela Ledesma IG % 0.5 % Normal 0.0-0.5 [facility] Comment on above: Performed By: #### C BC #### [facility] Laboratory [address] [place] [address] Dr. Daniela Ledesma LYMPH # 3.7 103/ul Normal 1.2-3.8 [facility] Comment on above: Performed By: #### C BC #### [facility] Laboratory [address] [place] [address] Dr. Daniela Ledesma Lymphocytes/100 WBC (Bld) 24.7 % Normal 20.5-60.0 [facility] Comment on above: Performed By: #### C BC #### [facility] Laboratory [address] [place] [address] Dr. Daniela Ledesma MANUAL DIFF REQ NO Normal [facility] Comment on above: Performed By: #### C BC #### [facility] Laboratory [address] [address] [address] Daniela Ledesma MCH (RBC) [Entitic mass] 30.9 pg Normal 26.7-34.0 [facility] Comment on above: Performed By: #### C BC #### [facility] Laboratory [address] [place] [address] Dr. Daniela Ledesma MCHC (RBC) [Mass/Vol] 34.6 g/dL Normal 29.9-35.2 [facility] Comment on above: Performed By: #### C BC #### [facility] Laboratory [address] [place] [address] Dr. Daniela Ledesma MCV (RBC) [Entitic vol] 89.4 fL Normal 81.0-99.0 [facility] Comment on above: Performed By: #### C BC #### [facility] Laboratory [address] [place] [address] Dr. Daniela Ledesma MONO # 0.7 103/ul Normal 0.3-0.8 [facility] Comment on above: Performed By: #### C BC #### [facility] Laboratory [address] [place] [address] Dr. Daniela Ledesma Monocytes/100 WBC (Bld) 4.4 % Normal 1.7-12.0 [facility] Comment on above: Performed By: #### C BC #### [facility] Laboratory [address] [place] [address] Dr. Daniela Ledesma NEUT # 9.8 103/ul Critically high 1.4-6.5 [facility] Comment on above: Performed By: #### C BC #### [facility] Laboratory [address] [place] [address] Dr. Daniela Ledesma Neutrophils/100 WBC (Bld) 65.2 % Normal 43.0-75.0 [facility] Comment on above: Performed By: #### C BC #### [facility] Laboratory [address] [place] [address] Dr. Dnaiela Ledesma Platelet mean volume (Bld) [Entitic vol] 9.3 fL Critically low 9.5-13.5 [facility] Comment on above: Performed By: #### C BC #### [facility] Laboratory [address] [address] [address] Daniela Ledesma PLT 286 103/ul Normal 150-450 [facility] Comment on above: Performed By: #### C BC #### [facility] Laboratory [address] [address] [address] Daniela Ledesma RBC 5.08 106/ul Normal 4.20-5.40 [facility] Comment on above: Performed By: #### C BC #### [facility] Laboratory [address] [address] [address] Daniela Ledesma WBC 15.1 103/ul Critically high 4.0-11.0 [facility] Comment on above: Performed By: #### C BC #### [facility] Laboratory [address] [place] [address] Dr. Daniela Ledesma [facility] SED RATE 34 mm/hr Critically high <=30 [facility] Comment on above: Performed By: #### S EDR #### [facility] Laboratory [address] [place] [address] Dr. Daniela Ledesma URIC ACID SERUMon 01-21-2023 Urate [Mass/Vol] 7.5 mg/dL Critically high 2.6-6.0 [facility] Comment on above: Performed By: #### U TUTU #### [facility] Laboratory [address] [place] [address] Dr. Daniela Ledesma CPKon 01-12-2023 CK [Catalytic activity/Vol] 98 U/L Normal 26-192 [facility] Comment on above: Performed By: #### M YO, CK #### [facility] Laboratory [address] [place] [address] Dr. Daniela Ledesma MYOGLOBINon 01-12-2023 SAW 34 ng/mL Normal 9-82 [facility] Comment on above: Performed By: #### M YO, CK #### [facility] Laboratory [address] [place] [address] Dr. Daniela Ledesma MR cervical spine wo conon 0 - MR cervical spine wo [place] [address] XRay Report Signed Patient: Ezequiel Coates MR#: [id number] : 1970 Acct:[id number] Age/Sex: 52 / F ADM Date: 11/26/22 Loc: MR Room: Type: [facility] CL Attending Dr: Brendan COCHRAN Copies to: DIMAS Rand Ordering Provider: DIMAS Rand Date of Service: 11/26/22 MR/MR cervical spine wo con: R20.2, M79.601 ([id number]) XR/XR pre/post mri xray: PRE MRI OF [...] Jillian Angelo M.D.11/27/2022 10:13 AM Dictation Location: [place] [address] Transcribed By: [facility] 11/27/22 1013 Dictated By: Jillian Angelo MD 11/27/22 0948 Signed By: 11/27/22 1013 Normal [facility] US Thyroidon 10-17-2022 US Thyroid HISTORY: Hyperthyroidism. 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 - Automatic [employer] JORDANA - [employer] [place], [place] EZEQUIEL COATES 1970 Date of Female Sex [id number] [place] [address] AddressEnglish (preferred) Language White Race Not or Ethnicity Summary of Care Clinical Content Allergies and Adverse Reactions <#[id number]> Encounters <#FM7JBKMG> Functional Status <#VL0DMOYV> Immunization <#XV4NRHTJ> Instructions <#QY4UGDYC> Interventions Provided <#RP2E4ZJT> Medications <#LZ8LNBXL> Plan of Care <#GQ1AN1WS> Problems <#ML7RSXYA> Procedures <#HZ9SFYKJ> Results <#BK5Y95BK> Social History <#MW7EGVPT> Vital Signs <#UL4RXZYM> Other Document Details Health Care Providers Functional [...] Ambulatory Health Care Facilities Zo Rivera [email or web address] Work Email Allopathic AND Osteopathic Physicians [address] [facility] [place] [address] Address Ambulatory Health Care Facilities None, No PCPUnknown Address Document Detailstop <#top> [facility] Center[facility] Fraser DO February 13, 2020 11:46 -0400 [id number] [facility] [place] [address] [phone] Work Phone Powered by Biomonde?Style Sheet V3.2 Normal [employer] JORDANA - [employer] [place] [facility], [place] EZEQUIEL COATES 1970 Date of Female Sex [id number] [place] [address] AddressEnglish (preferred) Language White Race Not or Ethnicity Summary of Care Clinical Content Allergies and Adverse Reactions <#UV0YQUTO> Encounters <#FX0TOEXN> Functional Status <#RQ3ALTWE> Immunization <#TR8JGOMA> Instructions <#US5GGYAO> Interventions Provided <#NN9CQ4OF> Medications <#WQ4PSBNW> Plan of Care <#HN7JY6HF> Problems <#ZY8YWKVX> Procedures <#MR4MJDJZ> Results <#XZ3I94KM> Social History <#NS1UAZGZ> Vital Signs <#WC5PHXTT> Other Document Details Health Care Providers Functional [...] Ambulatory Health Care Facilities Zo Rivera [email or web address] Work Email Allopathic AND Osteopathic Physicians [address] [place] [address] Address Ambulatory Health Care Facilities None, No PCPUnknown Address Document Detailstop <#top> [facility] Joshua Fraser DO February 13, 2020 11:15 -0400 [id number] [place] [address] [phone] Work Phone Powered by Biomonde?Style Sheet V3.2 Normal [employer]DANA - [employer] [place] EZEQUIEL COATES 1970 Date of Female Sex [id number] [place] [address] AddressEnglish (preferred) Language White Race Not or Ethnicity Summary of Care Clinical Content Allergies and Adverse Reactions <#AA6AZEDN> Encounters <#XN9NWHVX> Functional Status <#QJ2SLVVG> Immunization <#ZK4HSGWF> Instructions <#EH6INIFB> Interventions Provided <#SJ6Y1FTK> Medications <#BE2QCJSB> Plan of Care <#JK0JKJXS> Problems <#TP8YWHVN> Procedures <#SA9T3IMV> Results <#MW5ZVNIL> Social History <#NL3FEXPE> Vital Signs <#KA0S3XNB> Other Document Details Health Care Providers Functional [...] Ambulatory Health Care Facilities Zo Rivera [email or web address] Work Email Allopathic AND Osteopathic Physicians [address] [place] [address] Address Ambulatory Health Care Facilities None, No PCPUnknown Address Document Detailstop <#top> -[facility]-Valerie Levyjones Fraser DO February 13, 2020 11:01 -0400 [id number] [place] [address] [phone] Work Phone Powered by Biomonde?Style Sheet V3.2 Normal [employer] School/Work Letteron 020 School/Work Letter February 13, [...] Feb 13 2020 11:34AM EST (Author) Normal [employer] Provider Note - ED v2on 09-07 Provider [...] Past Surgical History Description:Hysterectom y Description:Cholecystec kenny CORPORATE 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: Is : no(1) Is : no(1) REVIEW [...] SIGNS: T PRBP SpO2O2(LPM) %FiO2 Method 27-Sep-2019 19:18:[id number]/73 99 room air, no respiratory support MEDICAL [...] From Triage - ED 27-Sep-2019 19:18 Normal [facility] Risk Screen - Adult Emergenc [...] Communicatenone Learning Preferencesaudio Cultural Considerationsnone Developmental Considerationsnone Confucianist Considerationsnone Learning Assessment (Other Learner): Learning Assessment (Other Learner): Other learner availableno Pressure Injury/TB/Substance: Pressure Injury: Pressure Injury Present on Admissionno Do you have a coughno Admission Risk Screen: Significant IndicatorsComplete CAGE: CAGE: Is this an injured patient at a Trauma Center ([facility]/[place]): no Electronic Signatures: Gali Meyer (RN) (Signed 27-Sep-2019 19:36) Authored: Preferred Language, Advanced Directives, Family Violence Adult, Learning Assessment (Patient), Learning Assessment (Other Learner), Pressure Injury/TB/Substance, CAGE Last Updated: 27-Sep-2019 19:36 by Gali Meyer (RN) [facility] Triage - EDon 09-27-2019 Triage - [...] Travel outside of [place]: no Allergies: yes CORPORATE DEVELOPMENT ASSOCIATE History: 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 Patient has homicidal thoughts: no [...] 19:22 by Sherry Bronson (STAFF N) Normal [facility] CBC With Platelet No Differe ntialon 03-07-2018 Erythrocyte distribution width Auto Ratio (RBC) 13.0 % Normal 11.5-14.5 [facility] Erythrocytes (RBC) 5.17 10*6/uL Normal 4.20-5.40 [facility] Hematocrit (HCT) 44.4 % Normal 37.0-47.0 [facility] Hemoglobin mass conc (Bld) 15.3 g/dL Normal 12.0-16.0 [facility] MCH 29.6 pg Normal 27.0-31.3 [facility] mass conc (RBC) 34.4 % Normal 33.0-37.0 [facility] MCV 85.9 fL Normal 82.0-100.0 [facility] Platelets 287 10*3/uL Normal 130-400 [facility] WBC (Leukocytes) 6.8 10*3/uL Normal 4.8-10.8 [facility] TSH w/out Reflexon 8 Thyroid [...] Data System (TI- RADS) established by the [place] [employer] to help provide guidance [...] by:INDER Morrisigned by:Julio Marie MD02/14/18inal result Normal [facility] CBC With Platelet No Differe ntialon 02-07-2018 Erythrocyte distribution width Auto Ratio (RBC) 12.7 % Normal 11.5-14.5 [facility] Erythrocytes (RBC) 4.65 10*6/uL Normal 4.20-5.40 [facility] Hematocrit (HCT) 40.2 % Normal 37.0-47.0 [facility] Hemoglobin mass conc (Bld) 14.0 g/dL Normal 12.0-16.0 [facility] MCH 30.1 pg Normal 27.0-31.3 [facility] MCHC mass conc (RBC) 34.8 % Normal 33.0-37.0 [facility] MCV 86.4 fL Normal 82.0-100.0 [facility] Platelets 241 10*3/uL Normal 130-400 [facility] WBC (Leukocytes) 6.8 10*3/uL Normal 4.8-10.8 [facility] TSH w/out Reflexon 8 Thyroid [...] Start: 11-26-2022 End: 11-26-2022 ambulatory Brendan Coyle Facility:[facility] Start: 11-26-2022 End: 11-26-2022 ambulatory MD Zehra Marques Work Phone: [facility] Work Phone: Start: 11-26-2022 End: 11-26-2022 Patient encounter procedure MD Zehra Marques Work Phone: [facility] [address] [place] Work Phone: Start: 11-19-2022 End: 11-20-2022 ambulatory DAPHNEY RODRIGUEZ Facility:[facility] Start: 09-17-2022 ambulatory DAPHNEY RODRIGUEZ Fac ility:[facility] Start: 05-13-2020 Patient encounter procedure Ezekiel Devi [facility] Work Phone: Start: 03-26-2020 Patient encounter procedure Ezekiel Devi [facility] Work Phone: Start: 02-13-2020 Patient encounter procedure Ezekiel Devi [facility] Work Phone: Start: 02-14-2018 End: 02-17-2018 Ambulatory [...] Start: 11-26-2022 MR Cervical spine WO contrast [facility] Start: 11-26-2022 MRI of cervical spin e without contrast MR cervical spine wo con [facility] Start: 11-26-2022 XR pre/post mri xray XR pre/post mri xray [facility] Start: 11-26-2022 [facility] Payers Date Payer Category Payer Unknown 2022 Self-pay 2017 Unknown [id number] 1970 Unknown [id number] 2.16.84 [id number] 1970 Unknown [id number] 2.16.84 [id number] 1970 Unknown [id number] 2.16.84 [id number] 1970 Unknown [id number] 2.16.84 [id number] 1970 Unknown [id number] 2.16.84 [id number] 1970 Unknown [id number] 2.16. [id number] 1970 Unknown [id number] 2.16. [id number] 1970 Unknown [id number] 2.16. [id number] 1959 Medicaid [id number] Unknown [id number] 2.16.8 [id number] Social History Date Type Detail Facility Assertion Tobacco smoking consumption unknown (finding) [facility] Work Phone: Start: 1970 Sex Assigned At Female F [facility] Functional Status Date Assessment Result Facility NEGATED: Highlighted row Functional performance Functional status health issues are not documented Disease [facility] Work Phone: Mental Status Date Assessment Result Facility NEGATED: Highlighted row Cognitive function [Interpretation] Cognitive status health issues are not documented Disease [facility] Work Phone: Clinical Note 08-20-2022 Note Date & Type Note Facility 08-20-2022 Note FINDINGS: ARTERIAL EVALUATION RIGHT LEFT VELOCITIES PHASICITY VELOCITIES PHASICITY 85 [employer] phcrwrd11Iq 83BiProximal JXH37Eq 108BiMid JMC72Sb 40 BiDistal KLF89Wl 51 ThJnkoqwjhi52Qi 46 JjILS52Ch 75 BiPTA 93Bi 44 BiPeroneal 58Bi RIGHT [...] signed by Mikey Harry on 08/21/2022 1153 [facility] 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 dical Specialist DATE CREATED AUTHOR AUTHOR'S ORGANIZ ATION 12/02/2022 [facility] DATE CREATED AUTHOR AUTHOR'S ORGANIZ ATION 02/19/2023 [facility] DATE CREATED AUTHOR AUTHOR'S ORGANIZ ATION 04/25/2024 [facility] Care Teams (unrecognized sec tion and content) [...] BE BASED ON THE PRIMARY CLINICAL RECORDS. [facility] [employer] [facility]. provides no warranty or guarantee of the accuracy or completeness of information in this document.
[2024-07-06 07:19] LABS: Glucometer 236 mg/dL (74-106)
[2024-07-06 07:21] VITALS: BP 122/80; PULSE 96; TEMP 36.4; O2SAT 96
[2024-07-06 07:53] VITALS: BP 131/81; PULSE 92; O2SAT 94
[2024-07-06 07:55] VITALS: BP 132/82; PULSE 90; O2SAT 95
--- NOTE | 2024-07-06 07:59 | W.PM.PROCNOT ---
Date of procedure: 07/06/24 Pre-op diagnosis: Pain due to lumbar stenosis with neurogenic claudication Post-op diagnosis: same as pre-op Procedure: Procedure: Bilateral L5-S1 transforaminal epidural steroid injection Medications: Bupivacaine 0.25% 2cc, lidocaine 2% 1cc, kenalog 80mg The patient was seen and examined in the preoperative holding area.? Informed consent was obtained and placed on the chart.? Patient was brought to the medical procedure unit and placed in the prone position where a timeout was completed verifying the correct patient, procedure site, position, and planned special equipment using sterile aseptic technique.? Under direct fluoroscopic visualization a 25-gauge Quincke tipped spinal needle was advanced at level left L5-S1 to the designated neural foramen where contrast dye was injected to show adequate spread.? There was no evidence of vascular or adverse uptake.? Epidural spread was appreciated.? The above-mentioned injectate was then placed in a 1.5 mL aliquot preceded by negative aspiration.? The needle was removed. The same procedure, at the same level, was completed on the opposite side. ? Patient was taken to the postprocedural recovery area and monitored for an appropriate length of time before found suitable for discharge in the accompaniment of a responsible adult. Anesthesia: Local Surgeon: Vinay Crews Pathology: none sent Condition: stable Disposition: no change
[2024-07-06] MEDS: BUPIVACAINE HCL 0.25% PF 25 MG/10 ML VIAL INJ (08:00)
[2024-07-06] MEDS: 0.9 % SODIUM CHLORIDE 10 ML SYRINGE - SALINE FLUSH INJ (08:00)
[2024-07-06] MEDS: IOHEXOL 240 MG/ML - 10 ML VIAL 24 MG INJ (08:01)
[2024-07-06] MEDS: LIDOCAINE HCL 2% 400 MG/20 ML MDV 3 ML INJ (08:01)
[2024-07-06] MEDS: TRIAMCINOLONE ACETONIDE 40 MG/ML VIAL 80 MG INJ (08:01)
--- NOTE | 2024-07-06 08:47 | PC.NURSE ---
Difficulty ambulating without assistance post procedure. Pt placed in wheelchair. After monitoring pt was then assisted with ambulation and was able to complete without difficulty.
== END 2024-07-06 08:45 | disposition home or self-care (01) ==
LOC: SURGOUT 07:03
PROVIDERS: PCP Family Medicine; Visit Provider Anesthesiology
DX: M48.062 Spinal stenosis, lumbar region with neurogenic claudication (principal)
CPT/HCPCS: 36415; 64483; 82948; J0665; J3301; Q9966

== ENCOUNTER 2024-07-20 11:38 | Emergency (ER) | payer MEDICAID, SELFPAY ==
[2024-07-20 11:52] VITALS: BP 175/100; PULSE 92; O2SAT 100; BMI 44.6
--- OUTSIDE RECORDS SUMMARY | 2024-07-20 12:13 | XMS_ITS | CCD ---
Author Organization [facility] Care Team Providers Care Scaffold Builder Name Role Phone LEXIEMICKEY EARL Unavailable Unavailable MICHELLE CHOW Unavailable Unavailable Joshua Fraser Unavailable Unavailable Joshua Fraser Unavailable Unavailable None, No PCP Unavailable Unavailable Ezekiel Devi Unavailable Unavailable Joshua Fraser Unavailable UnavailCON CoronaC Brendan Vivar Attending Provider [phone] MD Zehra Marques Primary Care Provider [phone] Brendan Coyle Admitting Unavailable Brendan Coyle Attending [...] EVERY DAY Quantity: 60 Refills: 2 Bria CamJoshua Start : 29-Nov-2018 Active methIMAzole 10 mg oral tablet (1 source) Thyroid Hormone Synthesis Inhibitor Start: 03-10-2019 take 3 tablets by mouth twice daily methIMAzole 10 MG Oral Tablet take 3 tablet by mouth twice a day Quantity: 180 Refills: 0 Bria DOCamJoshua Start : 10-Mar-2019 Active 24 hr propranolol hydrochloride 60 mg extended release oral capsule (1 source) beta-Adrenergic Pipo Start: 09-02-2018 take 1 capsule by mouth once daily Propranolol HCl ER 60 MG Oral Capsule Extended Release 24 Hour TAKE 1 CAPSULE BY MOUTH EVERY DAY Quantity: 30 Refills: 5 Bria CamJoshua Start : 02-Sep-2018 Active triamcinolone acetonide 1 mg/ml topical cream (3 sources) Corticosteroid Start: 02-13-2020 Triamcinolone Acetonide 0.1 % External Cream APPLY TO AFFECTED AREA BID Quantity: 60 Refills: 2 Bria CORDERO Joshua Start : 13-Feb-2020 Active Start: 02-13-2020 Triamcinolone Acetonide 0.1 % External Cream APPLY TO AFFECTED AREA BID Quantity: 60 Refills: 2 Joshua Farser DO Start : 13-Feb-2020 Active Problems Active [...] B 27on 01-28-2023 HLA-B27 Negative Normal [facility] Comment on above: Result Comment: HLA- B*27 Negative B27 allele interpretation for all loci based on IMGT/HLA database version 3.44 This test was developed and its performance characteristics determined by [facility]. It has not been cleared or approved by the Food and Drug Administration. [facility] Lab CLIA ID Number [id number] . This test was performed using PCR (Polymerase Chain Reaction)/SSOP (Sequence Specific Oligonucleotide Probes) technique. SBT (Sequence Based Typing) and/or SSP (Sequence Specific Primers) may be used as supplemental methods when necessary. Please contact HLA Customer Service at if you have any questions. . Director of HLA Laboratory Dr Jett Carpio, PhD Performed By: #### H LA27 #### [facility] [address] [place] [address] Dr. Daniela Ledesam CALEB by IFAon 01-24-2023 Antinuclear Antibodies, IFA Negative Normal [facility] Comment on above: Result Comment: Nega tive <1:80 Borderline 1:80 Positive >1:80 ICAP nomenclature: AC-0 For more information about Hep-2 cell patterns use ANApatterns.org, the official website for the International Consensus on Antinuclear Antibody (CALEB) Patterns (ICAP). Performed By: #### A NAIFA #### [facility] [address] [place] [address] Dr. Daniela Ledesma RHEUMATOID FACTORon 01-24-20 RA Latex Turbid. <10.0 Normal <14.0 [facility] Comment on above: Performed By: #### R F #### [facility] [address] [place] [address] Dr. Daniela Ledesma CBC AUTO DIFFon 01-21-2023 BASO # 0.1 103/ul Normal 0.0-0.1 [facility] Comment on above: Performed By: #### C BC #### [facility] [address] [place] [address] Dr. Daniela Ledesma Basophils/100 WBC (Bld) 0.9 % Normal 0.2-2.[address] [facility] Comment on above: Performed By: #### C BC #### [facility] [address] [place] [address] Dr. Daniela Ledesma EO # 0.7 103/ul Normal 0.0-0.7 [facility] Comment on above: Performed By: #### C BC #### [facility] [address] [place] [address] Dr. Daniela Ledesma Eosinophils/100 WBC (Bld) 4.3 % Normal 0.9-7.[address] [facility] Comment on above: Performed By: #### C BC #### [facility] [address] [place] [address] Dr. Daniela Ledesma Erythrocyte distribution width (RBC) [Ratio] 13.2 % Normal 11.0-15.0 [facility] Comment on above: Performed By: #### C BC #### [facility] [address] [place] [address] Dr. Daniela Ledesma Hematocrit (Bld) [Volume fraction] 45.4 % Normal 36.0-48.0 [facility] Comment on above: Performed By: #### C BC #### [facility] [address] [place] [address] Dr. Daniela Ledesma Hemoglobin (Bld) [Mass/Vol] 15.7 g/dL Normal 12.0-16.0 [facility] Comment on above: Performed By: #### C BC #### [facility] [address] [place] [address] Dr. Daniela Ledesma IG # 0.07 10e3/ul Critically high 0.00-0.03 [facility] Comment on above: Performed By: #### C BC #### [facility] [address] [place] [address] Dr. Daniela Ledesma IG % 0.5 % Normal 0.0-0.5 [facility] Comment on above: Performed By: #### C BC #### [facility] [address] [place] [address] Dr. Daniela Ledesma LYMPH # 3.7 103/ul Normal 1.2-3.8 [facility] Comment on above: Performed By: #### C BC #### [facility] [address] [place] [address] Dr. Daniela Ledesma Lymphocytes/100 WBC (Bld) 24.7 % Normal 20.5-60.0 [facility] Comment on above: Performed By: #### C BC #### [facility] [address] [place] [address] Dr. Daniela Ledesma MANUAL DIFF REQ NO Normal [facility] Comment on above: Performed By: #### C BC #### [facility] [address] [address] [address] Daniela Ledesma MCH (RBC) [Entitic mass] 30.9 pg Normal 26.7-34.0 [facility] Comment on above: Performed By: #### C BC #### [facility] [address] [place] [address] Dr. Daniela Ledesma MCHC (RBC) [Mass/Vol] 34.6 g/dL Normal 29.9-35.2 [facility] Comment on above: Performed By: #### C BC #### [facility] [address] [place] [address] Dr. Daniela Ledesma MCV (RBC) [Entitic vol] 89.4 fL Normal 81.0-99.0 [facility] Comment on above: Performed By: #### C BC #### [facility] [address] [place] [address] Dr. Daniela Ledesma MONO # 0.7 103/ul Normal 0.3-0.[address] [facility] Comment on above: Performed By: #### C BC #### [facility] [address] [place] [address] Dr. Daniela Ledesma Monocytes/100 WBC (Bld) 4.4 % Normal 1.7-12.0 [facility] Comment on above: Performed By: #### C BC #### [facility] [address] [place] [address] Dr. Daniela Ledesma NEUT # 9.8 103/ul Critically high 1.4-6.5 [facility] Comment on above: Performed By: #### C BC #### [facility] [address] [place] [address] Dr. Daniela Ledesma Neutrophils/100 WBC (Bld) 65.2 % Normal 43.0-75.[address] [facility] Comment on above: Performed By: #### C BC #### [facility] [address] [place] [address] Dr. Daniela Ledesma Platelet mean volume (Bld) [Entitic vol] 9.3 fL Critically low 9.5-13.5 [facility] Comment on above: Performed By: #### C BC #### [facility] [address] [address] [address] Daniela Ledesma PLT 286 103/ul Normal 150-450 [facility] Comment on above: Performed By: #### C BC #### [facility] [address] [address] [address] Daniela Ledesma RBC 5.08 106/ul Normal 4.20-5.40 [facility] Comment on above: Performed By: #### C BC #### [facility] [address] [address] [address] Daniela Ledesma WBC 15.1 103/ul Critically high 4.0-11.0 [facility] Comment on above: Performed By: #### C BC #### [facility] [address] [place] [address] Dr. Daniela Ledesma [facility] SED RATE 34 mm/hr Critically high <=30 [facility] Comment on above: Performed By: #### S EDR #### [facility] [address] [address] [address] Daniela Ledesma URIC ACID SERUMon 01-21-2023 Urate [Mass/Vol] 7.5 mg/dL Critically high 2.6-6.0 [facility] Comment on above: Performed By: #### U TUTU #### [facility] [address] [place] [address] Dr. Daniela Ledesma CPKon 01-12-2023 CK [Catalytic activity/Vol] 98 U/L Normal 26-[address] [facility] Comment on above: Performed By: #### M YO, CK #### [facility] [address] [address] [address] Daniela Ledesma MYOGLOBINon 01-12-2023 SAW 34 ng/mL Normal 9-82 [facility] Comment on above: Performed By: #### M YO, CK #### [facility] [address] [place] [address] Dr. Daniela Ledesma MR cervical spine wo conon 0 11-27-2022 MR cervical spine wo con [facility] [place] [address] [place] [address] XRay Report Signed Patient: Ezequiel Coates MR#: [id number] : 1970 Acct:[id number] Age/Sex: 52 / F ADM Date: 11/26/22 Loc: MR Room: Type: [facility] Attending Dr: Brendan COCHRAN Copies to: DIMAS Rand Ordering Provider: DIMAS Rand Date of Service: 11/26/22 MR/MR cervical spine wo con: R20.2, M79.601 ([id number]) XR/XR pre/post mri xray: PRE MRI OF [...] Jillian Angelo M.D.11/27/2022 10:13 AM Dictation Location: [place] [address] Transcribed By: [facility] 11/27/22 1013 Dictated By: Jillian Angelo MD 11/27/22 0948 Signed By: 11/27/22 1013 [facility] US Thyroidon 10-17-2022 US Thyroid [...] by Ezekiel Hernandez on 10/17/2022 1005 Normal [facility] 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 - [employer] JORDANA - [employer] [place], [place] EZEQUIEL COATES 1970 Date of Female Sex [id number] [place] [address] AddressEnglish (preferred) Language White Race Not or Ethnicity Summary of Care Clinical Content Allergies and Adverse Reactions <#[id number]> Encounters <#EU0OCEGL> Functional Status <#OV3GFJPP> Immunization <#JX9FBCFL> Instructions <#WW3KWZLL> Interventions Provided <#TW6U2OBB> Medications <#KD1KLXYE> Plan of Care <#DA8DY0WJ> Problems <#HA7CRKFF> Procedures <#WH5NCFVX> Results <#SU2O92TK> Social History <#BW3JXHPM> Vital Signs <#UX6TMGKS> Other Document Details Health Care Providers Functional Statustop <#top> Functional Status Health Issues NameDatesDetails Functional status health issues are not documented Cognitive Status Health Issues NameDatesDetails Cognitive status health issues are not documented Problemstop <#top> NameDatesDetails Eczema (692.9, L30.9) Tennis elbow (726.32, M77.10) Medicationstop <#top> NameDatesDetails Meloxicam 15 MG Oral Tablet TAKE 1 TABLET BY MOUTH EVERY DAY Quantity: 60 Refills: 2 Bria Joshua CORDERO Start : 29-Nov-2018 Triamcinolone Acetonide 0.1 % External Cream APPLY TO AFFECTED AREA BID Quantity: 60 Refills: 2 Joshua Fraser DO Start : 13-Feb-2020 Allergies and Adverse Reactionstop <#top> NameDAnton Allergy history not documented Procedurestop <#top> ProcedureDatesDetails Procedures not documented Immunizationtop <#top> NameDatesDetails Immunizations not documented Social Historytop <#top> Smoking Status NameDatesDetails Tobacco smoking consumption unknown (finding) Vital Signstop <#top> DateTestResultDetails No Known Vitals to report Resultstop <#top> DateDescriptionValueDet ails Results not documented Plan of Caretop <#top> Jarrod Planned Observations Planned Goals not documented Planned Encounters Appointment; Joshua Fraser DOOn: 13-May-2020 8:45 Interventions Providedtop <#top> Medication Changes Meloxicam 15 MG Oral Tablet - Renew Triamcinolone Acetonide 0.1 % External Cream - Start Instructionstop <#top> Jarrod Instructions not documented Encounterstop <#top> Appointment; Joshua Fraser DO Encounter Diagnosis: Problem not documentedOn: 13-Feb-2020 10:00 Health Care Providerstop <#top> Ambulatory Health Care Facilities Zo Rivera [email or web address] Work Email Allopathic [facility] Osteopathic Physicians [address] [place] [address] Address Ambulatory Health Care Facilities None, No [facility] Address Document Detailstop <#top> [facility] Joshua Fraser DO February 13, 2020 11:46 -0400 [id number] [place] [address] [phone] Work Phone Powered by Liztic?Style Sheet V3.2 Normal [place] JORDANA - [employer] [facility], [place] EZEQUIEL COATES 1970 Date of Female Sex [id number] [place] [id number] AddressEnglish (preferred) Language White Race Not or Ethnicity Summary of Care Clinical Content Allergies and Adverse Reactions <#YC6RFSEQ> Encounters <#QI3QSQEB> Functional Status <#BL8WRCEH> Immunization <#RR6EMOEH> Instructions <#HN0UBEDA> Interventions Provided <#GI8VF3YG> Medications <#BD0UQKBR> Plan of Care <#NN6FT2NW> Problems <#BF1RTFAX> Procedures <#WA6ABUBT> Results <#ZU1U90CJ> Social History <#NF5ALZKK> Vital Signs <#QU3LOZXW> Other Document Details Health Care Providers Functional [...] Care Facilities Zo Rivera [email or web address] Work Email [facility] [address] [place] [address] Address Ambulatory Health Care Facilities None, No PCPUnknown Address Document Detailstop <#top> [facility] Joshua Fraser DO February 13, 2020 11:15 -0400 [id number] [place] [address] [phone] Work Phone Powered by Liztic?Style Sheet V3.2 Normal [place] JORDANA - [employer] [place], [place] EZEQUIEL COATES 1970 Date of Female Sex [id number] [place] [address] AddressEnglish (preferred) Language White Race Not or Ethnicity Summary of Care Clinical Content Allergies and Adverse Reactions <#JI8QWXNR> Encounters <#HE0VJQLJ> Functional Status <#DF5HLASQ> Immunization <#JP7QYOUP> Instructions <#DM5QFMDG> Interventions Provided <#VO7N3JLL> Medications <#DT1ZYJXQ> Plan of Care <#IW2FFCFK> Problems <#RT0UVLYV> Procedures <#BS6Z4MNW> Results <#RE9AKSOR> Social History <#OB3OWTVW> Vital Signs <#WA3P4EFL> Other Document Details Health Care Providers Functional [...] Care Facilities Zo Rivera [email or web address] Work Email [facility] [address] [place] [address] [place] [address] Address Ambulatory Health Care Facilities None, No PCPUnknown Address Document Detailstop <#top> -[facility] Joshua Fraser DO February 13, 2020 11:01 -0400 [id number] [facility] [place] [address] [phone] Work Phone Powered by Liztic?Style Sheet V3.2 Normal [place] School/Work Letteron 020 School/Work Letter February 13, [...] Feb 13 2020 11:34AM EST (Author) Normal [place] Provider Note - ED v2on 09-07 Provider [...] Past Surgical History Description:Hysterectom y Description:Cholecystec 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 : no(1) Is : no(1) REVIEW [...] SIGNS: T PRBP SpO2O2(LPM) %FiO2 Method 27-Sep-2019 19:18:[id number]/73 99 room air, no respiratory support MEDICAL [...] Communicatenone Learning Preferencesaudio Cultural Considerationsnone Developmental Considerationsnone Oriental Orthodox Considerationsnone Learning Assessment (Other Learner): Learning Assessment (Other Learner): Other learner availableno Pressure Injury/TB/Substance: Pressure Injury: Pressure Injury Present on Admissionno Do you have a coughno Admission Risk Screen: Significant IndicatorsComplete CAGE: CAGE: Is this an injured patient at a Trauma Center (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 [...] 13.0 % Normal 11.5-14.5 [facility] Erythrocytes (RBC) 5.17 10*6/uL Normal 4.20-5.40 [facility] Hematocrit (HCT) 44.4 % Normal 37.0-47.0 [facility] Hemoglobin mass conc (Bld) 15.3 g/dL Normal 12.0-16.0 [facility] MCH 29.6 pg Normal 27.0-31.3 [facility] MCHC mass conc (RBC) 34.4 % Normal 33.0-37.0 [facility] MCV 85.9 fL Normal 82.0-100.0 [facility] Platelets 287 10*3/uL Normal 130-400 [facility] WBC (Leukocytes) 6.8 10*3/uL Normal 4.8-10.8 [facility] TSH w/out Reflexon 8 Thyroid stimulating hormone (TSH) m[IU]/L Low 0.270-4.20 [facility] Thyroxine Freeon 03-07-2018 Thyroxine Free 2.23 ng/dL Critically high 0.93-1.70 [facility] US HEAD NECK SOFT TISSUE [...] Data System (TI- RADS) established by the [place] [employer] to help provide guidance [...] by:INDER Morrisigned by:Julio Marie MD02/14/inal result Normal [facility] CBC With Platelet No Differe ntialon 02-07-2018 Erythrocyte distribution width Auto Ratio (RBC) 12.7 % Normal 11.5-14.5 [facility] Erythrocytes (RBC) 4.65 10*6/uL Normal 4.20-5.40 [facility] Hematocrit (HCT) 40.2 % Normal 37.0-47.0 [facility] Hemoglobin mass conc (Bld) 14.0 g/dL Normal 12.0-16.0 [facility] MCH 30.1 pg Normal 27.0-31.3 [facility] MCHC mass conc (RBC) 34.8 % Normal 33.0-37.0 [facility] MCV 86.4 fL Normal 82.0-100.0 [facility] Platelets 241 10*3/uL Normal 130-400 [facility] WBC (Leukocytes) 6.8 10*3/uL Normal 4.8-10.8 [facility] TSH w/out Reflexon 8 Thyroid stimulating hormone (TSH) m[IU]/L Low 0.270-4.20 [facility] Thyroxine Freeon 02-07-2018 Thyroxine Free 3.43 ng/dL Critically high 0.93-1.70 [facility] Encounters Encounter Date Encounter Type Care Provider Facility Start: 07-06-2024 End: 07-06-2024 ambulatory Vinay Crews MD Facility: [facility] Start: 04-13-2024 End: 04-13-2024 ambulatory Vinay Crews [...] Start: 11-26-2022 End: 11-26-2022 ambulatory Brendan Coyle Facility:[facility] Start: 11-26-2022 End: 11-26-2022 ambulatory MD Zehra Marques Work Phone: [facility] Work Phone: Start: 11-26-2022 End: 11-26-2022 Patient encounter procedure MD Zehra Marques Work Phone: [facility] [place] Work Phone: Start: 11-19-2022 End: 11-20-2022 ambulatory PATSYDILLON ROSENETT Facility:[facility] Start: 09-17-2022 ambulatory PATSYDILLON JENNIFER Fac ility:[facility] Start: 05-13-2020 [facility]: Start: 03-26-2020 Patient encounter procedure Ezekiel Devi [facility] Work Phone: Start: 02-13-2020 Patient encounter procedure Ezekiel Devi [facility] Work Phone: Start: 02-14-2018 End: 02-17-2018 Ambulatory MICKEY OWEN [facility] Procedures Date Procedure Procedure Detail Performing Clinician Start: 05-13-2020 Assay of thyroid sti mulating hormone tsh Ezekiel Shandra Start: 05-13-2020 Blood count complete auto&auto difrntl wbc Ezekiel Devi Start: 05-13-2020 Comprehensive metabo lic 2000 panel Ezekiel Shandra Start: 05-13-2020 Free T4 Index Ezekiel stroudefraín Start: 05-13-2020 Lipid panel Ezekiel rodriguez Start: 05-13-2020 Follow-up visit Start: 03-26-2020 Follow-up visit Start: 02-13-2020 Follow-up visit Start: 02-14-2018 Us soft tissue head & neck real time imge ghulam OWEN Plan of Treatment Date Care Activity Detail Author Start: 11-26-2022 MR Cervical spine WO contrast [facility] Start: 11-26-2022 MRI of cervical spin e without contrast MR cervical spine wo con [facility] Start: 11-26-2022 XR pre/post mri xray XR pre/post mri xray [facility] Start: 11-26-2022 [facility] Payers Date Payer Category Payer Unknown 2022 Self-pay 2017 Unknown [id number] 1970 Unknown [id number] 2.16.84 [id number] 1970 Unknown [id number] 2.16.84 [id number] 1970 Unknown [id number] 2.16.84 [id number] 1970 Unknown [id number] 2.16.84 [id number] 1970 Unknown [id number] 2.16.84 [id number] 1970 Unknown [id number] 2.16. [id number] 1970 Unknown [id number] 2.16. [id number] 1970 Unknown [id number] 2.16. [id number] 1970 Unknown [id number] 2.16. [id number] 1959 Medicaid [id number] Unknown [id number] 2.16.8 [id number] Social History Date Type Detail Facility Assertion Tobacco smoking consumption unknown (finding) [facility] Work Phone: Start: 1970 Sex Assigned At Female F [facility] Functional Status Date Assessment Result Facility NEGATED: [...] LEFT VELOCITIES PHASICITY VELOCITIES PHASICITY 85 BiCommon bqgahow57Hg 83BiProximal WLR53Ln 108BiMid DLV80Ot 40 BiDistal YEP87Bs 51 WrYtjxjfvsn11Np 46 XgPLD30Dk 75 BiPTA 93Bi 44 BiPeroneal 58Bi RIGHT [...] signed by Mikey Harry on 08/21/2022 1153 [facility] 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 Evaluation 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 Note Date & Type Note Facility Evaluation note No assessment information availa [facility] Work Phone: Summary Purpose Family History [...] section and content) DATE CREATED AUTHOR 03/26/2018 [facility] DATE CREATED AUTHOR AUTHOR'S ORGANIZ ATION 10/02/2019 [facility] DATE CREATED AUTHOR AUTHOR'S ORGANIZ ATION 05/19/2020 [employer] DATE CREATED AUTHOR AUTHOR'S ORGANIZ ATION 10/17/2022 [facility] dical Specialist DATE CREATED AUTHOR AUTHOR'S ORGANIZ ATION 12/02/2022 [facility] [place] DATE CREATED AUTHOR AUTHOR'S ORGANIZ ATION 02/19/2023 [facility] pital DATE CREATED AUTHOR AUTHOR'S ORGANIZ ATION 07/10/2024 [facility] Care Teams (unrecognized sec tion and [...] BE BASED ON THE PRIMARY CLINICAL RECORDS. [email or web address] [facility]. provides no warranty or guarantee of the accuracy or completeness of information in this document.
--- NOTE | 2024-07-20 13:06 | CT_ITS ---
The [address] [address] Patient Name: EZEQUIEL ZIMMERMAN MRN: [id number] date: 1970 Sex: F Assigned Patient Location: ER Current Patient Location: ER Accession/Order Number: [id number] Exam Date: 07/20/2024 14:20 Report Date: 07/20/2024 15:12 At the request of: JAYLEN ISBELL Procedure: CT abdomen pelvis w con EXAM: CT abdomen pelvis w con HISTORY: pain COMPARISON: None. TECHNIQUE: Following the intravenous administration of 100 cc of Omnipaque 300, axial soft tissue windows of the abdomen and pelvis were performed with coronal and sagittal reformats. CT dose reduction technique was used including Automated Exposure Control. Findings: ABDOMEN: There is fatty infiltration of the liver. The gallbladder is surgically absent. The spleen, pancreas, and adrenal glands are unremarkable. No renal stones or collecting system dilatation. The bilateral ureters are nondilated. Evaluation of the bowel is limited given the absence of oral contrast. There are few colonic diverticula. There is colonic wall thickening. No bowel obstruction. The appendix is nondilated. The aorta is normal caliber. No enlarged abdominal lymph nodes or free abdominal fluid. Pelvis: Unremarkable bladder. The uterus is surgically absent. No enlarged pelvic lymph nodes or free pelvic fluid. No aggressive sclerotic or lytic osseous lesions. CT/CT abdomen pelvis w con IMPRESSION: 1. Colonic wall thickening may relate to lack of distention. However the wall thickening in the sigmoid colon and rectum in particular is somewhat suspicious for colitis. 2. Other nonemergent findings, as described above. Electronically authenticated by: TERRELL LOPEZ Date: 07/20/2024 15:12
--- NOTE | 2024-07-20 13:07 | ED_ITS ---
HPI - Nausea/Vomiting/Diarrhea General Chief complaint: Nausea/Vomiting/Diarrhea Stated complaint: NAUSEA Time Seen by Provider: 07/20/24 13:02 Source: patient Mode of arrival: Wheelchair Limitations: no limitations History of Present Illness HPI Narrative: 54 year old female presents to the ED for N/V/D, generalized abd discomfort. Onset was 07/18/24. Reports chills. Denies fever, cough, urinary sx. Related Data Home Medications ?Medication ?Instructions ?Recorded ?Confirmed atorvastatin 10 mg tablet 10 mg PO DAILY 05/22/23 07/06/24 cholecalciferol (vitamin D3) 50 50 mcg PO DAILY 05/22/23 07/06/24 mcg (2,000 unit) capsule dulaglutide 3 mg/0.5 mL 3 mg subcut QWEEK 05/22/23 07/06/24 subcutaneous pen injector (Trulicity) levothyroxine 50 mcg tablet 50 mcg PO DAILY 05/22/23 07/06/24 lisinopril 2.5 mg tablet 2.5 mg PO DAILY 05/22/23 07/06/24 nabumetone 500 mg tablet 500 mg PO BID 05/22/23 07/06/24 tizanidine 4 mg capsule 4 mg PO Q8H PRN back pain 05/22/23 07/06/24 trazodone 50 mg tablet 50 mg PO DAILY PRN sleep 05/22/23 07/06/24 gabapentin 600 mg tablet 600 mg PO TID 10/29/23 07/06/24 duloxetine 30 mg capsule,delayed 30 mg PO BID 01/25/24 07/06/24 release ropinirole 0.5 mg tablet 0.5 mg PO DAILY 01/25/24 07/06/24 Previous Rx's ?Medication ?Instructions ?Recorded dicyclomine 10 mg capsule 10 mg PO TID PRN abdominal pain 07/20/24 #12 caps ondansetron 4 mg disintegrating 4 mg PO Q8H PRN nausea and 07/20/24 tablet vomiting 4 days #12 tabs Allergies Allergy/AdvReac Type Severity Reaction Status Date / Time propylthiouracil Allergy Severe Hives Verified 07/20/24 11:52 Review of Systems ROS Constitutional Reports: chills; Denies: fever Ears, nose, mouth, and throat Denies: throat pain or neck pain Cardiovascular Denies: chest pain Respiratory Denies: shortness of breath or cough Gastrointestinal Reports: abdominal pain, nausea, vomiting and diarrhea Genitourinary Denies: painful urination, urinary frequency, urinary urgency or blood in urine Musculoskeletal Denies: back pain or neck pain [facility] Medical History (Updated 07/20/24 @ 15:23 by Mariah Cabrera) Osteoarthritis ?M19.90 - Unspecified osteoarthritis, unspecified site (ICD-10) Low back pain ?M54.50 - Low back pain, unspecified (ICD-10) Neck pain ?M54.2 - Cervicalgia (ICD-10) Acid reflux ?K21.9 - Gastro-esophageal reflux disease without esophagitis (ICD-10) Obesity ?E66.9 - Obesity, unspecified (ICD-10) Hypothyroid ?E03.9 - Hypothyroidism, unspecified (ICD-10) Diabetes ?E11.9 - Type 2 diabetes mellitus without complications (ICD-10) Smoker ?F17.200 - Nicotine dependence, unspecified, uncomplicated (ICD-10) Hypertension ?I10 - Essential (primary) hypertension (ICD-10) Surgical History History of cholecystectomy ?Z90.49 - Acquired absence of other specified parts of digestive tract (ICD- 10) H/O: 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 ?Z90.710 - Acquired absence of both cervix and uterus (ICD-10) Social History Smoking status: Former smoker Little interest or pleasure in doing things: not at all Feeling down, depressed, or hopeless: not at all Exam Constitutional Vital Signs, click to edit/add: Last Vital Signs Pulse 90 07/20/24 13:48 Resp 20 07/20/24 11:52 BP 162/98 H 07/20/24 13:48 Pulse Ox 100 07/20/24 11:52 O2 Del Method Room Air 07/20/24 11:52 Common normals: no apparent distress and oriented x3 General appearance: cooperative HENMT Mouth: lip normal, tongue normal and moist mucous membranes abnormal (Dry) Throat: posterior oropharynx normal Eye Common normals: conjunctivae normal and no scleral icterus Neck & C-Spine Common normals: supple Chest Chest: symmetrical chest wall rise Respiratory Common normals: normal respiratory effort Effort & inspection: able to speak in complete sentences Cardio Common normals: regular rate and regular rhythm GI Common normals: Normal to inspection, nondistended, normoactive bowel sounds present and soft to palpation Palpation: tender (Generalized) Neuro Common normals: oriented x3 Sensorium/orientation: awake and alert Speech: speech normal Course Vital Signs Vital signs: Vital Signs Pulse Rate 92 H 07/20/24 11:52 Respiratory Rate 20 07/20/24 11:52 Blood Pressure 175/100 H 07/20/24 11:52 Pulse Oximetry 100 07/20/24 11:52 Oxygen Delivery Method Room Air 07/20/24 11:52 Pulse Rate 90 07/20/24 13:48 Respiratory Rate 20 07/20/24 11:52 Blood Pressure 162/98 H 07/20/24 13:48 Pulse Oximetry 100 07/20/24 11:52 Oxygen Delivery Method Room Air 07/20/24 11:52 MDM - Nausea/Vomiting/Diarrhea MDM Narrative Medical decision making narrative: WBC count was 14.5. CT scan showed colonic wall thickening may relate to lack of distention; however, the wall thickening in the sigmoid colon and rectum in particular is somewhat suspicious for colitis. Findings were discussed with the patient. She was given IV fluids, Zofran, Pepcid, and Bentyl with improvement in her sx. She was tolerating oral fluids prior to discharge. Prescriptions were provided for Zofran and Bentyl. Follow up with pcp for a recheck, further evaluation and treatment. Differential Diagnosis Differential diagnosis: Likely gastroenteritis, dehydration and other (Colitis, Diverticulitis) Medical Records Attestation: I reviewed the patient's medical records. Lab Data Attestation: I reviewed the patient's lab results. Labs: Lab Results 07/20/24 07/20/24 07/20/24 Range/Units 13:16 13:48 15:55 WBC 14.0 H (4.0-11.0) 10^3/uL RBC 5.58 H (4.20-5.40) 10^6/uL Hgb 17.5 H (12.0-16.0) g/dL Hct 49.8 H (36.0-48.0) % MCV 89.2 (81.0-99.0) fL MCH 31.4 (26.7-34.0) pg MCHC 35.1 (29.9-35.2) g/dL RDW 11.7 (11.0-15.0) % Plt Count 277 (150-450) 10^3/uL MPV 10.9 (9.5-13.5) fL Neut % (Auto) 87.0 H (43.0-75.0) % Lymph % (Auto) 9.1 L (20.5-60.0) % [place] % (Auto) 3.1 (1.7-12.0) % Eos % (Auto) 0.0 L (0.9-7.0) % Baso % (Auto) 0.4 (0.2-2.0) % Neut # (Auto) 12.2 H (1.4-6.5) 10^3/uL Lymph # (Auto) 1.3 (1.2-3.8) 10^3/uL [place] # (Auto) 0.4 (0.3-0.8) 10^3/uL Eos # (Auto) 0.0 (0.0-0.7) 10^3/uL Baso # (Auto) 0.1 (0.0-0.1) 10^3/uL Abs Immat Gran (auto) 0.05 H (0.00-0.03) 10^3/uL Imm/Tot Granulo (auto) 0.4 (0.0-0.5) % Sodium 138 (136-145) mmol/L Potassium 3.3 L (3.5-5.1) mmol/L Chloride 99 (98-107) mmol/L Carbon Dioxide 25.8 (21.0-32.0) mmol/L Anion Gap 16.5 BUN 21.0 H (7.0-18.0) mg/dL Creatinine 0.91 (0.55-1.02) mg/dL Est GFR ( Amer) >60 (>=60 mL/min/1.73m^2) Est GFR (Non-Af Amer) >60 (>=60 mL/min/1.73m^2) BUN/Creatinine Ratio 23.1 Glucose 345 H (74-106) mg/dL Calcium 10.3 H (8.5-10.1) mg/dL Total Bilirubin 2.4 H (0.2-1.0) mg/dL AST 38 H (15-37) U/L ALT 83 H (14-59) U/L Alkaline Phosphatase 100 (46-116) U/L Total Protein 7.6 (6.4-8.2) g/dL Albumin 3.5 (3.4-5.0) g/dL Globulin 4.1 g/dL Albumin/Globulin Ratio 0.9 Lipase 16.0 (16.0-77.0) U/L Urine Color Yellow (YELLOW) Urine Clarity Clear (CLEAR) Urine pH 5.5 (5.0-9.0) Ur Specific [place] 1.010 (1.005-1.025) Urine Protein Negative (NEG/TRACE) mg/dL Urine Glucose (UA) 500 A (NEGATIVE) mg/dL Urine Ketones 40 A (NEGATIVE) mg/dL Urine Occult Blood Negative (NEGATIVE) Urine Nitrite Negative (NEGATIVE) Urine Bilirubin Negative (NEGATIVE) Urine Urobilinogen 0.2 (0.2-1.0) EU/dL Ur Leukocyte Esterase Negative (NEGATIVE) Imaging Data CT scan - abdomen: Attestation: I have reviewed the pertinent imaging results. Radiologist's impression: ITS Impressions Abdomen/Pelvis CT 07/20/24 13:06 IMPRESSION: 1. Colonic wall thickening may relate to lack of distention. However the wall thickening in the sigmoid colon and rectum in particular is somewhat suspicious for colitis. 2. Other nonemergent findings, as described above. Electronically authenticated by: TERRELL LOPEZ Date: 07/20/2024 15:12 Discharge Plan Discharge Chief Complaint: Nausea/Vomiting/Diarrhea Clinical Impression: Nausea vomiting and diarrhea, Abdominal pain Patient Disposition: Home, Self-Care Time of Disposition Decision: 15:56 Condition: Good Mode of Transportation: Private Vehicle Prescriptions / Home Meds: New ondansetron 4 mg tablet,disintegrating 4 mg PO Q8H PRN (Reason: nausea and vomiting) 4 Days Qty: 12 0RF dicyclomine 10 mg capsule 10 mg PO TID PRN (Reason: abdominal pain) Qty: 12 0RF No Action gabapentin 600 mg tablet 600 mg PO TID atorvastatin 10 mg tablet 10 mg PO DAILY cholecalciferol (vitamin D3) 50 mcg (2,000 unit) capsule 50 mcg PO DAILY levothyroxine 50 mcg tablet 50 mcg PO DAILY lisinopril 2.5 mg tablet 2.5 mg PO DAILY nabumetone 500 mg tablet 500 mg PO BID tizanidine 4 mg capsule 4 mg PO Q8H PRN (Reason: back pain) trazodone 50 mg tablet 50 mg PO DAILY PRN (Reason: sleep) Trulicity 3 mg/0.5 mL pen injector 3 mg subcut QWEEK ropinirole 0.5 mg tablet 0.5 mg PO DAILY duloxetine 30 mg capsule,delayed release(DR/EC) 30 mg PO BID Print Language: Barbadian Instructions: Acute Nausea and Vomiting (ED), Acute Diarrhea (ED), Abdominal Pain (ED) Additional Instructions: Return to the ER for new or worsening symptoms. Referrals: LARS DAVIS [Primary Care Provider] - 1 week Discharge Date/Time: 07/20/24 17:02
[2024-07-20] MEDS: FAMOTIDINE/PF 20 MG/2 ML VIAL IV (13:27)
[2024-07-20] MEDS: ONDANSETRON PF 4 MG/2 ML VIAL IV (13:27)
[2024-07-20] MEDS: 0.9 % SODIUM CHLORIDE 1,000 ML 999 ML IV (13:27)
[2024-07-20 13:31] LABS: Basophils Absolute Auto 0.1 10^3/uL (0.0-0.1); Basophils Percent Auto 0.4 % (0.2-2.0); Hematocrit 49.8 % (36.0-48.0); Hemoglobin 17.5 g/dL (12.0-16.0); Immature Granulocytes Abs Auto 0.05 10^3/uL (0.00-0.03); Immature Granulocytes Pct Auto 0.4 % (0.0-0.5); Lymphocytes Absolute Auto 1.3 10^3/uL (1.2-3.8); Lymphocytes Percent Auto 9.1 % (20.5-60.0); Mean Corpuscular HGB Conc 35.1 g/dL (29.9-35.2); Mean Corpuscular Hemoglobin 31.4 pg (26.7-34.0); Mean Corpuscular Volume 89.2 fL (81.0-99.0); Mean Platelet Volume 10.9 fL (9.5-13.5); Monocytes Absolute Auto 0.4 10^3/uL (0.3-0.8); Monocytes Percent Auto 3.1 % (1.7-12.0); Neutrophils Absolute Auto 12.2 10^3/uL (1.4-6.5); Platelet Count 277 10^3/uL (150-450); Red Blood Count 5.58 10^6/uL (4.20-5.40); Red Cell Distribution Width 11.7 % (11.0-15.0)
[2024-07-20 13:48] VITALS: BP 162/98; PULSE 90
[2024-07-20 14:10] LABS: Alanine Aminotransferase 83 U/L (14-59); Albumin Globulin Ratio 0.9; Albumin Level 3.5 g/dL (3.4-5.0); Alkaline Phosphatase 100 U/L (46-116); Anion Gap 16.5; Aspartate Amino Transferase 38 U/L (15-37); BUN Creatinine Ratio 23.1; Bilirubin Total 2.4 mg/dL (0.2-1.0); Calcium 10.3 mg/dL (8.5-10.1); Carbon Dioxide 25.8 mmol/L (21.0-32.0); Chloride 99 mmol/L (98-107); Estimated GFR (African America >60 (>=60 mL/min/1.73m^2); Estimated GFR (Non-African Ame >60 (>=60 mL/min/1.73m^2); Globulin 4.1 g/dL; Glucose 345 mg/dL (74-106); Potassium 3.3 mmol/L (3.5-5.1); Sodium 138 mmol/L (136-145); Total Protein 7.6 g/dL (6.4-8.2)
[2024-07-20] MEDS: DICYCLOMINE HCL 20 MG/2 ML VIAL IM (15:33)
[2024-07-20 16:14] LABS: Bilirubin Urine NEGATIVE (NEGATIVE); Blood Urine NEGATIVE (NEGATIVE); Clarity Urine CLEAR (CLEAR); Color Urine YELLOW (YELLOW); Glucose Urine UA 500 mg/dL (NEGATIVE); Ketones Urine 40 mg/dL (NEGATIVE); Leukocyte Esterase Urine NEGATIVE (NEGATIVE); Nitrite Urine NEGATIVE (NEGATIVE); Protein Urine NEGATIVE (NEG/TRACE); Urobilinogen Urine 0.2 EU/dL (0.2-1.0); pH Urine 5.5 (5.0-9.0)
[2024-07-20 16:17] LABS: Urine Microscopic Indicated NO
--- NOTE | 2024-07-20 16:28 | PC.NURSE ---
gave pt ice chips
== END 2024-07-20 17:02 | disposition home or self-care (01) ==
PROVIDERS: Nurse Practitioner Family; Emergency Provider Student in an Organized Health Care Education/Training Program; PCP Family Medicine
DX: R11.2 Nausea with vomiting, unspecified (principal); R19.7 Diarrhea, unspecified; R10.9 Unspecified abdominal pain; Z87.891 Personal history of nicotine dependence
CPT/HCPCS: 36415; 74177; 80053; 81003; 83690; 85025; 96361; 96372; 96374; 96375; 99285; J0500; J2405; Q9967

== ENCOUNTER 2024-09-16 13:03 | Outpatient (RCR) | payer MEDICAID, SELFPAY | END 2024-10-06 15:02 | disposition home or self-care (01) | LOC: PT 13:03 | PROVIDERS: PCP Family Medicine; Visit Provider Family Medicine | DX: M54.50 Low back pain, unspecified (principal); G89.29 Other chronic pain | CPT/HCPCS: 97113; 97162 ==

== ENCOUNTER 2024-10-07 09:54 | Outpatient (RCR) | payer MEDICAID, SELFPAY | END 2024-10-24 07:22 | disposition home or self-care (01) | LOC: PT 09:54 | PROVIDERS: PCP Family Medicine; Visit Provider Family Medicine | DX: M54.50 Low back pain, unspecified (principal); G89.29 Other chronic pain | CPT/HCPCS: 97113 ==

== ENCOUNTER 2024-10-22 12:44 | Outpatient (OUT) | payer MEDICAID, SELFPAY ==
--- NOTE | 2024-10-22 13:14 | P.CN_ITS ---
Consult Note: HPI Data of Consult Patient: known to practice within the last 3 years Requesting Physician: Estefany Tapia NP Primary Care Provider: LARS DAVIS Consult Narrative Reason for consult: f/u Narrative: Mayra Coates a pleasant 54 year old female presents for evaluation and management of chronic neck, low back and bilateral hip pain. Today pain 7/10 painful numb in low back and left leg, with numbness and tingling of LLE. Neck pain worse with all activity, improved with rest. Patient continues to find mild benefit from medication regimen without side effects. bilateral L5-S1 TFESI provided >80% improvement for 3 months, pain has returned to baseline at this time. Previous lumbar CT consistent with degenerative changes and lumbar stenosis. cc:: CC: Estefany Tapia NP Review of Systems ROS Status of ROS 10 or more systems reviewed and unremark able except as noted in history and below Musculoskeletal Reports: back pain, neck pain, extremity pain and joint pain PFSH PFSH Medical History (Updated 10/22/24 @ 13:16 by Estefany Tapia NP) Osteoarthritis ?M19.90 - Unspecified osteoarthritis, unspecified site (ICD-10) Low back pain ?M54.50 - Low back pain, unspecified (ICD-10) Neck pain ?M54.2 - Cervicalgia (ICD-10) Acid reflux ?K21.9 - Gastro-esophageal reflux disease without esophagitis (ICD-10) Obesity ?E66.9 - Obesity, unspecified (ICD-10) Hypothyroid ?E03.9 - Hypothyroidism, unspecified (ICD-10) Diabetes ?E11.9 - Type 2 diabetes mellitus without complications (ICD-10) Smoker ?F17.200 - Nicotine dependence, unspecified, uncomplicated (ICD-10) Hypertension ?I10 - Essential (primary) hypertension (ICD-10) Surgical History History of cholecystectomy ?Z90.49 - Acquired absence of other specified parts of digestive tract (ICD- 10) H/O: 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 ?Z90.710 - Acquired absence of both cervix and uterus (ICD-10) Social History Smoking status: Former smoker Little interest or pleasure in doing things: not at all Feeling down, depressed, or hopeless: not at all Meds Home Medications and Allergies Home Medications ?Medication ?Instructions ?Recorded ?Confirmed ?Type atorvastatin 10 mg tablet 10 mg PO DAILY 05/22/23 07/06/24 History cholecalciferol (vitamin D3) 50 50 mcg PO DAILY 05/22/23 07/06/24 History mcg (2,000 unit) capsule dulaglutide 3 mg/0.5 mL 3 mg subcut QWEEK 05/22/23 07/06/24 History subcutaneous pen injector (Trulicity) levothyroxine 50 mcg tablet 50 mcg PO DAILY 05/22/23 07/06/24 History lisinopril 2.5 mg tablet 2.5 mg PO DAILY 05/22/23 07/06/24 History nabumetone 500 mg tablet 500 mg PO BID 05/22/23 07/06/24 History tizanidine 4 mg capsule 4 mg PO Q8H PRN back pain 05/22/23 07/06/24 History trazodone 50 mg tablet 50 mg PO DAILY PRN sleep 05/22/23 07/06/24 History gabapentin 600 mg tablet 600 mg PO TID 10/29/23 07/06/24 History duloxetine 30 mg capsule,delayed 30 mg PO BID 01/25/24 07/06/24 History release ropinirole 0.5 mg tablet 0.5 mg PO DAILY 01/25/24 07/06/24 History dicyclomine 10 mg capsule 10 mg PO TID PRN abdominal pain 07/20/24 Rx #12 caps ondansetron 4 mg disintegrating 4 mg PO Q8H PRN nausea and 07/20/24 Rx tablet vomiting 4 days #12 tabs Allergies Allergy/AdvReac Type Severity Reaction Status Date / Time propylthiouracil Allergy Severe Hives Verified 07/20/24 11:52 Exam Constitutional Documenting provider has reviewed patient's vital signs: yes Common normals: no apparent distress, oriented x3, healthy appearing, alert and well nourished General appearance: cooperative Nutritional appearance: obese HENMT Common normals: normocephalic, hearing grossly normal bilaterally and moist oral mucous membranes Head and scalp: normocephalic Eye Common normals: PERRL Pupil: PERRL Neck & C-Spine Common normals: full ROM General: normal visual inspection Cervical spine: pain with cervical ROM and cervical spine tenderness Other: intermittent numbness tingling weakness of BUE sensation intact BUE strength 5/5 in BUE negative spurlings Chest Common normals: inspection of chest normal Respiratory Common normals: normal respiratory effort, no retractions and no use of accessory muscles Cardio Common normals: regular rate, regular rhythm, S1 normal heart sound and S2 normal heart sound GI Common normals: Normal to inspection, nondistended, normoactive bowel sounds present, soft to palpation and non-tender Back & Pelvis Thoracic spine/upper back: normal to inspection, ROM limited and pain with ROM Lumbar spine/lower back: normal to inspection, ROM limited, pain with ROM, straight leg raise positive right and straight leg raise positive left Sacroiliac joints: SI joint(s) abnormal Other: diffuse myofascial pain all over decreased sensation bilateral L5/S1 strength 4/5 in BLE positive facet loading Extremity Common normals: normal to inspection and full ROM Neuro Common normals: oriented x3, CN's II-XII intact bilaterally, moves all extremities, no focal motor deficits, no sensory deficits noted and deep tendon reflexes 2+ bilaterally Sensorium/orientation: alert Motor exam: no movement abnormalities noted Psych Common normals: mental status grossly normal, thought process normal, cooperative, affect normal, speech normal and activity/motor behavior normal Appearance: grossly normal Speech: normal speech Thought process: normal thought process Results Additional Findings Additional findings: If on a controlled substance or opioids, I have checked an [place] report on this patient and there are no aberrancies noted in the prescribing history.??If on a controlled substance or opioid a drug screen was completed and reviewed within the last year, and if there has not been a drug screen completed we ordered one today to monitor higher risk, state monitored pain medication use. As part of providing excellent, safe, comprehensive care, the following was completed at our patient's visit: 1. A medication reconciliation and review to ensure accurate knowledge of current/active medications, including asking our patients to inform us about any [id number] medications or herbal remedies/nutritional supplements/alternative remedies. 2. A review to specifically ensure our patients have had annual screening for screening for depression, screening for tobacco use, and screening for unhealthy alcohol use. For concerning screenings had a discussion with the patient, provided patient education, and recommended follow-up with primary care provider when appropriate. If patient noted with a risk of falling, they received education on strength, gait, and balance training to prevent future risk of falling. Portions of this note may have been carried over from the previous visit and updated as appropriate. Please note this office utilizes paper charting in addition to the electronic medical record. A list of current medications, vitals, and PMH is available there as the clinical staff outside of myself do not have access to [facility] charting during the clinic day operations. As part of providing quality comprehensive care the current medications, vitals, and PMH were reviewed in the paper chart. Assessment and Plan Assessment and Plan (1) Lumbar radiculopathy: (2) Lumbar stenosis with neurogenic claudication: (3) Lumbar spondylosis: (4) Fibromyalgia: (5) Cervical spondylosis: (6) Cervical radiculopathy: (7) Sacroiliitis: (8) Osteoarthritis of hips, bilateral: Plan repeat bilateral L5-S1 TFESI under fluoroscopy update lumbar MRI without contrast to assess chronic low back pain, lumbar radiculopathy, lumbar stenosis with NC in consideration of NS consultation per pt request. prior imaging does not suggest she is a strong surgical candidate but it is worth updating as pt continues to have moderate to severe pain unresponsive to PT/HEP greater than 6 weeks, heat/ice and medications continue HEP as tolerated continue current medications f/u 2 weeks after repeat TFESI
== END 2024-10-22 12:45 | disposition home or self-care (01) ==
LOC: PM 12:45
PROVIDERS: PCP Family Medicine; Visit Provider Nurse Practitioner
DX: M54.16 Radiculopathy, lumbar region (principal); M48.062 Spinal stenosis, lumbar region with neurogenic claudication; M47.816 Spondylosis without myelopathy or radiculopathy, lumbar region; M79.7 Fibromyalgia; M47.812 Spondylosis without myelopathy or radiculopathy, cervical region; M54.12 Radiculopathy, cervical region; M46.1 Sacroiliitis, not elsewhere classified; M16.0 Bilateral primary osteoarthritis of hip
CPT/HCPCS: G0463

== ENCOUNTER 2024-11-04 09:57 | Outpatient (OUT) | payer MEDICAID, SELFPAY ==
--- NOTE | 2024-11-04 10:01 | MR_ITS ---
[address] [address] Patient Name: EZEQUIEL ZIMMERMAN MRN: [facility]:[id number] date: 1970 Sex: F Assigned Patient Location: MRI Current Patient Location: [facility] Accession/Order Number: [id number] Exam Date: 11/04/2024 10:16 Report Date: 11/04/2024 14:07 At the request of: TAMMIE NORMAN Procedure: MR lumbar spine wo con EXAM: MR lumbar spine wo con CLINICAL INDICATION: Lumbar Stenosis COMPARISON: CT abdomen/pelvis 07/20/2024. TECHNIQUE/PROTOCOL: Noncontrast lumbar spine MR protocol (Sagittal T1, T2, STIR and axial T1, T2 sequences). FINDINGS: Segmentation: Normal. Conus: Terminates at L1. Spinal Cord and Cauda Equina: Normal. Epidural Hematoma: None. Alignment: Normal. Marrow Signal: Mild focal marrow edema in the left L4-L5 facet. Modic type II changes at L5-S1. Vertebral Body Heights: Maintained. Sacroiliac Joints: Grossly normal given only partially visualized. Paraspinal Soft Tissues: Normal. Retroperitoneal Soft Tissues: No acute abnormalities. Spondylotic Changes: Mild multilevel spondylotic changes include varying degrees of intervertebral disc desiccation, osteophytic ridging, and facet/ligamentum flavum hypertrophy. T12-L1: No disc bulge or herniation. No high-grade spinal canal or foraminal narrowing. Mild bilateral facet hypertrophy. L1-L2: No disc bulge or herniation. No high-grade spinal canal or foraminal narrowing. Mild bilateral facet hypertrophy. L2-L3: No disc bulge or herniation. No high-grade spinal canal or foraminal narrowing. Mild bilateral facet/ligamentum flavum hypertrophy. L3-L4: No disc bulge or herniation. No high-grade spinal canal narrowing. Mild bilateral foraminal narrowing. Mild bilateral facet/ligamentum flavum hypertrophy. Trace right facet joint effusion. L4-L5: No disc bulge or herniation. No high-grade spinal canal or foraminal narrowing. Mild bilateral facet/ligamentum flavum hypertrophy. L5-S1: Left foraminal disc protrusion results in moderate left foraminal narrowing. No high-grade spinal canal or right foraminal narrowing. Mild bilateral facet/ligamentum flavum hypertrophy. MR/MR lumbar spine wo con IMPRESSION: 1. Mild multilevel spondylotic changes without high-grade spinal canal narrowing at any lumbar level. 2. Left foraminal disc protrusion at L5-S1 results in moderate left foraminal narrowing. 3. Mild focal marrow edema in the left L4-L5 facet could represent acute/active arthritis in the appropriate clinical setting. This can be a pain generator. Electronically authenticated by: ARMANDO DRAPER Date: 11/04/2024 14:07
== END 2024-11-04 09:58 | disposition home or self-care (01) ==
LOC: MRI 09:57
PROVIDERS: PCP Family Medicine; Visit Provider Nurse Practitioner
DX: M48.062 Spinal stenosis, lumbar region with neurogenic claudication (principal); M47.816 Spondylosis without myelopathy or radiculopathy, lumbar region; M51.26 Other intervertebral disc displacement, lumbar region
CPT/HCPCS: 72148

== ENCOUNTER 2024-11-09 09:25 | Day surgery (SDC) | payer MEDICAID, SELFPAY ==
[2024-11-09 09:50] LABS: Glucometer 153 mg/dL (74-106)
[2024-11-09 09:51] VITALS: BP 119/81; PULSE 97; TEMP 36.7; O2SAT 99
[2024-11-09 10:30] VITALS: BP 134/75; BP 139/79; PULSE 83; PULSE 92; O2SAT 93; O2SAT 94
[2024-11-09] MEDS: IOHEXOL 240 MG/ML - 10 ML VIAL 12 MG INJ (10:36)
[2024-11-09] MEDS: 0.9 % SODIUM CHLORIDE 10 ML SYRINGE - SALINE FLUSH INJ (10:36)
[2024-11-09] MEDS: LIDOCAINE HCL 2% 400 MG/20 ML MDV 3 ML INJ (10:36)
[2024-11-09] MEDS: BUPIVACAINE HCL 0.25% PF 25 MG/10 ML VIAL INJ (10:36)
--- NOTE | 2024-11-09 10:36 | W.PM.PROCNOT ---
Date of procedure: 11/09/24 Pre-op diagnosis: Pain due to lumbar stenosis with neurogenic claudication Post-op diagnosis: same as pre-op Procedure: Procedure: Bilateral L5-S1 transforaminal epidural steroid injection Medications: Bupivacaine 0.25% 2cc, lidocaine 2% 1cc, depomedrol 80mg The patient was seen and examined in the preoperative holding area.? Informed consent was obtained and placed on the chart.? Patient was brought to the medical procedure unit and placed in the prone position where a timeout was completed verifying the correct patient, procedure site, position, and planned special equipment using sterile aseptic technique.? Under direct fluoroscopic visualization a 25-gauge Quincke tipped spinal needle was advanced at level left L5-S1 to the designated neural foramen where contrast dye was injected to show adequate spread.? There was no evidence of vascular or adverse uptake.? Epidural spread was appreciated.? The above-mentioned injectate was then placed in a 1.5 mL aliquot preceded by negative aspiration.? The needle was removed. The same procedure, at the same level, was completed on the opposite side. ? Patient was taken to the postprocedural recovery area and monitored for an appropriate length of time before found suitable for discharge in the accompaniment of a responsible adult. Anesthesia: Local Surgeon: Vinay Crews Pathology: none sent Condition: stable Disposition: no change
[2024-11-09] MEDS: METHYLPREDNISOLONE ACETATE 80 MG/ML VIAL INJ (10:37)
--- NOTE | 2024-11-09 11:11 | PC.NURSE ---
Pt reported numbness to left leg post procedure. Pt was placed in wheelchair and allowed time for numbness to subside. Pt was then observed ambulating and stated that numbness has resolved. Pt discharged home.
== END 2024-11-09 11:11 | disposition home or self-care (01) ==
PROVIDERS: PCP Family Medicine; Visit Provider Anesthesiology
DX: M48.062 Spinal stenosis, lumbar region with neurogenic claudication (principal); E11.9 Type 2 diabetes mellitus without complications; Z79.85 Long-term (current) use of injectable non-insulin antidiabetic drugs
CPT/HCPCS: 36415; 64483; 82948; J0665; J1010; Q9966

== ENCOUNTER 2024-11-18 13:16 | Outpatient (OUT) | payer MEDICAID, SELFPAY ==
--- NOTE | 2024-11-18 13:42 | PM.CN ---
Consult Note: HPI Data of Consult Patient: known to practice within the last 3 years Requesting Physician: Estefany Tapia NP Primary Care Provider: LARS DAVIS Consult Narrative Reason for consult: f/u Narrative: Mayra Coates a pleasant 54 year old female presents for evaluation and management of chronic neck, low back and bilateral hip pain. Today pain 0/10 with numbness in low back and left leg. Neck pain worse with all activity, improved with rest. Patient continues to find mild benefit from medication regimen without side effects. bilateral L5-S1 TFESI providing >80% improvement ongoing. pt has upcoming NS consult per pt request to discuss surgical options for long term care phlebotomist improvement. cc:: CC: Estefany Tapia NP Review of Systems ROS Status of ROS 10 or more systems reviewed and unremarkable except as noted in history and below [facility] Medical History (Updated 10/22/24 @ 13:16 by Estefany Tapia NP) Osteoarthritis ?M19.90 - Unspecified osteoarthritis, unspecified site (ICD-10) Low back pain ?M54.50 - Low back pain, unspecified (ICD-10) Neck pain ?M54.2 - Cervicalgia (ICD-10) Acid reflux ?K21.9 - Gastro-esophageal reflux disease without esophagitis (ICD-10) Obesity ?E66.9 - Obesity, unspecified (ICD-10) Hypothyroid ?E03.9 - Hypothyroidism, unspecified (ICD-10) Diabetes ?E11.9 - Type 2 diabetes mellitus without complications (ICD-10) Smoker ?F17.200 - Nicotine dependence, unspecified, uncomplicated (ICD-10) Hypertension ?I10 - Essential (primary) hypertension (ICD-10) Surgical History History of cholecystectomy ?Z90.49 - Acquired absence of other specified parts of digestive tract (ICD-10) H/O: 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 ?Z90.710 - Acquired absence of both cervix and uterus (ICD-10) Social History Smoking status: Former smoker Little interest or pleasure in doing things: not at all Feeling down, depressed, or hopeless: not at all Meds Home Medications and Allergies Home Medications ?Medication ?Instructions ?Recorded ?Confirmed ?Type atorvastatin 10 mg tablet 10 mg PO DAILY 05/22/23 11/09/24 History cholecalciferol (vitamin D3) 50 50 mcg PO DAILY 05/22/23 11/09/24 History mcg (2,000 unit) capsule dulaglutide 3 mg/0.5 mL 3 mg subcut QWEEK 05/22/23 11/09/24 History subcutaneous pen injector (Trulicity) levothyroxine 50 mcg tablet 50 mcg PO DAILY 05/22/23 11/09/24 History lisinopril 2.5 mg tablet 2.5 mg PO DAILY 05/22/23 11/09/24 History nabumetone 500 mg tablet 500 mg PO BID 05/22/23 11/09/24 History tizanidine 4 mg capsule 4 mg PO Q8H PRN back pain 05/22/23 11/09/24 History trazodone 50 mg tablet 50 mg PO DAILY PRN sleep 05/22/23 11/09/24 History gabapentin 600 mg tablet 600 mg PO TID 10/29/23 11/09/24 History duloxetine 30 mg capsule,delayed 30 mg PO BID 01/25/24 11/09/24 History release ropinirole 0.5 mg tablet 0.5 mg PO DAILY 01/25/24 11/09/24 History dicyclomine 10 mg capsule 10 mg PO TID PRN abdominal pain 07/20/24 11/09/24 Rx #12 caps ondansetron 4 mg disintegrating 4 mg PO Q8H PRN nausea and 07/20/24 11/09/24 Rx tablet vomiting 4 days #12 tabs tizanidine 4 mg capsule 4 mg PO .qhs PRN muscle spasticity 11/05/24 11/09/24 Rx #30 caps oxybutynin chloride 10 mg 10 mg PO DAILY 11/09/24 11/09/24 History tablet,extended release 24 hr Allergies Allergy/AdvReac Type Severity Reaction Status Date / Time propylthiouracil Allergy Severe Hives Verified 11/09/24 09:53 Exam Constitutional Documenting provider has reviewed patient's vital signs: yes Common normals: no apparent distress, oriented x3, healthy appearing, alert and well nourished General appearance: cooperative Nutritional appearance: obese HENMT Common normals: normocephalic, hearing grossly normal bilaterally and moist oral mucous membranes Head and scalp: normocephalic Eye Common normals: PERRL Pupil: PERRL Neck & C-Spine Common normals: full ROM General: normal visual inspection Chest Common normals: inspection of chest normal Respiratory Common normals: normal respiratory effort, no retractions and no use of accessory muscles Cardio Common normals: regular rate, regular rhythm, S1 normal heart sound and S2 normal heart sound GI Common normals: Normal to inspection, nondistended, normoactive bowel sounds present, soft to palpation and non-tender Back & Pelvis Thoracic spine/upper back: normal to inspection Lumbar spine/lower back: normal to inspection and straight leg raise negative bilaterally Sacroiliac joints: SI joints normal Other: sensation intact BLE strength 5/5 in BLE Extremity Common normals: normal to inspection and full ROM Neuro Common normals: oriented x3, CN's II-XII intact bilaterally, moves all extremities, no focal motor deficits, no sensory deficits noted and deep tendon reflexes 2+ bilaterally Sensorium/orientation: alert Motor exam: no movement abnormalities noted Psych Common normals: mental status grossly normal, thought process normal, cooperative, affect normal, speech normal and activity/motor behavior normal Appearance: grossly normal Speech: normal speech Thought process: normal thought process Results Additional Findings Additional findings: If on a controlled substance or opioids, I have checked an [place] report on this patient and there are no aberrancies noted in the prescribing history.??If on a controlled substance or opioid a drug screen was completed and reviewed within the last year, and if there has not been a drug screen completed we ordered one today to monitor higher risk, state monitored pain medication use. As part of providing excellent, safe, comprehensive care, the following was completed at our patient's visit: 1. A medication reconciliation and review to ensure accurate knowledge of current/active medications, including asking our patients to inform us about any [id number] medications or herbal remedies/nutritional supplements/alternative remedies. 2. A review to specifically ensure our patients have had annual screening for screening for depression, screening for tobacco use, and screening for unhealthy alcohol use. For concerning screenings had a discussion with the patient, provided patient education, and recommended follow-up with primary care provider when appropriate. If patient noted with a risk of falling, they received education on strength, gait, and balance training to prevent future risk of falling. Portions of this note may have been carried over from the previous visit and updated as appropriate. Please note this office utilizes paper charting in addition to the electronic medical record. A list of current medications, vitals, and PMH is available there as the clinical staff outside of myself do not have access to [facility] charting during the clinic day operations. As part of providing quality comprehensive care the current medications, vitals, and PMH were reviewed in the paper chart. Assessment and Plan Assessment and Plan (1) Lumbar radiculopathy: Assessment and Plan: >50% improvement from bilateral L5/S1 TFESI (2) Lumbar stenosis with neurogenic claudication: (3) Lumbar spondylosis: (4) Fibromyalgia: (5) Sacroiliitis: Plan continue HEP as tolerated okay to continue aquatherapy increase tizanidine 4mg BID PRN continue duloxetine 60mg AM and 30mg HS f/u 3 months sooner if needed
== END 2024-11-18 13:17 | disposition home or self-care (01) ==
PROVIDERS: PCP Family Medicine; Visit Provider Nurse Practitioner
DX: M54.16 Radiculopathy, lumbar region (principal); M48.062 Spinal stenosis, lumbar region with neurogenic claudication; M47.816 Spondylosis without myelopathy or radiculopathy, lumbar region; M79.7 Fibromyalgia; M46.1 Sacroiliitis, not elsewhere classified
CPT/HCPCS: G0463

== ENCOUNTER 2024-12-10 13:45 | Outpatient (OUT) | payer MEDICAID, SELFPAY ==
--- OUTSIDE RECORDS SUMMARY | 2024-12-10 13:51 | XMS_ITS | CCD ---
Author Organization [facility] Care Team Providers Care Foreign Law Consultant Name Role Phone LEXIECALEBNT Unavailable Unavailable MICHELLE CHOW Unavailable Unavailable Joshua Fraser Unavailable Unavailable Josuha Fraser Unavailable Unavailable None, No PCP Unavailable Unavailable Ezekiel Devi Unavailable Unavailable Joshua Fraser Unavailable Unavailalireza Coyle NP-C Brendan Vivar Attending Provider MD Zehra Marques Primary Care Provider [phone] Brendan Coyle Admitting Unavailable Brendan Coyle Attending Unavailable Zehra Marques Primary Care Unavailable SHELLI, DR SOUSA Admitting Unavailable SHELLI, DR SOUSA Attending Unavailable SHELLI, DR SOUSA Primary Care Unavailable SHELLI, DR SOUSA Consulting Unavailable DAPHNEY RODRIGUEZ Admitting Unavailable DAPHNEY RODRIGUEZ Attending Unavailable SHELLI, DR SOUSA Primary Care Unavailable DAPHNEY RODRIGUEZ Admitting Unavailable DAPHNEY RODRIGUEZ Attending Unavailable SHELLI, DR SOUAS Primary Care Unavailable BRENDAN COYLE Admitting Unavailable BRENDAN COYLE Attending Unavailable SHELLI, DR SOUSA Primary Care Unavailable SHELLI, DR SOUSA Consulting Unavailable YEIMI ., MR JAMAAL Admitting Unavailable YEIMI ., MR HINTON Attending Unavailable SHELLI, DR SOUSA Primary Care Unavailable YEIMI ., MR JAMAAL Consulting Unavailable Shelli KAPADIA, Zehra Andino Primary Care Provider [phone] Zehra Marques MD Unavailable Mars KAPADIA, Vinay Hyman Attending Unavailable Mars KAPADIA, Andkhushboo Hyman Attending Unavailable Mars KAPADIA, Vinay Hyman Attending Unavailable Mars KAPADIA, Vinay Hyman Attending Unavailable Mars KAPADIA, Vinay Hyman Attending Unavailable DANNI CARDENAS Referring Unavailable DANNI CARDENAS Referring Unavailable DANNI CARDENAS Attending Unavailable Allergies Allergy Classification Reported Allergen(s) Allergy Type Date of Onset Reaction(s) Facility (9 sources) Pregabalin; Translations: [PREGABALIN] Propensity to adverse reactions 3 Shortness of breath [facility] Work Phone: (9 sources) Propylthiouraci l; Translations: [PROPYLTHIOURAC [place]] Drug Allergy 5 Hives [facility] Work Phone: (9 sources) thyroid (INTERMEDIATE); Translations: [THYROID] Drug Allergy 3 [facility] Healthcare (1 source) ALLERGIES NOT ON FILE; Translations: [ALLERGIES NOT ON FILE] Propensity to adverse reactions (disorder) [facility] Medications Current Medications Medication Drug Class(es) Dates Sig (Normalized) Sig (Original) allopurinol 300 mg oral tablet (10 sources) Xanthine Oxidase Inhibitor Start: 06-10-2024 End: 09-10-2024 take 1 tablet by mouth in the morning allopurinol (Zyloprim) 300 MG tablet Indications: Hyperuricemia without signs of inflammatory arthritis and tophaceous disease Take 1 tablet (300 mg) by mouth in the morning. 90 tablet 3 09/10/2024 Active atorvastatin 10 mg oral tablet (10 sources) HMG-CoA Reductase Inhibitor Start: 09-10-2024 End: 09-10-2025 take 2 tablets by mouth once daily atorvastatin (Lipitor) 10 MG tablet Indications: Type 2 diabetes mellitus with diabetic chronic kidney disease (CMS/HCC) Take 2 tablets (20 mg) by mouth Daily 90 tablet 3 09/10/2024 09/10/2025 Active Start: 07-30-2023 End: 09-10-2024 take 1 tablet by mouth once daily atorvastatin (Lipitor) 10 MG tablet Indications: Type 2 diabetes mellitus with diabetic chronic kidney disease (CMS/HCC) TAKE 1 TABLET BY MOUTH EVERY DAY FOR 90 DAYS 90 tablet 3 07/30/2023 09/10/2024 Discontinued (Reorder) cholecalciferol 0.05 mg oral capsule (8 sources) Vitamin D Start: 10-01-2023 take 1 capsule by mouth once daily cholecalciferol (Vitamin D-3) 50 MCG (1999) capsule Indications: Vitamin D deficiency TAKE 1 CAPSULE BY MOUTH EVERY DAY FOR 30 DAYS 90 capsule 3 10/01/2023 Active dicyclomine hydrochloride 10 mg oral capsule (7 sources) Anticholinergic Start: 07-20-2024 take 1 capsule by mouth three times daily as needed for pain dicyclomine (Bentyl) 10 MG capsule TAKE 1 CAPSULE BY MOUTH 3 TIMES A DAY NEEDED FOR ABDOMINAL PAIN 07/20/2024 Active Dulaglutide (Trulicity) 3 MG/0.5ML solution auto-injector (6 sources) Start: 09-10-2024 End: 09-10-2025 Dulaglutide (Trulicity) 3 MG/0.5ML solution auto-injector Indications: Type 2 diabetes mellitus with chronic kidney disease, without long-term current use of insulin, unspecified CKD stage (CMS/HCC) Inject 3 mg as directed every 7 (seven) days 3 mL 3 09/10/2024 09/10/2025 Active DULoxetine 30 mg delayed release oral capsule (10 sources) Serotonin and Norepinephrine Reuptake Inhibitor Start: 09-10-2024 take 2 capsules by mouth in the morning DULoxetine (Cymbalta) [address] capsule Indications: Paresthesia of skin , Neuropathy Take 2 capsules (60 mg) by mouth in the morning and 2 capsules (60 mg) before bedtime. Do not crush or chew.. 09/10/2024 Active Start: 01-21-2024 End: 09-10-2024 take 1 capsule by mouth at bedtime DULoxetine (Cymbalta) [address] capsule Indications: Paresthesia of skin , Neuropathy TAKE 1 CAPSULE BY MOUTH IN THE MORNING AND BEFORE BEDTIME 180 capsule 01/21/2024 09/10/2024 Discontinued (Reorder) 12 hr guaiFENesin 1200 mg extended release oral tablet (8 sources) Start: 05-18-2024 take 1 tablet by mouth every twelve hours in the morning guaiFENesin ER 1200 MG 12 hour tablet Indications: Fibromyalgia TAKE 1 TAB BY MOUTH IN MORNING AND 1 TAB BEFORE BEDTIME.DO NOT CRUSH,CHEW,OR SPLIT. 28 tablet 11 05/18/2024 Active levothyroxine sodium 0.05 mg oral tablet (10 sources) l-Thyroxine Start: 03-30-2024 End: 09-10-2025 take 1 tablet by mouth before mealtime levothyroxine (Synthroid, Levoxyl) 50 MCG tablet Indications: Other specified hypothyroidism (CMS/HCC) Take 1 tablet (50 mcg) by mouth in the morning. Take before meals. 90 tablet 3 09/10/2024 09/10/2025 Active lisinopril 2.5 mg oral tablet (9 sources) Angiotensin Converting Enzyme Inhibitor Start: 07-30-2023 End: 07-02-2024 take 1 tablet by mouth once daily lisinopril 2.5 MG tablet Indications: Type 2 diabetes mellitus with diabetic chronic kidney disease (CMS/HCC) TAKE 1 TABLET BY MOUTH EVERY DAY 90 tablet 11 07/02/2024 Active nabumetone 500 mg oral tablet (1 source) Nonsteroidal Anti-inflammatory Drug Start: 07-04-2023 End: 07-03-2024 take 1 tablet by mouth in the morning nabumetone (Relafen) 500 MG tablet Indications: Neuropathy Take 1 tablet (500 mg) by mouth in the morning and 1 tablet (500 mg) before bedtime. 180 tablet 3 07/04/2023 07/03/2024 Active ondansetron 4 mg disintegrating oral tablet (7 sources) Serotonin-3 Receptor Antagonist Start: 07-20-2024 ondansetron ODT (Zofran-ODT) 4 MG disintegrating tablet DISSOLVE 1 TABLET EVERY 8 HOURS NEEDED FOR NASUEA AND VOMITING FOR 4 DAYS 07/20/2024 Active 24 hr oxybutynin chloride 10 mg extended release oral tablet (3 sources) Cholinergic Muscarinic Antagonist Start: 09-14-2024 End: 09-14-2025 take 1 tablet by mouth once daily oxybutynin XL (Ditropan-XL) 10 MG 24 hr tablet Indications: Urine, incontinence, stress female Take 1 tablet (10 mg) by mouth Daily 90 tablet 3 09/14/2024 09/14/2025 Active rOPINIRole 0.5 mg oral tablet (10 sources) Nonergot Dopamine Agonist Start: 01-09-2024 End: 09-10-2024 take 1 tablet by mouth at bedtime rOPINIRole (Requip) 0.5 MG tablet Indications: Fibromyalgia , Restless legs syndrome (RLS) Take 1 tablet (0.5 mg) by mouth at bedtime 90 tablet 3 09/10/2024 Active tiZANidine 4 mg oral tablet (8 sources) Central alpha-2 Adrenergic Agonist Start: 09-27-2022 tiZANidine (Zanaflex) 4 MG tablet every 8 (eight) hours. 09/27/2022 Active 24 hr tolterodine tartrate 4 mg extended release oral capsule (1 source) Cholinergic Muscarinic Antagonist Start: 09-11-2024 End: 09-14-2024 take 1 capsule by mouth once daily tolterodine LA (Detrol LA) 4 MG 24 hr capsule Indications: Urine, incontinence, stress female Take 1 capsule (4 mg) by mouth Daily Do not crush, chew, or split. 30 capsule 11 09/11/2024 09/14/2024 Discontinued traZODone hydrochloride 50 mg oral tablet (10 sources) Serotonin Reuptake Inhibitor Start: 03-30-2024 End: 09-10-2024 traZODone (Desyrel) 50 MG tablet Indications: Other insomnia Take 1 tablet (50 mg) by mouth as needed at bedtime for sleep 90 tablet 3 09/10/2024 Active Completed/Discontinued Medications Medication Drug Class(es) Dates Sig (Normalized) Sig (Original) diclofenac sodium 75 mg delayed release oral tablet (1 source) Nonsteroidal Anti-inflammatory Drug Start: 03-26-2020 take 1 tablet by mouth twice daily Diclofenac Sodium 75 MG Oral Tablet Delayed Release Take 1 tablet twice daily Quantity: 60 Refills: 1 Ezekiel Devi MD Start : 26-Mar-2020 Active dulaglutide (Trulicity) 3 MG/0.5ML solution pen-injector (4 sources) Start: 06-10-2024 End: 09-10-2024 inject 3 mg by subcutaneous injection every week dulaglutide (Trulicity) 3 MG/0.5ML solution pen-injector Indications: Type 2 diabetes mellitus with chronic kidney disease, without long-term current use of insulin, unspecified CKD stage (CMS/HCC) INJECT 3 MG SUBCUTANEOUSLY ONCE WEEKLY 3 mL 06/10/2024 09/10/2024 Discontinued (Reorder) Start: 06-10-2024 End: 06-10-2025 inject 3 mg by subcutaneous injection every week dulaglutide (Trulicity) 3 MG/0.5ML solution pen-injector Indications: Type 2 diabetes mellitus with chronic kidney disease, without long-term current use of insulin, unspecified CKD stage (CMS/HCC) INJECT 3 MG SUBCUTANEOUSLY ONCE WEEKLY 3 mL 06/10/2024 06/10/2025 Active gabapentin 600 mg oral tablet (4 sources) Anti-epileptic Agent Start: 05-30-2023 End: 09-10-2024 take 1 tablet by mouth in the morning, then take 1 tablet by mouth in the evening, then take 1 tablet by mouth at bedtime gabapentin (Neurontin) 600 MG tablet Indications: Fibromyalgia Take 1 tablet (600 mg) by mouth in the morning and 1 tablet (600 mg) in the evening and 1 tablet (600 mg) before bedtime. 270 tablet 3 05/30/2023 09/10/2024 Discontinued (Therapy completed) meloxicam 15 mg oral tablet (3 sources) Nonsteroidal Anti-inflammatory Drug Start: 11-29-2018 take 1 tablet by mouth once daily Meloxicam 15 MG Oral Tablet TAKE 1 TABLET BY MOUTH EVERY DAY Quantity: 60 Refills: 2 Joshua Fraser DO Start : 29-Nov-2018 Active metFORMIN hydrochloride 500 mg oral tablet (4 sources) Biguanide Start: 12-22-2023 End: 09-10-2024 take 1 tablet by mouth twice daily at mealtime metFORMIN (Glucophage) 500 MG tablet Indications: Type 2 diabetes mellitus with diabetic chronic kidney disease (CMS/HCC) TAKE 1 TABLET BY MOUTH TWICE A DAY WITH A MEAL FOR 30 DAYS 180 tablet 3 12/22/2023 09/10/2024 Discontinued (Therapy completed) methIMAzole 10 mg oral tablet (1 source) [...] source) Tachycardia; Translations: [Increased heart rate] Episodic Diabetes mellitus with complications (14 sources) Chronic kidney disease due to type 2 diabetes mellitus; Translations: [Type 2 diabetes mellitus with diabetic chronic kidney disease] Onset: 04-22-2023 04-22-2023 Chronic Disorders of lipid metabolism (1 source) Dyslipidemia; Translations: [Dyslipidemia] Chronic Genitourinary symptoms and ill-defined conditions (1 source) Female stress incontinence; Translations: [Stress incontinence (female) (male)] 09-14-2024 Chronic Genitourinary symptoms and ill-defined conditions (3 sources) Increased frequency of urination; Translations: [Frequency of micturition] 09-10-2024 Episodic Noninfectious gastroenteritis (1 source) Acute gastroenteritis; Translations: [AGE (acute gastroenteritis)] Episodic Nutritional deficiencies (8 sources) Vitamin D deficiency; Translations: [Vitamin D deficiency, unspecified] Onset: 05-13-2023 05-13-2023 Chronic Other circulatory disease (8 sources) Raynaud's disease; Translations: [Raynaud's syndrome without gangrene] Onset: 04-22-2023 04-22-2023 Chronic Other connective tissue disease (3 sources) Lateral epicondylitis; Translations: [Tennis elbow] Episodic Other connective tissue disease (1 source) Pain in right arm; Translations: [Pain in right arm] Onset: 11-26-2022 Episodic Other connective tissue disease (2 sources) Fibromyalgia; Translations: [Fibromyalgia] 09-10-2024 Episodic Other gastrointestinal disorders (1 source) Diarrhea; Translations: [Diarrhea] Episodic Other hereditary and degenerative nervous system conditions (8 sources) Finding of scapular structure; Translations: [Other specified extrapyramidal and movement disorders] Onset: 04-22-2023 04-22-2023 Chronic Other hereditary and degenerative nervous system conditions (2 sources) Restless legs; Translations: [Restless legs syndrome] 09-10-2024 Chronic Other nervous system disorders (10 sources) Neuropathy; Translations: [Polyneuropathy, unspecified] Onset: 04-22-2023 04-22-2023 Chronic Other nervous system disorders (8 sources) Chronic pain; Translations: [Other chronic pain] Onset: 04-22-2023 04-22-2023 Chronic Other nervous system disorders (5 sources) Paresthesia [...] Simple obesity ; 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] Chronic Other nutritional; endocrine; and metabolic disorders (2 sources) Hyperuricemia without signs of inflammatory arthritis and tophaceous disease; Translations: [Hyperuricemia without signs of inflammatory arthritis and tophaceous disease] 09-10-2024 Episodic Other screening for suspected conditions (not mental disorders or infectious disease) (2 sources) Patient encounter status; Translations: [Encounter for screening mammogram for malignant neoplasm of breast] 09-10-2024 Episodic Peripheral and visceral atherosclerosis (12 sources) Peripheral vascular disease, unspecified; Translations: [Intermittent claudication] Onset: 01-31-2023 Chronic Residual codes; unclassified (10 sources) Insomnia; Translations: [Other insomnia] Onset: 04-22-2023 04-22-2023 Chronic Spondylosis; intervertebral disc disorders; other back problems (2 sources) Other spondylosis with radiculopathy, lumbar region; Translations: [Other spondylosis with radiculopathy, lumbar region] Onset: 11-19-2024 Chronic Spondylosis; intervertebral disc disorders; other back problems (5 sources) Radiculopathy, lumbosacral region; Translations: [Chronic low back pain] Onset: 11-19-2022 09-10-2024 Episodic Thyroid disorders (20 sources) Thyrotoxicosis, unspecified without thyrotoxic crisis or storm; Translations: [Hyperthyroidism] Onset: 09-03-2015 04-22-2023 Chronic Unclassified (6 sources) Patient on antidepressant monitoring plan Onset: 09-10-2024 09-10-2024 Unclassified (6 sources) Baseline PHQ-9 Onset: 09-10-2024 09-10-2024 Past or Other Problems Problem Classification Problem Date Documented Da te Episodic/Chronic Other connective tissue disease (4 sources) Pain in right arm; Translations: [PAIN IN RIGHT ARM] Onset: 11-19-2022 Episodic Other connective tissue disease (1 source) Pain in left arm; Translations: [PAIN IN LEFT ARM] Onset: 11-19-2022 Episodic Other nervous system disorders (10 sources) Paresthesia; Translations: [Paresthesia of skin] Onset: 04-22-2023 04-22-2023 Episodic Residual codes; unclassified (10 sources) History of 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 for benign disease; Translations: [Acquired absence of both cervix and uterus] Onset: 04-22-2023 04-22-2023 Episodic NEGATED: Highlighted row has not occurred!Residual codes; unclassified (3 sources) Disease Episodic Results Test Name Value Interpretation Reference Range Facility 36on 11-24-2024 36 Spoke with patient. Advised that I had reviewed her imaging with Dr. Marshall. She does have some degenerative changes and some left foraminal stenosis. He would not recommend OR at this time. Suggest following up with pain management to discuss other options, poss SCS. Has done aquatic therapy in past with improvement, though not sure she has visits left. Also considering massage or healthcare risk control consultant, both of which seem reasonable options. She is interested in normal order for massage therapy if possible. Advised that some physical therapists incorporate massage into physical therapy. I would be happy to mail her an order and she can take it locally to whichever provider is in network with her insurance. Verbalizes understanding. We did discuss that while she does have degenerative changes in her spine, surgery is not indicated for degenerative changes alone as it is not likely to be beneficial. Advised that we will all have degenerative changes in her spine over a period of time. We will plan to follow-up with her as needed. [facility] Telephoneon 11-24-2024 Telephone [id number] Mayra Coates 1970 F Date Provider Department Center 11/24/2024 DANNI HUNTER [facility] SURG None No family history on file [facility] Consulton 11-19-2024 Consult [id number] Mayra Coates 1970 F Date Provider Department Center 11/19/2024 DANNI HUNTER [facility] SURG [place] No family history on file Level of Service:96671 [place] OFFICE/OUTPATIENT NEW MODERATE MDM 45 MINUTES Reason for Visit and Comments: Consult [484] - Patient is here today for a consult for lumbar stenosis [facility] 36on 11-13-2024 36 Attempted to call pt to schedule consult with either Danni Cardenas CNP or Dr. Marshall for Lumbar Stenosis. No answer. Phone rang, then stopped. No VM. [facility] [place] [address] Magnetic Resonance Report Signed Patient: MAYRA COATES MR#: [id number] : 1970 Acct:[id number] Age/Sex: 54 / F ADM Date: 11/04/24 Loc: MRI Attending Dr: Tammie Tapia NP Ordering Physician: Tammie Tapia NP Date of Service: 11/04/24 Procedure(s): MR lumbar spine wo con Accession Number(s): [id number] cc: ZEHRA MARQUES ; Tammie Tapia NP [place] [id number] Patient Name: MAYRA COATES MRN: [facility]:[id number] date: 1970 Sex: F Assigned Patient Location: [facility] Accession/Order Number: [id number] Exam Date: 11/04/2024 10:16 Report Date: 11/04/2024 14:07 At the request of: TAMMIE TAPIA Procedure: MR lumbar spine wo con EXAM: MR lumbar spine wo con CLINICAL INDICATION: Lumbar Stenosis COMPARISON: CT abdomen/pelvis 07/20/2024. TECHNIQUE/PROTOCOL: Noncontrast lumbar spine MR protocol (Sagittal T1, T2, STIR and axial T1, T2 sequences). FINDINGS: Segmentation: Normal. Conus: Terminates at L1. Spinal Cord and Cauda Equina: Normal. Epidural Hematoma: None. Alignment: Normal. Marrow Signal: Mild focal marrow edema in the left L4-L5 facet. Modic type II changes at L5-S1. Vertebral Body Heights: Maintained. Sacroiliac Joints: Grossly normal given only partially visualized. Paraspinal Soft Tissues: Normal. Retroperitoneal Soft Tissues: No acute abnormalities. Spondylotic Changes: Mild multilevel spondylotic changes include varying degrees of intervertebral disc desiccation, osteophytic ridging, and facet/ligamentum flavum hypertrophy. T12-L1: No disc bulge or herniation. No high-grade spinal canal or foraminal narrowing. Mild bilateral facet hypertrophy. L1-L2: No disc bulge or herniation. No high-grade spinal canal or foraminal narrowing. Mild bilateral facet hypertrophy. L2-L3: No disc bulge or herniation. No high-grade spinal canal or foraminal narrowing. Mild bilateral facet/ligamentum flavum hypertrophy. L3-L4: No disc bulge or herniation. No high-grade spinal canal narrowing. Mild bilateral foraminal narrowing. Mild bilateral facet/ligamentum flavum hypertrophy. Trace right facet joint effusion. L4-L5: No disc bulge or herniation. No high-grade spinal canal or foraminal narrowing. Mild bilateral facet/ligamentum flavum hypertrophy. L5-S1: Left foraminal disc protrusion results in moderate left foraminal narrowing. No high-grade spinal canal or right foraminal narrowing. Mild bilateral facet/ligamentum flavum hypertrophy. MR/MR lumbar spine wo con IMPRESSION: 1. Mild multilevel spondylotic changes without high-grade spinal canal narrowing at any lumbar level. 2. Left foraminal disc protrusion at L5-S1 results in moderate left foraminal narrowing. 3. Mild focal marrow edema in the left L4-L5 facet could represent acute/active arthritis in the appropriate clinical setting. This can be a pain generator. Electronically authenticated by: ARMANDO DRAPER Date: 11/04/2024 14:07 Dictated By: Armando Draper M.D. Signed By: 11/04/24 1410 DD/ 1407 TD/TT: Opening Machine Cleaner: [facility] Radiology, Radiologi MD margie - 11/04/[address] [place] [address] Magnetic Resonance Report Signed Patient: MAYRA COATES MR#: [id number] : 1970 Acct:[id number] Age/Sex: 54 / F ADM Date: 11/04/24 Loc: MRI Attending Dr: Tammie Tapia NP Ordering Physician: Tammie Tapia NP Date of Service: 11/04/24 Procedure(s): MR lumbar spine wo con Accession Number(s): [id number] cc: ZEHRA MARQUES ; Tammie Tapia NP [address] [address] Patient Name: MAYRA COATES MRN: [id number] date: 1970 Sex: F Assigned Patient Location: MRI Current Patient Location: [facility] Accession/Order Number: [id number] Exam Date: 11/04/2024 10:16 Report Date: 11/04/2024 14:07 At the request of: TAMMIE TAPIA Procedure: MR lumbar spine wo con EXAM: MR lumbar spine wo con CLINICAL INDICATION: Lumbar Stenosis COMPARISON: CT abdomen/pelvis 07/20/2024. TECHNIQUE/PROTOCOL: Noncontrast lumbar spine MR protocol (Sagittal T1, T2, STIR and axial T1, T2 sequences). FINDINGS: Segmentation: Normal. Conus: Terminates at L1. Spinal Cord and Cauda Equina: Normal. Epidural Hematoma: None. Alignment: Normal. Marrow Signal: Mild focal marrow edema in the left L4-L5 facet. Modic type II changes at L5-S1. Vertebral Body Heights: Maintained. Sacroiliac Joints: Grossly normal given only partially visualized. Paraspinal Soft Tissues: Normal. Retroperitoneal Soft Tissues: No acute abnormalities. Spondylotic Changes: Mild multilevel spondylotic changes include varying degrees of intervertebral disc desiccation, osteophytic ridging, and facet/ligamentum flavum hypertrophy. T12-L1: No disc bulge or herniation. No high-grade spinal canal or foraminal narrowing. Mild bilateral facet hypertrophy. L1-L2: No disc bulge or herniation. No high-grade spinal canal or foraminal narrowing. Mild bilateral facet hypertrophy. L2-L3: No disc bulge or herniation. No high-grade spinal canal or foraminal narrowing. Mild bilateral facet/ligamentum flavum hypertrophy. L3-L4: No disc bulge or herniation. No high-grade spinal canal narrowing. Mild bilateral foraminal narrowing. Mild bilateral facet/ligamentum flavum hypertrophy. Trace right facet joint effusion. L4-L5: No disc bulge or herniation. No high-grade spinal canal or foraminal narrowing. Mild bilateral facet/ligamentum flavum hypertrophy. L5-S1: Left foraminal disc protrusion results in moderate left foraminal narrowing. No high-grade spinal canal or right foraminal narrowing. Mild bilateral facet/ligamentum flavum hypertrophy. MR/MR lumbar spine wo con IMPRESSION: 1. Mild multilevel spondylotic changes without high-grade spinal canal narrowing at any lumbar level. 2. Left foraminal disc protrusion at L5-S1 results in moderate left foraminal narrowing. 3. Mild focal marrow edema in the left L4-L5 facet could represent acute/active arthritis in the appropriate clinical setting. This can be a pain generator. Electronically authenticated by: ARMANDO DRAPER Date: 11/04/2024 14:07 Dictated By: Armando Draper M.D. Signed By: 11/04/24 1410 DD/ 1407 TD/TT: Opening Machine Cleaner: [facility] Radiology Study observation (narrative) [facility] MR LUMBAR SPINE WO CONOrdere d By: Radiologist Radiology on 11-04-2024 [facility] Work Phone: CBC W Auto Differential pane l (Bld)on 09-11-2024 Basophils (Bld) [#/Vol] 72 10*3/uL [facility] Basophils/100 WBC (Bld) 1.1 % [facility] Eosinophils (Bld) [#/Vol] 189 10*3/uL [facility] Eosinophils/100 WBC (Bld) 2.9 % [facility] Erythrocyte distribution width (RBC) [Ratio] 12.2 % 11.0 - 15.0 % [facility] Hematocrit (Bld) [Volume fraction] 45.7 % High 35.0 - 45.0 % [facility] Hemoglobin (Bld) [Mass/Vol] 15.3 g/dL 11.7 - 15.5 g/dL [facility] Lymphocytes (Bld) [#/Vol] 1736 10*3/uL [facility] Lymphocytes/100 WBC (Bld) 26.7 % [facility] MCH (RBC) [Entitic mass] 30.4 pg 27.0 - 33.0 pg [facility] MCHC (RBC) [Mass/Vol] 33.5 g/dL 32.0 - 36.0 g/dL [facility] Comment on above: For adults, a slight decrease in the calculated MCHC value (in the range of 30 to 32 g/dL) is most likely not clinically significant; however, it should be interpreted with caution in correlation with other red cell parameters and the patient's clinical condition. MCV (RBC) [Entitic vol] 90.7 fL 80.0 - 100.0 fL [facility] Monocytes (Bld) [#/Vol] 559 10*3/uL [facility] Monocytes/100 WBC (Bld) 8.6 % [facility] Neutrophils (Bld) [#/Vol] 3946 10*3/uL [facility] Neutrophils/100 WBC (Bld) 60.7 % [facility] Platelet mean volume (Bld) [Entitic vol] 10 fL 7.5 - 12.5 fL [facility] Platelets (Bld) [#/Vol] 296 10*3/uL [facility] RBC (Bld) [#/Vol] 5.04 10*6/uL [facility] WBC (Bld) [#/Vol] 6.5 10*3/uL [facility] Laboratory - Chemistry and C hemistry - challengeon 09-11-2024 Albumin [Mass/Vol] 4.2 g/dL 3.6 - 5.1 g/dL [facility] Albumin/Globulin [Mass ratio] 1.6 {ratio} [facility] ALP [Catalytic activity/Vol] 83 U/L 37 - 153 U/L [facility] ALT [Catalytic activity/Vol] 51 U/L High 6 - 29 U/L [facility] AST [Catalytic activity/Vol] 39 U/L High 10 - 35 U/L [facility] Bilirubin [Mass/Vol] 1.1 mg/dL 0.2 - 1.2 mg/dL [facility] Calcium [Mass/Vol] 9.8 mg/dL 8.6 - 10. 4 mg/dL [facility] Chloride [Moles/Vol] 102 mmol/L 98 - 110 mmol/L [facility] CO2 [Moles/Vol] 27 mmol/L 20 - 32 mmol/L [facility] Creatinine [Mass/Vol] 0.48 mg/dL Low 0.50 - 1.03 mg/dL [facility] Free T4 [Mass/Vol] 1.5 ng/dL 0.8 - 1.8 ng/dL [facility] GFR/1.73 sq M.predicted among non-blacks MDRD (S/P/Bld) [Vol rate/Area] 112 mL/min/{1.73_m2} > OR = 60 mL/min/1.73m2 [facility] Globulin (S) [Mass/Vol] 2.7 g/dL [facility] Glucose [Mass/Vol] 309 mg/dL High 65 - 99 mg/dL [facility] Comment on above: Fasting reference interval For someone without known diabetes, a glucose value >125 mg/dL indicates that they may have diabetes and this should be confirmed with a follow-up test. Potassium [Moles/Vol] 3.8 mmol/L 3.5 - 5.3 mmol/L [facility] Protein [Mass/Vol] 6.9 g/dL 6.1 - 8.1 g/dL [facility] Sodium [Moles/Vol] 138 mmol/L 135 - 146 mmol/L [facility] TSH Qn 0.01 m[IU]/L Low mIU/L [facility] Comment on above: Reference Range > or = 20 Years 0.40-4.50 Ranges First trimester 0.26-2.66 Second trimester 0.55-2.73 Third trimester 0.43-2.91 Urea nitrogen [Mass/Vol] 10 mg/dL 7 - 25 mg/dL [facility] Urea nitrogen/Creatinine [Mass ratio] 21 mg/mg [facility] Lipid 1996 panelon 4 Cholesterol [Mass/Vol] 105 mg/dL NINF - 200 mg/dL [facility] Cholesterol in HDL [Mass/Vol] 50 mg/dL > OR = 50 [facility] Cholesterol in LDL [Mass/Vol] 38 mg/dL mg/dL (calc) [facility] Comment on above: Reference range: <10 0 Desirable range <100 mg/dL for primary prevention; <70 mg/dL for patients with CHD or diabetic patients with > or = 2 CHD risk factors. LDL-C is now calculated using the Edgar-Shell calculation, which is a validated novel method providing better accuracy than the Friedewald equation in the estimation of LDL-C. Edgar SS et al. REBECCA. 2013;310(19): 6480-2759 (http://education.Flomio/faq/WQS348) Cholesterol non HDL [Mass/Vol] 55 mg/dL [facility] Comment on above: For patients with di abetes plus 1 major ASCVD risk factor, treating to a non-HDL-C goal of <100 mg/dL (LDL-C of <70 mg/dL) is considered a therapeutic option. Cholesterol.total/C holesterol in HDL [Mass ratio] 2.1 {ratio} [facility] Triglyceride [Mass/Vol] 86 mg/dL [facility] - 150 mg/dL [facility] Microalbumin/Creatinine rati o panel (U)on 09-11-2024 Albumin DL <= 20 mg/L (U) [Mass/Vol] 9.6 mg/dL See Note: [facility] Comment on above: Reference Range: Reference Range Not established Albumin/Creatinine (U) [Mass ratio] 50 High [facility] Comment on above: The ADA defines abnormalities in albumin excretion as follows: Albuminuria Category Result (mg/g creatinine) Normal to Mildly increased <30 Moderately increased 30-299 Severely increased > OR = 300 The ADA recommends that at least two of three specimens collected within a 3-6 month period be abnormal before considering a patient to be within a diagnostic category. Creatinine (U) [Mass/Vol] 191 mg/dL 20 - 275 mg/dL [facility] Interpretation and review of laboratory results Abnormal [facility] Performing Organizat ion Information Site ID: QPT Name: [facility] Address: [address] [place], [place] [id number] Director: Quang Welch MD Critical access hospital No Panel Informationon 09-11 Interpretation and review of laboratory results Abnormal [facility] Performing OrganCarolus Therapeuticsat ion Information Site ID: QPT Name: [facility] [employer] [facility] Address: [address] [place] [address], [address] [place] [address] Director: Quang Welch MD [facility] hospital HbA1c (Bld) [Mass fraction]o n 09-10-2024 Interpretation and review of laboratory results Abnormal [facility] Laboratory - Hematology and Cell countson 09-10-2024 HbA1c (Bld) [Mass fraction] 8.3 % [facility] Urinalysis macro (dipstick) panel (U)on 09-10-2024 Bilirubin, UA Negative Negative - 4(70) +++ mg/dL [facility] Blood, UA Negative Negative - 50 Guicho/mcL [facility] Clarity, UA Clear [facility] Color, UA Isha [facility] Glucose, UA Negative Negative - 2000(110) ++++ mg/dL [facility] Interpretation and review of laboratory results Normal [facility] Ketones, UA Negative Negative - 160(16) ++++ mg/dL [facility] Leukocytes, UA Negative Negative - 500+++ Cynthia/mcL [facility] Nitrite, UA Negative Negative - Positive [facility] pH, UA 5 5 - 9 [facility] Protein, UA Negative Negative - 2000(20) ++++ mg/dL [facility] Spec Grav, UA 1.02 1 - 1.03 [facility] Urobilinogen, UA 1.0 0.2 - 12 mg/dL Critical access hospital HLA B 27on 01-28-2023 HLA-B27 Negative Normal [facility] Comment on above: Result Comment: HLA- B*27 Negative B27 allele interpretation for all loci based on IMGT/HLA database version 3.44 This test was developed and its performance characteristics determined by [facility]. It has not been cleared or approved by the Food and Drug Administration. [facility] CLIA ID Number [id number] . This test was performed using PCR (Polymerase Chain Reaction)/SSOP (Sequence Specific Oligonucleotide Probes) technique. SBT (Sequence Based Typing) and/or SSP (Sequence Specific Primers) may be used as supplemental methods when necessary. Please contact [facility] Customer Service at if you have any questions. . Director of [facility] Laboratory Dr Jett Carpio, PhD Performed By: #### H LA27 #### [facility] [address] [place] [address] Dr. Daniela Ledesma CALEB by IFAon 01-24-2023 Antinuclear Antibodies, IFA Negative Normal [facility] Comment on above: Result Comment: Nega tive <1:80 Borderline 1:80 Positive >1:80 ICAP nomenclature: AC-0 For more information about Hep-2 cell patterns use ANApatterns.org, the official website for the International Consensus on Antinuclear Antibody (CALEB) Patterns (ICAP). Performed By: #### A SERAFIN #### [facility] [address] [place] [address] Dr. Daniela Ledesma RHEUMATOID FACTORon 01-24-20 RA Latex Turbid. <10.0 Normal <14.0 [facility] Comment on above: Performed By: #### R F #### [facility] [address] [place] [address] Dr. Daniela Ledesma CBC AUTO DIFFon 01-21-2023 BASO # 0.1 103/ul Normal 0.0-0.1 [facility] Comment on above: Performed By: #### C BC #### [facility] [address] [place] [address] Dr. Daniela Ledesma Basophils/100 WBC (Bld) 0.9 % Normal 0.2-2.0 [facility] Comment on above: Performed By: #### C BC #### [facility] [address] [place] [address] Dr. Daniela Ledesma EO # 0.7 103/ul Normal 0.0-0.7 [facility] Comment on above: Performed By: #### C BC #### [facility] [address] [place] [address] Dr. Daniela Ledesma Eosinophils/100 WBC (Bld) 4.3 % Normal 0.9-7.0 [facility] Comment on above: Performed By: #### C BC #### [facility] [address] [place] [address] Dr. Daniela Ledesma Erythrocyte distribution width (RBC) [Ratio] 13.2 % Normal 11.0-15.0 [facility] Comment on above: Performed By: #### C BC #### [facility] [address] [place] [address] Dr. Daniela Ledesma Hematocrit (Bld) [Volume fraction] 45.4 % Normal 36.0-48.0 [facility] Comment on above: Performed By: #### C BC #### [facility] [address] [address] [address] Daniela Ledesma Hemoglobin (Bld) [Mass/Vol] 15.7 g/dL Normal 12.0-16.0 [facility] Comment on above: Performed By: #### C BC #### [facility] [address] [address] [address] Daniela Ledesma IG # 0.07 10e3/ul Critically high 0.00-0.03 [facility] Comment on above: Performed By: #### C BC #### [facility] [address] [place] [address] Dr. Daniela Ledesma IG % 0.5 % Normal 0.0-0.5 [facility] Comment on above: Performed By: #### C BC #### [facility] [address] [place] [address] Dr. Daniela Ledesma LYMPH # 3.7 103/ul Normal 1.2-3.8 [facility] Comment on above: Performed By: #### C BC #### [facility] [address] [place] [address] Dr. Daniela Ledesma Lymphocytes/100 WBC (Bld) 24.7 % Normal 20.5-60.0 [facility] Comment on above: Performed By: #### C BC #### [facility] [address] [place] [address] Dr. Daniela Ledesma MANUAL DIFF REQ NO Normal [facility] Comment on above: Performed By: #### C BC #### [facility] [address] [place] [address] Dr. Daniela Ledesma MCH (RBC) [Entitic mass] 30.9 pg Normal 26.7-34.0 [facility] Comment on above: Performed By: #### C BC #### [facility] [address] [place] [address] Dr. Daniela Ledesma MCHC (RBC) [Mass/Vol] 34.6 g/dL Normal 29.9-35.2 [facility] Comment on above: Performed By: #### C BC #### [facility] [address] [address] [address] Daniela Ledesma MCV (RBC) [Entitic vol] 89.4 fL Normal 81.0-99.0 [facility] Comment on above: Performed By: #### C BC #### [facility] [address] [address] [address] Daniela Ledesma MONO # 0.7 103/ul Normal 0.3-0.8 [facility] Comment on above: Performed By: #### C BC #### [facility] [address] [place] [address] Dr. Daniela Ledesma Monocytes/100 WBC (Bld) 4.4 % Normal 1.7-12.0 [facility] Comment on above: Performed By: #### C BC #### [facility] [address] [place] [address] Dr. Daniela Ledesma NEUT # 9.8 103/ul Critically high 1.4-6.5 [facility] Comment on above: Performed By: #### C BC #### [facility] [address] [place] [address] Dr. Daniela Ledesma Neutrophils/100 WBC (Bld) 65.2 % Normal 43.0-75.0 [facility] Comment on above: Performed By: #### C BC #### [facility] [address] [place] [address] Dr. Daniela Ledesma Platelet mean volume (Bld) [Entitic vol] 9.3 fL Critically low 9.5-13.5 [facility] Comment on above: Performed By: #### C BC #### [facility] [address] [place] [address] Dr. Daniela Ledesma PLT 286 103/ul Normal 150-450 [facility] Comment on above: Performed By: #### C BC #### [facility] [address] [place] [address] Dr. Daniela Ledesma RBC 5.08 106/ul Normal 4.20-5.40 [facility] Comment on above: Performed By: #### C BC #### [facility] [address] [place] [address] Dr. Daniela Ledesma WBC 15.1 103/ul Critically high 4.0-11.0 [facility] Comment on above: Performed By: #### C BC #### [facility] [address] [address] [address] Daniela Ledesma SED RATE WESTERGRENon 2022 SED RATE 34 mm/hr Critically high <=30 [facility] Comment on above: Performed By: #### S EDR #### [facility] [address] [address] [address] Daniela Ledesma URIC ACID SERUMon 01-21-2023 Urate [Mass/Vol] 7.5 mg/dL Critically high 2.6-6.0 [facility] Comment on above: Performed By: #### U TUTU #### [facility] [address] [place] [address] Dr. Daniela Ledesma CPKon 01-12-2023 CK [Catalytic activity/Vol] 98 U/L Normal 26-192 [facility] Comment on above: Performed By: #### M YO, CK #### [facility] [address] [address] [address] Daniela Ledesma MYOGLOBINon 01-12-2023 SAW 34 ng/mL Normal 9-82 [facility] Comment on above: Performed By: #### M YO, CK #### [facility] [address] [place] [address] Dr. Daniela Ledesma MR cervical spine wo conon 0 - MR cervical spine wo con [facility] [place] [address] XRay Report Signed Patient: Mayra Coates MR#: [id number] : 1970 Acct:[id number] Age/Sex: 52 / F ADM Date: 11/26/22 Loc: MR Room: Type: [facility] Attending Dr: Brendan COCHRAN Copies to: DIMAS Rand Ordering Provider: DIMAS Rand Date of Service: 11/26/22 MR/MR cervical spine wo con: R20.2, M79.601 ([id number]) XR/XR pre/post mri xray: PRE MRI OF [...] Jillian Angelo M.D.11/27/2022 10:13 AM Dictation Location: [place] [address] Transcribed By: [facility] 11/27/22 1013 Dictated By: Jillian Angelo MD 11/27/22 0948 Signed By: 11/27/22 1013 [facility] US Thyroidon 10-17-2022 US Thyroid [...] by Ezekiel Hernandez on 10/17/2022 1005 Normal [facility] Bottom Worker JORDANA - Automatic Exporton JORDANA - Automatic Callender [facility] [place] MAYRA COATES 1970 Date of Female Sex [id number] [place] [address] AddressEnglish (preferred) Language White Race Not or Ethnicity Summary of Care Clinical Content Allergies and Adverse Reactions <#[id number]> Encounters <#VZ5IARNG> Functional Status <#QU2PBYCH> Immunization <#NG2JSYHM> Instructions <#BO4JLUEL> Interventions Provided <#MI8L8WYY> Medications <#KK3KESLH> Plan of Care <#ZA8CP6DQ> Problems <#KB2EQMYH> Procedures <#SD3BPAHS> Results <#VA9R57HF> Social History <#JF5VUBRF> Vital Signs <#PJ0UJPTI> Other Document Details Health Care Providers Functional [...] Ambulatory Health Care Facilities Zo Rivera [email or web address] Work Email [facility] [address] [place] [address] Address Ambulatory Health Care Facilities None, No PCPUnknown Address Document Detailstop <#top> [facility] Joshuajones Fraser DO February 13, 2020 11:46 -0400 [id number] [place] [address] [phone] Work Phone Powered by BetUknow?Style Sheet V3.2 Normal Rapport JORDANA - Automatic Callender [place], [place] ANDREYNETTIEHEIDY RONMAYRA 1970 Date of Female Sex [id number] [place] [id number] AddressEnglish (preferred) Language White Race Not or Ethnicity Summary of Care Clinical Content Allergies and Adverse Reactions <#RP2FZHOQ> Encounters <#QA5DXIQP> Functional Status <#VD7QEASY> Immunization <#WT9WLGHB> Instructions <#GH9WCJLT> Interventions Provided <#YB4GV7JJ> Medications <#YR8JDLCV> Plan of Care <#KH5LF5MR> Problems <#QC0PCAWA> Procedures <#LH8QGQEG> Results <#UN5B91KL> Social History <#YV6SNXZH> Vital Signs <#PZ5HUSDK> Other Document Details Health Care Providers Functional Statustop <#top> Functional Status Health Issues NameDatesDetails Functional status health issues are not documented Cognitive Status Health Issues NameDatesDetails Cognitive status health issues are not documented Problemstop <#top> NameDAnton Eczema (692.9, L30.9) Tennis elbow (726.32, M77.10) [...] Care Providerstop <#top> Ambulatory [facility] Fac[facility] Joshua GrayZo [email or web address] Work Email [facility] [address] [place] [address] Address Ambulatory Health Care Facilities None, No PCPUnknown Address Document Detailstop <#top> [facility] Joshua FraserDO February 13, 2020 11:15 -0400 [id number] [place] [address] [phone] Work Phone Powered by BetUknow?Style Sheet V3.2 Normal Rapport JORDANA - Automatic Call[place], [place] MAYRA COATES 1970 Date of Female Sex [id number] [place] [address] AddressEnglish (preferred) Language White Race Not or Ethnicity Summary of Care Clinical Content Allergies and Adverse Reactions <#WL7QKHCV> Encounters <#RT3UYYOW> Functional Status <#IB9TSJDE> Immunization <#SV5ETFZT> Instructions <#HL0CYLEZ> Interventions Provided <#AV0U9FNW> Medications <#IB3HNDJA> Plan of Care <#OY9CNQLT> Problems <#YH3GTMXX> Procedures <#ZB1Q0TFE> Results <#QP5WSZRG> Social History <#ZL6XIVUL> Vital Signs <#DD2Q2AVH> Other Document Details Health Care Providers Functional [...] and therapy for chronic conditions Instructionstop <#top> NameDatesDetails Instructions not documented Encounterstop <#top> Appointment; Joshua Fraser DO Encounter Diagnosis: Problem not documentedOn: 13-Feb-2020 10:00 Health Care Providerstop <#top> Ambulatory Health Care Facilities Zo Rivera [email or web address] Work Email [facility] [address] [place] [address] Address Ambulatory Health Care Facilities None, No PCPUnknown Address Document Detailstop <#top> [facility] Fraser DO February 13, 2020 11:01 -0400 [id number] [place] [address] [phone] Work Phone Powered by BetUknow?Style Sheet V3.2 Normal [facility] School/Work Letteron School/Work Letter February 13, 2020 To Whom It May Concern, Mayra Coates is a patient known to me. Mayra was diagnosed with claustrophobia and is unable to wear a mask. Please feel free to contact my office with any questions or concerns at . 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 Risk Screen - Adult Emergenc yon [...] Communicatenone Learning Preferencesaudio Cultural Considerationsnone Developmental Considerationsnone Anglican Considerationsnone Learning Assessment (Other Learner): Learning Assessment (Other Learner): Other learner availableno Pressure Injury/TB/Substance: Pressure Injury: Pressure Injury Present on Admissionno Do you have a coughno Admission Risk Screen: Significant IndicatorsComplete CAGE: CAGE: Is this an injured patient at a Trauma Center ([facility]): no Electronic Signatures: Gali Meyer (RN) (Signed 27-Sep-2019 19:36) Authored: Preferred Language, Advanced Directives, Family Violence Adult, Learning Assessment (Patient), Learning Assessment (Other Learner), Pressure Injury/TB/Substance, CAGE Last Updated: 27-Sep-2019 19:36 by Gali Meyer (RN) [facility] Triage - EDon 09-27-2019 Triage - ED Quick Triage: Are You no Are You Currently Breastfeedingno Chart Review: CHIEF COMPLAINT MAYRA COATES is a Female patient with a [...] Travel outside of [place]: no Allergies: yes CALENDER TENDER History: 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 Patient has homicidal thoughts: [...] Rating (0-10): 9 = Severe PRIMARY ASSESSMENT MAYRA COATES'sergio primary assessment is Within Normal Limits. The [...] 19:22 by Sherry Bronson (STAFF N) Normal [facility] CBC With Platelet No Differe ntialon 03-07-2018 Erythrocyte distribution width Auto Ratio (RBC) 13.0 % Normal 11.5-14.5 [facility] Erythrocytes (RBC) 5.17 10*6/uL Normal 4.20-5.40 [facility] Hematocrit (HCT) 44.4 % Normal 37.0-47.0 [facility] Hemoglobin mass conc (Bld) 15.3 g/dL Normal 12.0-16.0 [facility] MCH 29.6 pg Normal 27.0-31.3 [facility] MCHC mass conc (RBC) 34.4 % Normal 33.0-37.0 [facility] MCV 85.9 fL Normal 82.0-100.0 [facility] Platelets 287 10*3/uL Normal 130-400 [facility] WBC (Leukocytes) 6.8 10*3/uL Normal 4.8-10.8 [facility] TSH w/out Reflexon 201 8 Thyroid stimulating hormone (TSH) m[IU]/L Low 0.270-4.20 [facility] Thyroxine Freeon 03-07-2018 Thyroxine Free 2.23 ng/dL Critically high 0.93-1.70 [facility] US HEAD NECK SOFT TISSUE THY [...] Data System (TI- RADS) established by the [employer] to help provide guidance [...] by:INDER Morrisigned by:Julio Marie MD02/14/18inal result Normal [facility] CBC With Platelet No Differe ntialon 02-07-2018 Erythrocyte distribution width Auto Ratio (RBC) 12.7 % Normal 11.5-14.5 [facility] Erythrocytes (RBC) 4.65 10*6/uL Normal 4.20-5.40 [facility] Hematocrit (HCT) 40.2 % Normal 37.0-47.0 [facility] Hemoglobin mass conc (Bld) 14.0 g/dL Normal 12.0-16.0 [facility] MCH 30.1 pg Normal 27.0-31.3 [facility] MCHC mass conc (RBC) 34.8 % Normal 33.0-37.0 [facility] MCV 86.4 fL Normal 82.0-100.0 [facility] Platelets 241 10*3/uL Normal 130-400 [facility] WBC (Leukocytes) 6.8 10*3/uL Normal 4.8-10.8 [facility] TSH w/out Reflexon 8 Thyroid stimulating hormone (TSH) m[IU]/L Low 0.270-4.20 [facility] Thyroxine Freeon 02-07-2018 Thyroxine Free 3.43 ng/dL Critically high 0.93-1.70 [facility] Vital Signs Date Time Vital Sign Value Performing Clinician Faci lity 09-10-2024 13:12050 Body height 162.6 cm Zehra Marques MD Work Phone: [facility] 09-10-2024 13:12-0500 Body mass index (BMI) [Ratio] 43.26 kg/m2 Zehra Marques MD Work Phone: [facility] 09-10-2024 13:12-050 Body weight 114.31 kg Zehra Marques MD Work Phone: [facility] 09-10-2024 13:12-0500 Diastolic blood pressure 72 mm[Hg] Zehra Marques MD Work Phone: [facility] 09-10-2024 13:12-0500 Heart rate 119 /min Zehra Marques MD Work Phone: [facility] 09-10-2024 13:12-0500 Respiratory rate 18 /min Zehra Marques MD Work Phone: [facility] 09-10-2024 13:12-0500 SaO2% (BldA) [Mass fraction] 97 % Zehra Marques MD Work Phone: [facility] [facility] 09-10-2024 13:12-0500 Systolic blood pressure 124 mm[Hg] Zehra Marques MD Work Phone: [facility] Encounters Encounter Date Encounter Type Care Provider Facility Start: 11-19-2024 End: 11-19-2024 ambulatory [facility] Start: 11-19-2024 End: 11-19-2024 ambulatory [facility] Start: 11-13-2024 End: 11-13-2024 ambulatory [facility] Start: 11-13-2024 End: 11-13-2024 Refill Zehra Marques MD Work Phone: [facility] Comment on above: 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 (CMS/HCC) Start: 11-09-2024 End: 11-09-2024 ambulatory Vinay Crews MD Facility:[facility] Start: 11-04-2024 End: 11-04-2024 Clinisync Result Encounter Generic External Data Provider [facility] External Department Unsolicited Start: 11-04-2024 End: 11-04-2024 Clinisync Result Encounter Generic External Data Provider [facility] External [facility] Unsolicited Start: 09-14-2024 End: 09-14-2024 Refill Zehra Marques MD Work Phone: [facility] Comment on above: Urine, incontinence, stress female Start: 09-11-2024 End: 09-11-2024 Orders Only Zehra Marques MD Work Phone: [facility] Comment on above: Hypothyroidism, unsp ecified type (CMS/HCC) (Primary Dx) Start: 09-10-2024 End: 09-10-2024 Bamboo flowsheet Zehra Marques MD Work Phone: [facility] Start: 09-10-2024 End: 09-10-2024 Bamboo flowsheet Zehra Marques MD Work Phone: [facility] Start: 09-10-2024 End: 09-10-2024 Office outpatient visit 25 minutes Zehra Marques MD Work Phone: [facility] Comment on above: Breast cancer screen ing by mammogram (Primary Dx); Type 2 diabetes mellitus with chronic kidney disease, without long-term current use of insulin, unspecified CKD stage ([facility]/HCC); Paresthesia of skin; Neuropathy; Type 2 diabetes mellitus with diabetic chronic kidney disease (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/HCC) Start: 04-13-2024 End: 04-13-2024 ambulatory Vinay Crews MD [facility] Start: 04-06-2024 End: 04-06-2024 ambulatory Vinay Crews MD Facility:[facility] Start: 01-06-2024 End: 01-06-2024 ambulatory Vinay Crews MD Facility:[facility] Start: 01-31-2023 End: 02-01-[address] ZEHRA MARQUES Facility:[facility] Start: 01-21-2023 End: 01-22-2023 ambulatory MR JAMAAL JALLOH . Facility:[facility] Start: 01-12-2023 End: 01-13-2023 ambulatory BRENDAN COYLE Facility:[facility] Start: 11-26-2022 End: 11-26-2022 ambulatory Brendan Coyle Facility:[facility] Start: 11-26-2022 End: 11-26-2022 ambulatory MD Zehra Marques Work Phone: [facility] Work Phone: Start: 11-26-2022 End: 11-26-2022 Patient encounter procedure MD Zehra Marques Work Phone: [facility] [place] Work Phone: Start: 11-19-2022 End: 11-20-2022 ambulatory DAPHNEY RODRIGUEZ Facility:[facility] Start: 09-17-2022 ambulatory DAPHNEY RODRIGUEZ Fac ility:[facility] Start: 05-13-2020 Patient encounter procedure Ezekiel Devi [facility] Work Phone: Start: 03-26-2020 [facility] Start: 02-13-2020 [facility] Work Phone: Start: 02-14-2018 End: 02-17-2018 Ambulatory MICKEY OWEN [facility] Procedures Date Procedure Procedure Detail Performing Clinician Start: 11-04-2024 MR LUMBAR SPINE WO CON Generic External Data Provider Start: 09-10-2024 Urine albumin quantitative Zehra Marques MD Work Phone: Start: 09-10-2024 Urnls dip stick/tabl et rgnt non-auto w/o micrscp Zehra Marques MD Work Phone: Start: 09-10-2024 Complete blood count with white cell differential, automated Zehra Marques MD Work Phone: Start: 09-10-2024 End: 09-10-2024 Comprehensive metabolic panel Zehra Marques MD Work Phone: Start: 09-10-2024 Lipid panel Zehra suarez MD Work Phone: Start: 09-10-2024 TSH W/REFLEX TO FT4 Mar tolu Marques MD Work Phone: Start: 07-19-2023 Mammography Zehra Marques MD Work Phone: Start: 05-13-2020 Assay of thyroid stimulating hormone tsh Ezekiel eDvi Start: 05-13-2020 Blood count complete auto&auto difrntl wbc Ezekiel Devi Start: 05-13-2020 Comprehensive metabo lic 2000 panel Ezekiel Devi Start: 05-13-2020 Free T4 Index Ezekiel chiu Start: 05-13-2020 Lipid panel Ezekiel rodriguez Start: 05-13-2020 Follow-up visit Start: 03-26-2020 Follow-up visit Start: 02-13-2020 Follow-up visit Start: 02-14-2018 soft tissue head & neck real time imge doc MICKEY WOEN Plan of Treatment Date Care Activity Detail Author Start: 08-13-2026 Screening for malign ant neoplasm of colon [facility] Start: 09-10-2025 Urine screening for protein Diabetes: Urine Protein Screening [facility] Start: 07-11-2025 Glaucoma screening Diabetes: R etinopathy Screening [facility] Start: 04-05-2025 Influenza vaccination Influenza Vacc ine (#1) [facility] Comment on above: Postponed from 06/07 (Insurance / Financial) Start: 03-11-2025 End: 03-11-2025 Patient encounter procedure 03/11/2025 1:00 PM EDT Office Visit [facility] [address] [place] [address] Zehra Marques MD [address] [place] [address] [facility] Start: 12-10-2024 End: 09-11-2025 TSH W/REFLEX TO FT4 TSH W/REFLEX TO FT4 Lab Routine Hypothyroidism, unspecified type (CMS/HCC) Expected: 12/10/2024 (Approximate), Expires: 09/11/2025 [facility] Work Phone: Comment on above: Expected: 12/10/2024 (Approximate), Expires: 09/11/2025 Start: 12-09-2024 Hemoglobin A1c measurement Diabetes: Hemoglobin A1C [facility] Start: 10-15-2024 End: 10-15-2024 Professional / ancillary services management 10/15/2024 3:00 PM EST Ancillary Procedure [facility] [address] [address] [facility] Start: 09-10-2024 End: 11-11-2025 DBT Breast - bilateral screening Bilateral screening mammogram with tomosynthesis Imaging Routine Breast cancer screening by mammogram Expected: 09/10/2024, Expires: 11/11/2025 [facility] Work Phone: Comment on above: Expected: 09/10/2024 , Expires: 11/11/2025 Start: 07-19-2024 Screening for malign ant neoplasm of breast Mammogram [facility] Start: 06-07-2024 Influenza vaccination Influenza Vacc ine (#1) [facility] Start: 08-20-2023 Urine screening for protein Diabetes: Urine Protein Screening [facility] Start: 07-23-2023 Hemoglobin A1c measurement Diabetes: Hemoglobin A1C [facility] Start: 11-26-2022 MR Cervical spine WO contrast [facility] Start: 11-26-2022 MRI of cervical spin e without contrast MR cervical spine wo con [facility] Start: 11-26-2022 XR pre/post mri xray XR pre/post mri xray [facility] Start: 11-26-2022 [facility] Start: 1970 Screening for malign ant neoplasm of colon [facility] Payers Date Payer Category Payer Unknown 2023 Medicaid [id number] 2022 Self-pay 2017 Unknown [id number] 1970 Unknown [id number] 2.16.84 [id number] 1970 Unknown [id number] 2.16.84 [id number] 1970 Unknown [id number] 2.16.84 [id number] 1970 Unknown [id number] 2.16.84 [id number] 1970 Unknown [id number] 2.16.84 [id number] 1970 Unknown [id number] 2.16. [id number] 1970 Unknown [id number] 2.16. [id number] 1970 Unknown [id number] 2.16. [id number] 1970 Unknown [id number] 2.16. [id number] 1970 Unknown [id number] 2.16. [id number] 1959 Medicaid [id number] Unknown [id number] 2.16.8 [id number] Social History Date Type Detail Facility Assertion Tobacco smoking consumption unknown (finding) [facility] Work Phone: Start: 1970 Sex Assigned At Female F [facility] Start: 04-22-2023 Tobacco smoking stat [facility] Ex-smoker [facility] End: 10-07-2021 History of tobacco use Current smoker [facility] End: 10-07-2021 History of tobacco use Cigarette Smoker [facility] Start: 04-22-2023 Tobacco use and exposure User of smokeless tobacco [facility] Start: 07-04-2023 End: 09-10-2024 Alcoholic beverage intake Ex-drinker (finding) [facility] Start: 07-04-2023 End: 09-10-2024 History of Social function [facility] Start: 07-04-2023 End: 09-10-2024 Tobacco use panel [facility] Start: 05-02-2023 Alcohol Comment 1-2 drinks, mo nthly or less. caffeine intake: 2-3 cups per day. [facility] Start: 1970 Sex assigned at Not on file [facility] Medical Equipment Procedure Code Equipment Code Equipment Origin al Text Equipment Identifier Dates USE TO TEST BLOO D SUGAR TWICE DAILY [id number] Start: 09-28-2023 End: 11-13-2024 USE TO TEST BLOO D SUGAR TWICE DAILY [id number] Start: 11-13-2024 Goals Date Patient Goal Desired Activity /State Personal health goal Functional Status Date Assessment Result Facility NEGATED: Highlighted row Functional performance Functional status health issues are not documented Disease [facility] Work Phone: Mental Status Date Assessment Result Facility NEGATED: Highlighted row Cognitive function [Interpretation] Cognitive status health issues are not documented Disease [facility] Work Phone: Clinical Notes 11-14-2022 to 11-19-2024 Telephone Encounter - Zehra Marques MD - 11/13/2024 8:19 AM ESTTelephone Encounter - Zehra Marques MD - 11/13/2024 8:19 AM ESTTelephone Encounter - Zehra Marques MD - 09/14/2024 12:54 PM EST Note Date & Type Note Facility 11-19-2024 Note NEUROSURGERY NOTE SUBJECTIVE: Chief complaint: Back and left leg pain. History of present illness: Consultation referred by [place] pain management, Tammie Tapia NP, for back pain. Patient reports that she has been having low back pain for the past 3 years. It radiates to her bilateral hips and groin. Also radiates to her left buttock and then posteriorly down her left thigh medially into her left calf as well as into her left great toe and second toe. Denies right leg symptoms. Notes that back and leg symptoms are equally bothersome. Symptoms started about 30 to 60 minutes after awakening. Somewhat better with heat and with Epsom salts. Worse with sitting and standing. She denies bowel or bladder changes. She does report imbalance and falls and notes that her left leg gives out at times. She is taking tizanidine, which at least helps her sleep. She has been seeing pain management and has been having injections, which do help for up to 3 months, though she is wondering if there is a more long-lasting solution. She has done aquatic therapy in the past at [place]. No previous back surgery. Review of systems: As in HPI. Past Medical History: Diagnosis Date Diabetes mellitus (CMS/HCC) GERD (gastroesophageal reflux disease) Hypertension Hypothyroidism Obesity Osteoarthritis Past Surgical History: Procedure Laterality Date CHOLECYSTECTOMY HYSTERECTOMY Social History Tobacco Use Smoking status: Every Day Smokeless tobacco: Never Tobacco comments: Vapes 5% nicotine Substance Use Topics Alcohol use: Never Drug use: Never No family history on file. OBJECTIVE: Medications: allopurinol atorvastatin DULoxetine lisinopril oxyBUTYnin XL rOPINIRole tiZANidine traZODone Current Outpatient Medications: allopurinol (Zyloprim) 300 mg tablet, Take 300 mg by mouth in the morning., Disp: , Rfl: atorvastatin (Lipitor) 10 mg tablet, Take 20 mg by mouth in the morning., Disp: , Rfl: DULoxetine (Cymbalta) [address] capsule, TAKE 2 CAPSULES BY MOUTH EVERY MORNING AND 1 CAPSULE EVERY DAY IN THE EVENING, Disp: , Rfl: lisinopril 2.5 mg tablet, Take 2.5 mg by mouth in the morning., Disp: , Rfl: oxyBUTYnin XL (Ditropan-XL) 10 mg 24 hr tablet, Take 10 mg by mouth in the morning., Disp: , Rfl: rOPINIRole (Requip) 0.5 mg tablet, Take 0.5 mg by mouth., Disp: , Rfl: tiZANidine (Zanaflex) 4 mg tablet, TAKE 1 TABLET BY MOUTH AT BEDTIME NEEDED FOR MUSCLE SPASTICITY, Disp: , Rfl: traZODone (Desyrel) 50 mg tablet, Take 50 mg by mouth if needed each day., Disp: , Rfl: Allergies: Allergies Allergen Reactions Pregabalin Shortness of breath Propylthiouracil Hives Thyroid Hives Other Reaction(s): hives (PTU3) Exam: Exam performed and reviewed, changes as below. Vitals reviewed: No intake/output data recorded. No intake/output data recorded. Constitutional: In no apparent distress. Cardiovascular: Heart sounds regular rate and rhythm without appreciable murmur. Chest: Lung sounds clear to auscultation bilaterally. Respirations regular and nonlabored. Extremities without edema. Skin warm and dry without pallor. Neuro: GCS 15/15. Attention and memory intact. No dysarthria or aphasia. Cranial Nerves: Conjugate gaze. PERRLA 2 mm. EOMI. No nystagmus. Facial sensation intact V1, V2, V3 bilaterally. Facial expression symmetrical bilaterally. Hearing intact to conversation. Uvula midline and palate elevates symmetrically. Trapezii symmetrical bilaterally. Tongue midline. Coordination: Finger to nose testing without dysmetria bilaterally. Sensation: Intact to light touch C5-T1 and L2-S1 dermatomes bilaterally. Musculoskeletal: Right-handed. Deltoid, biceps, triceps, finger flexors, finger extensors 4+/5 bilaterally. Hip flexors, knee flexors, knee extensors, ankle dorsi and plantar flexors 4+/5 bilaterally. Muscle tone without hyper or hypotonicity. Muscle bulk appropriate for age. Ambulatory without device. Deep Tendon Reflexes: Triceps 2+ bilaterally. Biceps 2+ bilaterally. Brachioradialis 2+ bilaterally. Patellar 2+ bilaterally. Babinski absent bilaterally. Labs: No results found for any previous visit. Imaging: XR lumbar spine complete 4+ views 11/19/2024 Narrative XR LUMBAR SPINE COMPLETE 4+ VIEWS 11/19/2024 2:47 PM CLINICAL INDICATIONS: Pain COMPARISON: None. FINDINGS: 5 views of the lumbar spine. 5 nonrib-bearing lumbar-type vertebral bodies. Vertebral body heights are maintained. Minimal anterolisthesis L4 and L5 without significant shift on flexion-extension views. No acute fractures or evidence of acute traumatic malalignment. Degenerative disc disease most pronounced at L5-S1. Impression Degenerative changes most pronounced at L5-S1. Minimal anterolisthesis of L4 on L5 without significant shift on flexion-extension views. Electronically signed: Luis Marin MD. Impression: Lumbar spondylosis with radiculopathy. (more content not included)... [facility] 11-19-2024 Note NEUROSURGERY NOTE SUBJECTIVE: Chief complaint: Low back pain with bilateral hip pain and radiation to left leg History of present illness: Mayra Coates is a 54 year old female with history of diabetes referred to us for low back pain that started about 3 years ago. Over time she also developed pain in bilateral hips and the left leg. In the left leg, she has electric shock 'zing' sensations going down from the buttock to posterior thigh and lateral calf into her big toe that are persistent until she gets her steroid injections which seem to help for about 3 months. Her bilateral low back and hip pain is also bothersome and is worsened when changing positions. The pain keeps her from sitting or standing for very long. 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 She does feel that her left leg gives out sometimes but she has not fallen, only feels unstable. She has done some water therapy which helps some in addition to the injections. She has not had any bowel or bladder incontinence. Review of systems: Constitutional: has had gradual weight loss since diabetes diagnosis, denies fever or chills. Head: + headaches related to wisdom teeth issues. Eyes: Denies change in vision. Ears: Denies change in hearing. Cardiovascular: Denies chest pain. Respiratory: Denies cough, shortness of breath. Genitourinary: Denies incontinence Neurologic: + weakness, + numbness, + tingling, denies dizziness, + unsteady gait, denies falls. Musculoskeletal: + back pain. Past Medical History: Diagnosis Date Diabetes mellitus (CMS/HCC) GERD (gastroesophageal reflux disease) Hypertension Hypothyroidism Obesity Osteoarthritis Past Surgical History: Procedure Laterality Date CHOLECYSTECTOMY HYSTERECTOMY Social History Tobacco Use Smoking status: Every Day Smokeless tobacco: Never Tobacco comments: Vapes 5% nicotine Substance Use Topics Alcohol use: Never Drug use: Never No family history on file. OBJECTIVE: Medications: This patient does not have an active medication from one of the medication groupers. No current outpatient medications on file. Allergies: Allergies Allergen Reactions Pregabalin Shortness of breath Propylthiouracil Hives Thyroid Hives Other Reaction(s): hives (PTU3) Exam: Exam performed and reviewed, changes as below. Vitals reviewed: No intake/output data recorded. No intake/output data recorded. Constitutional: In no apparent distress. Chest: Respirations regular and nonlabored. Extremities without edema. Skin warm and dry without pallor. Neuro: GCS 15/15. Attention and memory intact. No dysarthria or aphasia. Cranial Nerves: Conjugate gaze. PERRLA 3mm. EOMI. No nystagmus. Facial sensation intact V1, V2, V3 bilaterally. Facial expression symmetrical bilaterally. Hearing intact to conversation. Trapezii symmetrical bilaterally. Tongue midline. Coordination: Finger to nose testing without dysmetria bilaterally. Sensation: Intact to light touch C5-T1 and L2-S1 dermatomes bilaterally. Musculoskeletal: Deltoid 4+/5 bilaterally. Triceps 5/5 bilaterally. Biceps 5/5 bilaterally. Finger flexors 5/5 bilaterally. Finger extensors 5/5 bilaterally. Hip flexors 4+/5 bilaterally. Knee flexors and extensors 4+/5 bilaterally. Ankle dorsal flexors 4+/5 bilaterally. Ankle plantar flexors 4+/5 bilaterally. Muscle tone without hyper or hypotonicity. Muscle bulk appropriate for age. Gait: normal. Toe walking with mild difficulty Deep Tendon Reflexes: Triceps 2+ bilaterally. Biceps 2+ bilaterally. Brachioradialis 2+ bilaterally. Patellar 2+ bilaterally. Labs: No results found for any previous visit. Imaging: Lumbar MRI reviewed, does show some foraminal stenosis at left L5-S1. There was not appreciable central stenosis Impression: Foraminal stenosis at L5-S1 with some pain, numbness and tingling into the left leg to big toe suggesting possible L5 radiculopathy. Injections and therapy do seem to be helpful temporarily. She also has bilateral low back and hip pain which is affected by positioning, and could possibly be muscular in origin. Plan: Will review imaging with Dr. Mustafa, discussed with patient that a possible discectomy or foraminotomy might help decompress the left L5-S1 foramen to relieve her left leg symptoms although this will not likely resolve the bilateral hip pain. Obtain flexion/extension Xrays of the lumbar spine. Demetri Perez, medical student Neurosurgery Attending addendum; Please see additional docoumentation from Tana Cardenas CNP from the clinic. I did review the patient's imaging - MRI lumbar spine and then new x-rays (including flexion/extension x-rays) from the day of clinic. There is no evidence for dynamic instability on the flex-ex imaging. There is some facet arthropathy from L3-4 to L5-S1 - bilateral. There is DDD at L5-S1 and some (more content not included)... [facility] 11-13-2024 Telephone encounter Note Approvals with refills [facility] 11-13-2024 Miscellaneous Notes Approvals with refills documented in this encounter [facility] 09-14-2024 Telephone encounter Note Approvals with refills [facility] 09-14-2024 Miscellaneous Notes Approvals with refills documented in this encounter [facility] 09-10-2024 History of Presen t illness Narrative Heidy Coates is a 54 y.o. female presents with chief complaint of Annual Exam HPI: HPI Chronic back pain History of Present Illness The patient is a 54-year-old female who presents for evaluation of multiple medical concerns. She reports that her back pain temporarily improves after receiving injections, but the relief is short-lived. She is seeking a referral for physical therapy and water therapy for her back. Her duloxetine dosage was recently increased to two tablets in the morning and one in the evening, which has helped manage the unusual sensation in her leg. She is currently in the process of reducing her gabapentin intake. She continues to take Requip for restless legs syndrome and trazodone. She has made dietary changes, incorporating more fruits and vegetables into her meals, and has experienced some weight loss. She is requesting refills for her allopurinol, Lipitor, Trulicity, and thyroid medication. She is experiencing urinary incontinence, often unable to reach the bathroom in time. She has not had a recent pelvic exam. She underwent a 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 due to fibroids, but her ovaries were preserved. SUBJECTIVE: MEDICATIONS: Current Outpatient Medications Medication Instructions allopurinol (ZYLOPRIM) 300 mg, Oral, Every morning atorvastatin (Lipitor) 10 MG tablet TAKE 1 TABLET BY MOUTH EVERY DAY FOR 90 DAYS cholecalciferol (Vitamin D-3) 50 MCG (1999 UT) capsule TAKE 1 CAPSULE BY MOUTH EVERY DAY FOR 30 DAYS dicyclomine (Bentyl) 10 MG capsule TAKE 1 CAPSULE BY MOUTH 3 TIMES A DAY NEEDED FOR ABDOMINAL PAIN dulaglutide (Trulicity) 3 MG/0.5ML solution pen-injector INJECT 3 MG SUBCUTANEOUSLY ONCE WEEKLY DULoxetine (Cymbalta) [address] capsule TAKE 1 CAPSULE BY MOUTH IN THE MORNING AND BEFORE BEDTIME gabapentin (NEURONTIN) 600 mg, Oral, 3 times daily guaiFENesin ER 1200 MG 12 hour tablet TAKE 1 TAB BY MOUTH IN MORNING AND 1 TAB BEFORE BEDTIME.DO NOT CRUSH,CHEW,OR SPLIT. levothyroxine (Synthroid, Levoxyl) 50 MCG tablet TAKE 1 TABLET BY MOUTH ONCE EVERY MORNING BEFORE MEAL lisinopril 2.5 mg, Oral, Daily metFORMIN (Glucophage) 500 MG tablet TAKE 1 TABLET BY MOUTH TWICE A DAY WITH A MEAL FOR 30 DAYS ondansetron ODT (Zofran-ODT) 4 MG disintegrating tablet DISSOLVE 1 TABLET EVERY 8 HOURS NEEDED FOR [place] AND VOMITING FOR 4 DAYS OneTouch Ultra test strip USE TO TEST BLOOD SUGAR TWICE DAILY rOPINIRole (REQUIP) 0.5 mg, Oral, Nightly tiZANidine (Zanaflex) 4 MG tablet Every 8 hours traZODone (Desyrel) 50 MG tablet TAKE 1 TABLET BY MOUTH EVERY DAY AT BEDTIME NEEDED ALLERGIES: Allergies Allergen Reactions Lyrica [Pregabalin] Shortness of breath Propylthiouracil Hives Thyroid Other Reaction(s): hives (PTU3) SURGICAL HISTORY: Past Surgical History: Procedure Laterality Date CHOLECYSTECTOMY 1991 DILATION AND CURETTAGE PARTIAL HYSTERECTOMY TUBAL LIGATION 1993 FAMILY HISTORY: Family History Problem Relation Name Age of Onset Diabetes Father Hypertension Father Hyperlipidemia Father Heart disease Father Stroke Father Lung cancer Father COPD Father SOCIAL HISTORY: Social History Tobacco Use Smoking status: Former Current packs/day: 0.00 Types: Cigarettes Quit date: 2021 Years since quittin.9 Smokeless tobacco: Current Substance Use Topics Alcohol use: Not Currently Comment: 1-2 drinks, monthly or less. caffeine intake: 2-3 cups per day. Drug use: Never Depression: Not at risk (09/10/2024) PHQ-2 PHQ-2 Score: 0 REVIEW OF SYMPTOMS: Review of Systems OBJECTIVE: Visit Vitals BP 124/72 (BP Location: Left arm, Patient Position: Sitting, BP Cuff Size: Large adult) Pulse (!) 119 Resp 18 Ht 5' 4 Wt 252 lb SpO2 97% BMI 43.26 kg/m Smoking Status Former BSA 2.27 m Physical Exam Constitutional: Appearance: Normal appearance. She is normal weight. HENT: Head: Normocephalic and atraumatic. Nose: Nose normal. Mouth/Throat: Mouth: Mucous membranes are moist. Eyes: Pupils: Pupils are equal, round, and reactive to light. Cardiovascular: Rate and Rhythm: Normal rate and regular rhythm. Heart sounds: No murmur heard. Pulmonary: Effort: Pulmonary effort is normal. Breath sounds: Normal breath sounds. No wheezing or rhonchi. Musculoskeletal: General: No swelling. Cervical back: Normal range of motion and neck supple. Right lower leg: No edema. Left lower leg: No edema. Skin: General: Skin is warm and dry. Findings: No rash. Neurological: Mental Status: She is alert and oriented to person, place, and time. Sensory: No sensory deficit. Gait: Gait normal. Psychiatric: Mood and Affect: Mood normal. Thought Content: Thought content normal. Judgment: Judgment normal. Lab Results Component Value Date HGBA1C 6.0 04/22/2023 ASSESSMENT AND PLAN: Assessment/Plan Problem List Items Addressed This Visit Acquired hypothyroidism (CMS/HCC) Relevant Orders TSH W/REFLEX TO FT4 (Completed) H/O 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 for benign disease Type 2 diabetes mellitus with diabetic chronic kidney disease (CMS/HCC) Relevant Medications atorvastatin (Lipitor) 10 MG tablet Dulaglutide (Trulicity) 3 MG/0.5ML solution auto-injector Other Relevant Orders Comprehensive metabolic panel (Completed) CBC and differential (Completed) Lipid panel (Completed) POCT glycosylated hemoglobin (Hb A1C) docked device (Completed) Microalbumin / creatinine urine ratio (Completed) Paresthesia of skin Relevant Medications DULoxetine (Cymbalta) [address] capsule Other insomnia Relevant Medications traZODone (Desyrel) 50 MG tablet Neuropathy Relevant Medications DULoxetine (Cymbalta) [address] capsule Other Visit Diagnoses Breast cancer screening by mammogram - Primary Relevant Orders Bilateral screening mammogram with tomosynthesis Urinary frequency Relevant Orders POCT Urinalysis dipstick (Completed) Hyperuricemia without signs of inflammatory arthritis and tophaceous disease Relevant Medications allopurinol (Zyloprim) 300 MG tablet Other specified hypothyroidism (CMS/HCC) Relevant Medications levothyroxine (Synthroid, Levoxyl) 50 MCG tablet Fibromyalgia Relevant Medications rOPINIRole (Requip) 0.5 MG tablet Restless legs syndrome (RLS) Relevant Medications rOPINIRole (Requip) 0.5 MG tablet Chronic bilateral low back pain without sciatica Relevant Orders Ambulatory referral to Physical Therapy Assessment & Plan 1. Chronic back pain. She reports that the pain improves temporarily with injections but returns over time. She is currently on duloxetine, which has been adjusted to 2 in the morning and 1 in the evening, helping with the leg discomfort. She is being weaned off gabapentin. A referral for physical therapy and water therapy at [place] will be arranged. 2. Diabetes Mellitus. Her blood glucose levels stable. She has adjusted her diet to include more fruits and vegetables and has eliminated soda, including sugar-free varieties. 3. Urinary incontinence. She experiences frequent and urgent urination, sometimes unable to reach the bathroom in time. A urine sample will be collected today to rule out any infection. Medication will be prescribed to improve bladder control. 4. Health Maintenance. A thyroid function test is due. Basic blood count and kidney function tests will also be performed. 5. Medication Management. Refills for allopurinol, Lipitor, Trulicity, and thyroid medication will be provided. She continues to take ropinirole for restless legs and trazodone. Follow-up Return in 6 months for follow up. documented in this encounter [facility] 07-02-2024 Telephone encounter Note Approvals with refills [facility] 07-02-2024 Miscellaneous Notes Approvals with refills documented in this encounter [facility] 08-20-2022 Note FINDINGS: ARTERIAL EVALUATION RIGHT LEFT VELOCITIES PHASICITY VELOCITIES PHASICITY 85 BiCommon [id number] 83BiProximal [id number] 108BiMid [id number] 40 BiDistal [id number] 51 [id number] 46 [id number] 75 BiPTA 93Bi 44 BiPeroneal 58Bi RIGHT [...] signed by Mikey Harry on 08/21/2022 1153 [facility] Bottom Worker Evaluation note No assessment inform ation available [facility] Work Phone: Evaluation note Diagnosis Hypothyroidism, unspecified type (CMS/HCC)- Primary documented in this encounter [facility] HealthcareEvaluation note* Diagnosis Breast cancer screening by mammogram- Primary Type 2 diabetes mellitus with chronic kidney disease, without long-term current use of insulin, unspecified CKD stage (CMS/HCC) Paresthesia of skin Neuropathy Mononeuritis of unspecified site Type 2 diabetes mellitus with diabetic chronic kidney disease (CMS/HCC) Acquired hypothyroidism (CMS/HCC) Unspecified hypothyroidism H/O 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 for benign disease Urinary frequency Hyperuricemia without signs of inflammatory arthritis and tophaceous disease Other specified hypothyroidism ([facility]/HCC) Fibromyalgia Unspecified myalgia and myositis Restless legs syndrome (RLS) Other insomnia Chronic bilateral low back pain without sciatica documented in this encounter [facility] Diagnosis Urine, incontinence, stress female Female stress incontinence documented in this encounter [facility]* Diagnosis Type 2 diabetes mellitus with diabetic chronic kidney disease (CMS/HCC) documented in this encounter [facility]* Diagnosis Type 2 diabetes mellitus with diabetic chronic kidney disease (CMS/HCC) documented in this encounter [facility] Summary Purpose Family History No Family History [...] section and content) DATE CREATED AUTHOR 03/26/2018 [facility] DATE CREATED AUTHOR AUTHOR'S ORGANIZ ATION 10/02/2019 [facility] DATE CREATED AUTHOR AUTHOR'S ORGANIZ ATION 05/19/2020 [employer] DATE CREATED AUTHOR AUTHOR'S ORGANIZ ATION 10/17/2022 [facility] dical Specialist DATE CREATED AUTHOR AUTHOR'S ORGANIZ ATION 12/02/2022 [facility] DATE CREATED AUTHOR AUTHOR'S ORGANIZ ATION 02/19/2023 [facility] DATE CREATED AUTHOR AUTHOR'S ORGANIZ ATION 11/13/2024 [facility] DATE CREATED AUTHOR AUTHOR'S ORGANIZ ATION 11/26/2024 [facility] Care Teams (unrecognized sec tion and content) Team Status: Inactive Member Role Status Dates Brendan Coyle NP-C Attending Provider Active Zehra Marques MD Primary Care Provider Active Team Status: Active Member Role Status Dates Zehra Marques MD Primary Care Provider Active Foreign Law Consultant Relationship Specialty Start Date End Date Zehra Marques MD [address] [facility] [place] [address] PCP - General Family Medicine 02/21/23 Zehra Marques MD [address] [place] [address] PCP - [facility] 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 01/06/24 Foreign Law Consultant Relationship Specialty Start Date End Date Zehra Marques MD [address] [place] [address] PCP - General Family Medicine 02/21/23 Zehra Marques MD [address] [facility] [place] [address] PCP - [facility] 01/06/24 Foreign Law Consultant Relationship Specialty Start Date End Date Zehra Marques MD [address] [facility] [place] [address] PCP - General Family Medicine 02/21/23 Zehra Marques MD [address] [facility] [place] [address] PCP - [facility] 01/06/24 Foreign Law Consultant Relationship Specialty Start Date End Date Zehra Marques MD [address] [facility] [place] [address] PCP - General Family Medicine 02/21/23 Zehra Marques MD [address] [facility] [place] [address] PCP - [facility] [employer] 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 01/06/24 Foreign Law Consultant Relationship Specialty Start Date End Date Zehra Marques MD [address] [facility] [place] [address] PCP - General Family Medicine 02/21/23 Zehra Marques MD [address] [place] [address] PCP - [facility] 01/06/24 Foreign Law Consultant Relationship Specialty Start Date End Date Zehra Marques MD [address] [place] [address] PCP - General Family Medicine 02/21/23 Zehra Marques MD [address] [place] [address] PCP - [facility] 01/06/24 Foreign Law Consultant Relationship Specialty Start Date End Date Zehra Marques MD [address] [place] [address] PCP - General Family Medicine 02/21/23 Zehra Marques MD [address] [place] [address] PCP - PANCHO Alcala [facility] 01/06/24 Goals (unrecognized section and content) Goals may be documented in a n alternate section Reason for Visit (unrecogniz ed section and content) Reason Comments Annual Exam Reason Comments Med Change Request Reason Comments Med Refill FOR RECORDS PERTAINING TO PATIENTS WHO ARE [...] BE BASED ON THE PRIMARY CLINICAL RECORDS. [employer] [facility]. provides no warranty or guarantee of the accuracy or completeness of information in this document.
--- NOTE | 2024-12-10 14:17 | P.CN_ITS ---
Consult Note: HPI Data of Consult Patient: known to practice within the last 3 years Requesting Physician: Estefany Tapia NP Primary Care Provider: LARS DAVIS Consult Narrative Reason for consult: pain post fall Narrative: Mayra Coates an established pt presents for evaluation of acute left knee pain and increased whole back pain post fall. 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 patient denies loss of bowel or bladder, no new upper or lower extremity weakness. pain today 9/10 stabbing, pins, needles throughout spine and left knee. Pt did not go to the ER or see anyone for this issue. Currently on tizanidine 4mg HS, nabumetone 500mg BID, trazodone 50mg HS, duloxetine 60mg AM and 30mg HS for chronic pain and FM. LILIANE 71%. cc:: CC: Estefany Tapia NP Review of Systems ROS Status of ROS 10 or more systems reviewed and unremark able except as noted in history and below Musculoskeletal Reports: back pain, neck pain, extremity pain and joint pain PFSH PFSH Medical History Osteoarthritis ?M19.90 - Unspecified osteoarthritis, unspecified site (ICD-10) Low back pain ?M54.50 - Low back pain, unspecified (ICD-10) Neck pain ?M54.2 - Cervicalgia (ICD-10) Acid reflux ?K21.9 - Gastro-esophageal reflux disease without esophagitis (ICD-10) Obesity ?E66.9 - Obesity, unspecified (ICD-10) Hypothyroid ?E03.9 - Hypothyroidism, unspecified (ICD-10) Diabetes ?E11.9 - Type 2 diabetes mellitus without complications (ICD-10) Smoker ?F17.200 - Nicotine dependence, unspecified, uncomplicated (ICD-10) Hypertension ?I10 - Essential (primary) hypertension (ICD-10) Surgical History History of cholecystectomy ?Z90.49 - Acquired absence of other specified parts of digestive tract (ICD- 10) H/O: 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 ?Z90.710 - Acquired absence of both cervix and uterus (ICD-10) Social History Smoking status: Former smoker Little interest or pleasure in doing things: not at all Feeling down, depressed, or hopeless: not at all Meds Home Medications and Allergies Home Medications ?Medication ?Instructions ?Recorded ?Confirmed ?Type atorvastatin 10 mg tablet 10 mg PO DAILY 05/22/23 11/09/24 History cholecalciferol (vitamin D3) 50 50 mcg PO DAILY 05/22/23 11/09/24 History mcg (2,000 unit) capsule dulaglutide 3 mg/0.5 mL 3 mg subcut QWEEK 05/22/23 11/09/24 History subcutaneous pen injector (Trulicity) levothyroxine 50 mcg tablet 50 mcg PO DAILY 05/22/23 11/09/24 History lisinopril 2.5 mg tablet 2.5 mg PO DAILY 05/22/23 11/09/24 History nabumetone 500 mg tablet 500 mg PO BID 05/22/23 11/09/24 History tizanidine 4 mg capsule 4 mg PO Q8H PRN back pain 05/22/23 11/09/24 History trazodone 50 mg tablet 50 mg PO DAILY PRN sleep 05/22/23 11/09/24 History gabapentin 600 mg tablet 600 mg PO TID 10/29/23 11/09/24 History duloxetine 30 mg capsule,delayed 30 mg PO BID 01/25/24 11/09/24 History release ropinirole 0.5 mg tablet 0.5 mg PO DAILY 01/25/24 11/09/24 History dicyclomine 10 mg capsule 10 mg PO TID PRN abdominal pain 07/20/24 11/09/24 Rx #12 caps ondansetron 4 mg disintegrating 4 mg PO Q8H PRN nausea and 07/20/24 11/09/24 Rx tablet vomiting 4 days #12 tabs tizanidine 4 mg capsule 4 mg PO .qhs PRN muscle spasticity 11/05/24 11/09/24 Rx #30 caps oxybutynin chloride 10 mg 10 mg PO DAILY 11/09/24 11/09/24 History tablet,extended release 24 hr Allergies Allergy/AdvReac Type Severity Reaction Status Date / Time propylthiouracil Allergy Severe Hives Verified 11/09/24 09:53 Exam Neck & C-Spine Cervical spine: cervical ROM abnormal and pain with cervical ROM Back & Pelvis Thoracic spine/upper back: ROM limited, pain with ROM, thoracic spinal tenderness and paraspinal muscle tenderness Lumbar spine/lower back: ROM limited, pain with ROM, lumbar spinal tenderness and paraspinal muscle tenderness Other: diffuse myofascial pain and tenderness left side of body greater than right Extremity Left lower extremity: knee joint Other: scattered mild bruising to left hdz mild edema, no redness or warmth noted, no instability noted Assessment and Plan Assessment and Plan (1) Acute pain of left knee: (2) Fibromyalgia: (3) Fall: (4) Acute on chronic back pain: Plan defer medrol dose pack at this time, dc nabumetone start mobic 7.5mg BID with food. risks vs benefits reviewed continue other medications as prescribed update left knee xray per pt request defer PT at this time f/u 2 weeks to assess pain
== END 2024-12-10 13:46 | disposition home or self-care (01) ==
LOC: PM 13:45
PROVIDERS: PCP Family Medicine; Visit Provider Nurse Practitioner
DX: M25.562 Pain in left knee (principal); M79.7 Fibromyalgia; G89.29 Other chronic pain; M54.9 Dorsalgia, unspecified
CPT/HCPCS: 73564; G0463

== ENCOUNTER 2024-12-10 14:53 | Outpatient (OUT) | payer MEDICAID, SELFPAY ==
--- NOTE | 2024-12-10 | XR_ITS ---
[facility] [place] [id number] Patient Name: EZEQUIEL ZIMMERMAN MRN: [id number] date: 1970 Sex: F Assigned Patient Location: [facility] Current Patient Location: [facility] Accession/Order Number: [id number] Exam Date: 12/10/2024 23:06 Report Date: 12/10/2024 23:07 At the request of: TAMMIE NORMAN NP Procedure: XR knee LT 4V LEFT KNEE - 4 views CLINICAL HISTORY: Acute left knee pain post fall M25.562 COMPARISON: None FINDINGS: No joint effusion or acute bony process. Joint spaces appear maintained. XR/XR knee LT 4V IMPRESSION: NO ACUTE BONY PROCESS. Impression dictated by: Mikey Juarez Jr., D.OVicki12/10/2024 11:07 PM Dictation Location: [place] [address] Electronically authenticated by: [id number] Y Date: 12/10/2024 23:07
--- OUTSIDE RECORDS SUMMARY | 2024-12-10 14:59 | XMS_ITS | CCD ---
Author Organization [facility] Care Team Providers Care Filter Screen Cleaner Name Role Phone LEXIECALEBNT Unavailable Unavailable MICHELLE CHOW Unavailable Unavailable Joshua Fraser Unavailable Unavailable Joshua Fraser Unavailable Unavailable None, No PCP Unavailable Unavailable Ezekiel Devi Unavailable Unavailable Joshua Fraser Unavailable Unavailalireza Coyle NP-C Brendan Vivar Attending Provider [phone] MD Zehra Marques Primary Care Provider Brendan [...] Unavailable SHELLI, DR SOUSA Primary Care Unavailable BRENDAN COYLE Admitting Unavailable BRENDAN COYLE Attending Unavailable SHELLI, DR SOUSA Primary Care Unavailable SHELLI, DR SOUSA Consulting Unavailable YEIMI ., MR JAMAAL Admitting Unavailable YEIMI ., MR HINTON Attending Unavailable SHELLI, DR SOUSA Primary Care Unavailable YEIMI ., MR JAMAAL Consulting Unavailable Shelli KAPADIA, Zehra Andino Primary Care Provider [phone] Zehra Marques MD Unavailable Mars KAPADIA, Vinay [...] to adverse reactions 3 Shortness of breath [facility] Work Phone: (9 sources) Propylthiouraci l; Translations: [PROPYLTHIOURAC [place]] Drug Allergy 5 Hives [facility] Work Phone: (9 sources) thyroid (DETENTION); Translations: [THYROID] Drug Allergy 3 [facility] (1 source) ALLERGIES NOT ON FILE; Translations: [ALLERGIES NOT ON FILE] Propensity to adverse reactions (disorder) [facility] Repository Medications Current Medications Medication Drug [...] has visits left. Also considering massage or animal care worker, both of which seem reasonable options. She [...] to follow-up with her as needed. Normal [facility] Telephoneon 11-24-2024 Telephone [id number] Mayra Coates 1970 F Date Provider Department Center 11/24/2024 DANNI HUNTER NEURO SURG None No family history on file Normal [facility] Consulton 11-19-2024 Consult [id number] Mayra Coates 1970 F Date Provider Department Center 11/19/2024 DANNI HUNTER [facility] SURG [place] No family history on file Level of Service:82590 CT OFFICE/OUTPATIENT NEW MODERATE MDM 45 MINUTES Reason for Visit and Comments: Consult [484] - Patient is here today for a consult for lumbar stenosis [facility] 36on 11-13-2024 36 Attempted to call pt to schedule consult with either Danni Cardenas CNP or Dr. Marshall for Lumbar Stenosis. No answer. Phone rang, then stopped. No VM. [facility] MR [place] [address] Magnetic Resonance Report Signed Patient: MAYRA COATES MR#: [id number] : 1970 Acct:[id number] Age/Sex: 54 / F ADM Date: 11/04/24 Loc: MRI Attending Dr: Tammie Tapia NP Ordering Physician: Tammie Tapia NP Date of Service: 11/04/24 Procedure(s): MR lumbar spine wo con Accession Number(s): [id number] cc: ZEHRA MARQUES ; Tammie Tapia NP [place] [id number] Patient Name: MAYRA COATES MRN: [facility]:[id number] date: 1970 Sex: F Assigned Patient Location: MRI Current Patient Location: [facility] Accession/Order Number: [id number] Exam Date: 11/04/2024 10:16 Report Date: 11/04/2024 [...] Signed By: 11/04/24 1410 DD/ 1407 TD/TT: Video Systems Engineer: [facility] Radiology, Radiologi MD margie - 11/04/[address] [place] [address] Magnetic Resonance Report Signed Patient: MAYRA COATES MR#: [id number] : 1970 Acct:[id number] Age/Sex: 54 / F ADM Date: 11/04/24 Loc: MRI Attending Dr: Tammie Tapia NP Ordering Physician: Tammie Tapia NP Date of Service: 11/04/24 Procedure(s): MR lumbar spine wo con Accession Number(s): [id number] cc: ZEHRA MARQUES ; Tammie Tapia NP [address] [address] Patient Name: MAYRA COATES MRN: [facility]:[id number] date: 1970 Sex: F Assigned Patient Location: MRI Current Patient Location: [facility] Accession/Order Number: [id number] Exam Date: 11/04/2024 10:16 Report Date: 11/04/2024 [...] Signed By: 11/04/24 1410 DD/ 1407 TD/TT: Video Systems Engineer: [facility] Radiology Study observation (narrative) [facility] MR LUMBAR SPINE WO CONOrdere d By: Radiologist Radiology on 11-04-2024 [facility] Work Phone: CBC W Auto Differential pane l (Bld)on 09-11-2024 Basophils (Bld) [#/Vol] 72 10*3/uL [facility] Basophils/100 WBC (Bld) 1.1 % [facility] Eosinophils (Bld) [#/Vol] 189 10*3/uL [facility] Eosinophils/100 WBC (Bld) 2.9 % [facility] Erythrocyte distribution width (RBC) [Ratio] 12.2 % 11.0 - 15.0 % [facility] Hematocrit (Bld) [Volume fraction] 45.7 % High 35.0 - 45.0 % [facility] Hemoglobin (Bld) [Mass/Vol] 15.3 g/dL 11.7 - 15.5 g/dL [facility] Lymphocytes (Bld) [#/Vol] 1736 10*3/uL [facility] Lymphocytes/100 WBC (Bld) 26.7 % [facility] MCH (RBC) [Entitic mass] 30.4 pg 27.0 - 33.0 pg [facility] MCHC (RBC) [Mass/Vol] 33.5 g/dL 32.0 - 36.0 g/dL [facility] Comment on above: For adults, a slight decrease in the calculated MCHC value (in the range of 30 to 32 g/dL) is most likely not clinically significant; however, it should be interpreted with caution in correlation with other red cell parameters and the patient's clinical condition. MCV (RBC) [Entitic vol] 90.7 fL 80.0 - 100.0 fL [facility] Monocytes (Bld) [#/Vol] 559 10*3/uL [facility] Monocytes/100 WBC (Bld) 8.6 % [facility] Neutrophils (Bld) [#/Vol] 3946 10*3/uL [facility] Neutrophils/100 WBC (Bld) 60.7 % [facility] Platelet mean volume (Bld) [Entitic vol] 10 fL 7.5 - 12.5 fL [facility] Platelets (Bld) [#/Vol] 296 10*3/uL [facility] RBC (Bld) [#/Vol] 5.04 10*6/uL [facility] WBC (Bld) [#/Vol] 6.5 10*3/uL [facility] Laboratory - Chemistry and C hemistry - challengeon 09-11-2024 Albumin [Mass/Vol] 4.2 g/dL 3.6 - 5.1 g/dL [facility] Albumin/Globulin [Mass ratio] 1.6 {ratio} [facility] ALP [Catalytic activity/Vol] 83 U/L 37 - 153 U/L [facility] ALT [Catalytic activity/Vol] 51 U/L High 6 - 29 U/L [facility] AST [Catalytic activity/Vol] 39 U/L High 10 - 35 U/L [facility] Bilirubin [Mass/Vol] 1.1 mg/dL 0.2 - 1.2 mg/dL [facility] Calcium [Mass/Vol] 9.8 mg/dL 8.6 - 10. 4 mg/dL [facility] Chloride [Moles/Vol] 102 mmol/L 98 - 110 mmol/L [facility] CO2 [Moles/Vol] 27 mmol/L 20 - 32 mmol/L [facility] Creatinine [Mass/Vol] 0.48 mg/dL Low 0.50 - 1.03 mg/dL [facility] Free T4 [Mass/Vol] 1.5 ng/dL 0.8 - 1.8 ng/dL [facility] GFR/1.73 sq M.predicted among non-blacks MDRD (S/P/Bld) [Vol rate/Area] 112 mL/min/{1.73_m2} > OR = 60 mL/min/1.73m2 [facility] Globulin (S) [Mass/Vol] 2.7 g/dL [facility] Glucose [Mass/Vol] 309 mg/dL High 65 - 99 mg/dL [facility] Comment on above: Fasting reference interval For someone without known diabetes, a glucose value >125 mg/dL indicates that they may have diabetes and this should be confirmed with a follow-up test. Potassium [Moles/Vol] 3.8 mmol/L 3.5 - 5.3 mmol/L [facility] Protein [Mass/Vol] 6.9 g/dL 6.1 - 8.1 g/dL [facility] Sodium [Moles/Vol] 138 mmol/L 135 - 146 mmol/L [facility] TSH Qn 0.01 m[IU]/L Low mIU/L [facility] Comment on above: Reference Range > or = 20 Years 0.40-4.50 Ranges First trimester 0.26-2.66 Second trimester 0.55-2.73 Third trimester 0.43-2.91 Urea nitrogen [Mass/Vol] 10 mg/dL 7 - 25 mg/dL [facility] Urea nitrogen/Creatinine [Mass ratio] 21 mg/mg [facility] Lipid 1996 panelon 4 Cholesterol [Mass/Vol] 105 mg/dL NINF - 200 mg/dL [facility] Cholesterol in HDL [Mass/Vol] 50 mg/dL > OR = 50 [facility] Cholesterol in LDL [Mass/Vol] 38 mg/dL mg/dL (calc) [facility] Comment on above: Reference range: <10 [...] LDL-C. Edgar SS et al. REBECCA. 2013;310(19): 3943-3549 (http://education.SofGenie/faq/WJU585) Cholesterol non HDL [Mass/Vol] 55 mg/dL [facility] Comment on above: For patients with di abetes plus 1 major ASCVD risk factor, treating to a non-HDL-C goal of <100 mg/dL (LDL-C of <70 mg/dL) is considered a therapeutic option. Cholesterol.total/C holesterol in HDL [Mass ratio] 2.1 {ratio} [facility] Triglyceride [Mass/Vol] 86 mg/dL [facility] - 150 mg/dL [facility] Microalbumin/Creatinine rati o panel (U)on 09-11-2024 Albumin DL <= 20 mg/L (U) [Mass/Vol] 9.6 mg/dL See Note: [facility] Comment on above: Reference Range: Reference Range Not established Albumin/Creatinine (U) [Mass ratio] 50 High [facility] Comment on above: The ADA defines abnormalities [...] 191 mg/dL 20 - 275 mg/dL [facility] Interpretation and review of laboratory results Abnormal [facility] Performing Organizat ion Information Site ID: QPT Name: [facility] Address: [address] [place], [place] [id number] Director: Quang Welch MD [facility] No Panel Informationon 09-11 Interpretation and review of laboratory results Abnormal [facility] Performing OrganCircleat ion Information Site ID: QPT Name: [facility] Address: [address] [place] [address], [address] [place] [address] Director: Quang Welch MD [facility] HbA1c (Bld) [Mass fraction]o n 09-10-2024 Interpretation and review of laboratory results Abnormal [facility] Laboratory - Hematology and Cell countson 09-10-2024 HbA1c (Bld) [Mass fraction] 8.3 % [facility] Urinalysis macro (dipstick) panel (U)on 09-10-2024 Bilirubin, UA Negative Negative - 4(70) +++ mg/dL [facility] Blood, UA Negative Negative - 50 Guicho/mcL [facility] Clarity, UA Clear [facility] Color, UA Isha [facility] Glucose, UA Negative Negative - 2000(110) ++++ mg/dL [facility] Interpretation and review of laboratory results Normal [facility] Ketones, UA Negative Negative - 160(16) ++++ mg/dL [facility] Leukocytes, UA Negative Negative - 500+++ Cynthia/mcL [facility] Nitrite, UA Negative Negative - Positive [facility] pH, UA 5 5 - 9 [facility] Protein, UA Negative Negative - 2000(20) ++++ mg/dL [facility] Spec Grav, UA 1.02 1 - 1.03 [facility] Urobilinogen, UA 1.0 0.2 - 12 mg/dL [facility] HLA B 27on 01-28-2023 HLA-B27 Negative Normal [facility] Comment on above: Result Comment: HLA- B*27 Negative B27 allele interpretation for all loci based on IMGT/HLA database version 3.44 This test was developed and its performance characteristics determined by [facility]. It has not been cleared or approved by the Food and Drug Administration. [facility] CLIA ID Number [id number] . This test was performed using PCR (Polymerase Chain Reaction)/SSOP (Sequence Specific Oligonucleotide Probes) technique. SBT (Sequence Based Typing) and/or SSP (Sequence Specific Primers) may be used as supplemental methods when necessary. Please contact [facility] Customer Service at if you have any questions. . Director of [facility] Laboratory Dr Jett Carpio, PhD Performed By: #### H LA27 #### [facility] [address] [place] [address] Dr. Daniela Ledesma CALEB by IFAon 01-24-2023 Antinuclear Antibodies, IFA Negative Normal [facility] Comment on above: Result Comment: Nega tive <1:80 Borderline 1:80 Positive >1:80 ICAP nomenclature: AC-0 For more information about Hep-2 cell patterns use ANApatterns.org, the official website for the International Consensus on Antinuclear Antibody (CALEB) Patterns (ICAP). Performed By: #### A SERAFIN #### [facility] [address] [place] [address] Dr. Daniela Ledesma RHEUMATOID FACTORon 01-24-20 RA Latex Turbid. <10.0 Normal <14.0 [facility] Comment on above: Performed By: #### R F #### [facility] [address] [place] [address] Dr. Daniela Ledesma CBC AUTO DIFFon 01-21-2023 BASO # 0.1 103/ul Normal 0.0-0.1 [facility] Comment on above: Performed By: #### C BC #### [facility] [address] [place] [address] Dr. Daniela Ledesma Basophils/100 WBC (Bld) 0.9 % Normal 0.2-2.0 [facility] Comment on above: Performed By: #### C BC #### [facility] [address] [place] [address] Dr. Daniela Ledesma EO # 0.7 103/ul Normal 0.0-0.7 [facility] Comment on above: Performed By: #### C BC #### [facility] [address] [place] [address] Dr. Daniela Ledesma Eosinophils/100 WBC (Bld) 4.3 % Normal 0.9-7.0 [facility] Comment on above: Performed By: #### C BC #### [facility] [address] [place] [address] Dr. Daniela Ledesma Erythrocyte distribution width (RBC) [Ratio] 13.2 % Normal 11.0-15.0 [facility] Comment on above: Performed By: #### C BC #### [facility] [address] [place] [address] Dr. Daniela Ledesma Hematocrit (Bld) [Volume fraction] 45.4 % Normal 36.0-48.0 [facility] Comment on above: Performed By: #### C BC #### [facility] [address] [place] [address] [address] Daniela Ledesma Hemoglobin (Bld) [Mass/Vol] 15.7 g/dL Normal 12.0-16.0 [facility] Comment on above: Performed By: #### C BC #### [facility] [address] [place] [address] [address] Daniela Ledesma IG # 0.07 10e3/ul Critically high 0.00-0.03 [facility] Comment on above: Performed By: #### C BC #### [facility] [address] [place] [address] Dr. Daniela Ledesma IG % 0.5 % Normal 0.0-0.5 [facility] Comment on above: Performed By: #### C BC #### [facility] [address] [place] [address] Dr. Daniela Ledesma LYMPH # 3.7 103/ul Normal 1.2-3.8 [facility] Comment on above: Performed By: #### C BC #### [facility] [address] [place] [address] Dr. Daniela Ledesma Lymphocytes/100 WBC (Bld) 24.7 % Normal 20.5-60.0 [facility] Comment on above: Performed By: #### C BC #### [facility] [address] [place] [address] Dr. Daniela Ledesma MANUAL DIFF REQ NO Normal [facility] Comment on above: Performed By: #### C BC #### [facility] [address] [place] [address] Dr. Daniela Ledesma MCH (RBC) [Entitic mass] 30.9 pg Normal 26.7-34.0 [facility] Comment on above: Performed By: #### C BC #### [facility] [address] [place] [address] Dr. Daniela Ledesma MCHC (RBC) [Mass/Vol] 34.6 g/dL Normal 29.9-35.2 [facility] Comment on above: Performed By: #### C BC #### [facility] [address] [place] [address] [address] Daniela Ledesma MCV (RBC) [Entitic vol] 89.4 fL Normal 81.0-99.0 [facility] Comment on above: Performed By: #### C BC #### [facility] [address] [place] [address] [address] Daniela Ledesma MONO # 0.7 103/ul Normal 0.3-0.8 [facility] Comment on above: Performed By: #### C BC #### [facility] [address] [place] [address] Dr. Daniela Ledesma Monocytes/100 WBC (Bld) 4.4 % Normal 1.7-12.0 [facility] Comment on above: Performed By: #### C BC #### [facility] [address] [place] [address] Dr. Daniela Ledesma NEUT # 9.8 103/ul Critically high 1.4-6.5 [facility] Comment on above: Performed By: #### C BC #### [facility] [address] [place] [address] Dr. Daniela Ledesma Neutrophils/100 WBC (Bld) 65.2 % Normal 43.0-75.0 [facility] Comment on above: Performed By: #### C BC #### [facility] [address] [place] [address] Dr. Daniela Ledesma Platelet mean volume (Bld) [Entitic vol] 9.3 fL Critically low 9.5-13.5 [facility] Comment on above: Performed By: #### C BC #### [facility] [address] [place] [address] Dr. Daniela Ledesma PLT 286 103/ul Normal 150-450 [facility] Comment on above: Performed By: #### C BC #### [facility] [address] [place] [address] Dr. Daniela Ledesma RBC 5.08 106/ul Normal 4.20-5.40 [facility] Comment on above: Performed By: #### C BC #### [facility] [address] [place] [address] Dr. Daniela Ledesma WBC 15.1 103/ul Critically high 4.0-11.0 [facility] Comment on above: Performed By: #### C BC #### [facility] [address] [place] [address] [address] Daniela Ledesma SED RATE WESTERGRENon 2022 SED RATE 34 mm/hr Critically high <=30 [facility] Comment on above: Performed By: #### S EDR #### [facility] [address] [place] [address] [address] Daniela Ledesma URIC ACID SERUMon 01-21-2023 Urate [Mass/Vol] 7.5 mg/dL Critically high 2.6-6.0 [facility] Comment on above: Performed By: #### U TUTU #### [facility] [address] [place] [address] Dr. Daniela Ledesma CPKon 01-12-2023 CK [Catalytic activity/Vol] 98 U/L Normal 26-192 [facility] Comment on above: Performed By: #### M YO, CK #### [facility] [address] [place] [address] [address] Daniela Ledesma MYOGLOBINon 01-12-2023 SAW 34 ng/mL Normal 9-82 [facility] Comment on above: Performed By: #### M YO, CK #### [facility] [address] [place] [address] Dr. Daniela Ledesma MR cervical spine wo conon 0 - MR cervical spine wo con [facility] [address] XRay Report Signed Patient: Mayra Coates MR#: [id number] : 1970 Acct:[id number] Age/Sex: 52 / F ADM Date: 11/26/22 Loc: MR Room: Type: [facility] Attending Dr: Brendan COCHRAN Copies to: DIMAS Rand Ordering Provider: DIMAS Rand Date of Service: 11/26/22 MR/MR cervical spine wo con: R20.2, M79.601 ([id number]) XR/XR pre/post mri xray: PRE MRI OF [...] Jillian Angelo M.D.11/27/2022 10:13 AM Dictation Location: [place] [address] Transcribed By: [facility] 11/27/22 1013 Dictated By: Jillian Angelo MD 11/27/22 0948 Signed By: 11/27/22 1013 [facility] US Thyroidon 10-17-2022 US Thyroid HISTORY: [...] by Ezekiel Hernandez on 10/17/2022 1005 Normal [facility] Supervising Nurse JORDANA - [employer] JORDANA - [employer] [place] [facility] [place] MAYRA COATES 1970 Date of Female Sex [id number] [place] [address] AddressEnglish (preferred) Language White Race Not or Ethnicity Summary of Care Clinical Content Allergies and Adverse Reactions <#FS9ZOTYM> Encounters <#FA7YMJQA> Functional Status <#SI1VIPFN> Immunization <#MH3MSWUR> Instructions <#KJ7FTNTX> Interventions Provided <#VY2L6IER> Medications <#NE3YDEGW> Plan of Care <#LC2ZE2OC> Problems <#KL2HDSKR> Procedures <#FS2UNJQB> Results <#DJ2G07SK> Social History <#AY1XUPIL> Vital Signs <#RM0CXJNS> Other Document Details Health Care Providers Functional [...] Ambulatory Health Care Facilities Zo Rivera [email or web address] Work Email Allopathic AND Osteopathic Physicians [address] [place] [address] Address Ambulatory Health Care Facilities None, No PCPUnknown Address Document Detailstop <#top> [facility] Joshuajones Fraser DO February 13, 2020 11:46 -0400 [id number] [place] [address] [phone] Work Phone Powered by Weemba?Style Sheet V3.2 Normal [employer] JORDANA - Automatic [place], [place] ANDREYNETTIEHEIDY RONMAYRA 1970 Date of Female Sex [id number] [place] [id number] AddressEnglish (preferred) Language White Race Not or Ethnicity Summary of Care Clinical Content Allergies and Adverse Reactions <#ED2UXIBF> Encounters <#QR4QSFKC> Functional Status <#IH8IWGYW> Immunization <#RB9IAUNT> Instructions <#WH3FLDMO> Interventions Provided <#RX7LE2SE> Medications <#SW1UOTEX> Plan of Care <#FM9XW6JZ> Problems <#EJ4OWYQZ> Procedures <#PU1GNMEM> Results <#KD2O85YN> Social History <#JH7PKFOZ> Vital Signs <#TC4XNDUR> Other Document Details Health Care Providers Functional [...] Health Care Facilities Joshua GrayZo [email or web address] Work Email Allopathic [facility] Osteopathic Physicians [address] [place] [address] Address Ambulatory Health Care Facilities None, No PCPUnknown Address Document Detailstop <#top> [facility] Joshua FraserDO February 13, 2020 11:15 -0400 [id number] [place] [address] [phone] Work Phone Powered by Weemba?Style Sheet V3.2 Normal [employer] JORDANA - [employer] [place], [place] MAYRA COATES 1970 Date of Female Sex [id number] [place] [address] AddressEnglish (preferred) Language White Race Not or Ethnicity Summary of Care Clinical Content Allergies and Adverse Reactions <#MP0BMVKA> Encounters <#SN3QDKTF> Functional Status <#DB1LQVPK> Immunization <#UG7RKGQS> Instructions <#SS3ZJVYV> Interventions Provided <#SJ0G1QQF> Medications <#RI0SAGJJ> Plan of Care <#ZN0HUCAS> Problems <#IK1IPNEW> Procedures <#CH5M4ADG> Results <#XG0KEOEO> Social History <#WD2HQLNZ> Vital Signs <#ZJ4F5IZF> Other Document Details Health Care Providers Functional [...] Ambulatory Health Care Facilities Zo Rivera [email or web address] Work Email Allopathic AND Osteopathic Physicians [address] [place] [address] Address Ambulatory Health Care Facilities None, No PCPUnknown Address Document Detailstop <#top> [facility] Medicine-Valerie Fraser DO February 13, 2020 11:01 -0400 [id number] [facility] [place] [address] [phone] Work Phone Powered by Weemba?Style Sheet V3.2 Normal [facility] School/Work Letteron School/Work Letter February 13, 2020 [...] v2: Chart Review: HISTORY OF PRESENTING ILLNESS MYARA is a 49 year old Female and [...] Past Surgical History Description:Hysterectom y Description:Cholecystec kenny ORDER CALLER: Is : no(1) Is : no(1) REVIEW [...] SIGNS: T PRBP SpO2O2(LPM) %FiO2 Method 27-Sep-2019 19:18:[id number] 99 room air, no respiratory support MEDICAL [...] From Triage - ED 27-Sep-2019 19:18 Normal [place] Risk Screen - Adult Emergenc yon 09-27-2019 [...] Communicatenone Learning Preferencesaudio Cultural Considerationsnone Developmental Considerationsnone Taoist Considerationsnone Learning Assessment (Other Learner): Learning Assessment (Other Learner): Other learner availableno Pressure Injury/TB/Substance: Pressure Injury: Pressure Injury Present on Admissionno Do you have a coughno Admission Risk Screen: Significant IndicatorsComplete CAGE: CAGE: Is this an injured patient at a Trauma Center ([facility]/[place]): no Electronic Signatures: Gali Meyer (RN) (Signed 27-Sep-2019 19:36) Authored: Preferred Language, Advanced Directives, Family Violence Adult, Learning Assessment (Patient), Learning Assessment (Other Learner), Pressure Injury/TB/Substance, CAGE Last Updated: 27-Sep-2019 19:36 by Gali Meyer (RN) [facility] Triage - EDon 09-27-2019 Triage - [...] Travel outside of [place]: no Allergies: yes ORDER CALLER History: 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 Patient has homicidal thoughts: no [...] 19:22 by Sherry Bronson (STAFF N) Normal [place] CBC With Platelet No Differe ntialon 03-07-2018 Erythrocyte distribution width Auto Ratio (RBC) 13.0 % Normal 11.5-14.5 [facility] Erythrocytes (RBC) 5.17 10*6/uL Normal 4.20-5.40 [facility] Hematocrit (HCT) 44.4 % Normal 37.0-47.0 [facility] Hemoglobin mass conc (Bld) 15.3 g/dL Normal 12.0-16.0 [facility] MCH 29.6 pg Normal 27.0-31.3 [facility] MCHC mass conc (RBC) 34.4 % Normal 33.0-37.0 [facility] MCV 85.9 fL Normal 82.0-100.0 [facility] Platelets 287 10*3/uL Normal 130-[address] [facility] WBC (Leukocytes) 6.8 10*3/uL Normal 4.8-10.8 [facility] TSH w/out Reflexon 201 8 Thyroid stimulating hormone (TSH) m[IU]/L Low 0.270-4.20 [facility] Thyroxine Freeon 03-07-2018 Thyroxine Free 2.23 ng/dL Critically high 0.93-1.70 [facility] US HEAD NECK SOFT TISSUE THY [...] Data System (TI- RADS) established by the [employer] to help provide guidance [...] by:INDER Morrisigned by:Julio Marie MD02/14/18inal result Normal [facility] CBC With Platelet No Differe ntialon 02-07-2018 Erythrocyte distribution width Auto Ratio (RBC) 12.7 % Normal 11.5-14.5 [facility] Erythrocytes (RBC) 4.65 10*6/uL Normal 4.20-5.40 [facility] Hematocrit (HCT) 40.2 % Normal 37.0-47.0 [facility] Hemoglobin mass conc (Bld) 14.0 g/dL Normal 12.0-16.0 [facility] MCH 30.1 pg Normal 27.0-31.3 [facility] MCHC mass conc (RBC) 34.8 % Normal 33.0-37.0 [facility] MCV 86.4 fL Normal 82.0-100.0 [facility] Platelets 241 10*3/uL Normal 130-[address] [facility] WBC (Leukocytes) 6.8 10*3/uL Normal 4.8-10.8 [facility] TSH w/out Reflexon 8 Thyroid stimulating hormone (TSH) m[IU]/L Low 0.270-4.20 [facility] Thyroxine Freeon 02-07-2018 Thyroxine Free 3.43 ng/dL Critically high 0.93-1.70 [facility] Vital Signs Date Time Vital Sign Value Performing Clinician Faci lity 09-10-2024 13:12050 Body height 162.6 cm Zehra Marques MD Work Phone: [facility] 09-10-2024 13:12-0500 Body mass index (BMI) [Ratio] 43.26 kg/m2 Zehra Marques MD Work Phone: [facility] 09-10-2024 13:12-050 Body weight 114.31 kg Zehra Marques MD Work Phone: [facility] 09-10-2024 13:12-0500 Diastolic blood pressure 72 mm[Hg] Zehra Marques MD Work Phone: [facility] 09-10-2024 13:12-0500 Heart rate 119 /min Zehra Marques MD Work Phone: [facility] 09-10-2024 13:12-0500 Respiratory rate 18 /min Zehra Marques MD Work Phone: [facility] 09-10-2024 13:12-0500 SaO2% (BldA) [Mass fraction] 97 % Zehra Marques MD Work Phone: [facility] 09-10-2024 13:12-0500 Systolic blood pressure 124 mm[Hg] Zehra Marques MD Work Phone: [facility] Encounters Encounter Date Encounter Type Care Provider Facility Start: 11-19-2024 End: 11-19-2024 ambulatory [facility] Start: 11-19-2024 End: 11-19-2024 ambulatory [facility] Start: 11-13-2024 End: 11-13-2024 ambulatory [facility] Start: 11-13-2024 End: 11-13-2024 Refill Zehra Marques MD Work Phone: [facility] Comment on above: 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 (CMS/HCC) Start: 11-09-2024 End: 11-09-2024 ambulatory Vinay Crews MD Facility:[facility] Start: 11-04-2024 End: 11-04-2024 Clinisync Result Encounter [...] current use of insulin, unspecified CKD stage ([facility]/HCC); Paresthesia of skin; Neuropathy; Type 2 diabetes mellitus with diabetic chronic kidney disease ([facility]/HCC); Acquired hypothyroidism (CMS/HCC); H/O 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 for benign disease; Urinary frequency; Hyperuricemia without signs of inflammatory arthritis and tophaceous disease; Other specified hypothyroidism (CMS/HCC); Fibromyalgia; Restless legs syndrome (RLS); Other insomnia; Chronic bilateral low back pain without sciatica Start: 07-06-2024 End: 07-06-2024 ambulatory Vinay Crews MD Facility:[facility] Start: 07-02-2024 End: 07-02-2024 Refmckenna Marques MD Work Phone: [facility] Comment on above: 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 Facility:[facility] Start: 01-12-2023 End: 01-13-2023 ambulatory BRENDAN COYLE Facility:[facility] Start: 11-26-2022 End: 11-26-2022 ambulatory Brendan Coyle Facility:[facility] Start: 11-26-2022 End: 11-26-2022 ambulatory MD Zehra Marques Work Phone: [facility] Work Phone: Start: 11-26-2022 End: 11-26-2022 Patient encounter procedure MD Zehra Marques Work Phone: [facility] [place] Work Phone: Start: 11-19-2022 End: 11-20-2022 ambulatory DAPHNEY RODRIGUEZ Facility:[facility] Start: 09-17-2022 ambulatory DAPHNEY RODRIGUEZ Fac ility:[facility] Start: 05-13-2020 Patient encounter procedure Ezekiel Devi [facility] Work Phone: Start: 03-26-2020 [facility] Start: 02-13-2020 [facility] Start: 02-14-2018 End: 02-17-2018 Ambulatory MICKEY OWEN [facility] Procedures Date Procedure Procedure Detail Performing [...] Assay of thyroid stimulating hormone tsh Ezekiel Devi Start: 05-13-2020 Blood count complete auto&auto difrntl wbc Ezekiel Devi Start: 05-13-2020 Comprehensive metabo lic 2000 panel Ezekiel Devi Start: 05-13-2020 Free T4 Index Ezekiel chiu Start: 05-13-2020 Lipid panel Ezekiel rodriguez Start: 05-13-2020 Follow-up visit Start: 03-26-2020 Follow-up visit Start: 02-13-2020 Follow-up visit Start: 02-14-2018 soft tissue head & neck real time imge doc MICKEY OWEN Plan of Treatment Date Care Activity Detail Author Start: 08-13-2026 Screening for malign ant neoplasm of colon [facility] Start: 09-10-2025 Urine screening for protein Diabetes: Urine Protein Screening [facility] Start: 07-11-2025 Glaucoma screening Diabetes: R etinopathy Screening [facility] Start: 04-05-2025 Influenza vaccination Influenza Vacc ine (#1) [facility] Comment on above: Postponed from 06/07 (Insurance / Financial) Start: 03-11-2025 End: 03-11-2025 Patient encounter procedure 03/11/2025 1:00 PM EDT Office Visit [facility] [address] [place] [address] Zehra Marques MD [address] [place] [address] [facility] Start: 12-10-2024 End: 09-11-2025 TSH W/REFLEX TO FT4 TSH W/REFLEX TO FT4 Lab Routine Hypothyroidism, unspecified type (CMS/HCC) Expected: 12/10/2024 (Approximate), Expires: 09/11/2025 [facility] Work Phone: Comment on above: Expected: 12/10/2024 (Approximate), Expires: 09/11/2025 Start: 12-09-2024 Hemoglobin A1c measurement Diabetes: Hemoglobin A1C [facility] Start: 10-15-2024 End: 10-15-2024 Professional / ancillary services management 10/15/2024 3:00 PM EST Ancillary Procedure [facility] [address] [address] [facility] Start: 09-10-2024 End: 11-11-2025 DBT Breast - bilateral screening Bilateral screening mammogram with tomosynthesis Imaging Routine Breast cancer screening by mammogram Expected: 09/10/2024, Expires: 11/11/2025 [facility] Work Phone: Comment on above: Expected: 09/10/2024 , Expires: 11/11/2025 Start: 07-19-2024 Screening for malign ant neoplasm of breast Mammogram [facility] Start: 06-07-2024 Influenza vaccination Influenza Vacc ine (#1) [facility] Start: 08-20-2023 Urine screening for protein Diabetes: Urine Protein Screening [facility] Start: 07-23-2023 Hemoglobin A1c measurement Diabetes: Hemoglobin A1C [facility] Start: 11-26-2022 MR Cervical spine WO contrast [facility] Start: 11-26-2022 MRI of cervical spin e without contrast MR cervical spine wo con [facility] Start: 11-26-2022 XR pre/post mri xray XR pre/post mri xray [facility] Start: 11-26-2022 [facility] Start: 1970 Screening for malign ant neoplasm of colon [facility] Payers Date Payer Category Payer Unknown 2023 Medicaid [id number] 2022 Self-pay 2017 Unknown [id number] 1970 Unknown [id number] 2.16.84 [id number] 1970 Unknown [id number] 2.16.84 [id number] 1970 Unknown [id number] 2.16.84 [id number] 1970 Unknown [id number] 2.16.84 [id number] 1970 Unknown [id number] 2.16.84 [id number] 1970 Unknown [id number] 2.16. [id number] 1970 Unknown [id number] 2.16. [id number] 1970 Unknown [id number] 2.16. [id number] 1970 Unknown [id number] 2.16. [id number] 1970 Unknown [id number] 2.16. [id number] 1959 Medicaid [id number] Unknown [id number] 2.16.8 [id number] Social History Date Type Detail Facility Assertion Tobacco smoking consumption unknown (finding) [facility] Work Phone: Start: 1970 Sex Assigned At Female F [facility] Start: 04-22-2023 Tobacco smoking stat [facility] Ex-smoker [facility] End: 10-07-2021 History of tobacco use Current smoker [facility] End: 10-07-2021 History of tobacco use Cigarette Smoker [facility] Start: 04-22-2023 Tobacco use and exposure User of smokeless tobacco [facility] Start: 07-04-2023 End: 09-10-2024 Alcoholic beverage intake Ex-drinker (finding) [facility] Start: 07-04-2023 End: 09-10-2024 History of Social function [facility] Start: 07-04-2023 End: 09-10-2024 Tobacco use panel [facility] Start: 05-02-2023 Alcohol Comment 1-2 drinks, mo nthly or less. caffeine intake: 2-3 cups per day. [facility] Start: 1970 Sex assigned at Not on file N [facility] Medical Equipment Procedure Code Equipment Code Equipment Origin al Text Equipment Identifier Dates USE TO TEST BLOO D SUGAR TWICE DAILY [id number] Start: 09-28-2023 End: 11-13-2024 USE TO TEST BLOO D SUGAR TWICE DAILY [id number] Start: 11-13-2024 Goals Date Patient Goal Desired Activity /State Personal health goal Functional Status Date Assessment Result Facility NEGATED: Highlighted row Functional performance Functional status health issues are not documented Disease [facility] Work Phone: Mental Status Date Assessment Result Facility NEGATED: Highlighted row Cognitive function [Interpretation] Cognitive status health issues are not documented Disease [facility] Work Phone: Clinical Notes 11-14-2022 to 11-19-2024 Telephone Encounter - Zehra Marques MD - 11/13/2024 8:19 AM ESTTelephone Encounter - Zehra Marques MD - 11/13/2024 8:19 AM ESTTelephone Encounter - Zehra Marques MD - 09/14/2024 12:54 PM EST Note Date & Type Note Facility 11-19-2024 Note NEUROSURGERY NOTE SUBJECTIVE: Chief complaint: Back and left leg pain. History of present illness: Consultation referred by [place] pain management, Tammie Tapia NP, for back [...] done aquatic therapy in the past at [place]. No previous back surgery. Review of systems: [...] spondylosis with radiculopathy. (more content not included)... [facility] 11-19-2024 Note NEUROSURGERY NOTE SUBJECTIVE: Chief [...] standing for very long. 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 [facility] 11-13-2024 Telephone encounter Note Approvals with refills [facility] 11-13-2024 Miscellaneous Notes Approvals with refills documented in this encounter [facility] 09-14-2024 Telephone encounter Note Approvals with refills [facility] 09-14-2024 Miscellaneous Notes Approvals with refills documented in this encounter [facility] 09-10-2024 History of Presen t illness [...] for physical therapy and water therapy at [place] will be arranged. 2. Diabetes Mellitus. Her [...] follow up. documented in this encounter [facility] 07-02-2024 Telephone encounter Note Approvals with refills [facility] 07-02-2024 Miscellaneous Notes Approvals with refills documented in this encounter [facility] 08-20-2022 Note FINDINGS: ARTERIAL EVALUATION RIGHT LEFT VELOCITIES PHASICITY VELOCITIES PHASICITY 85 BiCommon [id number] 83BiProximal [id number] 108BiMid [id number] 40 BiDistal [id number] 51 [id number] 46 [id number] 75 BiPTA 93Bi 44 BiPeroneal 58Bi RIGHT [...] signed by Mikey Harry on 08/21/2022 115[address] [facility] Supervising Nurse Evaluation note No assessment inform ation available [facility] Work Phone: Evaluation note Diagnosis Hypothyroidism, unspecified type (CMS/HCC)- Primary documented in this encounter [facility] HealthcareEvaluation note* Diagnosis Breast cancer screening [...] arthritis and tophaceous disease Other specified hypothyroidism ([facility]/HCC) Fibromyalgia Unspecified myalgia and myositis Restless [...] section and content) DATE CREATED AUTHOR 03/26/2018 [facility] DATE CREATED AUTHOR AUTHOR'S ORGANIZ ATION 10/02/2019 [facility] DATE CREATED AUTHOR AUTHOR'S ORGANIZ ATION 05/19/2020 [employer] DATE CREATED AUTHOR AUTHOR'S ORGANIZ ATION 10/17/2022 [facility] dical Specialist DATE CREATED AUTHOR AUTHOR'S ORGANIZ ATION 12/02/2022 [facility] DATE CREATED AUTHOR AUTHOR'S ORGANIZ ATION 02/19/2023 [facility] DATE CREATED AUTHOR AUTHOR'S ORGANIZ ATION 11/13/2024 [facility] DATE CREATED AUTHOR AUTHOR'S ORGANIZ ATION 11/26/2024 [facility] Care Teams (unrecognized sec tion and content) Team Status: Inactive Member Role Status Dates Brendan Coyle NP-C Attending Provider Active Zehra Marques MD Primary Care Provider Active Team Status: Active Member Role Status Dates Zehra Marques MD Primary Care Provider Active Filter Screen Cleaner Relationship Specialty Start Date End Date Zehra Marques MD [address] [facility] [place] [address] PCP - General Family Medicine 02/21/23 Zehra Marques MD [address] [facility] [place] [address] PCP - [facility] MOLECULAR GENETICIST 01/06/24 Filter Screen Cleaner Relationship Specialty Start Date End Date Zehra Marques MD [address] [facility] [place] [address] PCP - General Family Medicine 02/21/23 Zehra Marques MD [address] [facility] [place] [address] PCP - [facility] 01/06/24 Filter Screen Cleaner Relationship Specialty Start Date End Date Zehra Marques MD [address] [facility] [place] [address] PCP - General Family Medicine 02/21/23 Zehra Marques MD [address] [facility] [place] [address] PCP - [facility] 01/06/24 Filter Screen Cleaner Relationship Specialty Start Date End Date Zehra Marques MD [address] [facility] [place] [address] PCP - General Family Medicine 02/21/23 Zehra Marques MD [address] [facility] [place] [address] PCP - [facility] MOLECULAR GENETICIST 01/06/24 Filter Screen Cleaner Relationship Specialty Start Date End Date Zehra Marques MD [address] [facility] [place] [address] PCP - General Family Medicine 02/21/23 Zehra Marques MD [address] [place] [address] PCP - [facility] 01/06/24 Filter Screen Cleaner Relationship Specialty Start Date End Date Zehra Marques MD [address] [place] [address] PCP - General Family Medicine 02/21/23 Zehra Marques MD [address] [place] [address] PCP - NOMS[facility] Al[facility]a [facility] 01/06/24 Filter Screen Cleaner Relationship Specialty Start Date End Date Zehra Marques MD [address] [place] [address] PCP - General Family Medicine 02/21/23 Zehra Marques MD [address] [place] [address] PCP - PANCHO Alcala [facility] 01/06/24 Goals (unrecognized section and content) Goals [...] BE BASED ON THE PRIMARY CLINICAL RECORDS. [employer] [facility]. provides no warranty or guarantee of the accuracy or completeness of information in this document.
== END 2024-12-10 14:54 | disposition home or self-care (01) ==
LOC: RAD 14:55
PROVIDERS: PCP Family Medicine; Visit Provider Nurse Practitioner
DX: M25.562 Pain in left knee (principal)
CPT/HCPCS: 73564

== ENCOUNTER 2025-02-10 08:04 | Outpatient (OUT) | payer MEDICAID, SELFPAY ==
--- NOTE | 2025-02-10 08:10 | PM.CN ---
Consult Note: HPI Data of Consult Patient: known to practice within the last 3 years Requesting Physician: Estefany Tapia NP Primary Care Provider: LARS COPEER Consult Narrative Reason for consult: low back pain Narrative: Mayra Coates a pleasant 54 year old female presents for evaluation of chronic severe low back and coccyx pain. Pain today 9.5/10 sharp increasing to 10/10 with all activities, improved mildly with heat. Pt reports numbness tingling and weakness to BLE. prior bilateral L5-S1 TFESI and bilateral SIJ injection provided >50% improvement greater than 3 months. Around 02/03/25 pt had another fall, reports she stepped backwards tripping over her own feet and fell flat on her coccyx onto concrete. pt started meloxicam yesterday and has not increased tizanidine frequency. continues to utilize duloxetine and tylenol otc. LILIANE 69% today. cc:: CC: Estefany Tapia NP Review of Systems ROS Status of ROS 10 or more systems reviewed and unremarkable except as noted in history and below Musculoskeletal Reports: back pain, neck pain, extremity pain and joint pain PFSH PFSH Medical History Osteoarthritis ?M19.90 - Unspecified osteoarthritis, unspecified site (ICD-10) Low back pain ?M54.50 - Low back pain, unspecified (ICD-10) Neck pain ?M54.2 - Cervicalgia (ICD-10) Acid reflux ?K21.9 - Gastro-esophageal reflux disease without esophagitis (ICD-10) Obesity ?E66.9 - Obesity, unspecified (ICD-10) Hypothyroid ?E03.9 - Hypothyroidism, unspecified (ICD-10) Diabetes ?E11.9 - Type 2 diabetes mellitus without complications (ICD-10) Smoker ?F17.200 - Nicotine dependence, unspecified, uncomplicated (ICD-10) Hypertension ?I10 - Essential (primary) hypertension (ICD-10) Surgical History History of cholecystectomy ?Z90.49 - Acquired absence of other specified parts of digestive tract (ICD-10) H/O: 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 ?Z90.710 - Acquired absence of both cervix and uterus (ICD-10) Social History Smoking status: Former smoker Little interest or pleasure in doing things: not at all Feeling down, depressed, or hopeless: not at all Meds Home Medications and Allergies Home Medications ?Medication ?Instructions ?Recorded ?Confirmed ?Type atorvastatin 10 mg tablet 10 mg PO DAILY 05/22/23 11/09/24 History cholecalciferol (vitamin D3) 50 50 mcg PO DAILY 05/22/23 11/09/24 History mcg (2,000 unit) capsule dulaglutide 3 mg/0.5 mL 3 mg subcut QWEEK 05/22/23 11/09/24 History subcutaneous pen injector (Trulicity) levothyroxine 50 mcg tablet 50 mcg PO DAILY 05/22/23 11/09/24 History lisinopril 2.5 mg tablet 2.5 mg PO DAILY 05/22/23 11/09/24 History nabumetone 500 mg tablet 500 mg PO BID 05/22/23 11/09/24 History tizanidine 4 mg capsule 4 mg PO Q8H PRN back pain 05/22/23 11/09/24 History trazodone 50 mg tablet 50 mg PO DAILY PRN sleep 05/22/23 11/09/24 History gabapentin 600 mg tablet 600 mg PO TID 10/29/23 11/09/24 History duloxetine 30 mg capsule,delayed 30 mg PO BID 01/25/24 11/09/24 History release ropinirole 0.5 mg tablet 0.5 mg PO DAILY 01/25/24 11/09/24 History dicyclomine 10 mg capsule 10 mg PO TID PRN abdominal pain 07/20/24 11/09/24 Rx #12 caps ondansetron 4 mg disintegrating 4 mg PO Q8H PRN nausea and 07/20/24 11/09/24 Rx tablet vomiting 4 days #12 tabs tizanidine 4 mg capsule 4 mg PO .qhs PRN muscle spasticity 11/05/24 11/09/24 Rx #30 caps oxybutynin chloride 10 mg 10 mg PO DAILY 11/09/24 11/09/24 History tablet,extended release 24 hr Allergies Allergy/AdvReac Type Severity Reaction Status Date / Time propylthiouracil Allergy Severe Hives Verified 11/09/24 09:53 Exam Constitutional Documenting provider has reviewed patient's vital signs: yes Common normals: no apparent distress, oriented x3, healthy appearing, alert and well nourished General appearance: cooperative HENMT Common normals: normocephalic, hearing grossly normal bilaterally and moist oral mucous membranes Head and scalp: normocephalic Eye Common normals: PERRL Pupil: PERRL Neck & C-Spine Common normals: full ROM General: normal visual inspection Chest Common normals: inspection of chest normal Respiratory Common normals: normal respiratory effort, no retractions and no use of accessory muscles Back & Pelvis Lumbar spine/lower back: ROM limited, pain with ROM, lumbar spinal tenderness, straight leg raise positive right and straight leg raise positive left Sacroiliac joints: SI joint(s) abnormal Other: bilateral sij positive laurie(patricks), gaenslens, thigh thrust, compression test strength 4/5 in BLE decreased sensation to bilateral L4,5,S1 dermatomes Extremity Common normals: normal to inspection Neuro Common normals: oriented x3 Sensorium/orientation: alert Gait (neuro): antalgic Motor exam: strength abnormal Psych Common normals: mental status grossly normal, thought process normal, cooperative, affect normal, speech normal and activity/motor behavior normal Speech: normal speech Thought process: normal thought process Results Additional Findings Additional findings: If on a controlled substance or opioids, I have checked an [place] report on this patient and there are no aberrancies noted in the prescribing history.??If on a controlled substance or opioid a drug screen was completed and reviewed within the last year, and if there has not been a drug screen completed we ordered one today to monitor higher risk, state monitored pain medication use. As part of providing excellent, safe, comprehensive care, the following was completed at our patient's visit: 1. A medication reconciliation and review to ensure accurate knowledge of current/active medications, including asking our patients to inform us about any [id number] medications or herbal remedies/nutritional supplements/alternative remedies. 2. A review to specifically ensure our patients have had annual screening for screening for depression, screening for tobacco use, and screening for unhealthy alcohol use. For concerning screenings had a discussion with the patient, provided patient education, and recommended follow-up with primary care provider when appropriate. If patient noted with a risk of falling, they received education on strength, gait, and balance training to prevent future risk of falling. Portions of this note may have been carried over from the previous visit and updated as appropriate. Please note this office utilizes paper charting in addition to the electronic medical record. A list of current medications, vitals, and PMH is available there as the clinical staff outside of myself do not have access to [facility] charting during the clinic day operations. As part of providing quality comprehensive care the current medications, vitals, and PMH were reviewed in the paper chart. Assessment and Plan Assessment and Plan (1) Lumbar stenosis with neurogenic claudication: Assessment and Plan: The patient has had over 3 months of moderate to severe low back and BLE pain with functional impairment and inadequate response to conservative care including NSAIDS (unless there are contraindication such as concurrent blood thinners), multiple oral or topical pain medications, and home exercise program/physical therapy.? Patient has completed >6 weeks of guided home exercise program and/or formal physical therapy program without relief of their symptoms.? I have reviewed the imaging of the lumbar spine and no red flags were identified.? The imaging reveals radiographic findings consistent with lumbar stenosis with NC The Oswestry Disability Index was completed, and the patient scored a 69%.? The patient noted the following:?? severe pain with ADLs, sitting, standing, walking, sleeping, impacting social life and travel (2) Coccyx pain: (3) Fall: (4) Lumbar spondylosis: (5) Fibromyalgia: Plan update stat lumbar xray with flexion and coccyx xray to assess severe pain and rule out fx continue current medications repeat bilateral L5-S1 TFESI under fluoroscopy, previous injection provided >50% improvement greater than 3 months f/u 2 weeks after TFESI
== END 2025-02-10 08:05 | disposition home or self-care (01) ==
LOC: PM 08:05
PROVIDERS: PCP Family Medicine; Visit Provider Nurse Practitioner
DX: M48.062 Spinal stenosis, lumbar region with neurogenic claudication (principal); M53.3 Sacrococcygeal disorders, not elsewhere classified; M47.816 Spondylosis without myelopathy or radiculopathy, lumbar region; M79.7 Fibromyalgia
CPT/HCPCS: 72114; 72220; G0463

== ENCOUNTER 2025-02-10 08:58 | Outpatient (OUT) | payer MEDICAID, SELFPAY | END 2025-02-10 08:59 | disposition home or self-care (01) | LOC: RAD 09:04 | PROVIDERS: PCP Family Medicine; Visit Provider Nurse Practitioner | DX: M47.816 Spondylosis without myelopathy or radiculopathy, lumbar region (principal); M53.3 Sacrococcygeal disorders, not elsewhere classified | CPT/HCPCS: 72114; 72220 ==

== ENCOUNTER 2025-02-22 07:08 | Day surgery (SDC) | payer MEDICAID, SELFPAY ==
--- OUTSIDE RECORDS SUMMARY | 2025-02-22 07:11 | XMS_ITS | CCD ---
Author Organization [facility] Care Team Providers Care Merchandise Pickup/Receiving Associate Name Role Phone LEXIECALEBNT Unavailable Unavailable MICHELLE CHOW Unavailable Unavailable Joshua Fraser Unavailable Unavailable Joshua Fraser Unavailable Unavailable None, No PCP Unavailable Unavailable Ezekiel Devi Unavailable Unavailable Joshua Fraser Unavailable Unavailalireza Coyle NP-C Brendan Vivar Attending Provider [phone] MD Zehra Marques Primary Care Provider Brendan [...] Shelli KAPADIA, Zehra Andino Primary Care Provider Zehra Marques MD Unavailable Mars KAPADIA, Vinay [...] to adverse reactions 3 Shortness of breath [facility] Work Phone: (9 sources) Propylthiouraci l; Translations: [PROPYLTHIOURAC [place]] Drug Allergy 5 Hives [facility] Work Phone: (9 sources) thyroid ([facility]); Translations: [THYROID] Drug Allergy 3 [facility] (1 source) ALLERGIES NOT ON FILE; Translations: [ALLERGIES NOT ON FILE] Propensity to adverse reactions (disorder) [facility] Repository Medications Current Medications Medication Drug Class(es) [...] has visits left. Also considering massage or medicare nurse, both of which seem reasonable options. She [...] to follow-up with her as needed. Normal [facility] Telephoneon 11-24-2024 Telephone [phone] Mayra Coates 1970 F Date Provider Department Center 11/24/2024 DANNI HUNTER NEURO SURG None No family history on file Normal [facility] Consulton 11-19-2024 Consult [id number] Mayra Coates 1970 F Date Provider Department Center 11/19/[address] [facility] SURG [place] No family history on file Level of Service:52537 ID OFFICE/OUTPATIENT NEW MODERATE MDM 45 MINUTES Reason for Visit and Comments: Consult [484] - Patient is here today for a consult for lumbar stenosis [facility] 36on 11-13-2024 36 Attempted to call pt to schedule consult with either Danni Cardenas CNP or Dr. Marshall for Lumbar Stenosis. No answer. Phone rang, then stopped. No VM. [facility] [place] [address] Magnetic Resonance Report Signed Patient: MAYRA COATES MR#: [id number] : 1970 Acct:[id number] Age/Sex: 54 / F ADM Date: 11/04/24 Loc: MRI Attending Dr: Tammie Tapia NP Ordering Physician: Tammie Tapia NP Date of Service: 11/04/24 Procedure(s): MR lumbar spine wo con Accession Number(s): [id number] cc: ZEHRA MARQUES ; Tammie Tapia NP [place] [id number] Patient Name: MAYRA COATES MRN: [facility]:[id number] date: 1970 Sex: F Assigned Patient Location: [facility] Accession/Order Number: [id number] Exam Date: 11/04/2024 10:16 Report Date: 11/04/2024 [...] Signed By: 11/04/24 1410 DD/ 1407 TD/TT: Cashier Courtesy Booth: [facility] Radiology, Radiologi MD margie - 11/04/[address] [place] [address] Magnetic Resonance Report Signed Patient: MAYRA COATES MR#: [id number] : 1970 Acct:[id number] Age/Sex: 54 / F ADM Date: 11/04/24 Loc: MRI Attending Dr: Tammie Tapia NP Ordering Physician: Tammie Tapia NP Date of Service: 11/04/24 Procedure(s): MR lumbar spine wo con Accession Number(s): [id number] cc: ZEHRA MARQUES ; Tammie Tapia NP [address] [address] Patient Name: MAYRA COATES MRN: [facility]:[id number] date: 1970 Sex: F Assigned Patient Location: MRI Current Patient Location: [facility] Accession/Order Number: [id number] Exam Date: 11/04/2024 10:16 Report Date: 11/04/2024 [...] Signed By: 11/04/24 1410 DD/ 1407 TD/TT: Cashier Courtesy Booth: [facility] Radiology Study observation (narrative) [facility] MR LUMBAR SPINE WO CONOrdere d By: Radiologist Radiology on 11-04-2024 [facility] Work Phone: CBC W Auto Differential pane l (Bld)on 09-11-2024 Basophils (Bld) [#/Vol] 72 10*3/uL [facility] Basophils/100 WBC (Bld) 1.1 % [facility] Eosinophils (Bld) [#/Vol] 189 10*3/uL [facility] Eosinophils/100 WBC (Bld) 2.9 % [facility] Erythrocyte distribution width (RBC) [Ratio] 12.2 % 11.0 - 15.0 % [facility] Hematocrit (Bld) [Volume fraction] 45.7 % High 35.0 - 45.0 % [facility] Hemoglobin (Bld) [Mass/Vol] 15.3 g/dL 11.7 - 15.5 g/dL [facility] Lymphocytes (Bld) [#/Vol] 1736 10*3/uL [facility] Lymphocytes/100 WBC (Bld) 26.7 % [facility] MCH (RBC) [Entitic mass] 30.4 pg 27.0 - 33.0 pg [facility] MCHC (RBC) [Mass/Vol] 33.5 g/dL 32.0 - 36.0 g/dL [facility] Comment on above: For adults, a slight decrease in the calculated MCHC value (in the range of 30 to 32 g/dL) is most likely not clinically significant; however, it should be interpreted with caution in correlation with other red cell parameters and the patient's clinical condition. MCV (RBC) [Entitic vol] 90.7 fL 80.0 - 100.0 fL [facility] Monocytes (Bld) [#/Vol] 559 10*3/uL [facility] Monocytes/100 WBC (Bld) 8.6 % [facility] Neutrophils (Bld) [#/Vol] 3946 10*3/uL [facility] Neutrophils/100 WBC (Bld) 60.7 % [facility] Platelet mean volume (Bld) [Entitic vol] 10 fL 7.5 - 12.5 fL [facility] Platelets (Bld) [#/Vol] 296 10*3/uL [facility] RBC (Bld) [#/Vol] 5.04 10*6/uL [facility] WBC (Bld) [#/Vol] 6.5 10*3/uL [facility] Laboratory - Chemistry and C hemistry - challengeon 09-11-2024 Albumin [Mass/Vol] 4.2 g/dL 3.6 - 5.1 g/dL [facility] Albumin/Globulin [Mass ratio] 1.6 {ratio} [facility] ALP [Catalytic activity/Vol] 83 U/L 37 - 153 U/L [facility] ALT [Catalytic activity/Vol] 51 U/L High 6 - 29 U/L [facility] AST [Catalytic activity/Vol] 39 U/L High 10 - 35 U/L [facility] Bilirubin [Mass/Vol] 1.1 mg/dL 0.2 - 1.2 mg/dL [facility] Calcium [Mass/Vol] 9.8 mg/dL 8.6 - 10. 4 mg/dL [facility] Chloride [Moles/Vol] 102 mmol/L 98 - 110 mmol/L [facility] CO2 [Moles/Vol] 27 mmol/L 20 - 32 mmol/L [facility] Creatinine [Mass/Vol] 0.48 mg/dL Low 0.50 - 1.03 mg/dL [facility] Free T4 [Mass/Vol] 1.5 ng/dL 0.8 - 1.8 ng/dL [facility] GFR/1.73 sq M.predicted among non-blacks MDRD (S/P/Bld) [Vol rate/Area] 112 mL/min/{1.73_m2} > OR = 60 mL/min/1.73m2 [facility] Globulin (S) [Mass/Vol] 2.7 g/dL [facility] Glucose [Mass/Vol] 309 mg/dL High 65 - 99 mg/dL [facility] Comment on above: Fasting reference interval For someone without known diabetes, a glucose value >125 mg/dL indicates that they may have diabetes and this should be confirmed with a follow-up test. Potassium [Moles/Vol] 3.8 mmol/L 3.5 - 5.3 mmol/L [facility] Protein [Mass/Vol] 6.9 g/dL 6.1 - 8.1 g/dL [facility] Sodium [Moles/Vol] 138 mmol/L 135 - 146 mmol/L [facility] TSH Qn 0.01 m[IU]/L Low mIU/L [facility] Comment on above: Reference Range > or = 20 Years 0.40-4.50 Ranges First trimester 0.26-2.66 Second trimester 0.55-2.73 Third trimester 0.43-2.91 Urea nitrogen [Mass/Vol] 10 mg/dL 7 - 25 mg/dL [facility] Urea nitrogen/Creatinine [Mass ratio] 21 mg/mg [facility] Lipid 1996 panelon 4 Cholesterol [Mass/Vol] 105 mg/dL NINF - 200 mg/dL [facility] Cholesterol in HDL [Mass/Vol] 50 mg/dL > OR = 50 [facility] Cholesterol in LDL [Mass/Vol] 38 mg/dL mg/dL (calc) [facility] Comment on above: Reference range: <10 0 Desirable range <100 mg/dL for primary prevention; <70 mg/dL for patients with CHD or diabetic patients with > or = 2 CHD risk factors. LDL-C is now calculated using the Edgar-Shell calculation, which is a validated novel method providing better accuracy than the Friedewald equation in the estimation of LDL-C. Edgar SS et al. REBECCA. 2013;310(19): 0450-8042 (http://education.Elevate HR/faq/GOU106) Cholesterol non HDL [Mass/Vol] 55 mg/dL [facility] Comment on above: For patients with di abetes plus 1 major ASCVD risk factor, treating to a non-HDL-C goal of <100 mg/dL (LDL-C of <70 mg/dL) is considered a therapeutic option. Cholesterol.total/C holesterol in HDL [Mass ratio] 2.1 {ratio} [facility] Triglyceride [Mass/Vol] 86 mg/dL [facility] - 150 mg/dL [facility] Microalbumin/Creatinine rati o panel (U)on 09-11-2024 Albumin DL <= 20 mg/L (U) [Mass/Vol] 9.6 mg/dL See Note: [facility] Comment on above: Reference Range: Reference Range Not established Albumin/Creatinine (U) [Mass ratio] 50 High [facility] Comment on above: The ADA defines [...] [Mass/Vol] 191 mg/dL 20 - 275 mg/dL [facility] Interpretation and review of laboratory results Abnormal [facility] Performing Organizat ion Information Site ID: QPT Name: [employer] [facility] Address: [address] [place], [place] [id number] Director: Quang Welch MD [facility] No Panel Informationon 09-11 Interpretation and review of laboratory results Abnormal [facility] Performing OrganSpire Technologiesat ion Information Site ID: QPT Name: [facility] [employer] [facility] Address: [address] [place] [address], [address] [place] [address] Director: Quang Welch MD [facility] HbA1c (Bld) [Mass fraction]o n 09-10-2024 Interpretation and review of laboratory results Abnormal [facility] Laboratory - Hematology and Cell countson 09-10-2024 HbA1c (Bld) [Mass fraction] 8.3 % [facility] Urinalysis macro (dipstick) panel (U)on 09-10-2024 Bilirubin, UA Negative Negative - 4(70) +++ mg/dL [facility] Blood, UA Negative Negative - 50 Guicho/mcL [facility] Clarity, UA Clear [facility] Color, UA Isha [facility] Glucose, UA Negative Negative - 2000(110) ++++ mg/dL [facility] Interpretation and review of laboratory results Normal [facility] Ketones, UA Negative Negative - 160(16) ++++ mg/dL [facility] Leukocytes, UA Negative Negative - 500+++ Cynthia/mcL [facility] Nitrite, UA Negative Negative - Positive [facility] pH, UA 5 5 - 9 [facility] Protein, UA Negative Negative - 2000(20) ++++ mg/dL [facility] Spec Grav, UA 1.02 1 - 1.03 [facility] Urobilinogen, UA 1.0 0.2 - 12 mg/dL [facility] HLA B 27on 01-28-2023 HLA-B27 Negative Normal [facility] Comment on above: Result Comment: HLA- B*27 Negative B27 allele interpretation for all loci based on IMGT/HLA database version 3.44 This test was developed and its performance characteristics determined by [facility]. It has not been cleared or approved by the Food and Drug Administration. [facility] CLIA ID Number [id number] . This test was performed using PCR (Polymerase Chain Reaction)/SSOP (Sequence Specific Oligonucleotide Probes) technique. SBT (Sequence Based Typing) and/or SSP (Sequence Specific Primers) may be used as supplemental methods when necessary. Please contact HLA Customer Service at if you have any questions. . Director of [facility] Laboratory Dr Jett Carpio, PhD Performed By: #### H LA27 #### [facility] [address] [place] [address] Dr. Daniela Ledesma CALEB by IFAon 01-24-2023 Antinuclear Antibodies, IFA Negative Normal [facility] Comment on above: Result Comment: Nega tive <1:80 Borderline 1:80 Positive >1:80 ICAP nomenclature: AC-0 For more information about Hep-2 cell patterns use ANApatterns.org, the official website for the International Consensus on Antinuclear Antibody (CALEB) Patterns (ICAP). Performed By: #### A SERAFIN #### [facility] [address] [place] [address] Dr. Daniela Ledesma RHEUMATOID FACTORon 01-24-20 RA Latex Turbid. <10.0 Normal <14.0 [facility] Comment on above: Performed By: #### R F #### [facility] [address] [place] [address] Dr. Daniela Ledesma CBC AUTO DIFFon 01-21-2023 BASO # 0.1 103/ul Normal 0.0-0.1 [facility] Comment on above: Performed By: #### C BC #### [facility] [address] [place] [address] Dr. Daniela Ledesma Basophils/100 WBC (Bld) 0.9 % Normal 0.2-2.0 [facility] Comment on above: Performed By: #### C BC #### [facility] [address] [place] [address] Dr. Daniela Ledesma EO # 0.7 103/ul Normal 0.0-0.7 [facility] Comment on above: Performed By: #### C BC #### [facility] [address] [place] [address] Dr. Daniela Ledesma Eosinophils/100 WBC (Bld) 4.3 % Normal 0.9-7.0 [facility] Comment on above: Performed By: #### C BC #### [facility] [address] [place] [address] Dr. Daniela Ledesma Erythrocyte distribution width (RBC) [Ratio] 13.2 % Normal 11.0-15.0 [facility] Comment on above: Performed By: #### C BC #### [facility] [address] [place] [address] Dr. Daniela Ledesma Hematocrit (Bld) [Volume fraction] 45.4 % Normal 36.0-48.0 [facility] Comment on above: Performed By: #### C BC #### [facility] [address] [place] [address] [address] Daniela Ledesma Hemoglobin (Bld) [Mass/Vol] 15.7 g/dL Normal 12.0-16.0 [facility] Comment on above: Performed By: #### C BC #### [facility] [address] [place] [address] [address] Daniela Ledesma IG # 0.07 10e3/ul Critically high 0.00-0.03 [facility] Comment on above: Performed By: #### C BC #### [facility] [address] [place] [address] Dr. Daniela Ledesma IG % 0.5 % Normal 0.0-0.5 [facility] Comment on above: Performed By: #### C BC #### [facility] [address] [place] [address] Dr. Daniela Ledesma LYMPH # 3.7 103/ul Normal 1.2-3.8 [facility] Comment on above: Performed By: #### C BC #### [facility] [address] [place] [address] Dr. Daniela Ledesma Lymphocytes/100 WBC (Bld) 24.7 % Normal 20.5-60.0 [facility] Comment on above: Performed By: #### C BC #### [facility] [address] [place] [address] Dr. Daniela Ledesma MANUAL DIFF REQ NO Normal [facility] Comment on above: Performed By: #### C BC #### [facility] [address] [place] [address] Dr. Daniela Ledesma MCH (RBC) [Entitic mass] 30.9 pg Normal 26.7-34.0 [facility] Comment on above: Performed By: #### C BC #### [facility] [address] [place] [address] Dr. Daniela Ledesma MCHC (RBC) [Mass/Vol] 34.6 g/dL Normal 29.9-35.2 [facility] Comment on above: Performed By: #### C BC #### [facility] [address] [place] [address] [address] Daniela Ledesma MCV (RBC) [Entitic vol] 89.4 fL Normal 81.0-99.0 [facility] Comment on above: Performed By: #### C BC #### [facility] [address] [place] [address] [address] Daniela Ledesma MONO # 0.7 103/ul Normal 0.3-0.8 [facility] Comment on above: Performed By: #### C BC #### [facility] [address] [place] [address] Dr. Daniela Ledesma Monocytes/100 WBC (Bld) 4.4 % Normal 1.7-12.0 [facility] Comment on above: Performed By: #### C BC #### [facility] [address] [place] [address] Dr. Daniela Ledesma NEUT # 9.8 103/ul Critically high 1.4-6.5 [facility] Comment on above: Performed By: #### C BC #### [facility] [address] [place] [address] Dr. Daniela Ledesma Neutrophils/100 WBC (Bld) 65.2 % Normal 43.0-75.0 [facility] Comment on above: Performed By: #### C BC #### [facility] [address] [place] [address] Dr. Daniela Ledesma Platelet mean volume (Bld) [Entitic vol] 9.3 fL Critically low 9.5-13.5 [facility] Comment on above: Performed By: #### C BC #### [facility] [address] [place] [address] Dr. Daniela Ledesma PLT 286 103/ul Normal 150-450 [facility] Comment on above: Performed By: #### C BC #### [facility] [address] [place] [address] Dr. Daniela Ledesma RBC 5.08 106/ul Normal 4.20-5.40 [facility] Comment on above: Performed By: #### C BC #### [facility] [address] [place] [address] Dr. Daniela Ledesma WBC 15.1 103/ul Critically high 4.0-11.0 [facility] Comment on above: Performed By: #### C BC #### [facility] [address] [place] [address] [address] Daniela Ledesma SED RATE WESTERGRENon 2022 SED RATE 34 mm/hr Critically high <=30 [facility] Comment on above: Performed By: #### S EDR #### [facility] [address] [place] [address] [address] Daniela Ledesma URIC ACID SERUMon 01-21-2023 Urate [Mass/Vol] 7.5 mg/dL Critically high 2.6-6.0 [facility] Comment on above: Performed By: #### U TUTU #### [facility] [address] [place] [address] Dr. Daniela Ledesma CPKon 01-12-2023 CK [Catalytic activity/Vol] 98 U/L Normal 26-192 [facility] Comment on above: Performed By: #### M YO, CK #### [facility] [address] [address] [address] Daniela Ledesma MYOGLOBINon 01-12-2023 SAW 34 ng/mL Normal 9-82 [facility] Comment on above: Performed By: #### M YO, CK #### [facility] [address] [place] [address] Dr. Daniela Ledesma MR cervical spine wo conon 0 - MR cervical spine wo con [facility] [address] XRay Report Signed Patient: Mayra Coates MR#: [id number] : 1970 Acct:[id number] Age/Sex: 52 / F ADM Date: 11/26/22 Loc: MR Room: Type: [facility] Attending Dr: Brendan COCHRAN Copies to: DIMAS Rand Ordering Provider: DIMAS Rand Date of Service: 11/26/22 MR/MR cervical spine wo con: R20.2, M79.601 ([id number]) XR/XR pre/post mri xray: PRE MRI OF [...] Jillian Angelo M.D.11/27/2022 10:13 AM Dictation Location: [place] [address] Transcribed By: [facility] 11/27/22 1013 Dictated By: Jillian Angelo MD 11/27/22 0948 Signed By: 11/27/22 1013 [facility] US Thyroidon 10-17-2022 US Thyroid [...] by Ezekiel Hernandez on 10/17/2022 1005 Normal [facility] Web Development Intern JORDANA - Automatic Exporton JORDANA - Automatic [place] [facility] [place] MAYRA COATES 1970 Date of Female Sex [id number] [place] [address] AddressEnglish (preferred) Language White Race Not or Ethnicity Summary of Care Clinical Content Allergies and Adverse Reactions <#ZP8ABLQN> Encounters <#BC9JBNKC> Functional Status <#SD4XVJGQ> Immunization <#YR6HYQTS> Instructions <#FW0MEKOL> Interventions Provided <#JQ9W0ZNX> Medications <#PI6SLJDW> Plan of Care <#GY1TD4CR> Problems <#CJ3FKTXM> Procedures <#BX4AAPKJ> Results <#DQ8P59RA> Social History <#VY5FSXEI> Vital Signs <#QH3IIDMB> Other Document Details Health Care Providers Functional [...] Ambulatory Health Care Facilities Zo Rivera [email or web address] Work Email Allopathic AND Osteopathic Physicians [address] [place] [address] Address Ambulatory Health Care Facilities None, No PCPUnknown Address Document Detailstop <#top> [facility] Joshuajones Fraser DO February 13, 2020 11:46 -0400 [id number] [place] [address] [phone] Work Phone Powered by [employer]?Style Sheet V3.2 Normal [employer] JORDANA - Automatic [place], [place] ANDREYNETTIEHEIDY RONMAYRA 1970 Date of Female Sex [id number] [place] [id number] AddressEnglish (preferred) Language White Race Not or Ethnicity Summary of Care Clinical Content Allergies and Adverse Reactions <#UI4GOHVZ> Encounters <#VX7EJMQB> Functional Status <#RR4GWSLZ> Immunization <#NU4WWMCW> Instructions <#EJ9ANBPH> Interventions Provided <#EC3OX8QX> Medications <#KQ3BIIHD> Plan of Care <#CX3JG9QG> Problems <#ZA1IUEKS> Procedures <#GV4CDPBC> Results <#TE6A11VL> Social History <#ZN1TYPTX> Vital Signs <#XI2HPWOW> Other Document Details Health Care Providers Functional [...] Health Care Facilities Joshua GrayZo [email or web address] Work Email Allopathic AND Osteopathic Physicians [address] [place] [address] Address Ambulatory Health Care Facilities None, No PCPUnknown Address Document Detailstop <#top> [facility] Joshua FraserDO February 13, 2020 11:15 -0400 [id number] [place] [address] [phone] Work Phone Powered by [employer]?Style Sheet V3.2 Normal [employer] JORDANA - [employer] [place], [place] MAYRA COATES 1970 Date of Female Sex [id number] [place] [address] AddressEnglish (preferred) Language White Race Not or Ethnicity Summary of Care Clinical Content Allergies and Adverse Reactions <#GD8RQTOL> Encounters <#YT1HYXAK> Functional Status <#TW7PNUHY> Immunization <#EA0TDJNL> Instructions <#DF9TTDKR> Interventions Provided <#NB5D9SBM> Medications <#VO8JUTXA> Plan of Care <#UM1EZGOM> Problems <#FN5GZXJA> Procedures <#VN6H2CAP> Results <#DY9VKUNI> Social History <#CT2KPMOF> Vital Signs <#WV6Z5JUW> Other Document Details Health Care Providers Functional [...] Ambulatory Health Care Facilities Zo Rivera [email or web address] Work Email Allopathic AND Osteopathic Physicians [address] [place] [address] Address Ambulatory Health Care Facilities None, No PCPUnknown Address Document Detailstop <#top> [facility] Medicine-Valerie Fraser DO February 13, 2020 11:01 -0400 [id number] [place] [place] [address] [phone] Work Phone Powered by [employer]?Style Sheet V3.2 Normal [facility] School/Work Letteron School/Work Letter February 13, [...] Past Surgical History Description:Hysterectom y Description:Cholecystec kenny NEW HOME SALES CONSULTANT: Is : no(1) Is : no(1) REVIEW [...] SIGNS: T PRBP SpO2O2(LPM) %FiO2 Method 27-Sep-2019 19:18:[id number]/73 99 room air, no respiratory support MEDICAL [...] Triage - ED 27-Sep-2019 19:18 Normal [facility] Risk Screen - Adult Emergenc yon 09-27-2019 [...] Communicatenone Learning Preferencesaudio Cultural Considerationsnone Developmental Considerationsnone Baptist Considerationsnone Learning Assessment (Other Learner): Learning Assessment (Other Learner): Other learner availableno Pressure Injury/TB/Substance: Pressure Injury: Pressure Injury Present on Admissionno Do you have a coughno Admission Risk Screen: Significant IndicatorsComplete CAGE: CAGE: Is this an injured patient at a Trauma Center ([facility]): no Electronic Signatures: Gali Meyer (RN) (Signed 27-Sep-2019 19:36) Authored: Preferred Language, Advanced Directives, Family Violence Adult, Learning Assessment (Patient), Learning Assessment (Other Learner), Pressure Injury/TB/Substance, CAGE Last Updated: 27-Sep-2019 19:36 by Gali Meyer (RN) [facility] Triage - EDon [...] Travel outside of [place]: no Allergies: yes NEW HOME SALES CONSULTANT History: 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 Patient has homicidal thoughts: no [...] by Sherry Bronson (STAFF N) Normal [facility] CBC With Platelet No Differe ntialon 03-07-2018 Erythrocyte distribution width Auto Ratio (RBC) 13.0 % Normal 11.5-14.5 [facility] Erythrocytes (RBC) 5.17 10*6/uL Normal 4.20-5.40 [facility] Hematocrit (HCT) 44.4 % Normal 37.0-47.0 [facility] Hemoglobin mass conc (Bld) 15.3 g/dL Normal 12.0-16.0 [facility] MCH 29.6 pg Normal 27.0-31.3 [facility] MCHC mass conc (RBC) 34.4 % Normal 33.0-37.0 [facility] MCV 85.9 fL Normal 82.0-100.0 [facility] Platelets 287 10*3/uL Normal 130-400 [facility] WBC (Leukocytes) 6.8 10*3/uL Normal 4.8-10.8 [facility] TSH w/out Reflexon 201 8 Thyroid stimulating hormone (TSH) m[IU]/L Low 0.270-4.20 [facility] Thyroxine Freeon 03-07-2018 Thyroxine Free 2.23 ng/dL Critically high 0.93-1.70 [facility] US HEAD NECK SOFT TISSUE [...] Data System (TI- RADS) established by the [employer] to help provide guidance [...] Morrisigned by:Julio Marie MD02/14/18inal result Normal [facility] CBC With Platelet No Differe ntialon 02-07-2018 Erythrocyte distribution width Auto Ratio (RBC) 12.7 % Normal 11.5-14.5 [facility] Erythrocytes (RBC) 4.65 10*6/uL Normal 4.20-5.40 [facility] Hematocrit (HCT) 40.2 % Normal 37.0-47.0 [facility] Hemoglobin mass conc (Bld) 14.0 g/dL Normal 12.0-16.0 [facility] MCH 30.1 pg Normal 27.0-31.3 [facility] MCHC mass conc (RBC) 34.8 % Normal 33.0-37.0 [facility] MCV 86.4 fL Normal 82.0-100.0 [facility] Platelets 241 10*3/uL Normal 130-400 [facility] WBC (Leukocytes) 6.8 10*3/uL Normal 4.8-10.8 [facility] TSH w/out Reflexon 8 Thyroid stimulating hormone (TSH) m[IU]/L Low 0.270-4.20 [facility] Thyroxine Freeon 02-07-2018 Thyroxine Free 3.43 ng/dL Critically high 0.93-1.70 [facility] Vital Signs Date Time Vital Sign Value Performing Clinician Faci lity 09-10-2024 13:12050 Body height 162.6 cm Zehra Marques MD Work Phone: [facility] 09-10-2024 13:12-0500 Body mass index (BMI) [Ratio] 43.26 kg/m2 Zehra Marques MD Work Phone: [facility] 09-10-2024 13:12-050 Body weight 114.31 kg Zehra Marques MD Work Phone: [facility] 09-10-2024 13:12-0500 Diastolic blood pressure 72 mm[Hg] Zehra Marques MD Work Phone: [facility] 09-10-2024 13:12-0500 Heart rate 119 /min Zehra Marques MD Work Phone: [facility] 09-10-2024 13:12-0500 Respiratory rate 18 /min Zehra Marques MD Work Phone: [facility] 09-10-2024 13:12-0500 SaO2% (BldA) [Mass fraction] 97 % Zehra Marques MD Work Phone: [facility] 09-10-2024 13:12-0500 Systolic blood pressure 124 mm[Hg] Zehra Marques MD Work Phone: [facility] Encounters Encounter Date Encounter Type Care Provider Facility Start: 11-19-2024 End: 11-19-2024 ambulatory [facility] Start: 11-19-2024 End: 11-19-2024 ambulatory [facility] Start: 11-13-2024 End: 11-13-2024 ambulatory [facility] Start: 11-13-2024 End: 11-13-2024 Refill Zehra Marques MD Work Phone: [facility] Comment on above: 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 (CMS/HCC) Start: 11-09-2024 End: 11-09-2024 ambulatory Vinay Crews MD Facility:[facility] Start: 11-04-2024 End: 11-04-2024 Clinisync Result [...] current use of insulin, unspecified CKD stage ([facility]/HCC); Paresthesia of skin; Neuropathy; Type 2 diabetes mellitus with diabetic chronic kidney disease ([facility]/HCC); Acquired hypothyroidism (CMS/HCC); H/O 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 for benign disease; Urinary frequency; Hyperuricemia without signs of inflammatory arthritis and tophaceous disease; Other specified hypothyroidism (CMS/HCC); Fibromyalgia; Restless legs syndrome (RLS); Other insomnia; Chronic bilateral low back pain without sciatica Start: 07-06-2024 End: 07-06-2024 ambulatory Vinay Crews MD Facility:[facility] Start: 07-02-2024 End: 07-02-2024 Refmckenna Marques MD Work Phone: [facility] Comment on above: 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 Facility:[facility] Start: 01-12-2023 End: 01-13-2023 ambulatory BRENDAN COYLE Facility:[facility] Start: 11-26-2022 End: 11-26-2022 ambulatory Brendan Coyle [facility] Start: 11-26-2022 End: 11-26-2022 ambulatory MD Zehra Marques Work Phone: [facility] Work Phone: Start: 11-26-2022 End: 11-26-2022 Patient encounter procedure MD Zehra Marques Work Phone: [facility] [place] Work Phone: Start: 11-19-2022 End: 11-20-2022 ambulatory DAPHNEY RODRIGUEZ Facility:[facility] Start: 09-17-2022 ambulatory DAPHNEY RODRIGUEZ Fac ility:[facility] Start: 05-13-2020 Patient encounter procedure Ezekiel Devi [facility] Work Phone: Start: 03-26-2020 [facility] Start: 02-13-2020 [facility] Start: 02-14-2018 End: 02-17-[address] [facility] Procedures Date Procedure Procedure Detail [...] Screening for malign ant neoplasm of colon [facility] Start: 09-10-2025 Urine screening for protein Diabetes: Urine Protein Screening [facility] Start: 07-11-2025 Glaucoma screening Diabetes: R etinopathy Screening [facility] Start: 04-05-2025 Influenza vaccination Influenza Vacc ine (#1) [facility] Comment on above: Postponed from 06/07 (Insurance / Financial) Start: 03-11-2025 End: 03-11-2025 Patient encounter procedure 03/11/2025 1:00 PM EDT Office Visit [facility] [address] [place] [address] Zehra Marques MD [address] [place] [address] [facility] Start: 12-10-2024 End: 09-11-2025 TSH W/REFLEX TO FT4 TSH W/REFLEX TO FT4 Lab Routine Hypothyroidism, unspecified type (CMS/HCC) Expected: 12/10/2024 (Approximate), Expires: 09/11/2025 [facility] Work Phone: Comment on above: Expected: 12/10/2024 (Approximate), Expires: 09/11/2025 Start: 12-09-2024 Hemoglobin A1c measurement Diabetes: Hemoglobin A1C [facility] Start: 10-15-2024 End: 10-15-2024 Professional / ancillary services management 10/15/2024 3:00 PM EST Ancillary Procedure [facility] [address] [address] [facility] Start: 09-10-2024 End: 11-11-2025 DBT Breast - bilateral screening Bilateral screening mammogram with tomosynthesis Imaging Routine Breast cancer screening by mammogram Expected: 09/10/2024, Expires: 11/11/2025 [facility] Work Phone: Comment on above: Expected: 09/10/2024 , Expires: 11/11/2025 Start: 07-19-2024 Screening for malign ant neoplasm of breast Mammogram [facility] Start: 06-07-2024 Influenza vaccination Influenza Vacc ine (#1) [facility] Start: 08-20-2023 Urine screening for protein Diabetes: Urine Protein Screening [facility] Start: 07-23-2023 Hemoglobin A1c measurement Diabetes: Hemoglobin A1C [facility] Start: 11-26-2022 MR Cervical spine WO contrast [facility] Start: 11-26-2022 MRI of cervical spin e without contrast MR cervical spine wo con [facility] Start: 11-26-2022 XR pre/post mri xray XR pre/post mri xray [facility] Start: 11-26-2022 [facility] Start: 1970 Screening for malign ant neoplasm of colon [facility] Payers Date Payer Category Payer Unknown 2023 Medicaid [id number] 2022 Self-pay 2017 Unknown [id number] 1970 Unknown [id number] 2.16.84 [id number] 1970 Unknown [id number] 2.16.84 [id number] 1970 Unknown [id number] 2.16.84 [id number] 1970 Unknown [id number] 2.16.84 [id number] 1970 Unknown [id number] 2.16.84 [id number] 1970 Unknown [id number] 2.16. [id number] 1970 Unknown [id number] 2.16. [id number] 1970 Unknown [id number] 2.16. [id number] 1970 Unknown [id number] 2.16. [id number] 1970 Unknown [id number] 2.16. [id number] 1959 Medicaid [id number] Unknown [id number] 2.16.8 [id number] Social History Date Type Detail Facility Assertion Tobacco smoking consumption unknown (finding) [facility] Work Phone: Start: 1970 Sex Assigned At Female F [facility] Start: 04-22-2023 Tobacco smoking stat [facility] Ex-smoker [facility] End: 10-07-2021 History of tobacco use Current smoker [facility] End: 10-07-2021 History of tobacco use Cigarette Smoker [facility] Start: 04-22-2023 Tobacco use and exposure User of smokeless tobacco [facility] Start: 07-04-2023 End: 09-10-2024 Alcoholic beverage intake Ex-drinker (finding) [facility] Start: 07-04-2023 End: 09-10-2024 History of Social function [facility] Start: 07-04-2023 End: 09-10-2024 Tobacco use panel [facility] Start: 05-02-2023 Alcohol Comment 1-2 drinks, mo nthly or less. caffeine intake: 2-3 cups per day. [facility] Start: 1970 Sex assigned at Not on file [place] [facility] Medical Equipment Procedure Code Equipment Code Equipment Origin al Text Equipment Identifier Dates USE TO TEST BLOO D SUGAR TWICE DAILY [id number] Start: 09-28-2023 End: 11-13-2024 USE TO TEST BLOO D SUGAR TWICE DAILY [id number] Start: 11-13-2024 Goals Date Patient Goal Desired Activity /State Personal health goal Functional Status Date Assessment Result Facility NEGATED: Highlighted row Functional performance Functional status health issues are not documented Disease [facility] Work Phone: Mental Status Date Assessment Result Facility NEGATED: Highlighted row Cognitive function [Interpretation] Cognitive status health issues are not documented Disease [facility] Work Phone: Clinical Notes 11-14-2022 to 11-19-2024 Telephone Encounter - Zehra Marques MD - 11/13/2024 8:19 AM ESTTelephone Encounter - Zehra Marques MD - 11/13/2024 8:19 AM ESTTelephone Encounter - Zehra Marques MD - 09/14/2024 12:54 PM EST Note Date & Type Note Facility 11-19-2024 Note NEUROSURGERY NOTE SUBJECTIVE: Chief complaint: Back and left leg pain. History of present illness: Consultation referred by [place] pain management, Tammie Tapia NP, for back [...] done aquatic therapy in the past at [place]. No previous back surgery. Review of systems: [...] spondylosis with radiculopathy. (more content not included)... [facility] 11-19-2024 Note NEUROSURGERY NOTE SUBJECTIVE: Chief complaint: [...] standing for very long. 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 [facility] 11-13-2024 Telephone encounter Note Approvals with refills [facility] 11-13-2024 Miscellaneous Notes Approvals with refills documented in this encounter [facility] 09-14-2024 Telephone encounter Note Approvals with refills [facility] 09-14-2024 Miscellaneous Notes Approvals with refills documented in this encounter [facility] 09-10-2024 History of Presen t illness Narrative [...] for physical therapy and water therapy at [place] will be arranged. 2. Diabetes Mellitus. Her [...] for follow up. 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 No assessment inform ation available [facility] Work Phone: Evaluation note Diagnosis Hypothyroidism, unspecified type (CMS/HCC)- Primary documented in this encounter [facility] HealthcareEvaluation note* Diagnosis Breast cancer screening by [...] arthritis and tophaceous disease Other specified hypothyroidism ([facility]/HCC) Fibromyalgia Unspecified myalgia and myositis Restless [...] DATE CREATED AUTHOR AUTHOR'S ORGANIZ ATION 10/02/2019 [facility] DATE CREATED AUTHOR AUTHOR'S ORGANIZ ATION 05/19/2020 [employer] DATE CREATED AUTHOR AUTHOR'S ORGANIZ ATION 10/17/2022 [facility] dical Specialist DATE CREATED AUTHOR AUTHOR'S ORGANIZ ATION 12/02/2022 [facility] DATE CREATED AUTHOR AUTHOR'S ORGANIZ ATION 02/19/2023 [facility] DATE CREATED AUTHOR AUTHOR'S ORGANIZ ATION 11/13/2024 [facility] DATE CREATED AUTHOR AUTHOR'S ORGANIZ ATION 11/26/2024 [facility] Care Teams (unrecognized sec tion and content) Team Status: Inactive Member Role Status Dates Brendan Coyle NP-C Attending Provider Active Zehra Marques MD Primary Care Provider Active Team Status: Active Member Role Status Dates Zehra Marques MD Primary Care Provider Active Merchandise Pickup/Receiving Associate Relationship Specialty Start Date End Date Zehra Marques MD [address] [facility] [place] [address] PCP - General Family Medicine 02/21/23 Zehra Marques MD [address] [facility] [place] [address] PCP - [facility] DAM OPERATOR 01/06/24 Merchandise Pickup/Receiving Associate Relationship Specialty Start Date End Date Zehra Marques MD [address] [facility] [place] [address] PCP - General Family Medicine 02/21/23 Zehra Marques MD [address] [facility] [place] [address] PCP - [facility] 01/06/24 Merchandise Pickup/Receiving Associate Relationship Specialty Start Date End Date Zehra Marques MD [address] [facility] [place] [address] PCP - General Family Medicine 02/21/23 Zehra Marques MD [address] [facility] [place] [address] PCP - [facility] 01/06/24 Merchandise Pickup/Receiving Associate Relationship Specialty Start Date End Date Zehra Marques MD [address] [facility] [place] [address] PCP - General Family Medicine 02/21/23 Zehra Marques MD [address] [facility] [place] [address] PCP - [facility] OPERATOR 01/06/24 Merchandise Pickup/Receiving Associate Relationship Specialty Start Date End Date Zehra Marques MD [address] [facility] [place] [address] PCP - General Family Medicine 02/21/23 Zehra Marques MD [address] [place] [address] PCP - [facility] 01/06/24 Merchandise Pickup/Receiving Associate Relationship Specialty Start Date End Date Zehra Marques MD [address] [place] [address] PCP - General Family Medicine 02/21/23 Zehra Marques MD [address] [place] [address] PCP - [facility] 01/06/24 Merchandise Pickup/Receiving Associate Relationship Specialty Start Date End Date Zehra Marques MD [address] [place] [address] PCP - General Family Medicine 02/21/23 Zehra Marques MD [address] [place] [address] PCP - PANCHO [facility] 01/06/24 Goals (unrecognized section and content) [...] BE BASED ON THE PRIMARY CLINICAL RECORDS. [employer] [facility]. provides no warranty or guarantee of the accuracy or completeness of information in this document.
[2025-02-22 07:20] LABS: Glucometer 195 mg/dL (74-106)
[2025-02-22 07:25] VITALS: BP 119/80; PULSE 92; TEMP 36.2; O2SAT 98
[2025-02-22 07:58] VITALS: BP 121/69; PULSE 91; O2SAT 97
[2025-02-22 07:59] VITALS: BP 128/72; PULSE 82; O2SAT 97
[2025-02-22] MEDS: 0.9 % SODIUM CHLORIDE 10 ML SYRINGE - SALINE FLUSH INJ (08:04)
[2025-02-22] MEDS: IOHEXOL 240 MG/ML - 10 ML VIAL 24 MG INJ (08:04)
[2025-02-22] MEDS: BUPIVACAINE HCL 0.25% PF 25 MG/10 ML VIAL INJ (08:04)
--- NOTE | 2025-02-22 08:04 | W.PM.PROCNOT ---
Date of procedure: 02/22/25 Pre-op diagnosis: Pain due to lumbar stenosis with neurogenic claudication Post-op diagnosis: same as pre-op Procedure: Procedure: Bilateral L5-S1 transforaminal epidural steroid injection Medications: Bupivacaine 0.25% 2cc, lidocaine 2% 1cc, depomedrol 80mg The patient was seen and examined in the preoperative holding area.? Informed consent was obtained and placed on the chart.? Patient was brought to the medical procedure unit and placed in the prone position where a timeout was completed verifying the correct patient, procedure site, position, and planned special equipment using sterile aseptic technique.? Under direct fluoroscopic visualization a 25-gauge Quincke tipped spinal needle was advanced at level left L5-S1 to the designated neural foramen where contrast dye was injected to show adequate spread.? There was no evidence of vascular or adverse uptake.? Epidural spread was appreciated.? The above-mentioned injectate was then placed in a 1.5 mL aliquot preceded by negative aspiration.? The needle was removed. The same procedure, at the same level, was completed on the opposite side. ? Patient was taken to the postprocedural recovery area and monitored for an appropriate length of time before found suitable for discharge in the accompaniment of a responsible adult. Anesthesia: Local Surgeon: Vinay Crews Pathology: none sent Condition: stable Disposition: no change
[2025-02-22] MEDS: LIDOCAINE HCL 2% 400 MG/20 ML MDV 3 ML INJ (08:05)
[2025-02-22] MEDS: METHYLPREDNISOLONE ACETATE 80 MG/ML VIAL INJ (08:05)
== END 2025-02-22 08:07 | disposition home or self-care (01) ==
LOC: SURGOUT 07:08
PROVIDERS: PCP Family Medicine; Visit Provider Anesthesiology
DX: M48.062 Spinal stenosis, lumbar region with neurogenic claudication (principal); M54.50 Low back pain, unspecified; E11.8 Type 2 diabetes mellitus with unspecified complications; Z79.85 Long-term (current) use of injectable non-insulin antidiabetic drugs
CPT/HCPCS: 36415; 64483; 82948; J0665; J1010; Q9966

== ENCOUNTER 2025-05-26 10:59 | Outpatient (OUT) | payer MEDICAID, SELFPAY ==
--- OUTSIDE RECORDS SUMMARY | 2025-05-26 11:15 | XMS_ITS | CCD ---
Author Organization [facility] Care Team Providers Care Hearing Screener Name Role Phone LEXIEMICKEY EARL Unavailable Unavailable MICHELLE CHOW Unavailable Unavailable Joshua Fraser Unavailable Unavailable Joshua Fraser Unavailable Unavailable None, No PCP Unavailable Unavailable Ezekiel Devi Unavailable Unavailable Joshua Fraser Unavailable Unavailalireza Coyle TATTOO IDENTIFIER-C Brendan Vivar Attending Provider [phone] MD Zehra Marques Primary Care Provider Brendan [...] Unavailable YEIMI ., MR JAMAAL Admitting Unavailable JALLOH ., MR JAMAAL Attending Unavailable SHELLI, DR SOUSA Primary Care Unavailable YEIMI ., MR JAMAAL Consulting Unavailable Shelli KAPADIA, Zehra Andino Primary Care Provider Zehra Marques MD Unavailable OVITT, DANNI Referring Unavailable OVITT, DANNI Referring Unavailable OVITT, DANNI Attending Unavailable Mars KAPADIA, Vinay Hyman Attending Unavailable Mars KAPADIA, Vinay Hyman Attending Unavailable Mars KAPADIA, Vinay Hyman Attending Unavailable Mars KPAADIA, Vinay Hyman Attending Unavailable Mars KAPADIA, Vinay Hyman Attending Unavailable Allergies Allergy Classification Reported Allergen(s) Allergy Type Date of Onset Reaction(s) Facility (9 sources) Pregabalin; Translations: [PREGABALIN] Propensity to adverse reactions 3 Shortness of breath [facility] Work Phone: (9 sources) Propylthiouraci l; Translations: [PROPYLTHIOURAC [place]] Drug Allergy 5 Hives [facility] Work Phone: (9 sources) thyroid (SKILLED NURSING); Translations: [THYROID] Drug Allergy 3 [facility] Healthcare (1 source) ALLERGIES NOT ON FILE; Translations: [ALLERGIES NOT ON FILE] Propensity to adverse reactions (disorder) [facility] Repository Medications Current Medications Medication Drug Class(es) [...] diabetes mellitus with diabetic chronic kidney disease ([facility]) TAKE 1 TABLET BY MOUTH TWICE A [...] has visits left. Also considering massage or direct care specialist, both of which seem reasonable options. She [...] to follow-up with her as needed. Normal [facility] Telephoneon 11-24-2024 Telephone [phone] Mayra Coates 1970 F Date Provider Department Center 11/24/2024 148-OVITT, DANNI NEURO SURG None No family history on file [facility] Consulton 11-19-2024 Consult [id number] Mayra Coates 1970 F Date Provider Department Center 11/19/2024 DANNI HUNTER [facility] SURG Second Fl No family history on file Level of Service:07050 [place] OFFICE/OUTPATIENT NEW MODERATE MDM 45 MINUTES Reason for Visit and Comments: Consult [484] - Patient is here today for a consult for lumbar stenosis [facility] 36on 11-13-2024 36 Attempted to call pt to schedule consult with either Danni Ordonez CNP or Dr. Marshall for Lumbar Stenosis. No answer. Phone rang, then stopped. No VM. [facility] [place] [address] Magnetic Resonance Report Signed Patient: MAYRA COATES MR#: [id number] : 1970 Acct:[id number] Age/Sex: 54 / F ADM Date: 11/04/24 Loc: MRI Attending Dr: Tammie Tapia NP Ordering Physician: Tammie Tapia NP Date of Service: 11/04/24 Procedure(s): MR lumbar spine wo con Accession Number(s): [id number] cc: ZEHRA MARQUES ; Tammie Tapia NP [place] [id number] Patient Name: MAYRA COATES MRN: [facility]:[id number] date: 1970 Sex: F Assigned Patient Location: MRI [facility] Accession/Order Number: [id number] Exam Date: 11/04/2024 10:16 Report Date: 11/04/2024 [...] Signed By: 11/04/24 1410 DD/ 1407 TD/TT: 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, 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 MD margie - 11/04/[address] [address] Magnetic Resonance Report Signed Patient: MAYRA COATES MR#: [id number] : 1970 Acct:[id number] Age/Sex: 54 / F ADM Date: 11/04/24 Loc: MRI Attending Dr: Tammie Tapia NP Ordering Physician: Tammie Tapia NP Date of Service: 11/04/24 Procedure(s): MR lumbar spine wo con Accession Number(s): [id number] cc: ZEHRA MARQUES ; Tammie Tapia NP [address] [address] Patient Name: MAYRA COATES MRN: [facility]:[id number] date: 1970 Sex: F Assigned Patient Location: MRI Current Patient Location: [facility] Accession/Order Number: [id number] Exam Date: 11/04/2024 10:16 Report Date: 11/04/2024 [...] Signed By: 11/04/24 1410 DD/ 1407 TD/TT: 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 MR LUMBAR SPINE WO CONOrdere d By: Radiologist Radiology on 11-04-2024 [facility] Work Phone: CBC W Auto Differential pane l (Bld)on 09-11-2024 Basophils (Bld) [#/Vol] 72 10*3/uL [facility] Basophils/100 WBC (Bld) 1.1 % [facility] Eosinophils (Bld) [#/Vol] 189 10*3/uL [facility] Eosinophils/100 WBC (Bld) 2.9 % [facility] Erythrocyte distribution width (RBC) [Ratio] 12.2 % 11.0 - 15.0 % [facility] Hematocrit (Bld) [Volume fraction] 45.7 % High 35.0 - 45.0 % [facility] Hemoglobin (Bld) [Mass/Vol] 15.3 g/dL 11.7 - 15.5 g/dL [facility] Lymphocytes (Bld) [#/Vol] 1736 10*3/uL [facility] Lymphocytes/100 WBC (Bld) 26.7 % [facility] MCH (RBC) [Entitic mass] 30.4 pg 27.0 - 33.[address] [facility] MCHC (RBC) [Mass/Vol] 33.5 g/dL 32.0 - 36.0 g/dL [facility] Comment on above: For adults, a slight decrease in the calculated MCHC value (in the range of 30 to 32 g/dL) is most likely not clinically significant; however, it should be interpreted with caution in correlation with other red cell parameters and the patient's clinical condition. MCV (RBC) [Entitic vol] 90.7 fL 80.0 - 100.[address] [facility] Monocytes (Bld) [#/Vol] 559 10*3/uL [facility] Monocytes/100 WBC (Bld) 8.6 % [facility] Neutrophils (Bld) [#/Vol] 3946 10*3/uL [facility] Neutrophils/100 WBC (Bld) 60.7 % [facility] Platelet mean volume (Bld) [Entitic vol] 10 fL 7.5 - 12.[address] [facility] Platelets (Bld) [#/Vol] 296 10*3/uL [facility] RBC (Bld) [#/Vol] 5.04 10*6/uL [facility] WBC (Bld) [#/Vol] 6.5 10*3/uL [facility] Laboratory - Chemistry and C hemistry - challengeon 09-11-2024 Albumin [Mass/Vol] 4.2 g/dL 3.6 - 5.1 g/dL [facility] Albumin/Globulin [Mass ratio] 1.6 {ratio} [facility] ALP [Catalytic activity/Vol] 83 U/L 37 - 153 U/L [facility] ALT [Catalytic activity/Vol] 51 U/L High 6 - 29 U/L [facility] AST [Catalytic activity/Vol] 39 U/L High 10 - 35 U/L [facility] Bilirubin [Mass/Vol] 1.1 mg/dL 0.2 - 1.2 mg/dL [facility] Calcium [Mass/Vol] 9.8 mg/dL 8.6 - 10. 4 mg/dL [facility] Chloride [Moles/Vol] 102 mmol/L 98 - 110 mmol/L [facility] CO2 [Moles/Vol] 27 mmol/L 20 - 32 mmol/L [facility] Creatinine [Mass/Vol] 0.48 mg/dL Low 0.50 - 1.03 mg/dL [facility] Free T4 [Mass/Vol] 1.5 ng/dL 0.8 - 1.8 ng/dL [facility] GFR/1.73 sq M.predicted among non-blacks MDRD (S/P/Bld) [Vol rate/Area] 112 mL/min/{1.73_m2} > OR = 60 mL/min/1.73m2 [facility] Globulin (S) [Mass/Vol] 2.7 g/dL [facility] Glucose [Mass/Vol] 309 mg/dL High 65 - 99 mg/dL [facility] Comment on above: Fasting reference interval For someone without known diabetes, a glucose value >125 mg/dL indicates that they may have diabetes and this should be confirmed with a follow-up test. Potassium [Moles/Vol] 3.8 mmol/L 3.5 - 5.3 mmol/L [facility] Protein [Mass/Vol] 6.9 g/dL 6.1 - 8.1 g/dL [facility] Sodium [Moles/Vol] 138 mmol/L 135 - 146 mmol/L [facility] TSH Qn 0.01 m[IU]/L Low mIU/L [facility] Comment on above: Reference Range > or = 20 Years 0.40-4.50 Ranges First trimester 0.26-2.66 Second trimester 0.55-2.73 Third trimester 0.43-2.91 Urea nitrogen [Mass/Vol] 10 mg/dL 7 - 25 mg/dL [facility] Urea nitrogen/Creatinine [Mass ratio] 21 mg/mg [facility] Lipid 1996 panelon 4 Cholesterol [Mass/Vol] 105 mg/dL NINF - 200 mg/dL [facility] Cholesterol in HDL [Mass/Vol] 50 mg/dL > OR = 50 [facility] Cholesterol in LDL [Mass/Vol] 38 mg/dL mg/dL (calc) [facility] Comment on above: Reference range: <10 0 Desirable range <100 mg/dL for primary prevention; <70 mg/dL for patients with CHD or diabetic patients with > or = 2 CHD risk factors. LDL-C is now calculated using the Edgar-Shell calculation, which is a validated novel method providing better accuracy than the Friedewald equation in the estimation of LDL-C. Edgar BLANCO et al. REBECCA. 2013;310(19): 8473-4065 (http://education.Badongo.com/faq/SBR764) Cholesterol non HDL [Mass/Vol] 55 mg/dL [facility] Comment on above: For patients with di abetes plus 1 major ASCVD risk factor, treating to a non-HDL-C goal of <100 mg/dL (LDL-C of <70 mg/dL) is considered a therapeutic option. Cholesterol.total/C holesterol in HDL [Mass ratio] 2.1 {ratio} [facility] Triglyceride [Mass/Vol] 86 mg/dL [facility] - 150 mg/dL [facility] Microalbumin/Creatinine rati o panel (U)on 09-11-2024 Albumin DL <= 20 mg/L (U) [Mass/Vol] 9.6 mg/dL See Note: [facility] Comment on above: Reference Range: Reference Range Not established Albumin/Creatinine (U) [Mass ratio] 50 High [facility] Comment on above: The ADA defines abnormalities [...] [Mass/Vol] 191 mg/dL 20 - 275 mg/dL [facility] Interpretation and review of laboratory results Abnormal [facility] Performing Organizat ion Information Site ID: QPT Name: [facility] Address: [address] [place], [place] [id number] Director: Quang Welch MD [facility] No Panel Informationon 09-11 Interpretation and review of laboratory results Abnormal [facility] Performing Organizat ion Information Site ID: QPT Name: [facility] Address: [address] [place] [address], [address] [place] [address] Director: Quang Welch MD [facility] HbA1c (Bld) [Mass fraction]o n 09-10-2024 Interpretation and review of laboratory results Abnormal [facility] Laboratory - Hematology and Cell countson 09-10-2024 HbA1c (Bld) [Mass fraction] 8.3 % [facility] Urinalysis macro (dipstick) panel (U)on 09-10-2024 Bilirubin, UA Negative Negative - 4(70) +++ mg/dL [facility] Blood, UA Negative Negative - 50 Guicho/mcL [facility] Clarity, UA Clear [facility] Color, UA Isha [facility] Glucose, UA Negative Negative - 2000(110) ++++ mg/dL [facility] Interpretation and review of laboratory results Normal [facility] Ketones, UA Negative Negative - 160(16) ++++ mg/dL [facility] Leukocytes, UA Negative Negative - 500+++ Cynthia/mcL [facility] Nitrite, UA Negative Negative - Positive [facility] pH, UA 5 5 - 9 [facility] Protein, UA Negative Negative - 2000(20) ++++ mg/dL [facility] Spec Grav, UA 1.02 1 - 1.03 [facility] Urobilinogen, UA 1.0 0.2 - 12 mg/dL [facility] HLA B 27on 01-28-2023 HLA-B27 Negative Normal [facility] Comment on above: Result Comment: HLA- B*27 Negative B27 allele interpretation for all loci based on IMGT/HLA database version 3.44 This test was developed and its performance characteristics determined by [facility]. It has not been cleared or approved by the Food and Drug Administration. [facility] CLIA ID Number [id number] . This test was performed using PCR (Polymerase Chain Reaction)/SSOP (Sequence Specific Oligonucleotide Probes) technique. SBT (Sequence Based Typing) and/or SSP (Sequence Specific Primers) may be used as supplemental methods when necessary. Please contact [facility] Customer Service at if you have any questions. . Director of [facility] Dr Jett Carpio, PhD Performed By: #### H LA27 #### [facility] [address] [place] [address] Dr. Daniela Ledesma CALEB by IFAon 01-24-2023 Antinuclear Antibodies, IFA Negative Normal [facility] Comment on above: Result Comment: Nega tive <1:80 Borderline 1:80 Positive >1:80 ICAP nomenclature: AC-0 For more information about Hep-2 cell patterns use ANApatterns.org, the official website for the International Consensus on Antinuclear Antibody (CALEB) Patterns (ICAP). Performed By: #### A SERAFIN #### [facility] [address] [place] [address] Dr. Daniela Ledesma RHEUMATOID FACTORon 01-24-20 RA Latex Turbid. <10.0 Normal <14.0 [facility] Comment on above: Performed By: #### R F #### [facility] [address] [place] [address] Dr. Daniela Ldeesma CBC AUTO DIFFon 01-21-2023 BASO # 0.1 103/ul Normal 0.0-0.1 [facility] Comment on above: Performed By: #### C BC #### [facility] [address] [place] [address] Dr. Daniela Ledesma Basophils/100 WBC (Bld) 0.9 % Normal 0.2-2.0 [facility] Comment on above: Performed By: #### C BC #### [facility] [address] [place] [address] Dr. Daniela Ledesma EO # 0.7 103/ul Normal 0.0-0.7 [facility] Comment on above: Performed By: #### C BC #### [facility] [address] [place] [address] Dr. Daniela Ledesma Eosinophils/100 WBC (Bld) 4.3 % Normal 0.9-7.0 [facility] Comment on above: Performed By: #### C BC #### [facility] [address] [place] [address] Dr. Daniela Ledesma Erythrocyte distribution width (RBC) [Ratio] 13.2 % Normal 11.0-15.0 [facility] Comment on above: Performed By: #### C BC #### [facility] [address] [place] [address] Dr. Daniela Ledesma Hematocrit (Bld) [Volume fraction] 45.4 % Normal 36.0-48.0 [facility] Comment on above: Performed By: #### C BC #### [facility] [address] [address] [address] Daniela Ledesma Hemoglobin (Bld) [Mass/Vol] 15.7 g/dL Normal 12.0-16.0 [facility] Comment on above: Performed By: #### C BC #### [facility] [address] [place] [address] Dr. Daniela Ledesma IG # 0.07 10e3/ul Critically high 0.00-0.03 [facility] Comment on above: Performed By: #### C BC #### [facility] [address] [place] [address] Dr. Daniela Ledesma IG % 0.5 % Normal 0.0-0.5 [facility] Comment on above: Performed By: #### C BC #### [facility] [address] [place] [address] Dr. Daniela Ledesma LYMPH # 3.7 103/ul Normal 1.2-3.8 [facility] Comment on above: Performed By: #### C BC #### [facility] [address] [place] [address] Dr. Daniela Ledesma Lymphocytes/100 WBC (Bld) 24.7 % Normal 20.5-60.0 [facility] Comment on above: Performed By: #### C BC #### [facility] [address] [place] [address] Dr. Daniela Ledesma MANUAL DIFF REQ NO Normal [facility] Comment on above: Performed By: #### C BC #### [facility] [address] [place] [address] Dr. Daniela Ledesma MCH (RBC) [Entitic mass] 30.9 pg Normal 26.7-34.0 [facility] Comment on above: Performed By: #### C BC #### [facility] [address] [place] [address] Dr. Daniela Ledesma MCHC (RBC) [Mass/Vol] 34.6 g/dL Normal 29.9-35.2 [facility] Comment on above: Performed By: #### C BC #### [facility] [id number] Daniela Ledesma MCV (RBC) [Entitic vol] 89.4 fL Normal 81.0-99.0 [facility] Comment on above: Performed By: #### C BC #### [facility] [address] [address] [address] Daniela Ledesma MONO # 0.7 103/ul Normal 0.3-0.8 [facility] Comment on above: Performed By: #### C BC #### [facility] [address] [address] [address] Daniela Ledesma Monocytes/100 WBC (Bld) 4.4 % Normal 1.7-12.0 [facility] Comment on above: Performed By: #### C BC #### [facility] [address] [place] [address] Dr. Daniela Ledesma NEUT # 9.8 103/ul Critically high 1.4-6.5 [facility] Comment on above: Performed By: #### C BC #### [facility] [address] [place] [address] Dr. Daniela Ledesma Neutrophils/100 WBC (Bld) 65.2 % Normal 43.0-75.0 [facility] Comment on above: Performed By: #### C BC #### [facility] [address] [place], [place] [id number] Dr. Daniela Ledesma Platelet mean volume (Bld) [Entitic vol] 9.3 fL Critically low 9.5-13.5 [facility] Comment on above: Performed By: #### C BC #### [facility] [address] [place] [address] Dr. Daniela Ledesma PLT 286 103/ul Normal 150-450 [facility] Comment on above: Performed By: #### C BC #### [facility] [address] [place], [place] [id number] Dr. Daniela Ledesma RBC 5.08 106/ul Normal 4.20-5.40 [facility] Comment on above: Performed By: #### C BC #### [facility] [address] [place] [address] Dr. Daniela Ledesma WBC 15.1 103/ul Critically high 4.0-11.0 [facility] Comment on above: Performed By: #### C BC #### [facility] [address] [address] [address] Daniela Ledesma SED RATE WESTERGRENon 2022 SED RATE 34 mm/hr Critically high <=30 [facility] Comment on above: Performed By: #### S EDR #### [facility] [address] [address] [address] Daniela Ledesma URIC ACID SERUMon 01-21-2023 Urate [Mass/Vol] 7.5 mg/dL Critically high 2.6-6.0 [facility] Comment on above: Performed By: #### U TUTU #### [facility] [address] [place] [address] Dr. Daniela Ledesma CPKon 01-12-2023 CK [Catalytic activity/Vol] 98 U/L Normal 26-192 [facility] Comment on above: Performed By: #### M YO, CK #### [facility] [address] [address] [address] Daniela Ledesma MYOGLOBINon 01-12-2023 SAW 34 ng/mL Normal 9-82 [facility] Comment on above: Performed By: #### M YO, CK #### [facility] [address] [place] [address] Dr. Daniela Ledesma MR cervical spine wo conon 0 - MR cervical spine wo con [facility] [place] [address] XRay Report Signed Patient: Mayra Coates MR#: [id number] : 1970 Acct:[id number] Age/Sex: 52 / F ADM Date: 11/26/22 Loc: MR Room: Type: [facility] Attending Dr: Brendan COCHRAN Copies to: DIMAS Rand Ordering Provider: DIMAS Rand Date of Service: 11/26/22 MR/MR cervical spine wo con: R20.2, M79.601 ([id number]) XR/XR pre/post mri xray: PRE MRI OF [...] Jillian Angelo M.D.11/27/2022 10:13 AM Dictation Location: [place] [address] Transcribed By: [facility] 11/27/22 1013 Dictated By: Jillian Angelo MD 11/27/22 0948 Signed By: 11/27/22 1013 [facility] US Thyroidon 10-17-2022 US Thyroid HISTORY: [...] Ezekiel Hernandez on 10/17/2022 1005 Normal [facility] 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 JORDANA - [employer] J[employer]DANA - [employer] [place] [facility] [place] MAYRA COATES 1970 Date of Female Sex [id number] [place] [address] AddressEnglish (preferred) Language White Race Not or Ethnicity Summary of Care Clinical Content Allergies and Adverse Reactions <#[id number]> Encounters <#OU4WAIMN> Functional Status <#SM7NUNRY> Immunization <#GI4JGZHQ> Instructions <#GB5GZUZO> Interventions Provided <#EL5E8MDD> Medications <#RV6FZGSV> Plan of Care <#QV3WM6GN> Problems <#XP1QODOU> Procedures <#VC5YDOSJ> Results <#TE4F00MP> Social History <#UU1UOAPB> Vital Signs <#IU2NZCBM> Other Document Details Health Care Providers Functional [...] Ambulatory Health Care Facilities Zo Rivera [email or web address] Work Email Allopathic [facility] Osteopathic Physicians [address] [place] [address] Address Ambulatory Health Care Facilities None, No PCPUnknown Address Document Detailstop <#top> [facility] Joshua Fraser DO February 13, 2020 11:46 -0400 [email or web address] [place] [address] [phone] Work Phone Powered by [email or web address]?Style Sheet V3.2 Normal [employer] JORDANA - [employer] [place], [place] ANDREYNETTIEARIADNEMAYRA 1970 Date of Female Sex [id number] [place] [id number] AddressEnglish (preferred) Language White Race Not or Ethnicity Summary of Care Clinical Content Allergies and Adverse Reactions <#VT7CUEZM> Encounters <#ZF9YWXGU> Functional Status <#BH9RIMLA> Immunization <#FG8VCUDT> Instructions <#XA3LFWHQ> Interventions Provided <#NJ9FG4OO> Medications <#GM3XURDH> Plan of Care <#SX1WF7FA> Problems <#VT6CABAF> Procedures <#PK6YYGMZ> Results <#DO8L51WY> Social History <#OT7JLLYN> Vital Signs <#EO0PWJFG> Other Document Details Health Care Providers Functional [...] Health Care Facilities Joshua GrayZo [email or web address] Work Email Allopathic [facility] Physicians [address] [place] [address] Address Ambulatory Health Care Facilities None, No PCPUnknown Address Document Detailstop <#top> [facility] Joshua FraserDO February 13, 2020 11:15 -0400 [email or web address] [place] [address] [phone] Work Phone Powered by [email or web address]?Style Sheet V3.2 Normal [employer] J[employer]DANA - [employer] [place], [place] MAYRA COATES 1970 Date of Female Sex [id number] [place] [address] AddressEnglish (preferred) Language White Race Not or Ethnicity Summary of Care Clinical Content Allergies and Adverse Reactions <#ND4CFIDB> Encounters <#PO1QRQGA> Functional Status <#IB2PJDNK> Immunization <#EL5QIQZQ> Instructions <#EZ3RCHYP> Interventions Provided <#LZ9U5QSG> Medications <#DX4WKOOA> Plan of Care <#JR8UTNZQ> Problems <#NE6BAZGE> Procedures <#BS7O0BEE> Results <#SW3RDRBH> Social History <#DG3YPTUW> Vital Signs <#NO0L2PFT> Other Document Details Health Care Providers Functional [...] Health Care Facilities Zo Rivera [email or web address] Work Email Allopathic AND Osteopathic Physicians [address] [place] [address] Address Ambulatory Health Care Facilities None, No PCPUnknown Address Document Detailstop <#top> [facility]-Valerie Fraser DO February 13, 2020 11:01 -0400 [id number] [place] [address] [phone] Work Phone Powered by Plays[employer]IO?Style Sheet V3.2 Normal [facility] School/Work Letteron School/Work Letter February 13, 2020 [...] Past Surgical History Description:Hysterectom y Description:Cholecystec 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: Is : no(1) Is : no(1) [...] SIGNS: T PRBP SpO2O2(LPM) %FiO2 Method 27-Sep-2019 19:18:[id number] 99 room air, no respiratory support MEDICAL [...] From Triage - ED 27-Sep-2019 19:18 Normal [facility] Risk Screen - Adult Emergenc yon [...] Communicatenone Learning Preferencesaudio Cultural Considerationsnone Developmental Considerationsnone Spiritism Considerationsnone Learning Assessment (Other Learner): Learning Assessment (Other Learner): Other learner availableno Pressure Injury/TB/Substance: Pressure Injury: Pressure Injury Present on Admissionno Do you have a coughno Admission Risk Screen: Significant IndicatorsComplete CAGE: CAGE: Is this an injured patient at a Trauma Center ([facility]/[place]/[facility]/[place]): no Electronic Signatures: Gali Meyer (RN) (Signed 27-Sep-2019 19:36) Authored: Preferred Language, Advanced Directives, Family Violence Adult, Learning Assessment (Patient), Learning Assessment (Other Learner), Pressure Injury/TB/Substance, CAGE Last Updated: 27-Sep-2019 19:36 by Gali Meyer (RN) [facility] Triage - EDon 09-27-2019 Triage - ED [...] Travel outside of [place]: no Allergies: yes 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 History: 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 Patient has homicidal thoughts: [...] 19:22 by Sherry Bronson (STAFF N) Normal [facility] CBC With Platelet No Differe ntialon 03-07-2018 Erythrocyte distribution width Auto Ratio (RBC) 13.0 % Normal 11.5-14.5 [facility] Erythrocytes (RBC) 5.17 10*6/uL Normal 4.20-5.40 [facility] Hematocrit (HCT) 44.4 % Normal 37.0-47.0 [facility] Hemoglobin mass conc (Bld) 15.3 g/dL Normal 12.0-16.0 [facility] MCH 29.6 pg Normal 27.0-31.3 [facility] MCHC mass conc (RBC) 34.4 % Normal 33.0-37.0 [facility] MCV 85.9 fL Normal 82.0-100.0 [facility] Platelets 287 10*3/uL Normal 130-400 [facility] WBC (Leukocytes) 6.8 10*3/uL Normal 4.8-10.8 [facility] TSH w/out Reflexon 201 8 Thyroid [...] Hospital Erythrocytes (RBC) 4.65 10*6/uL Normal 4.20-5.40 [facility] Hematocrit (HCT) 40.2 % Normal 37.0-47.0 [facility] Hemoglobin mass conc (Bld) 14.0 g/dL Normal 12.0-16.0 [facility] MCH 30.1 pg Normal 27.0-31.3 [facility] MCHC mass conc (RBC) 34.8 % Normal 33.0-37.0 [facility] MCV 86.4 fL Normal 82.0-100.0 [facility] Platelets 241 10*3/uL Normal 130-400 [facility] WBC (Leukocytes) 6.8 10*3/uL Normal 4.8-10.8 [facility] TSH w/out Reflexon 8 Thyroid stimulating hormone (TSH) m[IU]/L Low 0.270-4.20 [facility] Thyroxine Freeon 02-07-2018 Thyroxine Free 3.43 ng/dL Critically high 0.93-1.70 [facility] Vital Signs Date Time Vital Sign Value Performing Clinician Faci lity 09-10-2024 13:12050 Body height 162.6 cm Zehra Marques MD Work Phone: [facility] 09-10-2024 13:12050 Body mass index (BMI) [Ratio] 43.26 kg/m2 Zehra Marques MD Work Phone: [facility] 09-10-2024 13:12-050 Body weight 114.31 kg Zehra Marques MD Work Phone: [facility] 09-10-2024 13:12-0500 Diastolic blood pressure 72 mm[Hg] Zehra Marques MD Work Phone: [facility] 09-10-2024 13:12-0500 Heart rate 119 /min Zehra Marques MD Work Phone: [facility] 09-10-2024 13:12-0500 Respiratory rate 18 /min Zehra Marques MD Work Phone: [facility] 09-10-2024 13:12-0500 SaO2% (BldA) [Mass fraction] 97 % Zehra Marques MD Work Phone: [facility] 09-10-2024 13:12-0500 Systolic blood pressure 124 mm[Hg] Zehra Marques MD Work Phone: 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 (CMS/HCC) Start: 11-09-2024 End: 11-09-2024 ambulatory Vinay Crews MD Facility:[facility] Start: 11-04-2024 End: 11-04-2024 Clinisync Result [...] current use of insulin, unspecified CKD stage (CMS/HCC); Paresthesia of skin; Neuropathy; Type 2 diabetes mellitus with diabetic chronic kidney disease (CMS/HCC); Acquired hypothyroidism (CMS/HCC); H/O 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 for benign disease; Urinary frequency; Hyperuricemia without signs of inflammatory arthritis and tophaceous disease; Other specified hypothyroidism ([facility]/HCC); Fibromyalgia; Restless legs syndrome (RLS); Other insomnia; Chronic bilateral low back pain without sciatica Start: 07-06-2024 End: 07-06-2024 ambulatory Vinay Crews MD Facility:[facility] Start: 07-02-2024 End: 07-02-2024 Refill Zehra Marques MD Work Phone: [facility] Comment on above: 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 (HCC) ([facility]/HCC) Start: 04-13-2024 End: 04-13-2024 ambulatory Vinay Crews MD Facility:[facility] Start: 04-06-2024 End: 04-06-2024 ambulatory Vinay Crews MD Facility: [facility] Start: 01-31-2023 End: 02-01-[address] ZEHRA MARQUES Facility:[facility] Start: 01-21-2023 End: 01-22-2023 ambulatory MR JAMAAL JALLOH . Facility:[facility] Start: 01-12-2023 End: 01-13-2023 ambulatory BRENDAN COYLE Facility:[facility] Start: 11-26-2022 End: 11-26-2022 ambulatory Brendan Coyle Facility:[facility] Start: 11-26-2022 End: 11-26-2022 ambulatory MD Zehra Marques Work Phone: [facility] Work Phone: Start: 11-26-2022 End: 11-26-2022 Patient encounter procedure MD Zehra Marques Work Phone: [facility] [place] Work Phone: Start: 11-19-2022 End: 11-20-2022 ambulatory DAPHNEY RODRIGUEZ Facility:[facility] Start: 09-17-2022 ambulatory DAPHNEY RODRIGUEZ Fac ility:[facility] Start: 05-13-2020 Patient encounter procedure Ezekiel Devi [facility] Work Phone: Start: 03-26-2020 [facility] Start: 02-13-2020 [facility] Start: 02-14-2018 End: 02-17-2018 [...] Screening for malign ant neoplasm of colon [facility] Start: 09-10-2025 Urine screening for protein Diabetes: Urine Protein Screening [facility] Start: 07-11-2025 Glaucoma screening Diabetes: R etinopathy Screening [facility] Start: 04-05-2025 Influenza vaccination Influenza Vacc ine (#1) [facility] Comment on above: Postponed from 06/07 (Insurance / Financial) Start: 03-11-2025 End: 03-11-2025 Patient encounter procedure 03/11/2025 1:00 PM EDT Office Visit [facility] [address] [facility] [place] [address] Zehra Marques MD [address] [place] [address] [facility] Start: 12-10-2024 End: 09-11-2025 TSH W/REFLEX TO FT4 TSH W/REFLEX TO FT4 Lab Routine Hypothyroidism, unspecified type (CMS/HCC) Expected: 12/10/2024 (Approximate), Expires: 09/11/2025 [facility] Work Phone: Comment on above: Expected: 12/10/2024 (Approximate), Expires: 09/11/2025 Start: 12-09-2024 Hemoglobin A1c measurement Diabetes: Hemoglobin A1C [facility] Start: 10-15-2024 End: 10-15-2024 Professional / ancillary services management 10/15/2024 3:00 PM EST Ancillary Procedure [facility] [address] [address] [facility] Start: 09-10-2024 End: 11-11-2025 DBT Breast - bilateral screening Bilateral screening mammogram with tomosynthesis Imaging Routine Breast cancer screening by mammogram Expected: 09/10/2024, Expires: 11/11/2025 [facility] Work Phone: Comment on above: Expected: 09/10/2024 , Expires: 11/11/2025 Start: 07-19-2024 Screening for malign ant neoplasm of breast Mammogram [facility] Start: 06-07-2024 Influenza vaccination Influenza Vacc ine (#1) [facility] Start: 08-20-2023 Urine screening for protein Diabetes: Urine Protein Screening [facility] Start: 07-23-2023 Hemoglobin A1c measurement Diabetes: Hemoglobin A1C [facility] Start: 11-26-2022 MR Cervical spine WO contrast [facility] Start: 11-26-2022 MRI of cervical spin e without contrast MR cervical spine wo con [facility] Start: 11-26-2022 XR pre/post mri xray XR pre/post mri xray [facility] Start: 11-26-2022 [facility] Start: 1970 Screening for malign ant neoplasm of colon [facility] Payers Date Payer Category Payer Unknown 2023 Medicaid [id number] 2022 Self-pay 2017 Unknown [id number] 1970 Unknown [id number] 2.16.84 [id number] 1970 Unknown [id number] 2.16.84 [id number] 1970 Unknown [id number] 2.16.84 [id number] 1970 Unknown [id number] 2.16.84 [id number] 1970 Unknown [id number] 2.16.84 [id number] 1970 Unknown [id number] 2.16. [id number] 1970 Unknown [id number] 2.16. [id number] 1970 Unknown [id number] 2.16. [id number] 1970 Unknown [id number] 2.16. [id number] 1970 Unknown [id number] 2.16. [id number] 1959 Medicaid [id number] Unknown [id number] 2.16.8 [id number] Social History Date Type Detail Facility Assertion Tobacco smoking consumption unknown (finding) [facility] Work Phone: Start: 1970 Sex Assigned At Female F [facility] Start: 04-22-2023 Tobacco smoking stat [facility] Ex-smoker [facility] End: 10-07-2021 History of tobacco use Current smoker [facility] End: 10-07-2021 History of tobacco use Cigarette Smoker [facility] Start: 04-22-2023 Tobacco use and exposure User of smokeless tobacco [facility] Start: 07-04-2023 End: 09-10-2024 Alcoholic beverage intake Ex-drinker (finding) [facility] Start: 07-04-2023 End: 09-10-2024 History of Social function [facility] Start: 07-04-2023 End: 09-10-[address] [facility] Start: 05-02-2023 Alcohol Comment 1-2 drinks, mo nthly or less. caffeine intake: 2-3 cups per day. [facility] Start: 1970 Sex assigned at Not on file [facility] Medical Equipment Procedure Code Equipment Code Equipment Origin al Text Equipment Identifier Dates USE TO TEST BLOO D SUGAR TWICE DAILY [id number] Start: 09-28-2023 End: 11-13-2024 USE TO TEST BLOO D SUGAR TWICE DAILY [id number] Start: 11-13-2024 Goals Date Patient Goal Desired Activity /State Personal health goal Functional Status Date Assessment Result Facility NEGATED: Highlighted row Functional performance Functional status health issues are not documented Disease [facility] Work Phone: Mental Status Date Assessment Result Facility NEGATED: Highlighted row Cognitive function [Interpretation] Cognitive status health issues are not documented Disease [facility] Work Phone: Clinical Notes 11-14-2022 to 11-19-2024 Telephone Encounter - Zehra Marques MD - 11/13/2024 8:19 AM ESTTelephone Encounter - Zehra Marques MD - 11/13/2024 8:19 AM ESTTelephone Encounter - Zehra Marques MD - 09/14/2024 12:54 PM EST Note Date & Type Note Facility 11-19-2024 Note NEUROSURGERY NOTE SUBJECTIVE: Chief complaint: Back and left leg pain. History of present illness: Consultation referred by [facility] management, Tammie Tapia NP, for back [...] done aquatic therapy in the past at [facility]. No previous back surgery. Review of systems: [...] spondylosis with radiculopathy. (more content not included)... [facility] 11-19-2024 Note NEUROSURGERY NOTE SUBJECTIVE: Chief complaint: [...] standing for very long. 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 I did review the patient's imaging - MRI lumbar spine and then new x-rays (including flexion/extension x-rays) from the day of clinic. There is no evidence for dynamic instability on the flex-ex imaging. There is some facet arthropathy from L3-4 to L5-S1 - bilateral. There is DDD at L5-S1 and some (more content not included)... [facility] 11-13-2024 Telephone encounter Note Approvals with refills [facility] 11-13-2024 Miscellaneous Notes Approvals with refills documented in this encounter [facility] 09-14-2024 Telephone encounter Note Approvals with refills [facility] 09-14-2024 Miscellaneous Notes Approvals with refills documented in this encounter [facility] 09-10-2024 History of Presen t illness Narrative Zakiya Coates is a 54 y.o. female presents [...] for physical therapy and water therapy at [facility] will be arranged. 2. Diabetes Mellitus. Her [...] for follow up. documented in this encounter [facility] 07-02-2024 Telephone encounter Note Approvals with refills [facility] 07-02-2024 Miscellaneous Notes Approvals with refills documented in this encounter [facility] 08-20-2022 Note FINDINGS: ARTERIAL EVALUATION RIGHT LEFT VELOCITIES PHASICITY VELOCITIES PHASICITY 85 BiCommon [id number] 83BiProximal [id number] 108BiMid [id number] 40 BiDistal [id number] 51 [id number] 46 [id number] 75 BiPTA 93Bi 44 BiPeroneal 58Bi RIGHT [...] by Mikey Harry on 08/21/2022 1153 [facility] 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 Evaluation note No assessment inform ation available [facility] Work Phone: Evaluation note Diagnosis Hypothyroidism, unspecified type (CMS/HCC)- Primary documented in this encounter [facility] Healthcare[facility] note* Diagnosis Breast cancer screening [...] arthritis and tophaceous disease Other specified hypothyroidism ([facility]/HCC) Fibromyalgia Unspecified myalgia and myositis Restless legs [...] section and content) DATE CREATED AUTHOR 03/26/[facility] DATE CREATED AUTHOR AUTHOR'S ORGANIZ ATION 10/02/2019 [facility] DATE CREATED AUTHOR AUTHOR'S ORGANIZ ATION 05/19/2020 [facility] DATE CREATED AUTHOR AUTHOR'S ORGANIZ ATION 10/17/2022 [facility] dical Specialist DATE CREATED AUTHOR AUTHOR'S ORGANIZ ATION 12/02/2022 [facility] DATE CREATED AUTHOR AUTHOR'S ORGANIZ ATION 02/19/2023 [facility] DATE CREATED AUTHOR AUTHOR'S ORGANIZ ATION 11/26/2024 [facility] DATE CREATED AUTHOR AUTHOR'S ORGANIZ ATION 03/05/2025 [facility] Care Teams (unrecognized sec tion and content) Team Status: Inactive Member Role Status Dates Brendan Coyle NP-C Attending Provider Active Zehra Marques MD Primary Care Provider Active Team Status: Active Member Role Status Dates Zehra Marques MD Primary Care Provider Active Hearing Screener Relationship Specialty Start Date End Date Zehra Marques MD [address] [place] [address] PCP - General Family Medicine 02/21/23 Zehra Marques MD [address] [facility] [place] [address] PCP - [facility] LICENSED PHYSICAL THERAPIST ASSISTANT 01/06/24 Hearing Screener Relationship Specialty Start Date End Date Zehra Marques MD [address] [place] [address] PCP - General Family Medicine 02/21/23 Zehra Marques MD [address] [place] [address] PCP - [facility] LICENSED PHYSICAL THERAPIST ASSISTANT 01/06/24 Hearing Screener Relationship Specialty Start Date End Date Zehra Marques MD [address] [place] [address] PCP - General Family Medicine 02/21/23 Zehra Marques MD [address] [place] [address] PCP - [facility] LICENSED PHYSICAL THERAPIST ASSISTANT 01/06/24 Hearing Screener Relationship Specialty Start Date End Date Zehra Marques MD [address] [place] [address] PCP - General Family Medicine 02/21/23 Zehra Marques MD [address] [facility] [place] [address] PCP - [facility] LICENSED PHYSICAL THERAPIST ASSISTANT 01/06/24 Hearing Screener Relationship Specialty Start Date End Date Zehra Marques MD [address] [place] [address] PCP - General Family Medicine 02/21/23 Zehra Marques MD [address] [place] [address] PCP - NOMSergio Alcala [facility] 01/06/24 Hearing Screener Relationship Specialty Start Date End Date Zehra Marques MD [address] [place] [address] PCP - General Family Medicine 02/21/23 Zehra Marques MD [address] [place] [address] PCP - NOMSergio Alcala [facility] 01/06/24 Hearing Screener Relationship Specialty Start Date End Date Zehra Marques MD [address] [place] [address] PCP - General Family Medicine 02/21/23 Zehra Marques MD [address] [place] [address] PCP - PANCHO Alcala [facility] 01/06/24 Goals (unrecognized section and content) [...] BE BASED ON THE PRIMARY CLINICAL RECORDS. [employer] [facility]. provides no warranty or guarantee of the accuracy or completeness of information in this document.
--- NOTE | 2025-05-26 11:23 | PM.CN ---
Consult Note: HPI Data of Consult Patient: known to practice within the last 3 years Requesting Physician: Estefany Tapia NP Primary Care Provider: LARS DAVIS Consult Narrative Reason for consult: low back and left leg pain Narrative: Mayra Coates a pleasant 55 year old female presents for evaluation of chronic low back pain. hx of lumbar facet arthropathy and lumbar stenosis with NC with pain lasting >12 months unresponsive to >6 weeks of PT/HEP, heat, ice, tylenol, NSAIDs. currently utilizing meloxicam, tizanidine, duloxetine with benefit without side effects. pain 8.5/10 increasing with standing, walking, pushing, pulling, lifting, bending, activity. pain improves with heat, lying, and sleep. Pt reports her bilateral L5-S1 TFESI from 02/22/25 provided significant relief and she would like to repeat, noted >50% improvement for 3 months. cc:: CC: Estefany Tapia NP Review of Systems ROS Musculoskeletal Reports: back pain, extremity pain and joint pain PFSH PFSH Medical History Osteoarthritis ?M19.90 - Unspecified osteoarthritis, unspecified site (ICD-10) Low back pain ?M54.50 - Low back pain, unspecified (ICD-10) Neck pain ?M54.2 - Cervicalgia (ICD-10) Acid reflux ?K21.9 - Gastro-esophageal reflux disease without esophagitis (ICD-10) Obesity ?E66.9 - Obesity, unspecified (ICD-10) Hypothyroid ?E03.9 - Hypothyroidism, unspecified (ICD-10) Diabetes ?E11.9 - Type 2 diabetes mellitus without complications (ICD-10) Smoker ?F17.200 - Nicotine dependence, unspecified, uncomplicated (ICD-10) Hypertension ?I10 - Essential (primary) hypertension (ICD-10) Surgical History History of cholecystectomy ?Z90.49 - Acquired absence of other specified parts of digestive tract (ICD-10) H/O: 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 ?Z90.710 - Acquired absence of both cervix and uterus (ICD-10) Social History Smoking status: Former smoker Little interest or pleasure in doing things: not at all Feeling down, depressed, or hopeless: not at all Meds Home Medications and Allergies Home Medications ?Medication ?Instructions ?Recorded ?Confirmed ?Type atorvastatin 10 mg tablet 10 mg PO DAILY 05/22/23 02/22/25 History cholecalciferol (vitamin D3) 50 50 mcg PO DAILY 05/22/23 02/22/25 History mcg (2,000 unit) capsule dulaglutide 3 mg/0.5 mL 3 mg subcut QWEEK 05/22/23 02/22/25 History subcutaneous pen injector (Trulicity) levothyroxine 50 mcg tablet 50 mcg PO DAILY 05/22/23 02/22/25 History lisinopril 2.5 mg tablet 2.5 mg PO DAILY 05/22/23 02/22/25 History Held on 02/22/25. Instructions: till labs nabumetone 500 mg tablet 500 mg PO BID 05/22/23 02/22/25 History tizanidine 4 mg capsule 4 mg PO Q8H PRN back pain 05/22/23 02/22/25 History trazodone 50 mg tablet 50 mg PO DAILY PRN sleep 05/22/23 02/22/25 History duloxetine 30 mg capsule,delayed 30 mg PO BID 01/25/24 02/22/25 History release ropinirole 0.5 mg tablet 0.5 mg PO DAILY 01/25/24 02/22/25 History ondansetron 4 mg disintegrating 4 mg PO Q8H PRN nausea and 07/20/24 02/22/25 Rx tablet vomiting 4 days #12 tabs tizanidine 4 mg capsule 4 mg PO .qhs PRN muscle spasticity 11/05/24 02/22/25 Rx #30 caps oxybutynin chloride 10 mg 10 mg PO DAILY 11/09/24 02/22/25 History tablet,extended release 24 hr Allergies Allergy/AdvReac Type Severity Reaction Status Date / Time propylthiouracil Allergy Severe Hives Verified 02/22/25 07:21 Exam Constitutional Documenting provider has reviewed patient's vital signs: yes Common normals: no apparent distress, oriented x3, healthy appearing, alert and well nourished General appearance: cooperative HENMN Common normals: normocephalic, hearing grossly normal bilaterally and moist oral mucous membranes Head and scalp: normocephalic Eye Common normals: PERRL Pupil: PERRL Neck & C-Spine Common normals: full ROM General: normal visual inspection Chest Common normals: inspection of chest normal Respiratory Common normals: normal respiratory effort, no retractions and no use of accessory muscles Back & Pelvis Lumbar spine/lower back: ROM limited, pain with ROM, lumbar spinal tenderness, paraspinal muscle tenderness, straight leg raise positive right and straight leg raise positive left Other: decreased sensation bilateral L5/S1 strength 4/5 in BLE positive facet loading Neuro Common normals: oriented x3 Sensorium/orientation: alert Psych Common normals: mental status grossly normal, thought process normal, cooperative, affect normal, speech normal and activity/motor behavior normal Speech: normal speech Thought process: normal thought process Results Additional Findings Additional findings: If on a controlled substance or opioids, I have checked an [place] report on this patient and there are no aberrancies noted in the prescribing history.??If on a controlled substance or opioid a drug screen was completed and reviewed within the last year, and if there has not been a drug screen completed we ordered one today to monitor higher risk, state monitored pain medication use. As part of providing excellent, safe, comprehensive care, the following was completed at our patient's visit: 1. A medication reconciliation and review to ensure accurate knowledge of current/active medications, including asking our patients to inform us about any [id number] medications or herbal remedies/nutritional supplements/alternative remedies. 2. A review to specifically ensure our patients have had annual screening for screening for depression, screening for tobacco use, and screening for unhealthy alcohol use. For concerning screenings had a discussion with the patient, provided patient education, and recommended follow-up with primary care provider when appropriate. If patient noted with a risk of falling, they received education on strength, gait, and balance training to prevent future risk of falling. Portions of this note may have been carried over from the previous visit and updated as appropriate. Please note this office utilizes paper charting in addition to the electronic medical record. A list of current medications, vitals, and PMH is available there as the clinical staff outside of myself do not have access to [employer] charting during the clinic day operations. As part of providing quality comprehensive care the current medications, vitals, and PMH were reviewed in the paper chart. Assessment and Plan Assessment and Plan (1) Lumbar stenosis with neurogenic claudication: Assessment and Plan: The patient has had over 3 months of moderate to severe low back and LE pain with functional impairment and inadequate response to conservative care including NSAIDS (unless there are contraindication such as concurrent blood thinners), multiple oral or topical pain medications, and home exercise program/physical therapy.? Patient has completed >6 weeks of guided home exercise program and/or formal physical therapy program without relief of their symptoms.? The Oswestry Disability Index was completed, and the patient scored a 62%.? The patient noted the following:?? moderate to severe pain impacting ADLs, standing, walking, sitting, social life, travel (2) Lumbar spondylosis: (3) Myalgia, other site: (4) Steroid long-term use: Assessment and Plan: PCP notified of prolonged steroidal use via EHR Plan repeat bilateral L5-S1 TFESI under fluoroscopy, pt is a candidate for repeat lumbar PATRICIA based on significant response to prior injection continue HEP as tolerated continue current medications f/u after injection, consider repeat lumbar RFAs for axial facet mediated low back pain
== END 2025-05-26 11:00 | disposition home or self-care (01) ==
LOC: PM 11:00
PROVIDERS: PCP Family Medicine; Visit Provider Nurse Practitioner
DX: M48.062 Spinal stenosis, lumbar region with neurogenic claudication (principal); M47.816 Spondylosis without myelopathy or radiculopathy, lumbar region; M79.18 Myalgia, other site; Z79.52 Long term (current) use of systemic steroids
CPT/HCPCS: G0463

== ENCOUNTER 2025-06-14 10:31 | Day surgery (SDC) | payer MEDICAID, SELFPAY ==
--- OUTSIDE RECORDS SUMMARY | 2025-06-14 10:38 | XMS_ITS | CCD ---
Author Organization [facility] CliniSymo Care Team Providers Care Sld Teacher Name Role Phone Joshua Fraser Unavailable Unavailable Joshua Fraser Unavailable Unavailable None, No PCP Unavailable Unavailable Ezekiel Devi Unavailable Unavailable Joshua Fraser NP-C Brendan Vivar Attending Provider MD Zehra [...] DR SOUSA Primary Care Unavailable SHELLI, DR ZEHRA Prado Unavailable YEIMI ., MR JAMAAL Admitting Unavailable YEIMI ., MR HINTON Attending Unavailable SHELLI, DR SOUSA Primary Care Unavailable YEIMI ., MR JAMAAL Consulting Unavailable Shelli KAPADIA, Zehra Andino Primary Care Provider Zehra Marques MD Unavailable OVITT, DANNI Referring Unavailable OVITT, DANNI Referring Unavailable OVITT, DANNI Attending Unavailable Mars KAPADIA, Andrius Hyman Attending Unavailable Mars KAPADIA, Andrius Vazeb Attending Unavailable Mars KAPADIA, Andrius Vytautaddi Attending Unavailable Mars KAPADIA, Andrius Vytvincent Attending Unavailable Mars KAPADIA, Andrius Boogie Attending Unavailable Michelle Choi DO Primary Care Provider JABIER DONATO Attending Unavailable MICHELLE CHOI Primary Care Unavailable Allergies Allergy Classification Reported Allergen(s) Allergy Type Date of Onset Reaction(s) Facility (9 sources) Pregabalin; Translations: [PREGABALIN] Propensity to adverse reactions 05-30-20 Shortness of breath [facility] Work Phone: (9 sources) Propylthiouracil; Translations: [PROPYLTHIOURACIL] Drug Allergy 08-30-20 15 Hives [facility] Work Phone: (9 sources) thyroid (GROUP HOME); Translations: [THYROID] Drug Allergy 05-13-20 [facility] (1 source) ALLERGIES NOT ON FILE; Translations: [ALLERGIES NOT ON FILE] Propensity to adverse reactions (disorder) [facility] (1 source) Propylthiouracil Drug Allergy 08-30-20 [facility] Medications Current Medications Medication Drug Class(es) Dates [...] oral capsule (8 sources) Vitamin D Start: 12-26-2023 take 1 capsule by mouth once daily cholecalciferol (Vitamin D-3) 50 MCG (1999 [place]) capsule Indications: Vitamin D deficiency TAKE 1 [...] meals. 90 tablet 3 09/10/2024 09/10/2025 Active lidocaine 0.04 mg/mg medicated patch (1 source) Antiarrhythmic, Amide Local Anesthetic Start: 06-09-2025 1 patch, TransDERmal, Administer over 12 Hours, ONCE, On Sat06/09/25 at 2109, For 1 dose, Apply patch to area of pain. Patch may remain in place for up to 12 hours in any 24 hour period. The compliance clerk's recommendations for the number of patches that can be applied within a 24-hour period varies from 1 to 4 times daily and the duration of application varies from 8 to 24 hours; refer to the compliance clerk's labeling for product-specific recommendations. lisinopril 2.5 mg oral tablet (9 sources) Angiotensin Converting Enzyme Inhibitor Start: 07-30-2023 End: 07-02-2024 take 1 tablet by mouth once daily lisinopril 2.5 MG tablet Indications: Type 2 diabetes mellitus with diabetic chronic kidney disease (CMS/HCC) TAKE 1 TABLET BY MOUTH EVERY DAY 90 tablet 11 07/02/2024 Active meloxicam 15 mg oral tablet (4 sources) Nonsteroidal Anti-inflammatory Drug Start: 11-29-2018 take 1 tablet by mouth once daily meloxicam (MOBIC) 15 MG tablet TAKE 1 TABLET BY MOUTH EVERY DAY 30 tablet 3 04/17/2019 Active methIMAzole 10 mg oral tablet (3 sources) Thyroid Hormone Synthesis Inhibitor Start: 11-29-2018 take 3 tablets by mouth twice daily methimazole (TAPAZOLE) 10 MG tablet TAKE 3 TABLET BY MOUTH TWICE A DAY 180 tablet 3 03/10/2019 Active methocarbamol 500 mg oral tablet (1 source) Muscle Relaxant Start: 06-09-2025 End: 06-16-2025 take 1 tablet by mouth three times daily methocarbamol (ROBAXIN) 500 MG tablet Take 1 tablet by mouth 3 times daily for 7 days 21 tablet 06/09/2025 06/16/2025 Active nabumetone 500 mg oral tablet (1 [...] Daily 90 tablet 3 09/14/2024 09/14/2025 Active predniSONE 50 mg oral tablet (1 source) Start: 06-09-2025 End: 06-14-2025 take 1 tablet by mouth once daily predniSONE (DELTASONE) 50 MG tablet Take 1 tablet by mouth daily for 5 days 5 tablet 06/09/2025 06/14/2025 Active 24 hr propranolol hydrochloride 60 mg extended release oral capsule (2 sources) beta-Adrenergic Pipo Start: 09-02-2018 take 1 capsule by mouth once daily propranolol (INDERAL LA) 60 MG extended release capsule TAKE ONE CAPSULE BY MOUTH ONE TIME DAILY 30 capsule 3 11/29/2018 Active rOPINIRole 0.5 mg oral tablet (10 [...] Drug Class(es) Dates Sig (Normalized) Sig (Original) diazePAM 5 mg oral tablet (1 source) Benzodiazepine Start: 06-09-2025 End: 06-09-2025 take 1 dose by mouth once 5 mg, Oral, ONCE, 1 dose, On Sat06/09/25 at 2109 diclofenac sodium 75 mg delayed release oral [...] tablet 3 05/30/2023 09/10/2024 Discontinued (Therapy completed) 1 ml ketorolac tromethamine 30 mg/ml cartridge (1 source) Nonsteroidal Anti-inflammatory Drug, Cyclooxygenase Inhibitor Start: 06-09-2025 End: 06-09-2025 30 mg, IntraVENous, ONCE, 1 dose, On Sat06/09/25 at 2109, Do not administer for more than 5 days. metFORMIN hydrochloride 500 mg oral tablet (4 sources) Biguanide Start: 12-22-2023 End: 09-10-2024 take 1 tablet by mouth twice daily at mealtime metFORMIN (Glucophage) 500 MG tablet Indications: Type 2 diabetes mellitus with diabetic chronic kidney disease (CMS/HCC) TAKE 1 TABLET BY MOUTH TWICE A DAY WITH A MEAL FOR 30 DAYS 180 tablet 3 12/22/2023 09/10/2024 Discontinued (Therapy completed) triamcinolone acetonide 1 mg/ml topical cream (4 sources) Corticosteroid Start: 02-13-2020 Triamcinolone Acetonide 0.1 % External Cream APPLY TO AFFECTED AREA BID Quantity: 60 Refills: 2 Joshua Fraser DO Start : 13-Feb-2020 Active Start: 12-25-2018 triamcinolone (KENALOG) 0.1 % cream Apply topically 2 times daily. 60 g 1 12/25/2018 Active Problems Active Problems Problem Classification Problem [...] Translations: [Restless legs syndrome] 09-10-2024 Chronic Other injuries and conditions due to external causes (1 source) Injury of head; Translations: [Unspecified injury of head, initial encounter] 06-09-2025 Episodic Other injuries and conditions due to external causes (1 source) Unspecified injury of head, initial encounter; Translations: [Unspecified injury of head, initial encounter] Onset: 06-09-2025 Episodic Other nervous system disorders (10 sources) Neuropathy; [...] 11-19-2022 09-10-2024 Episodic Thyroid disorders (20 sources) Hyperthyroidism; Translations: [Acquired hypothyroidism] Onset: 09-03-2015 04-22-2023 Chronic Unclassified (6 sources) [...] Test Name Value Interpretation Reference Range Facility T3, Freeon 06-10-2025 Free T3 [Mass/Vol] 1.84 pg/mL Low 2.00-4.40 [facility] Comment on above: Result Comment: Perf ormed at [facility], [address] [place], [place] [id number] . Basic Metabolic Panelon Anion gap [Moles/Vol] 15 mmol/L Normal 9-15 [facility] Comment on above: Performed By: #### B MP ####[facility] [facility] [phone] Calcium [Mass/Vol] 9.4 mg/dL Normal 8.5-9.9 [facility] Comment on above: Performed By: #### B MP ####[facility] [facility] [phone] Chloride [Moles/Vol] 101 mmol/L Normal 95-107 [facility] Comment on above: Performed By: #### B MP ####[facility] [facility] [phone] CO2 [Moles/Vol] 23 mmol/L Normal 20-31 [facility] Comment on above: Performed By: #### B MP ####[facility] [facility] [phone] Creatinine [Mass/Vol] 0.83 mg/dL Normal 0.50-0.90 [facility] Comment on above: Performed By: #### B MP ####[facility] [facility] [phone] GFR 83.1 Normal >60 [facility] Comment on above: Result Comment: Salvador viviennec calculator link https://www.kidney.org/professionals/kdoqi/gfr_calculatorped Effective Jul 09, 2022 These results are not intended for use in patients <18 years of age. eGFR results are calculated without a race factor using the 2020 CKD-EPI equation. Careful clinical correlation is recommended, particularly when comparing to results calculated using previous equations. The CKD-EPI equation is less accurate in patients with extremes of muscle mass, extra-renal metabolism of creatinine, excessive creatinine ingestion, or following therapy that affects renal tubular secretion. Performed By: #### B MP ####[facility] [facility] [phone] Glucose [Mass/Vol] 226 mg/dL Critically high 70-99 [facility] Comment on above: Performed By: #### B MP ####[facility] [facility] [phone] Potassium [Moles/Vol] 3.7 mmol/L Normal 3.4-4.9 [facility] Comment on above: Performed By: #### B MP ####[facility] [facility] [phone] Sodium [Moles/Vol] 139 mmol/L Normal 135-144 [facility] Comment on above: Performed By: #### B MP ####[facility] [facility] [phone] Urea nitrogen [Mass/Vol] 11 mg/dL Normal 6-20 [facility] Comment on above: Performed By: #### B MP ####[facility] [facility] [phone] Basic metabolic 2000 panelon 06-09-2025 Calcium [Mass/Vol] 9.4 mg/dL 8.5 - 9.9 mg/dL [facility] [Moles/Vol] 101 mmol/L [facility] CO2 [Moles/Vol] 23 mmol/L [facility] Creatinine [Mass/Vol] 0.83 mg/dL 0.50 - 0.90 mg/dL [facility] GFR/1.73 sq M.predicted among non-blacks MDRD (S/P/Bld) [Vol rate/Area] 83.1 mL/min/{1.73_m2} 60 - PINF [facility] Comment on above: Pediatric calculator link https://www.kidney.org/professionals/kdoqi/gfr_calculatorped Effective Jul 09, 2022 These results are not intended for use in patients <18 years of age. eGFR results are calculated without a race factor using the 2020 CKD-EPI equation. Careful clinical correlation is recommended, particularly when comparing to results calculated using previous equations. The CKD-EPI equation is less accurate in patients with extremes of muscle mass, extra-renal metabolism of creatinine, excessive creatinine ingestion, or following therapy that affects renal tubular secretion. Glucose [Mass/Vol] 226 mg/dL High 70 - 99 mg/dL [facility] Interpretation and review of laboratory results Abnormal [facility] Potassium [Moles/Vol] 3.7 mmol/L [facility] Sodium [Moles/Vol] 139 mmol/L [facility] Urea nitrogen [Mass/Vol] 11 mg/dL 6 - 20 mg/dL [facility] CBC W Auto Differential pane l (Bld)on 06-09-2025 Interpretation and review of laboratory results Abnormal [facility] MCHC (RBC) [Mass/Vol] 34.8 % 33.0 - 37.0 % [facility] Segmented neutrophils/100 WBC (Bld) 54.6 % [facility] CBC With Platelet and Differ entialon 06-09-2025 Basophils (Bld) [#/Vol] 0.1 10*3/uL Normal 0.0-0.2 [facility] Comment on above: Performed By: #### C BCWD #### [facility] [address] [place] [address] Basophils/100 WBC (Bld) 1.1 % Normal [facility] Comment on above: Performed By: #### C BCWD #### [facility] [address] [place] [address] Eosinophils (Bld) [#/Vol] 0.3 10*3/uL Normal 0.0-0.7 [facility] Comment on above: Performed By: #### C BCWD #### [facility] [address] [place] [address] Eosinophils/100 WBC (Bld) 2.7 % Normal [facility] Comment on above: Performed By: #### C BCWD #### [facility] [address] [place] [address] Erythrocyte distribution width (RBC) [Ratio] 12.3 % Normal 11.5-14.5 [facility] Comment on above: Performed By: #### C BCWD #### [facility] [address] [place] [address] Hematocrit (Bld) [Volume fraction] 42.2 % Normal 37.0-47.0 [facility] Comment on above: Performed By: #### C BCWD #### [facility] [address] [place] [address] Hemoglobin (Bld) [Mass/Vol] 14.7 g/dL Normal 12.0-16.0 [facility] Comment on above: Performed By: #### C BCWD #### [facility] [address] [place] [address] Lymphocytes (Bld) [#/Vol] 3.5 10*3/uL Normal 1.0-4.8 [facility] Comment on above: Performed By: #### C BCWD #### [facility] [address] [place] [address] Lymphocytes/100 WBC (Bld) 34.6 % Normal [facility] Comment on above: Performed By: #### C BCWD #### [facility] [address] [place] [address] MCH (RBC) [Entitic mass] 32.0 pg Critically high 27.0-31.3 [facility] Comment on above: Performed By: #### C BCWD #### [facility] [address] [place] [address] MCHC 34.8 % Normal 33.0-37.0 [facility] Comment on above: Performed By: #### C BCWD #### [facility] [address] [place] [address] MCV (RBC) [Entitic vol] 91.9 fL Normal 79.4-94.8 [facility] Comment on above: Performed By: #### C BCWD #### [facility] [address] [place] [address] Monocytes (Bld) [#/Vol] 0.7 10*3/uL Normal 0.2-0.8 [facility] Comment on above: Performed By: #### C BCWD #### [facility] [address] [place] [address] Monocytes/100 WBC (Bld) 6.6 % Normal [facility] Comment on above: Performed By: #### C BCWD #### [facility] [address] [place] [address] Neutrophils (Bld) [#/Vol] 5.5 10*3/uL Normal 1.4-6.5 [facility] Comment on above: Performed By: #### C BCWD #### [facility] [address] [place] [address] Neutrophils/100 WBC (Bld) 54.6 % Normal [facility] Comment on above: Performed By: #### C BCWD #### [facility] [address] [place] [address] Platelets (Bld) [#/Vol] 285 10*3/uL Normal 130-400 [facility] Comment on above: Performed By: #### C BCWD #### [facility] [address] [place] [address] RBC (Bld) [#/Vol] 4.59 10*6/uL Normal 4.20-5.40 [facility] Comment on above: Performed By: #### C BCWD #### [facility] [address] [place] [address] WBC (Bld) [#/Vol] 10.1 10*3/uL Normal 4.8-10.8 [facility] Comment on above: Performed By: #### C BCWD #### [facility] [address] [place] [address] CT CERVICAL SPINE WO CONTRAS Ton 06-09-2025 CT CERVICAL SPINE WO CONTRAST EXAM: CT CERVICAL SPINE WITHOUT CONTRAST 06/09/2025 07:55:08 PM TECHNIQUE: CT of the cervical spine was performed without the administration of intravenous contrast. Multiplanar reformatted images are provided for review. Automated exposure control, iterative reconstruction, and/or weight based adjustment of the mA/kV was utilized to reduce the radiation dose to as low as reasonably achievable. COMPARISON: None available. CLINICAL HISTORY: Trauma. FINDINGS: CERVICAL SPINE: BONES AND ALIGNMENT: No acute fracture or traumatic malalignment. There is straightening of the cervical spine, which may be from muscular spasm or positioning for the examination. DEGENERATIVE CHANGES: No significant degenerative changes. SOFT TISSUES: No prevertebral soft tissue swelling. IMPRESSION: 1. Straightening of the cervical spine, possibly due to muscular spasm or positioning. 2. Otherwise normal CT of the cervical spine. Interpreted by: Zion Brody MD Signed by: Zion Brody MD 06/09/25 Final result Normal [facility] CT Cervical spine WO contras ton 06-09-2025 1. Straightening of the cervical spine, possibly due to muscular spasm or positioning. 2. Otherwise normal CT of the cervical spine. [facility] EXAM: CT CERVICAL SPINE WITHOUT CONTRAST 06/09/2025 07:55:08 PM TECHNIQUE: CT of the cervical spine was performed without the administration of intravenous contrast. Multiplanar reformatted images are provided for review. Automated exposure control, iterative reconstruction, and/or weight based adjustment of the mA/kV was utilized to reduce the radiation dose to as low as reasonably achievable. COMPARISON: None available. CLINICAL HISTORY: Trauma. FINDINGS: CERVICAL SPINE: BONES AND ALIGNMENT: No acute fracture or traumatic malalignment. There is straightening of the cervical spine, which may be from muscular spasm or positioning for the examination. DEGENERATIVE CHANGES: No significant degenerative changes. SOFT TISSUES: No prevertebral soft tissue swelling. [facility] Zion Brody MD - 06/09/2025 EXAM: CT CERVICAL SPINE WITHOUT CONTRAST 06/09/2025 07:55:08 PM TECHNIQUE: CT of the cervical spine was performed without the administration of intravenous contrast. Multiplanar reformatted images are provided for review. Automated exposure control, iterative reconstruction, and/or weight based adjustment of the mA/kV was utilized to reduce the radiation dose to as low as reasonably achievable. COMPARISON: None available. CLINICAL HISTORY: Trauma. FINDINGS: CERVICAL SPINE: BONES AND ALIGNMENT: No acute fracture or traumatic malalignment. There is straightening of the cervical spine, which may be from muscular spasm or positioning for the examination. DEGENERATIVE CHANGES: No significant degenerative changes. SOFT TISSUES: No prevertebral soft tissue swelling. IMPRESSION: 1. Straightening of the cervical spine, possibly due to muscular spasm or positioning. 2. Otherwise normal CT of the cervical spine. [facility] CT HEAD WO CONTRASTon 2024 CT HEAD WO CONTRAST EXAM: CT HEAD WITHOUT CONTRAST 06/09/2025 07:55:08 PM TECHNIQUE: CT of the head was performed without the administration of intravenous contrast. Automated exposure control, iterative reconstruction, and/or weight based adjustment of the mA/kV was utilized to reduce the radiation dose to as low as reasonably achievable. COMPARISON: None available. CLINICAL HISTORY: Trauma. FINDINGS: BRAIN AND VENTRICLES: No acute hemorrhage. No evidence of acute infarct. No hydrocephalus. No extra-axial collection. No mass effect or midline shift. There is mild, age-appropriate cerebral atrophy with mild dilatation of the ventricles and sulci. ORBITS: No acute abnormality. SINUSES: No acute abnormality. SOFT TISSUES AND SKULL: No acute soft tissue abnormality. No skull fracture. No sign of closed head injury. IMPRESSION: 1. No acute intracranial abnormality related to trauma. 2. Mild, age-appropriate cerebral atrophy. Interpreted by: Zion Brody MD Signed by: Zion Brody MD 06/09/25 Final result Normal [facility] CT Head WO contraston 2024 1. No acute intracranial abnormality related to trauma. 2. Mild, age-appropriate cerebral atrophy. [facility] EXAM: CT HEAD WITHOUT CONTRAST 06/09/2025 07:55:08 PM TECHNIQUE: CT of the head was performed without the administration of intravenous contrast. Automated exposure control, iterative reconstruction, and/or weight based adjustment of the mA/kV was utilized to reduce the radiation dose to as low as reasonably achievable. COMPARISON: None available. CLINICAL HISTORY: Trauma. FINDINGS: BRAIN AND VENTRICLES: No acute hemorrhage. No evidence of acute infarct. No hydrocephalus. No extra-axial collection. No mass effect or midline shift. There is mild, age-appropriate cerebral atrophy with mild dilatation of the ventricles and sulci. ORBITS: No acute abnormality. SINUSES: No acute abnormality. SOFT TISSUES AND SKULL: No acute soft tissue abnormality. No skull fracture. No sign of closed head injury. [facility] Zion Brody MD - 06/09/2025 EXAM: CT HEAD WITHOUT CONTRAST 06/09/2025 07:55:08 PM TECHNIQUE: CT of the head was performed without the administration of intravenous contrast. Automated exposure control, iterative reconstruction, and/or weight based adjustment of the mA/kV was utilized to reduce the radiation dose to as low as reasonably achievable. COMPARISON: None available. CLINICAL HISTORY: Trauma. FINDINGS: BRAIN AND VENTRICLES: No acute hemorrhage. No evidence of acute infarct. No hydrocephalus. No extra-axial collection. No mass effect or midline shift. There is mild, age-appropriate cerebral atrophy with mild dilatation of the ventricles and sulci. ORBITS: No acute abnormality. SINUSES: No acute abnormality. SOFT TISSUES AND SKULL: No acute soft tissue abnormality. No skull fracture. No sign of closed head injury. IMPRESSION: 1. No acute intracranial abnormality related to trauma. 2. Mild, age-appropriate cerebral atrophy. [facility] CT Head WO contrastOrdered B y: Zion Brody on 06-09-2025 [facility] Work Phone: CT LUMBAR SPINE WO CONTRASTo n 06-09-2025 CT LUMBAR SPINE WO CONTRAST EXAM: CT OF THE LUMBAR SPINE WITHOUT CONTRAST 06/09/2025 07:55:08 PM TECHNIQUE: CT of the lumbar spine was performed without the administration of intravenous contrast. Multiplanar reformatted images are provided for review. Automated exposure control, iterative reconstruction, and/or weight based adjustment of the mA/kV was utilized to reduce the radiation dose to as low as reasonably achievable. COMPARISON: None available. CLINICAL HISTORY: History of lower back spondylosis, discomfort after fall. FINDINGS: BONES AND ALIGNMENT: No sign of acute osseous injury to the lumbar spine. Normal vertebral body heights. No acute fracture or suspicious bone lesion. Normal alignment. DEGENERATIVE CHANGES: Vacuum phenomenon of the intervertebral disc at L5-S1 with normal disc height. Moderate left L5-S1 foraminal zone disc bulging with annular ossification impinging upon the left L5 nerve root without compression of the nerve root. Normal right L5-S1 neural foramen. Prominent right and mild left L3-4, moderate right and mild left L4-5, and prominent right and moderate left L5-S1 facet arthropathy. SOFT TISSUES: No acute abnormality. IMPRESSION: 1. No acute osseous injury. 2. Moderate left L5-S1 foraminal zone disc bulging with annular ossification impinging upon the left L5 nerve root without compression. 3. Right greater than left inferior lumbar facet arthropathy as described above. Interpreted by: Zion Brody MD Signed by: Zion Brody MD 06/09/25 Final result Normal [facility] CT Lumbar spine WO contrasto n 06-09-2025 1. No acute osseous injury. 2. Moderate left L5-S1 foraminal zone disc bulging with annular ossification impinging upon the left L5 nerve root without compression. 3. Right greater than left inferior lumbar facet arthropathy as described above. [facility] RADI[facility]Y EXAM: CT OF THE LUMBAR SPINE WITHOUT CONTRAST 06/09/2025 07:55:08 PM TECHNIQUE: CT of the lumbar spine was performed without the administration of intravenous contrast. Multiplanar reformatted images are provided for review. Automated exposure control, iterative reconstruction, and/or weight based adjustment of the mA/kV was utilized to reduce the radiation dose to as low as reasonably achievable. COMPARISON: None available. CLINICAL HISTORY: History of lower back spondylosis, discomfort after fall. FINDINGS: BONES AND ALIGNMENT: No sign of acute osseous injury to the lumbar spine. Normal vertebral body heights. No acute fracture or suspicious bone lesion. Normal alignment. DEGENERATIVE CHANGES: Vacuum phenomenon of the intervertebral disc at L5-S1 with normal disc height. Moderate left L5-S1 foraminal zone disc bulging with annular ossification impinging upon the left L5 nerve root without compression of the nerve root. Normal right L5-S1 neural foramen. Prominent right and mild left L3-4, moderate right and mild left L4-5, and prominent right and moderate left L5-S1 facet arthropathy. SOFT TISSUES: No acute abnormality. [facility] Zion Brody MD - 06/09/2025 EXAM: CT OF THE LUMBAR SPINE WITHOUT CONTRAST 06/09/2025 07:55:08 PM TECHNIQUE: CT of the lumbar spine was performed without the administration of intravenous contrast. Multiplanar reformatted images are provided for review. Automated exposure control, iterative reconstruction, and/or weight based adjustment of the mA/kV was utilized to reduce the radiation dose to as low as reasonably achievable. COMPARISON: None available. CLINICAL HISTORY: History of lower back spondylosis, discomfort after fall. FINDINGS: BONES AND ALIGNMENT: No sign of acute osseous injury to the lumbar spine. Normal vertebral body heights. No acute fracture or suspicious bone lesion. Normal alignment. DEGENERATIVE CHANGES: Vacuum phenomenon of the intervertebral disc at L5-S1 with normal disc height. Moderate left L5-S1 foraminal zone disc bulging with annular ossification impinging upon the left L5 nerve root without compression of the nerve root. Normal right L5-S1 neural foramen. Prominent right and mild left L3-4, moderate right and mild left L4-5, and prominent right and moderate left L5-S1 facet arthropathy. SOFT TISSUES: No acute abnormality. IMPRESSION: 1. No acute osseous injury. 2. Moderate left L5-S1 foraminal zone disc bulging with annular ossification impinging upon the left L5 nerve root without compression. 3. Right greater than left inferior lumbar facet arthropathy as described above. [facility] Free T4 [Mass/Vol]on 025 Interpretation and review of laboratory results Abnormal [facility] High Sensitivity Troponin To n 06-09-2025 High Sensitivity Troponin T <6 Normal 0-19 [facility] Comment on above: Result Comment: High Sensitivity Troponin values cannot be compared with other Troponin methodologies. Performed By: #### T RP5 #### [facility] [address] [place] [address] Magnesiumon 06-09-2025 Magnesium [Mass/Vol] 2.0 mg/dL 1.7 - 2 .4 mg/dL [facility] Magnesium [Mass/Vol] 2.0 mg/dL Normal 1.7-2.4 [facility] Comment on above: Performed By: #### M G #### [facility] [address] [place] [address] No Panel Informationon 06-09 [facility] Radiology Study observation (narrative) [facility] Radiology Study observation (narrative) [facility] T4, Freeon 06-09-2025 Free T4 [Mass/Vol] 0.27 ng/dL Low 0.84 - 1. 68 ng/dL [facility] TSHon 06-09-2025 TSH [Mass/Vol] 18.[address] [facility] TSH [Mass/Vol]on 06-09-2025 Interpretation and review of laboratory results Abnormal [facility] TSH w/out Reflexon TSH w/out Reflex 18.180 uIU/mL Critically high 0.440-3.86 [facility] Comment on above: Performed By: #### T SH #### [facility] [address] [place] [address] Thyroxine Freeon 06-09-2025 Thyroxine Free 0.27 ng/dL Low 0.84-1.68 [facility] [place] Comment on above: Performed By: #### F RT4 #### [facility] [address] [place] [address] Troponinon 06-09-2025 Troponin, High Sensitivity ng/L 0 - 19 ng/L [facility] Comment on above: High Sensitivity Tro ponin values cannot be compared with other Troponin methodologies. Urinalysis with Reflex to Cu ltureon 06-09-2025 Glucose Test strip (U) [Mass/Vol] 250 mg/dL Abnormal Negative [facility] Interpretation and review of laboratory results Abnormal [facility] Ketones (U) [Mass/Vol] TRACE Abnormal Negative mg/dL [facility] Protein (U) [Mass/Vol] Negative Negative mg/dL [facility] Urine Reflex to Culture Not Indicated [facility] Urobilinogen Qn (U) 0.2 NINF [facility] Urinalysis, reflex to cultur leatha 06-09-2025 Bilirubin Ql (U) Negative Normal Negative [facility] Comment on above: Performed By: #### U AR #### [facility] [address] [place] [address] Clarity (U) Clear Normal Clear [facility] Comment on above: Performed By: #### U AR #### [facility] [address] [place] [address] Color (U) Yellow Normal Straw/Chase [facility] Comment on above: Performed By: #### U AR #### [facility] [address] [place] [address] Glucose Ql (U) 250 mg/dL Abnormal Negative [facility] [place] Comment on above: Performed By: #### U AR #### [facility] [address] [place] [address] Hemoglobin Ql (U) Negative Normal Negative [facility] Comment on above: Performed By: #### U AR #### [facility] [address] [place] [address] Ketones Ql (U) TRACE Abnormal Negative [facility] [place] Comment on above: Performed By: #### U AR #### [facility] [address] [place] [address] Leukocyte esterase Test strip Ql (U) Negative Normal Negative [facility] Comment on above: Performed By: #### U AR #### [facility] [address] [place] [address] Nitrite Ql (U) Negative Normal Negative [facility] Comment on above: Performed By: #### U AR #### [facility] [address] [place] [address] pH (U) 5.5 [pH] Normal 5.0-9.0 [facility] Comment on above: Performed By: #### U AR #### [facility] [address] [place] [address] Protein Ql (U) Negative Normal Negative [facility] [place] Comment on above: Performed By: #### U AR #### [facility] [address] [place] [address] Specific gravity (U) [Rel density] 1.027 Normal 1.005-1.03 [facility] Comment on above: Performed By: #### U AR #### [facility] [address] [place] [address] Urine Reflexed to Culture Not Indicated Normal [facility] Comment on above: Performed By: #### U AR #### [facility] [address] [place] [address] Urobilinogen Qn (U) 0.2 {Naun'U}/dL Normal < 2.0 [facility] Comment on above: Performed By: #### U AR #### [facility] [address] [place] [address] XR HAND LEFT (MIN 3 VIEWS)on 06-09-2025 XR HAND LEFT (MIN 3 VIEWS) EXAM: 3 or more VIEW(S) XRAY OF THE LEFT HAND 06/09/2025 08:15:00 PM COMPARISON: None available. CLINICAL HISTORY: Injury to left hand. FINDINGS: BONES AND JOINTS: There is an old, healed fracture of the proximal shaft of the fifth metacarpal. No acute fracture. No joint dislocation. SOFT TISSUES: The soft tissues are unremarkable. IMPRESSION: 1. No acute osseous abnormality. 2. Old, healed fracture of the proximal shaft of the fifth metacarpal. Interpreted by: Zion Brody MD Signed by: Zion Brody MD 06/09/25 Final result Normal [facility] XR Hand - left 3 Viewson 1. No acute osseous abnormality. 2. Old, healed fracture of the proximal shaft of the fifth metacarpal. [facility] RADIOLOGY EXAM: 3 or more VIEW(S) XRAY OF THE LEFT HAND 06/09/2025 08:15:00 PM COMPARISON: None available. CLINICAL HISTORY: Injury to left hand. FINDINGS: BONES AND JOINTS: There is an old, healed fracture of the proximal shaft of the fifth metacarpal. No acute fracture. No joint dislocation. SOFT TISSUES: The soft tissues are unremarkable. [facility] RADIOLOGY Zion Brody MD - 06/09/2025 EXAM: 3 or more VIEW(S) XRAY OF THE LEFT HAND 06/09/2025 08:15:00 PM COMPARISON: None available. CLINICAL HISTORY: Injury to left hand. FINDINGS: BONES AND JOINTS: There is an old, healed fracture of the proximal shaft of the fifth metacarpal. No acute fracture. No joint dislocation. SOFT TISSUES: The soft tissues are unremarkable. IMPRESSION: 1. No acute osseous abnormality. 2. Old, healed fracture of the proximal shaft of the fifth metacarpal. [facility] XR KNEE LEFT (1-2 VIEWS)on 0 06-09-2025 XR KNEE LEFT (1-2 VIEWS) EXAM: 2 VIEW(S) XRAY OF THE LEFT KNEE 06/09/2025 08:15:00 PM COMPARISON: None available. CLINICAL HISTORY: Trauma. FINDINGS: BONES AND JOINTS: No acute fracture. No focal osseous lesion. No joint dislocation. No significant joint effusion. No significant degenerative changes. SOFT TISSUES: The soft tissues are unremarkable. IMPRESSION: 1. Normal examination of the left knee. Interpreted by: Zion Brody MD Signed by: Zion Brody MD 06/09/25 Final result Normal [facility] XR Knee - left 1 or 2 Viewso n 06-09-2025 1. Normal examinatio n of the left knee. [facility] RADIOLOGY EXAM: 2 VIEW(S) XRAY OF THE LEFT KNEE 06/09/2025 08:15:00 PM COMPARISON: None available. CLINICAL HISTORY: Trauma. FINDINGS: BONES AND JOINTS: No acute fracture. No focal osseous lesion. No joint dislocation. No significant joint effusion. No significant degenerative changes. SOFT TISSUES: The soft tissues are unremarkable. [facility] RADIOLOGY Zion Brody MD - 06/09/2025 EXAM: 2 VIEW(S) XRAY OF THE LEFT KNEE 06/09/2025 08:15:00 PM COMPARISON: None available. CLINICAL HISTORY: Trauma. FINDINGS: BONES AND JOINTS: No acute fracture. No focal osseous lesion. No joint dislocation. No significant joint effusion. No significant degenerative changes. SOFT TISSUES: The soft tissues are unremarkable. IMPRESSION: 1. Normal examination of the left knee. [facility] XR PELVIS (1-2 VIEWS)on XR PELVIS (1-2 VIEWS) EXAM: 1 or 2 VIEW(S) XRAY OF THE PELVIS 06/09/2025 08:15:00 PM COMPARISON: None available. CLINICAL HISTORY: Left hip pain. FINDINGS: BONES AND JOINTS: No acute fracture. No focal osseous lesion. No joint dislocation. Osteitis pubis incidentally noted. Mild primary osteoarthritis of both hips. SOFT TISSUES: The soft tissues are unremarkable. IMPRESSION: 1. No acute fracture or dislocation. 2. Mild primary osteoarthritis of both hips. Interpreted by: Zion Brody MD Signed by: Zion Brody MD 06/09/25 Final result Normal [facility] XR Pelvis 1 or 2 Viewson 1. No acute fracture or dislocation. 2. Mild primary osteoarthritis of both hips. [facility] RADIOLOGY EXAM: 1 or 2 VIEW(S) XRAY OF THE PELVIS 06/09/2025 08:15:00 PM COMPARISON: None available. CLINICAL HISTORY: Left hip pain. FINDINGS: BONES AND JOINTS: No acute fracture. No focal osseous lesion. No joint dislocation. Osteitis pubis incidentally noted. Mild primary osteoarthritis of both hips. SOFT TISSUES: The soft tissues are unremarkable. [facility] RADIOLOG[facility] Zion Brody MD - 06/09/2025 EXAM: 1 or 2 VIEW(S) XRAY OF THE PELVIS 06/09/2025 08:15:00 PM COMPARISON: None available. CLINICAL HISTORY: Left hip pain. FINDINGS: BONES AND JOINTS: No acute fracture. No focal osseous lesion. No joint dislocation. Osteitis pubis incidentally noted. Mild primary osteoarthritis of both hips. SOFT TISSUES: The soft tissues are unremarkable. IMPRESSION: 1. No acute fracture or dislocation. 2. Mild primary osteoarthritis of both hips. [facility] XR RADIUS ULNA LEFT (2 VIEWS )on 06-09-2025 XR RADIUS ULNA LEFT (2 VIEWS) EXAM: 2 VIEW(S) XRAY OF THE LEFT FOREARM 06/09/2025 08:15:00 PM COMPARISON: None available. CLINICAL HISTORY: Injury to left forearm. FINDINGS: BONES AND JOINTS: No acute fracture. No focal osseous lesion. No joint dislocation. SOFT TISSUES: The soft tissues are unremarkable. IMPRESSION: 1. Normal examination of the left forearm. Interpreted by: Zion Brody MD Signed by: Zion Brody MD 06/09/25 Final result Normal [facility] XR Radius and Ulna - left 2 Viewson 06-09-2025 1. Normal examinatio n of the left forearm. [facility] RADIOLOGY EXAM: 2 VIEW(S) XRAY OF THE LEFT FOREARM 06/09/2025 08:15:00 PM COMPARISON: None available. CLINICAL HISTORY: Injury to left forearm. FINDINGS: BONES AND JOINTS: No acute fracture. No focal osseous lesion. No joint dislocation. SOFT TISSUES: The soft tissues are unremarkable. [facility] RADIOLOG[facility] Zion Brody MD - 06/09/2025 EXAM: 2 VIEW(S) XRAY OF THE LEFT FOREARM 06/09/2025 08:15:00 PM COMPARISON: None available. CLINICAL HISTORY: Injury to left forearm. FINDINGS: BONES AND JOINTS: No acute fracture. No focal osseous lesion. No joint dislocation. SOFT TISSUES: The soft tissues are unremarkable. IMPRESSION: 1. Normal examination of the left forearm. [facility] XR SHOULDER LEFT (MIN 2 VIEW S)on 06-09-2025 XR SHOULDER LEFT (MIN 2 VIEWS) EXAM: 2 OR MORE VIEW(S) XRAY OF THE LEFT SHOULDER 06/09/2025 08:15:00 PM COMPARISON: None available. CLINICAL HISTORY: Left shoulder injury. FINDINGS: BONES AND JOINTS: Glenohumeral joint is normally aligned. No acute fracture or dislocation. The AC joint is unremarkable in appearance. SOFT TISSUES: No abnormal calcifications. Visualized lung is unremarkable. IMPRESSION: 1. Normal examination of the left shoulder. Interpreted by: Zion Brody MD Signed by: Zion Brody MD 06/09/25 Final result Normal [facility] XR SHOULDER RIGHT (MIN 2 VIE WS)on 06-09-2025 XR SHOULDER RIGHT (MIN 2 VIEWS) EXAM: 3 VIEW XRAY OF THE RIGHT SHOULDER 06/09/2025 08:15:00 PM COMPARISON: None available. CLINICAL HISTORY: Trauma. FINDINGS: BONES AND JOINTS: Glenohumeral joint is normally aligned. No acute fracture or dislocation. The AC joint is unremarkable in appearance. SOFT TISSUES: No abnormal calcifications. Visualized lung is unremarkable. IMPRESSION: 1. Normal examination of the right shoulder. Interpreted by: Zion Brody MD Signed by: Zion Brody MD 06/09/25 Final result Normal [facility] XR Shoulder - left 2 Viewson 06-09-2025 1. Normal examinatio n of the left shoulder. [facility] RADIOLOGY EXAM: 2 OR MORE VIEW(S) XRAY OF THE LEFT SHOULDER 06/09/2025 08:15:00 PM COMPARISON: None available. CLINICAL HISTORY: Left shoulder injury. FINDINGS: BONES AND JOINTS: Glenohumeral joint is normally aligned. No acute fracture or dislocation. The AC joint is unremarkable in appearance. SOFT TISSUES: No abnormal calcifications. Visualized lung is unremarkable. [facility] RADIOLOGY Zion Brody MD - 06/09/2025 EXAM: 2 OR MORE VIEW(S) XRAY OF THE LEFT SHOULDER 06/09/2025 08:15:00 PM COMPARISON: None available. CLINICAL HISTORY: Left shoulder injury. FINDINGS: BONES AND JOINTS: Glenohumeral joint is normally aligned. No acute fracture or dislocation. The AC joint is unremarkable in appearance. SOFT TISSUES: No abnormal calcifications. Visualized lung is unremarkable. IMPRESSION: 1. Normal examination of the left shoulder. [facility] XR Shoulder - right 2 Viewso n 06-09-2025 1. Normal examinatio n of the right shoulder. [facility] RADIOLOGY EXAM: 3 VIEW XRAY OF THE RIGHT SHOULDER 06/09/2025 08:15:00 PM COMPARISON: None available. CLINICAL HISTORY: Trauma. FINDINGS: BONES AND JOINTS: Glenohumeral joint is normally aligned. No acute fracture or dislocation. The AC joint is unremarkable in appearance. SOFT TISSUES: No abnormal calcifications. Visualized lung is unremarkable. [facility] RADIOLOG[facility] Zion Brody MD - 06/09/2025 EXAM: 3 VIEW XRAY OF THE RIGHT SHOULDER 06/09/2025 08:15:00 PM COMPARISON: None available. CLINICAL HISTORY: Trauma. FINDINGS: BONES AND JOINTS: Glenohumeral joint is normally aligned. No acute fracture or dislocation. The AC joint is unremarkable in appearance. SOFT TISSUES: No abnormal calcifications. Visualized lung is unremarkable. IMPRESSION: 1. Normal examination of the right shoulder. [facility] XR WRIST LEFT (MIN 3 VIEWS)o n 06-09-2025 XR WRIST LEFT (MIN 3 VIEWS) EXAM: 3 VIEW(S) XRAY OF THE LEFT WRIST 06/09/2025 08:15:00 PM COMPARISON: None available. CLINICAL HISTORY: Left wrist injury. FINDINGS: BONES AND JOINTS: No acute fracture. No focal osseous lesion. No joint dislocation. SOFT TISSUES: The soft tissues are unremarkable. IMPRESSION: 1. No acute fracture or dislocation. Interpreted by: Zion Brody MD Signed by: Zion Brody MD 06/09/25 Final result Normal [facility] XR Wrist - left 3 Viewson 1. No acute fracture or dislocation. [facility] RADIOLOGY EXAM: 3 VIEW(S) XRAY OF THE LEFT WRIST 06/09/2025 08:15:00 PM COMPARISON: None available. CLINICAL HISTORY: Left wrist injury. FINDINGS: BONES AND JOINTS: No acute fracture. No focal osseous lesion. No joint dislocation. SOFT TISSUES: The soft tissues are unremarkable. [facility] RADIOLOG[facility] Zion Brody MD - 06/09/2025 EXAM: 3 VIEW(S) XRAY OF THE LEFT WRIST 06/09/2025 08:15:00 PM COMPARISON: None available. CLINICAL HISTORY: Left wrist injury. FINDINGS: BONES AND JOINTS: No acute fracture. No focal osseous lesion. No joint dislocation. SOFT TISSUES: The soft tissues are unremarkable. IMPRESSION: 1. No acute fracture or dislocation. [facility] 36on 11-24-2024 36 Spoke with patient. Advised that I had reviewed her imaging with Dr. aMrshall. She does have some degenerative changes and some left foraminal stenosis. He would not recommend OR at this time. Suggest following up with pain management to discuss other options, poss SCS. Has done aquatic therapy in past with improvement, though not sure she has visits left. Also considering massage or care center manager, both of which seem reasonable options. She [...] plan to follow-up with her as needed. [facility] Telephoneon 11-24-2024 Telephone [phone] AllannettieZakiya storeyMayra 1970 F Date Provider Department Center 11/24/2024 [facility] None No family history on file Normal [facility] Consulton 11-19-2024 Consult [id number] JackcordeliaMayra 1970 F Date Provider Department [place] 11/19/2024 DANNI HUNTER [facility] [place] No family history on file Level of Service:83138 AL OFFICE/OUTPATIENT NEW MODERATE MDM 45 MINUTES Reason for Visit and Comments: Consult [484] - Patient is here today for a consult for lumbar stenosis [facility] 36on 11-13-2024 36 Attempted to call pt to schedule consult with either Danni Ordonez CNP or Dr. Marshall for Lumbar Stenosis. No answer. Phone rang, then stopped. No VM. [facility] [place] [address] Magnetic Resonance Report Signed Patient: MAYRA COATES MR#: [id number] : 1970 Acct:[id number] Age/Sex: 54 / F ADM Date: 11/04/24 Loc: MRI Attending Dr: Tammie Tapia NP Ordering Physician: Tammie Tapia NP Date of Service: 11/04/24 Procedure(s): MR lumbar spine wo con Accession Number(s): [id number] cc: ZEHRA MARQUES ; Tammie Tapia NP [address] [address] Patient Name: MAYRA COATES MRN: [id number] date: 1970 Sex: F Assigned Patient Location: [facility] Accession/Order Number: [id number] Exam Date: 11/04/2024 10:16 Report Date: 11/04/2024 [...] Signed By: 11/04/24 1410 DD/ 1407 TD/TT: Mechanic Sound Technician: [facility] Radiology, Radiologist, MD - 11/04/2024 [place] [address] Magnetic Resonance Report Signed Patient: MAYRA COATES MR#: [id number] : 1970 Acct:[id number] Age/Sex: 54 / F ADM Date: 11/04/24 Loc: MRI Attending Dr: Tammie Tapia NP Ordering Physician: Tammie Tapia NP Date of Service: 11/04/24 Procedure(s): MR lumbar spine wo con Accession Number(s): [id number] cc: ZEHRA MARQUES ; Tammie Tapia NP The [address] [address] Patient Name: MAYRA COATES MRN: [facility]:[id number] date: 1970 Sex: F Assigned Patient Location: MRI Current Patient Location: [facility] Accession/Order Number: [id number] Exam Date: 11/04/2024 10:16 Report Date: 11/04/2024 [...] Signed By: 11/04/24 1410 DD/ 1407 TD/TT: Mechanic Sound Technician: [facility] Radiology Study observation (narrative) [facility] MR LUMBAR SPINE WO CONOrdere d By: Radiologist Radiology on 11-04-2024 [facility] Work Phone: CBC W Auto Differential pane l (Bld)on 09-11-2024 Basophils (Bld) [#/Vol] 72 10*3/uL [facility] Basophils/100 WBC (Bld) 1.1 % [facility] Eosinophils (Bld) [#/Vol] 189 10*3/uL [facility] Eosinophils/100 WBC (Bld) 2.9 % [facility] Erythrocyte distribution width (RBC) [Ratio] 12.2 % 11.0 - 15.0 % [facility] Hematocrit (Bld) [Volume fraction] 45.7 % High 35.0 - 45.0 % [facility] Hemoglobin (Bld) [Mass/Vol] 15.3 g/dL 11.7 - 15.5 g/dL [facility] Lymphocytes (Bld) [#/Vol] 1736 10*3/uL [facility] Lymphocytes/100 WBC (Bld) 26.7 % [facility] MCH (RBC) [Entitic mass] 30.4 pg 27.0 - 33.0 pg [facility] MCHC (RBC) [Mass/Vol] 33.5 g/dL 32.0 - 36.0 g/dL [facility] Comment on above: For adults, a slight decrease in the calculated MCHC value (in the range of 30 to 32 g/dL) is most likely not clinically significant; however, it should be interpreted with caution in correlation with other red cell parameters and the patient's clinical condition. MCV (RBC) [Entitic vol] 90.7 fL 80.0 - 100.0 fL [facility] Monocytes (Bld) [#/Vol] 559 10*3/uL [facility] Monocytes/100 WBC (Bld) 8.6 % [facility] Neutrophils (Bld) [#/Vol] 3946 10*3/uL [facility] Neutrophils/100 WBC (Bld) 60.7 % [facility] Platelet mean volume (Bld) [Entitic vol] 10 fL 7.5 - 12.5 fL [facility] Platelets (Bld) [#/Vol] 296 10*3/uL [facility] RBC (Bld) [#/Vol] 5.04 10*6/uL [facility] WBC (Bld) [#/Vol] 6.5 10*3/uL [facility] Laboratory - Chemistry and C hemistry - challengeon 09-11-2024 Albumin [Mass/Vol] 4.2 g/dL 3.6 - 5.1 g/dL [facility] Albumin/Globulin [Mass ratio] 1.6 {ratio} [facility] ALP [Catalytic activity/Vol] 83 U/L 37 - 153 U/L [facility] ALT [Catalytic activity/Vol] 51 U/L High 6 - 29 U/L [facility] AST [Catalytic activity/Vol] 39 U/L High 10 - 35 U/L [facility] Bilirubin [Mass/Vol] 1.1 mg/dL 0.2 - 1 .2 mg/dL [facility] Calcium [Mass/Vol] 9.8 mg/dL 8.6 - 10. 4 mg/dL [facility] Chloride [Moles/Vol] 102 mmol/L 98 - 11 0 mmol/L [facility] CO2 [Moles/Vol] 27 mmol/L 20 - 32 mmol/L [facility] Creatinine [Mass/Vol] 0.48 mg/dL Low 0.50 - 1.03 mg/dL [facility] Free T4 [Mass/Vol] 1.5 ng/dL 0.8 - 1.8 ng/dL [facility] GFR/1.73 sq M.predicted among non-blacks MDRD (S/P/Bld) [Vol rate/Area] 112 mL/min/{1.73_m2} > OR = 60 mL/min/1.73m2 [facility] Globulin (S) [Mass/Vol] 2.7 g/dL [facility] Glucose [Mass/Vol] 309 mg/dL High 65 - 99 mg/dL [facility] Comment on above: Fasting reference interval For someone without known diabetes, a glucose value >125 mg/dL indicates that they may have diabetes and this should be confirmed with a follow-up test. Potassium [Moles/Vol] 3.8 mmol/L 3.5 - 5.3 mmol/L [facility] Protein [Mass/Vol] 6.9 g/dL 6.1 - 8.1 g/dL [facility] Sodium [Moles/Vol] 138 mmol/L 135 - 146 mmol/L [facility] TSH Qn 0.01 m[IU]/L Low mIU/L [facility] Comment on above: Reference Range > or = 20 Years 0.40-4.50 Ranges First trimester 0.26-2.66 Second trimester 0.55-2.73 Third trimester 0.43-2.91 Urea nitrogen [Mass/Vol] 10 mg/dL 7 - 25 mg/dL [facility] Urea nitrogen/Creatinine [Mass ratio] 21 mg/mg [facility] Lipid 1996 panelon 4 Cholesterol [Mass/Vol] 105 mg/dL [facility] - 200 mg/dL [facility] Cholesterol in HDL [Mass/Vol] 50 mg/dL > OR = 50 [facility] Cholesterol in LDL [Mass/Vol] 38 mg/dL mg/dL (calc) [facility] Comment on above: Reference range: <10 0 Desirable range <100 mg/dL for primary prevention; <70 mg/dL for patients with CHD or diabetic patients with > or = 2 CHD risk factors. LDL-C is now calculated using the Edgar-Suleman calculation, which is a validated novel method providing better accuracy than the Friedewald equation in the estimation of LDL-C. Edgar BLANCO et al. REBECCA. 2013;310(19): 1144-7089 (http://education.Faveeo.Global [employer]/faq/HDF230) Cholesterol non HDL [Mass/Vol] 55 mg/dL [facility] Comment on above: For patients with di abetes plus 1 major ASCVD risk factor, treating to a non-HDL-C goal of <100 mg/dL (LDL-C of <70 mg/dL) is considered a therapeutic option. Cholesterol.total/Ch olesterol in HDL [Mass ratio] 2.1 {ratio} [facility] Triglyceride [Mass/Vol] 86 mg/dL NINF - 150 mg/dL [facility] Microalbumin/Creatinine rati o panel (U)on 09-11-2024 Albumin DL <= 20 mg/L (U) [Mass/Vol] 9.6 mg/dL See Note: [facility] Comment on above: Reference Range: Reference Range Not established Albumin/Creatinine (U) [Mass ratio] 50 High [facility] Comment on above: The ADA defines [...] 191 mg/dL 20 - 275 mg/dL [facility] Interpretation and review of laboratory results Abnormal [facility] Organization Information Site ID: QPT Name: [facility] Address: [address] [place] [address], [address] [place] [address] Director: Quang Welch MD [facility] No Panel Informationon 09-11 Interpretation and review of laboratory results Abnormal [facility] Organization Information Site ID: QPT Name: [facility] Address: [address] [place] [address], [address] [place], [place] [id number] Director: Quang Welch MD [facility] HbA1c (Bld) [Mass fraction]o n 09-10-2024 Interpretation and review of laboratory results Abnormal [facility] - Hematology and Cell countson 09-10-2024 HbA1c (Bld) [Mass fraction] 8.3 % [facility] Urinalysis macro (dipstick) panel (U)on 09-10-2024 Bilirubin, UA Negative Negative - 4(70) +++ mg/dL [facility] Blood, UA Negative Negative - 50 Guicho/mcL [facility] Clarity, UA Clear [facility] Color, UA Isha [facility] Glucose, UA Negative Negative - 2000(110) ++++ mg/dL [facility] Interpretation and review of laboratory results Normal [facility] Ketones, UA Negative Negative - 160(16) ++++ mg/dL [facility] Leukocytes, UA Negative Negative - 500+++ Cynthia/mcL [facility] Nitrite, UA Negative Negative - Positive [facility] pH, UA 5 5 - 9 [facility] Protein, UA Negative Negative - 2000(20) ++++ mg/dL [facility] Spec Grav, UA 1.02 1 - 1.03 [facility] Urobilinogen, UA 1.0 0.2 - 12 mg/dL [facility] HLA B 27on 01-28-2023 HLA-B27 Negative Normal [facility] Comment on above: Result Comment: HLA- B*27 Negative B27 allele interpretation for all loci based on IMGT/HLA database version 3.44 This test was developed and its performance characteristics determined by [facility]. It has not been cleared or approved by the Food and Drug Administration. [facility] CLIA ID Number [id number] . This test was performed using PCR (Polymerase Chain Reaction)/SSOP (Sequence Specific Oligonucleotide Probes) technique. SBT (Sequence Based Typing) and/or SSP (Sequence Specific Primers) may be used as supplemental methods when necessary. Please contact [facility] Customer Service at if you have any questions. . Director of [facility] Laboratory Dr Jett Carpio, PhD Performed By: #### H LA27 #### [facility] [address] [address] [address] Daniela Ledesma CALEB by IFAon 01-24-2023 Antinuclear Antibodies, IFA Negative Normal [facility] Comment on above: Result Comment: Nega tive <1:80 Borderline 1:80 Positive >1:80 ICAP nomenclature: AC-0 For more information about Hep-2 cell patterns use ANApatterns.org, the official website for the International Consensus on Antinuclear Antibody (CALEB) Patterns (ICAP). Performed By: #### A NAIFA #### [facility] [address] [place] [address] Dr. Daniela Ledesma RHEUMATOID FACTORon 01-24-20 RA Latex Turbid. <10.0 Normal <14.0 [facility] Comment on above: Performed By: #### R F #### [facility] [address] [address] [address] Daniela Ledesma CBC AUTO DIFFon 01-21-2023 BASO # 0.1 103/ul Normal 0.0-0.1 [facility] Comment on above: Performed By: #### C BC #### [facility] [address] [address] [address] Daniela Ledesma Basophils/100 WBC (Bld) 0.9 % Normal 0.2-2.0 [facility] Comment on above: Performed By: #### C BC #### [facility] [address] [address] [address] Daniela Ledesma EO # 0.7 103/ul Normal 0.0-0.7 [facility] Comment on above: Performed By: #### C BC #### [facility] [address] [address] [address] Daniela Ledesma Eosinophils/100 WBC (Bld) 4.3 % Normal 0.9-7.0 [facility] Comment on above: Performed By: #### C BC #### [facility] [address] [place] [address] Dr. Daniela Ledesma Erythrocyte distribution width (RBC) [Ratio] 13.2 % Normal 11.0-15.0 [facility] Comment on above: Performed By: #### C BC #### [facility] [address] [address] [address] Daniela Ledesma Hematocrit (Bld) [Volume fraction] 45.4 % Normal 36.0-48.0 [facility] Comment on above: Performed By: #### C BC #### [facility] [address] [address] [address] Daniela Ledesma Hemoglobin (Bld) [Mass/Vol] 15.7 g/dL Normal 12.0-16.0 [facility] Comment on above: Performed By: #### C BC #### [facility] [address] [address] [address] Daniela Ledesma IG # 0.07 10e3/ul Critically high 0.00-0.03 [facility] Comment on above: Performed By: #### C BC #### [facility] [address] [address] [address] Daniela Ledesma IG % 0.5 % Normal 0.0-0.5 [facility] Comment on above: Performed By: #### C BC #### [facility] [address] [place] [address] Dr. Daniela Ledesma LYMPH # 3.7 103/ul Normal 1.2-3.8 [facility] Comment on above: Performed By: #### C BC #### [facility] [address] [place] [address] Dr. Daniela Ledesma Lymphocytes/100 WBC (Bld) 24.7 % Normal 20.5-60.0 [facility] Comment on above: Performed By: #### C BC #### [facility] [address] [place] [address] Dr. Daniela Ledesma MANUAL DIFF REQ NO Normal [facility] Comment on above: Performed By: #### C BC #### [facility] [address] [place] [address] Dr. Daniela Ledesma MCH (RBC) [Entitic mass] 30.9 pg Normal 26.7-34.0 [facility] Comment on above: Performed By: #### C BC #### [facility] [address] [place] [address] Dr. Daniela Ledesma MCHC (RBC) [Mass/Vol] 34.6 g/dL Normal 29.9-35.2 [facility] Comment on above: Performed By: #### C BC #### [facility] [address] [place] [address] Dr. Daniela Ledesma MCV (RBC) [Entitic vol] 89.4 fL Normal 81.0-99.0 [facility] Comment on above: Performed By: #### C BC #### [facility] [address] [place] [address] Dr. Daniela Ledesma MONO # 0.7 103/ul Normal 0.3-0.8 [facility] Comment on above: Performed By: #### C BC #### [facility] [address] [place] [address] Dr. Daniela Ledesma Monocytes/100 WBC (Bld) 4.4 % Normal 1.7-12.0 [facility] Comment on above: Performed By: #### C BC #### [facility] [address] [address] [address] Daniela Ledesma NEUT # 9.8 103/ul Critically high 1.4-6.5 [facility] Comment on above: Performed By: #### C BC #### [facility] [address] [address] [address] Daniela Ledesma Neutrophils/100 WBC (Bld) 65.2 % Normal 43.0-75.0 [facility] Comment on above: Performed By: #### C BC #### [facility] [address] [place] [address] Dr. Daniela Ledesma Platelet mean volume (Bld) [Entitic vol] 9.3 fL Critically low 9.5-13.5 [facility] Comment on above: Performed By: #### C BC #### [facility] [address] [place] [address] Dr. Daniela Ledesma PLT 286 103/ul Normal 150-450 [facility] Comment on above: Performed By: #### C BC #### [facility] [address] [place] [address] Dr. Daniela Ledesma RBC 5.08 106/ul Normal 4.20-5.40 [facility] Comment on above: Performed By: #### C BC #### [facility] [address] [place] [address] Dr. Daniela Ledesma WBC 15.1 103/ul Critically high 4.0-11.0 [facility] Comment on above: Performed By: #### C BC #### [facility] [address] [place] [address] Dr. Daniela Ledesma SED RATE WESTERGRENon 2022 SED RATE 34 mm/hr Critically high <=30 [facility] Comment on above: Performed By: #### S EDR #### [facility] [address] [place] [address] Dr. Daniela Ledesma URIC ACID SERUMon 01-21-2023 Urate [Mass/Vol] 7.5 mg/dL Critically high 2.6-6.0 [facility] Comment on above: Performed By: #### U TUTU #### [facility] [address] [place], [place] [address] Dr. Daniela Ledesma CPKon 01-12-2023 CK [Catalytic activity/Vol] 98 U/L Normal 26-192 [facility] Comment on above: Performed By: #### M YO, CK #### [facility] [address] [place], [place] [address] Dr. Daniela Ledesma MYOGLOBINon 01-12-2023 SAW 34 ng/mL Normal 9-82 [facility] Comment on above: Performed By: #### M YO, CK #### [facility] [address] [place], [place] [address] Dr. Daniela Ledesma MR cervical spine wo conon 0 11-27-2022 MR cervical spine wo con [facility] [address] XRay Report Signed Patient: Mayra Coates MR#: [id number] : 1970 Acct:[id number] Age/Sex: 52 / F ADM Date: 11/26/22 Loc: MR Room: Type: [facility] Attending Dr: Brendan COCHRAN Copies to: DIMAS Rand Ordering Provider: DIMAS Rand Date of Service: 11/26/22 MR/MR cervical spine wo con: R20.2, M79.601 ([id number]) XR/XR pre/post mri xray: PRE MRI OF [...] Jillian Angelo M.D.11/27/2022 10:13 AM Dictation Location: [place] [address] Transcribed By: [facility] 11/27/22 1013 Dictated By: Jillian Angelo MD 11/27/22 0948 Signed By: 11/27/22 1013 [facility] US Thyroidon 10-17-2022 US Thyroid HISTORY: [...] by Ezekiel Hernandez on 10/17/2022 1005 Normal [facility] 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 - Automatic [employer] JORDANA - [employer] [place] [facility], [place] MAYRA COATES 1970 Date of Female Sex [id number] [place] [address] AddressEnglish (preferred) Language White Race Not or Ethnicity Summary of Care Clinical Content Allergies and Adverse Reactions <#[id number]> Encounters <#SI5IDVSV> Functional Status <#SW1FMHRF> Immunization <#RM0ZXUQY> Instructions <#US7YFJNL> Interventions Provided <#HH7U9TTC> Medications <#XN8SCJYJ> Plan of Care <#[id number]> Problems <#HI0IPFVC> Procedures <#OY0DEKGP> Results <#DT5X26WF> Social History <#WN9IEIUC> Vital Signs <#FM8OGMHO> Other Document Details Health Care Providers Functional Statustop <#top> Functional Status Health Issues NameDОльгаs Functional status health issues are not documented Cognitive Status Health Issues NameDОльгаs Cognitive status health issues are not documented Problemstop <#top> Jarrod Eczema (692.9, L30.9) Tennis elbow (726.32, M77.10) Medicationstop <#top> Jarrod Meloxicam 15 MG Oral Tablet TAKE 1 TABLET BY MOUTH EVERY DAY Quantity: 60 Refills: 2 Joshua Fraser DO Start : 29-Nov-2018 Triamcinolone Acetonide 0.1 % External Cream APPLY TO AFFECTED AREA BID Quantity: 60 Refills: 2 Joshua Fraser DO Start : 13-Feb-2020 Allergies and Adverse Reactionstop <#top> Jarrod Allergy history not documented Procedurestop <#top> ProcedureDatesDetails Procedures not documented Immunizationtop <#top> Valdezs Immunizations not documented Social Historytop <#top> Smoking Status NameDAnton Tobacco smoking consumption unknown (finding) Vital Signstop <#top> DateTestResultDetails No Known Vitals to report Resultstop <#top> DateDescriptionValueDe tails Results not documented Plan of Caretop <#top> [...] Care Providerstop <#top> Ambulatory Health Care Facilities JoshuaZo aNpier AddressJoel [email or web address] Work Email [facility] [address] [place] [address] Address Ambulatory Health Care Facilities None, No PCPUnknown Address Document Detailstop <#top> [facility] Joshua Fraser, February 13, 2020 11:46 -0400 [id number] [place] [address] [phone] Work Phone Powered by ComActivity?Style Sheet V3.2 Normal [email or web address] JORDANA - [employer] [place], [place] ALLANNETTIECORDELIAMAYRA 1970 Date of Female Sex [id number] [place] [address] AddressEnglish (preferred) Language White Race Not or Ethnicity Summary of Care Clinical Content Allergies and Adverse Reactions <#AG5DYHAO> Encounters <#VW5PIAMI> Functional Status <#MS5PQTPI> Immunization <#NI7FQHTZ> Instructions <#ED0QVKXE> Interventions Provided <#QB0DA7DG> Medications <#TO6VLTAH> Plan of Care <#RB0TJ0KF> Problems <#QF8LMIUL> Procedures <#CJ8ZXCTB> Results <#SC7U49ZL> Social History <#TW9QPGFV> Vital Signs <#UR0IUVMJ> Other Document Details Health Care Providers Functional [...] No Known Vitals to report Resultstop <#top> DateDescriptionValueDe tails Results not documented Plan of Caretop <#top> [...] Follow up in 3 months Instructionstop <#top> NameDAnton Instructions not documented Encounterstop <#top> Appointment; Joshua Fraser DO Encounter Diagnosis: Problem not documentedOn: 13-Feb-2020 10:00 Health Care Providerstop <#top> Ambulatory Health Care Facilities Zo Rivera AddressJoel [email or web address] Work Email [facility] [address] [facility] [place] [address] [place] [address] Address Ambulatory Health Care Facilities None, No PCPUnknown Address Document Detailstop <#top> [facility] Fraser DO February 13, 2020 11:15 -0400 [id number] [facility] [place] [address] [place] [address] [phone] Work Phone Powered by ComActivity?Style Sheet V3.2 Normal [email or web address] JORDANA - Automatic [place] [facility] Padilla [place] MAYRA COATES 1970 Date of Female Sex [id number] [place] [address] AddressEnglish (preferred) Language White Race Not or Ethnicity Summary of Care Clinical Content Allergies and Adverse Reactions <#ZN1LVMBE> Encounters <#QG5BBMBO> Functional Status <#PX7RKESQ> Immunization <#MJ2CQYGC> Instructions <#HX0MWPKR> Interventions Provided <#CX4V2AAO> Medications <#WZ5EWEWF> Plan of Care <#UO6MWYOP> Problems <#OO4BHZLB> Procedures <#OC9Z9KPU> Results <#QB1GZSHP> Social History <#OF0BPFMI> Vital Signs <#UK5E9JNA> Other Document Details Health Care Providers Functional [...] No Known Vitals to report Resultstop <#top> DateDescriptionValueDe tails Results not documented Plan of Caretop <#top> [...] <#top> Ambulatory Health Care Facilities Zo Rivera AddressJoel [email or web address] Work Email [facility] [address] [place] [address] Address Ambulatory Health Care Facilities None, No PCPUnknown Address Document Detailstop <#top> [facility] Joshua Fraser DO February 13, 2020 11:01 -0400 [id number] [place] [address] [phone] Work Phone Powered by ComActivity?Style Sheet V3.2 Normal [email or web address] School/Work Letteron 020 School/Work Letter February 13, [...] Feb 13 2020 11:34AM EST (Author) Normal [email or web address] Provider Note - ED v2on 09-07 Provider [...] medications, allergies, medical history, and surgical history ALLERGIES/INTOLERANCES : Allergy Allergen: propylthiouracil Type: Drug Reaction: Hives/Urticaria HEALTH HISTORY: No documented data. OUTPATIENT MEDICATIONS: Home Medications Review Status for Reconciliation: Incomplete Med Status: Incomplete Medication History Drug Name: methIMAzole Instructions: 60 orally once a day Drug Name: metoprolol Instructions: 60 milligram(s) orally once a day SIGNIFICANT EVENTS: Past Medical History Description:Hypertensi on (HTN) Description:Hypothyroi d Past Surgical History Description:Hysterecto my Description:Cholecyste ctomy CONFERENCE DIRECTOR: Is : no(1) Is : no(1) REVIEW [...] SIGNS: T PRBP SpO2O2(LPM) %FiO2 Method 27-Sep-2019 19:18:[id number]/7 3 99 room air, no respiratory support MEDICAL [...] Triage - ED 27-Sep-2019 19:[address] [facility] ([place], [place]) Risk Screen - Adult Emergenc yon 09-27-2019 Risk Screen - Adult Emergency Preferred Language: Preferred Language: Preferred Language for Discussing Health Care (patient/designee)Engl addis Advanced Directives: Advance Directive/DNRno Family Violence Adult: Abuse Screen: Are you or have you been threatened or abused physically, emotionally, or sexually by anyoneno Learning Assessment (Patient): Learning Assessment (Patient): Patient is Able to be Assessed for Learningyes Factors Influencing Readiness to Learnacuteness of illness Factors that Impact Ability to Learnnone Devices/Methods Used to Communicatenone Learning Preferencesaudio Cultural Considerationsnone Developmental Considerationsnone Mandaeism Considerationsnone Learning Assessment (Other Learner): Learning Assessment (Other Learner): Other learner availableno Pressure Injury/TB/Substance: Pressure Injury: Pressure Injury Present on Admissionno Do you have a coughno Admission Risk Screen: Significant IndicatorsComplete CAGE: CAGE: Is this an injured patient at a Trauma Center ([facility]/[place]/[facility]/[place]): no Electronic Signatures: Gali Meyer (HENRY) (Signed 27-Sep-2019 19:36) Authored: Preferred Language, Advanced Directives, Family Violence Adult, Learning Assessment (Patient), Learning Assessment (Other Learner), Pressure Injury/TB/Substance, CAGE Last Updated: 27-Sep-2019 19:36 by Gali Meyer (HENRY) Normal [facility] ([place], [place]) Triage - EDon 09-27-2019 Triage - ED [...] than 3 weeks: no Travel outside of [facility]: no Allergies: yes CONFERENCE DIRECTOR History: 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 Patient has homicidal thoughts: no [...] (0-10): 9 = Severe PRIMARY ASSESSMENT MAYRA COATES's primary assessment is Within Normal Limits. [...] by Sherry Bronson (STAFF N) Normal [facility] ([place], [place]) CBC With Platelet No Differe ntialon 03-07-2018 Erythrocyte distribution width Auto Ratio (RBC) 13.0 % Normal 11.5-14.5 [facility] Erythrocytes (RBC) 5.17 10*6/uL Normal 4.20-5.40 [facility] Hematocrit (HCT) 44.4 % Normal 37.0-47.0 [facility] Hemoglobin mass conc (Bld) 15.3 g/dL Normal 12.0-16.0 [facility] MCH 29.6 pg Normal 27.0-31.3 [facility] MCHC mass conc (RBC) 34.4 % Normal 33.0-37.0 [facility] MCV 85.9 fL Normal 82.0-100.0 [facility] Platelets 287 10*3/uL Normal 130-400 [facility] [place] [facility] WBC (Leukocytes) 6.8 10*3/uL Normal 4.8-10.8 [facility] [place] [facility] TSH w/out Reflexon 8 Thyroid stimulating hormone (TSH) m[IU]/L Low 0.270-4.20 [facility] Thyroxine Freeon 03-07-2018 Thyroxine Free 2.23 ng/dL Critically high 0.93-1.70 [facility] CBC With Platelet No Differe ntialon 02-07-2018 Erythrocyte distribution width Auto Ratio (RBC) 12.7 % Normal 11.5-14.5 [facility] Erythrocytes (RBC) 4.65 10*6/uL Normal 4.20-5.40 [facility] Hematocrit (HCT) 40.2 % Normal 37.0-47.0 [facility] Hemoglobin mass conc (Bld) 14.0 g/dL Normal 12.0-16.0 [facility] MCH 30.1 pg Normal 27.0-31.3 [facility] MCHC mass conc (RBC) 34.8 % Normal 33.0-37.0 [facility] MCV 86.4 fL Normal 82.0-100.0 [facility] Platelets 241 10*3/uL Normal 130-400 [facility] [place] [facility] WBC (Leukocytes) 6.8 10*3/uL Normal 4.8-10.8 [facility] TSH w/out Reflexon 8 Thyroid stimulating hormone (TSH) m[IU]/L Low 0.270-4.20 [facility] Thyroxine Freeon 02-07-2018 Thyroxine Free 3.43 ng/dL Critically high 0.93-1.70 [facility] Vital Signs Date Time Vital Sign Value Performing Clinician Facility 06-09-2025 23:01-0400 Diastolic blood pressure 61 mm[Hg] Jabier Donato MD Work Phone: [facility] 06-09-2025 23:01-0400 Heart rate 94 /min Jabier Donato MD Work Phone: [facility] 06-09-2025 23:01-0400 Respiratory rate 18 /min Jabier Donato MD Work Phone: [facility] [employer] [facility] 06-09-2025 23:01-0400 SaO2% (BldA) [Mass fraction] 95 % Jabier Donato MD Work Phone: [facility] 06-09-2025 23:01-0400 Systolic blood pressure 111 mm[Hg] Jabier Donato MD Work Phone: [facility] 06-09-2025 19:16-0400 Body height 162.6 cm Jabier Donato MD Work Phone: [facility] 06-09-2025 19:06-0400 Body mass index (BMI) [Ratio] 42.57 kg/m2 Jabier Donato MD Work Phone: [facility] [employer] [facility] 06-09-2025 19:06-0400 Body temperature 98.8 [degF] Jabier Donato MD Work Phone: [facility] 06-09-2025 19:06-0400 Body weight 112.49 kg Jabier Donato MD Work Phone: [facility] 09-10-2024 13:12-0500 Body height 162.6 cm Zehra Marques MD Work Phone: [facility] 09-10-2024 13:12-0500 Body mass index (BMI) [Ratio] 43.26 kg/m2 Zehra Marques MD Work Phone: [facility] 09-10-2024 13:12-0500 Body weight 114.31 kg Zehra Marques MD Work Phone: [facility] 09-10-2024 13:12-0500 Diastolic blood pressure 72 mm[Hg] Zehra Marques MD Work Phone: [facility] 09-10-2024 13:12-0500 Heart rate 119 /min Zehra Marques MD Work Phone: [facility] 09-10-2024 13:12-0500 Respiratory rate 18 /min Zehra Marques MD Work Phone: [facility] 09-10-2024 13:12-0500 SaO2% (BldA) [Mass fraction] 97 % Zehra Marques MD Work Phone: [facility] 09-10-2024 13:12-0500 Systolic blood pressure 124 mm[Hg] Zehra Marques MD Work Phone: [facility] Encounters Encounter Date Encounter Type Care Provider Facility Start: 06-09-2025 End: 06-09-2025 Emergency department patient visit Jabier Donato MD Work Phone: [facility] Emergency Department Comment on above: Injury of head, init ial encounter (Primary Dx); Hypothyroidism, unspecified type Start: 02-22-2025 End: 02-22-2025 ambulatory Vinay Crews MD Facility:[facility] Start: 11-19-2024 End: 11-19-2024 ambulatory [facility] Start: 11-19-2024 End: 11-19-2024 ambulatory [facility] Start: 11-13-2024 End: 11-13-2024 ambulatory [facility] Start: 11-13-2024 End: 11-13-2024 Refill Zehra Marques MD Work Phone: [facility] Comment on above: 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 (CMS/HCC) Start: 11-09-2024 End: 11-09-2024 ambulatory Vinay Crews MD Facility:[facility] Start: 11-04-2024 End: 11-04-2024 Clinisync Result Encounter [...] 07-06-2024 End: 07-06-2024 ambulatory Vinay Crews MD Facility:[facility] Start: 07-02-2024 End: 07-02-2024 Refill Zehra Marques MD Work Phone: [facility] Comment on above: 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 Facility:[facility] Start: 01-12-2023 End: 01-13-2023 ambulatory BRENDAN COYLE Facility:[facility] Start: 11-26-2022 End: 11-26-2022 ambulatory Brendan Coyle Facility:[facility] Start: 11-26-2022 End: 11-26-2022 ambulatory MD Zehra Marques Work Phone: [facility] Work Phone: Start: 11-26-2022 End: 11-26-2022 Patient encounter procedure MD Zehra Marques Work Phone: [facility] [place] Work Phone: Start: 11-19-2022 End: 11-20-2022 ambulatory DAPHNEY RODRIGUEZ Facility:[facility] Start: 09-17-2022 ambulatory DAPHNEY RODRIGUEZ Fac ility:[facility] Start: 05-13-2020 Patient encounter procedure Ezekiel Devi [facility] Work Phone: Start: 03-26-2020 [facility] Work [facility] Start: 02-13-2020 Patient encounter procedure Ezekiel Devi [facility] Work Phone: Procedures Date Procedure Procedure Detail Performing Clinician Start: 06-09-2025 Assay of free thyroxine Jabier Donato MD Work Phone: Start: 06-09-2025 Urnls dip stick/tabl et rgnt auto w/o microscopy Jabier Donato MD Work Phone: Start: 06-09-2025 Basic metabolic pane l calcium total Jabier Donato MD Work Phone: Start: 06-09-2025 Radiologic examinati on pelvis 1/2 views Jabier Donato MD Work Phone: Start: 06-09-2025 Ct cervical spine w/ o contrast material Jabier Donato MD Work Phone: Start: 06-09-2025 Ct head/brain w/o co ntrast material Jabier Donato MD Work Phone: Start: 06-09-2025 Ecg routine ecg w/le ast 12 lds w/i&r Jabier Donato MD Work Phone: Start: 11-04-2024 MR LUMBAR SPINE WO CON [...] Start: 09-10-2024 TSH W/REFLEX TO FT4 Mar y Thu Marques MD Work Phone: Start: 07-19-2023 Mammography [...] 03-26-2020 Follow-up visit Start: 02-13-2020 Follow-up visit Plan of Treatment Date Care Activity Detail Author Start: 08-13-2026 Screening for malign ant neoplasm of colon [facility] Start: 09-10-2025 Urine screening for protein Diabetes: Urine Protein Screening [facility] Start: 07-19-2025 Screening for malign ant neoplasm of breast Breast cancer screen [facility] Start: 07-11-2025 Glaucoma screening Diabetes: R etinopathy Screening [facility] Start: 06-07-2025 COVID-19 Vaccine ( season) COVID-19 Vaccine ( season) [facility] Start: 05-07-2025 Influenza vaccination Flu vaccine (# 1) [facility] Start: 04-05-2025 Influenza vaccination Influenza Vacc ine (#1) [facility] Comment on above: Postponed from 06/07 (Insurance / Financial) Start: 03-11-2025 End: 03-11-2025 Patient encounter procedure 03/11/2025 1:00 PM EDT Office Visit [facility] [address] [place] [address] Zehra Marques MD [address] [place] [address] [facility] Start: 12-10-2024 End: 09-11-2025 TSH W/REFLEX TO FT4 TSH W/REFLEX TO FT4 Lab Routine Hypothyroidism, unspecified type (CMS/HCC) Expected: 12/10/2024 (Approximate), Expires: 09/11/2025 [facility] Work Phone: Comment on above: Expected: 12/10/2024 (Approximate), Expires: 09/11/2025 Start: 12-09-2024 Hemoglobin A1c measurement Anna betes: Hemoglobin A1C [facility] Start: 10-15-2024 End: 10-15-2024 Professional / ancillary services management 10/15/2024 3:00 PM EST Ancillary Procedure [facility] [address] [place] [address] [facility] Start: 09-10-2024 End: 11-11-2025 DBT Breast - bilateral screening Bilateral screening mammogram with tomosynthesis Imaging Routine Breast cancer screening by mammogram Expected: 09/10/2024, Expires: 11/11/2025 [facility] Work Phone: Comment on above: Expected: 09/10/2024 , Expires: 11/11/2025 Start: 07-19-2024 Screening for malign ant neoplasm of breast Mammogram [facility] Start: 06-07-2024 Influenza vaccination Influenza Vacc ine (#1) [facility] Start: 08-20-2023 Urine screening for protein Diabetes: Urine Protein Screening [facility] Start: 07-23-2023 Hemoglobin A1c measurement Anna betes: Hemoglobin A1C [facility] Start: 11-26-2022 MR Cervical spine WO contrast [facility] Start: 11-26-2022 MRI of cervical spin e without contrast MR cervical spine wo con [facility] Start: 11-26-2022 XR pre/post mri xray XR pre/post mri xray [facility] Start: 11-26-2022 [facility] Start: 12-25-2021 Diabetes screen Diabetes screen [facility] Start: 2020 Shingles vaccine (1 of 2) Gilliam gles vaccine (1 of 2) [facility] Start: 2015 Screening for malign ant neoplasm of colon [facility] Start: 2010 Lipid panel Lipids [facility] Start: 2000 Screening for malign ant neoplasm of cervix [facility] Start: 1991 Screening for malign ant neoplasm of cervix Pap smear [facility] Start: 1989 DTaP/Tdap/Td vaccine (1 - Tdap) DTaP/Tdap/Td vaccine (1 - Tdap) [facility] Start: 1989 Hepatitis B vaccine (1 of 3 - 19+ 3-dose series) Hepatitis B vaccine (1 of 3 - 19+ 3-dose series) [facility] Start: 1989 Pneumococcal 50+ yea rs Vaccine (1 of 2 - PCV) Pneumococcal 50+ years Vaccine (1 of 2 - PCV) [facility] Start: 1988 Hepatitis C screening Hepatitis C sc reen [facility] Start: 1985 HIV screening HIV screen [facility] Start: 1982 Depression Screen Depression Screen [facility] Start: 1970 Screening for malign ant neoplasm of colon [facility] EKG 12 Lead EKG 12 Lead ECG Routine 06/09/2025 7:30 PM EDT [facility] End: 06-09-2025 Triiodothyronine (T3) Free [Mass/volume] in Serum or Plasma [facility] Comment on above: One Time for 1 Occur rences starting 06/09/2025 until 06/09/2025 Payers Date Payer Category Payer Unknown 2023 Medicaid [id number] 2022 Self-pay 1970 Unknown [id number] 2.16.84 [id number] 1970 Unknown [id number] 2.16.84 [id number] 1970 Unknown [id number] 2.16.84 [id number] 1970 Unknown [id number] 2.16.84 [id number] 1970 Unknown [id number] 2.16.84 [id number] 1970 Unknown [id number] 2.16. [id number] 1970 Unknown [id number] 2.16. [id number] 1970 Unknown [id number] 2.16. [id number] 1970 Unknown [id number] 2.16. [id number] 1970 Unknown [id number] 2.16. [id number] 1970 Unknown [id number] 2.16. [id number] 1959 Medicaid [id number] Unknown [id number] 2.16.8 [id number] Social History Date Type Detail Facility Assertion Tobacco smoking consumption unknown (finding) [facility] Work Phone: Start: 1970 Sex Assigned At Female F [facility] Start: 04-22-2023 Tobacco smoking stat [facility] Ex-smoker [facility] End: 10-07-2021 History of tobacco use Current smoker [facility] End: 10-07-2021 History of tobacco use Cigarette Smoker [facility] Start: 04-22-2023 Tobacco use and exposure User of smokeless tobacco [facility] Start: 07-04-2023 End: 09-10-2024 Alcoholic beverage intake Ex-drinker (finding) [facility] Start: 07-04-2023 End: 06-09-2025 History of Social function [facility] Start: 07-04-2023 End: 06-09-2025 Tobacco use panel [facility] Start: 05-02-2023 Alcohol Comment 1-2 drinks, mo nthly or less. caffeine intake: 2-3 cups per day. [facility] Start: 1970 Sex assigned at Not on file [facility] Start: 03-14-2018 [facility] Start: 03-14-2018 Tobacco use and exposure Smokeless tobacco non-user [facility] Start: 06-09-2025 Alcoholic beverage intake Lifetime non-drinker (finding) [facility] PHQ-2 Score 0 Abzena How often to you hav e a drink containing alcohol? Never [facility] Start: 02-23-2016 Tobacco Comment pt trying to cut linda k [facility] Start: 11-18-2012 Sex Female (finding) [facility] Procedure Code Equipment Code Equipment Origin al Text Equipment Identifier Dates USE TO TEST BLOO D SUGAR TWICE DAILY [id number] Start: 09-28-2023 End: 11-13-2024 USE TO TEST BLOO D SUGAR TWICE DAILY [id number] Start: 11-13-2024 Goals Date Patient Goal Desired Activity /State Personal health goal Functional Status Date Assessment Result Facility [facility] NEGATED: Highlighted row Functional performance Functional status health issues are not documented Disease [facility] Work Phone: Mental Status Date Assessment Result Facility NEGATED: Highlighted row Cognitive function [Interpretation] Cognitive status health issues are not documented Disease [facility] Work Phone: Clinical Notes 08-20-2022 to 06-09-2025 Discharge InstructionsAttachmentsTelephone Encounter - Zehra Marques MD - 11/13/2024 8:19 AM ESTTelephone Encounter - Zehra Marques MD - 11/13/2024 8:19 AM Mala Marques MD - 09/10/2024 1:00 PM EST Note Date & Type Note Facility 06-09-2025 Hospital Discharg e instructions Jabier Donato MD - 06/09/2025 9:07 PM EDT You are seen in the ER today due to fall with multiple injuries. CT scan of your head and neck did not reveal any obvious fractures or brain bleed. CT of your lumbar spine showed herniations pressing on nerves spine on the spinal cord itself. X-rays of your bilateral upper extremities did not reveal any obvious fractures including the hip x-ray and your left knee x-ray. Lab workup was otherwise reassuring. Please follow-up with your pain management and neurology-spinal surgery. Please return back to the ED with frequent falling at home if you are unable to walk. We can place you at a facility for physical therapy if needed, we did offer you this but you endorsed did rather go home at this time. I will give you contact info for neurosurgery here at [facility], please call to schedule an appointment soon as possible for follow-up. In the meantime, please follow-up with your PCP for your hypothyroidism, we will give you contact information for our local PCPs if you would like to stay local. CT lumbar results FINDINGS: BONES AND ALIGNMENT: No sign of acute osseous injury to the lumbar spine. Normal vertebral body heights. No acute fracture or suspicious bone lesion. Normal alignment. DEGENERATIVE CHANGES: Vacuum phenomenon of the intervertebral disc at L5-S1 with normal disc height. Moderate left L5-S1 foraminal zone disc bulging with annular ossification impinging upon the left L5 nerve root without compression of the nerve root. Normal right L5-S1 neural foramen. Prominent right and mild left L3-4, moderate right and mild left L4-5, and prominent right and moderate left L5-S1 facet arthropathy. SOFT TISSUES: No acute abnormality. IMPRESSION: 1. No acute osseous injury. 2. Moderate left L5-S1 foraminal zone disc bulging with annular ossification impinging upon the left L5 nerve root without compression. 3. Right greater than left inferior lumbar facet arthropathy as described above. The following attachments cannot be sent through Care Everywhere.Closed head injury: Fast facts: Video (Sammarinese)Head Injury: Closed: General Info (Sammarinese)documented in this encounter [facility] 11-19-2024 Note NEUROSURGERY NOTE SUBJECTIVE: Chief complaint: Back and left leg pain. History of present illness: Consultation referred by [facility] pain management, Tammie Tapia NP, for back [...] done aquatic therapy in the past at [facility]. No previous back surgery. Review of systems: [...] spondylosis with radiculopathy. (more content not included)... [facility] 11-19-2024 Note NEUROSURGERY NOTE SUBJECTIVE: Chief [...] standing for very long. 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 [facility] 11-13-2024 Telephone encounter Note Approvals with refills [facility] 11-13-2024 Miscellaneous Notes Approvals with refills documented in this encounter [facility] 09-14-2024 Telephone encounter Note Approvals with refills [facility] 09-14-2024 Miscellaneous Notes Approvals with refills documented in this encounter [facility] 09-10-2024 History of Presen t illness Narrative [...] 90 DAYS cholecalciferol (Vitamin D-3) 50 MCG (2000 UT) capsule TAKE 1 CAPSULE BY MOUTH [...] for physical therapy and water therapy at [facility] will be arranged. 2. Diabetes Mellitus. Her [...] follow up. 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 note No assessment inform [facility] Work Phone: Evaluation note Diagnosis Hypothyroidism, unspecified type (CMS/HCC)- Primary documented in this encounter [facility] HealthcareEvaluation note* Diagnosis Breast cancer screening [...] arthritis and tophaceous disease Other specified hypothyroidism (CMS/HCC) Fibromyalgia Unspecified myalgia and myositis Restless legs syndrome (RLS) Other insomnia Chronic bilateral low back pain without sciatica documented in this encounter [facility]* Diagnosis Urine, incontinence, stress female Female stress incontinence documented in this encounter [facility] HealthcareEvaluation note* Diagnosis Type 2 diabetes mellitus with diabetic chronic kidney disease (CMS/HCC) documented in this encounter [facility] HealthcareEvaluation note* Diagnosis Type 2 diabetes mellitus with diabetic chronic kidney disease (CMS/HCC) documented in this encounter [facility] HealthcareEvaluation note* Diagnosis Injury of head, initial encounter- Primary Hypothyroidism, unspecified type documented in this encounter [facility] Summary Purpose Family History No Family History [...] content) DATE CREATED AUTHOR 03/26/2018 [facility] DATE CREATED AUTHOR AUTHOR'S ORGANIZ ATION 10/02/2019 [facility] DATE CREATED AUTHOR AUTHOR'S ORGANIZ ATION 05/19/2020 [facility] DATE CREATED AUTHOR AUTHOR'S ORGANIZ ATION 10/17/2022 [facility] dical Specialist DATE CREATED AUTHOR AUTHOR'S ORGANIZ ATION 12/02/2022 [facility] DATE CREATED AUTHOR AUTHOR'S ORGANIZ ATION 02/19/2023 [facility] DATE CREATED AUTHOR AUTHOR'S ORGANIZ ATION 11/26/2024 [facility] DATE CREATED AUTHOR AUTHOR'S ORGANIZ ATION 03/05/2025 [facility] DATE CREATED AUTHOR AUTHOR'S ORGANIZ ATION 06/11/2025 [facility] Care Teams (unrecognized sec tion and content) Team Status: Inactive Member Role Status Dates Brendan Coyle NP-C Attending Provider Active Zehra Marques MD Primary Care Provider Active Team Status: Active Member Role Status Dates Zehra Marques MD Primary Care Provider Active Sld Teacher Relationship Specialty Start Date End Date Zehra Marques MD [address] [facility] [place] [address] PCP - General Family Medicine 02/21/23 Zehra Marques MD [address] [facility] [place] [address] PCP - [facility] 01/06/24 Sld Teacher Relationship Specialty Start Date End Date Zehra Marques MD [address] [place] [address] PCP - General Family Medicine 02/21/23 Zehra Marques MD [address] [place] [address] PCP - [facility] 01/06/24 Sld Teacher Relationship Specialty Start Date End Date Zehra Marques MD [address] [place] [address] PCP - General Family Medicine 02/21/23 Zehra Marques MD [address] [place] [place] [address] PCP - [facility] 01/06/24 Sld Teacher Relationship Specialty Start Date End Date Zehra Marques MD [address] [place] [place] [address] PCP - General Family Medicine 02/21/23 Zehra Marques MD [address] [place] [place] [address] PCP - [facility] METEOROLOGIST IN CHARGE 01/06/24 Sld Teacher Relationship Specialty Start Date End Date Zehra Marques MD [address] [place] [address] PCP - General Family Medicine 02/21/23 Zehra Marques MD [address] [facility] [place] [address] PCP - [facility] [place] [facility] 01/06/24 Sld Teacher Relationship Specialty Start Date End Date Zehra Marques MD [address] [facility] [place] [address] PCP - General Family Medicine 02/21/23 Zehra Marques MD [address] [facility] [place] [address] PCP - [facility] [place] [facility] 01/06/24 Sld Teacher Relationship Specialty Start Date End Date Zehra Marques MD [address] [place] [address] PCP - General Family Medicine 02/21/23 Zehra Marques MD [address] [place] [address] PCP - [facility] [place] [facility] 01/06/24 Sld Teacher Relationship Specialty Start Date End Date Michelle Choi DO [address] [place] [id number] PCP - General 02/23/16 Goals (unrecognized section and content) Goals may be documented in a n alternate section Reason for Visit (unrecogniz ed section and content) Reason Comments Annual Exam Reason Comments Med Change Request Reason Comments Med Refill Reason Comments Fall Ordered Prescriptions (unrec ognized section and content) Prescription Sig Dispense Quantity Refills Last Filled Start Date End Date methocarbamol (ROBAXIN) 500 MG tablet Take 1 tablet by mouth 3 times daily for 7 days 21 tablet 06/09/2025 06/16/2025 predniSONE (DELTASONE) 50 MG tablet Take 1 tablet by mouth daily for 5 days 5 tablet 06/09/2025 06/14/2025 Scheduled Active and Recently Administ ered Medications (unrecognized section and content) Medication Order 06/07/2025 06/08/2025 06/09/2025 diazePAM (VALIUM) tablet 5 mg (COMPLETED) 5 mg, Oral, ONCE, 1 dose, On Sat06/09/25 at 2102115 (Given - Provid er: Akanksha Mixon RN) ketorolac (TORADOL) injection 30 mg (COMPLETED) 30 mg, IntraVENous, ONCE, 1 dose, On Sat06/09/25 at 2108, Do not administer for more than 5 days. 2117 (Given - Provid er: Akanksha Mixon RN) lidocaine 4 % external patch 1 patch 1 patch, TransDERmal, Administer over 12 Hours, ONCE, On Sat06/09/25 at 2108, For 1 dose, Apply patch to area of pain. Patch may remain in place for up to 12 hours in any 24 hour period. The compliance clerk's recommendations for the number of patches that can be applied within a 24-hour period varies from 1 to 4 times daily and the duration of application varies from 8 to 24 hours; refer to the compliance clerk's labeling for product-specific recommendations. 2118 (Patch Applied - Provider: Akanksha Mixon RN) FOR RECORDS PERTAINING TO PATIENTS WHO ARE [...] BE BASED ON THE PRIMARY CLINICAL RECORDS. [employer] provides no warranty or guarantee of the accuracy or completeness of information in this document.
[2025-06-14 11:04] VITALS: BP 129/87; PULSE 100; TEMP 36.5; O2SAT 99
[2025-06-14 11:43] VITALS: PULSE 95; O2SAT 94
[2025-06-14 11:44] VITALS: BP 154/89
[2025-06-14 11:45] VITALS: BP 170/78; PULSE 89; O2SAT 99
[2025-06-14] MEDS: 0.9 % SODIUM CHLORIDE 10 ML SYRINGE - SALINE FLUSH INJ (11:45)
[2025-06-14] MEDS: METHYLPREDNISOLONE ACETATE 80 MG/ML VIAL INJ (11:46)
[2025-06-14] MEDS: LIDOCAINE HCL 2% 400 MG/20 ML MDV 3 ML INJ (11:46)
[2025-06-14] MEDS: BUPIVACAINE HCL 0.25% PF 25 MG/10 ML VIAL INJ (11:46)
[2025-06-14] MEDS: IOHEXOL 240 MG/ML - 10 ML VIAL 24 MG INJ (11:46)
--- NOTE | 2025-06-14 11:56 | W.PM.PROCNOT ---
Date of procedure: 06/14/25 Pre-op diagnosis: Pain due to lumbar stenosis with neurogenic claudication Post-op diagnosis: same as pre-op Procedure: Procedure: Bilateral L5-S1 transforaminal epidural steroid injection Medications: Bupivacaine 0.25% 2cc, lidocaine 2% 1cc, depomedrol 80mg The patient was seen and examined in the preoperative holding area.? Informed consent was obtained and placed on the chart.? Patient was brought to the medical procedure unit and placed in the prone position where a timeout was completed verifying the correct patient, procedure site, position, and planned special equipment using sterile aseptic technique.? Under direct fluoroscopic visualization a 25-gauge Quincke tipped spinal needle was advanced at level left L5-S1 to the designated neural foramen where contrast dye was injected to show adequate spread.? There was no evidence of vascular or adverse uptake.? Epidural spread was appreciated.? The above-mentioned injectate was then placed in a 1.5 mL aliquot preceded by negative aspiration.? The needle was removed. The same procedure, at the same level, was completed on the opposite side. ? Patient was taken to the postprocedural recovery area and monitored for an appropriate length of time before found suitable for discharge in the accompaniment of a responsible adult.? Anesthesia: Local Surgeon: Vinay Crews Pathology: none sent Condition: stable Disposition: no change
== END 2025-06-14 12:03 | disposition home or self-care (01) ==
LOC: SURGOUT 10:32
PROVIDERS: PCP Family Medicine; Visit Provider Anesthesiology
DX: M48.062 Spinal stenosis, lumbar region with neurogenic claudication (principal); M54.50 Low back pain, unspecified; E11.8 Type 2 diabetes mellitus with unspecified complications; Z79.85 Long-term (current) use of injectable non-insulin antidiabetic drugs
CPT/HCPCS: 36415; 64483; 82948; J0665; J1010; Q9966